=== PATIENT | female | born 1935 | race Caucasian/White ===

== ENCOUNTER 2019-09-09 10:54 | Outpatient (CLI) | payer MEDICARE, OTHER, SELFPAY ==
--- NOTE | 2019-09-09 | US_ITS ---
WS: [id number] ULTRASOUND-GUIDED LEFT BREAST BIOPSY CLINICAL INFORMATION: LT BREAST MASS COMPARISON: None. FINDINGS: The procedure including risks, benefits, and complications were discussed with the patient who agreed to proceed. Using sterile technique patient was prepped and draped in the usual sterile fashion. Aft er 1% lidocaine utilizing real-time ultrasound guidance 6 14-gauge cores were obtained of the left br east lesion at the 9 o'clock position. Subsequently a titanium clip was placed in the biopsy cavity. No immediate complications. Pathology demonstrates: Invasive ductal carcinoma Breast cancer prognostic profile pending US/[place] [id number] IMPRESSION: 1. Uncomplicated ultrasound-guided left breast biopsy. 2. The pathology demonstrates invasive ductal carcinoma 3. Breast cancer prognostic profile pending. BI-RADS: 6-Known Biopsy-Proven Malignancy FOLLOW UP: See Report RECOMMEND ONCOLOGY AND BREAST SURGERY CONSULTATION.
[2019-09-09 11:39] LABS: INR 1.05 (0.8-1.2)
== END 2019-09-09 10:55 | disposition home or self-care (01) ==
PROVIDERS: Family Provider Nurse Practitioner Family; PCP Nurse Practitioner Family; Visit Provider Nurse Practitioner Family
DX: C50.912 Malignant neoplasm of unspecified site of left female breast (principal); Z01.812 Encounter for preprocedural laboratory examination
CPT/HCPCS: 19083; 85610; 88305; 88361; 88367; 88374; J2001

== ENCOUNTER 2019-10-07 07:24 | Outpatient (CLI) | payer MEDICARE, OTHER, SELFPAY ==
[2019-10-06 14:29] VITALS: BMI 27.4
[2019-10-07 07:44] VITALS: BP 160/70; PULSE 65; RESP 18; TEMP 36.7; O2SAT 98
--- NOTE | 2019-10-07 07:47 | NM_ITS ---
WS: [id number] SENTINEL NODE TECHNIQUE: Left sentinel node injection CLINICAL INFORMATION: Left Breast Cancer COMPARISON: None. PROCEDURE: The procedure including risks, benefits, and complications were discussed; the patient agr eed to proceed. Patient was prepped and draped in usual sterile fashion. Subsequently, 1% lidocaine p reservative-free was administered at the 12:00, 3:00, 6:00, and 9:00 o'clock positions for local anes thesia. Subsequently, 4 aliquots of filtered technetium 99m sulfur colloid was injected into the subc utaneous soft tissues. A total dose of 1.02 mCi was administered. Patient tolerated the procedure well with no immediate complications. MS/MS sentinel node inject [id number] IMPRESSION: Uncomplicated left breast sentinel node injection with a total dose of 1.02 mCi .
[2019-10-07] MEDS: sodium chloride 0.9% 1,000 ML 30 ML IV (07:55)
--- NOTE | 2019-10-07 08:58 | ANES.PREANES ---
Pre-Anesthetic Assessment Pre-Anesthetic Assessment: Height/Weight: Height 1.63 m Weight 72.575 kg Temp Pulse Resp BP Pulse Ox 98.0 F 65 18 160/70 98 10/07/19 07:44 10/07/19 07:44 10/07/19 07:44 10/07/19 07:44 10/07/19 07:44 Proposed Procedure: Operation Date: 10/07/19 10:00 Proposed Procedures p Sentinal Lymph Node Biopsy/(Left) - Mario Clark MD s Breast Biopsy/Lumpectomy(Left) - Mario Clark MD Last intake: Intake Last Liquid Date 10/06/19 Last Liquid Time 21:30 Last Solid Date 10/06/19 Last Solid Time 21:30 Exam: Pre-Anes Outpt Exam: alert, oriented x 3, clear to auscultation bilaterally and regular rate & rhythm Airway: Submandibular: WNL Cervical ROM: WNL MP: 2 Dentition: Full History/ROS: No significant history except as noted Pulmonary: Pulmonary: Asthma and HERBERT CV/HEM: CV/HEM: CAD and HTN : Comments: stones Hepatic: Hepatic: None reported GI: GI: GERD (occ) Metabolic: Metabolic: DM and Hyperlipidemia Musc/skel: Musc/skel: OA/DJD Neuropsych: Neuropsych: Anxiety and Depression Anesthetic Plan: ASA status: III Anesthesia: Anesthesia Evaluation and MAC Risk of > 500 ml blood loss (7ml/kg in children): No PFSH Anesthesia PFSH: Medical History Enrolled in chronic care management (Acute) Surgical History H/O heart bypass surgery (Acute) History of carpal tunnel release of both wrists (Acute) History of cataract surgery (Acute) History of hip replacement (Acute) Previous back surgery (Acute) Social History Smoking and tobacco status: former smoker Alcohol intake: never Lives independently: Yes Marital status: / Current occupational status: retired Current gender identity: Female Data Anesthesia Cardiac Studies: No Data to Display
--- NOTE | 2019-10-07 10:37 | PM.HPUD ---
H&P update H&P Update: DATE OF SURGERY/PROCEDURE: 10/07/19 DATE H&P PERFORMED: 09/21/19 H&P UPDATE INFORMATION: H&P completed within last 30 days and No changes to prior documentation PLANNED PROCEDURE: Operation Date: 10/07/19 10:00 Proposed Procedures p Sentinal Lymph Node Biopsy/(Left) - Mario Clark MD s Breast Biopsy/Lumpectomy(Left) - Mario Clark MD Full H&P Perinent History: Medical/Surgical History: Medical History (Updated 10/07/19 @ 09:00 by Avery Meyers MD) Enrolled in chronic care management (Acute) Family History: Family History (Updated 09/06/19 @ 13:41 by Gia Rodriguez LPN) Father Stroke Mother Ovarian cancer Other Breast cancer Cancer Diabetes Heart disease Hypertension Social History: Social History Smoking and tobacco status: former smoker Alcohol intake: never Lives independently: Yes Marital status: / Current occupational status: retired Current gender identity: Female
[2019-10-07] MEDS: clindamycin 900 MG/50 ML PREMIX 100 MG IV (10:46)
--- NOTE | 2019-10-07 11:29 | P.OP_ITS ---
Operative Report Date of procedure: 10/07/19 Pre-op Diagnosis: Left breast cancer in the inner outer quadrant. Post-op diagnosis: same Post-op Findings: Same. Procedure Done: 1. Left breast lumpectomy. 2. Left axillary sentinel lymph node biopsy. Specimens removed/disposition: 1. Left lumpectomy. Long suture anteriorly, short suture laterally. 2. Left axillary sentinel lymph nodes. Surgeon: Mario Clark Anesthesia: MAC Estimated blood loss (mL): 5 Complications: None. Condition: stable Disposition: same day Procedure: The patient was brought to the operating room and was placed in a supine position on the operating room table. The patient had undergone radioactive tracer injection in radiology preoperatively. A monitored anesthetic was induced. The left axilla and breast were prepped and draped in a sterile fashion. The gamma probe was used to find the hot spot in the axilla. A combination of 1% lidocaine and 0.5% bupivacaine with 1-200,000 parts epinephrine was used for local anesthesia throughout the procedure. A curvilinear incision was carried out over the hot spot of the axilla. Cautery and blunt dissection were used to traverse the subcutaneous tissue and the axilla was entered. Using a combination of inspection and the gamma probe, the hot lymph node was found and was completely removed using blunt dissection and cautery. The lymph node registered counts of 96 on the field. An adjacent lymph node was also removed with the first and measured counts in the mid 20s. Further inspection of the axilla with the gamma probe revealed counts all less than 10. The wound was irrigated with saline. A suture of 3-0 Vicryl was used to bring the deeper tissue together and the skin was approximated using a running subcuticular suture of 4-0 Vicryl. Attention was then directed to the left breast. A transverse incision was carried out over the palpable mass in the lower inner quadrant. Skin hooks were used to elevate the skin and skin flaps were created both superiorly and inferiorly. The mass was completely excised with a rim of normal-appearing breast tissue using cautery. A long suture was placed on the specimen anteriorly and a short suture was placed laterally for pathologic orientation. The wound was irrigated with saline and no ongoing bleeding was seen. The skin was reapproximated using a running subcuticular suture of 4-0 Vicryl. Benzoin and Steri-Strips were placed over the wounds and sterile bandages followed. The patient was taken to the outpatient recovery area in stable c ondition postoperatively.
[2019-10-07 11:33] VITALS: BP 89/36; PULSE 58; RESP 14; TEMP 36.3; O2SAT 95
[2019-10-07 12:30] VITALS: BP 158/65; PULSE 64; RESP 18; O2SAT 98
[2019-10-07] MEDS: HYDROcodone-acetaminophen 5-325 mg Tablet 1 TAB PO (13:20)
[2019-10-13 10:11] LABS: Glucose Point of Care 123 mg/dL (70-110)
== END 2019-10-07 13:30 | disposition home or self-care (01) ==
PROVIDERS: Family Provider Nurse Practitioner Family; PCP Nurse Practitioner Family; Visit Provider Surgery
DX: C50.312 Malignant neoplasm of lower-inner quadrant of left female breast (principal); Z17.0 Estrogen receptor positive status [ER+]; Z87.891 Personal history of nicotine dependence; Z80.41 Family history of malignant neoplasm of ovary; E11.9 Type 2 diabetes mellitus without complications; I10 Essential (primary) hypertension
CPT/HCPCS: 36416; 38792; 82962; 88305; A9541; J2001; J2704; J3010; J3490; J7030

== ENCOUNTER → 2019-10-22 11:50 | Outpatient (BNVA) | payer MEDICARE, OTHER, SELFPAY | PROVIDERS: Family Provider Nurse Practitioner Family; PCP Nurse Practitioner Family; Visit Provider Obstetrics & Gynecology | DX: R93.89 Abnormal findings on diagnostic imaging of other specified body structures (principal) | CPT/HCPCS: 88305 ==

== ENCOUNTER 2019-10-25 10:48 | Outpatient (CLI) | payer MEDICARE, OTHER, SELFPAY ==
--- NOTE | 2019-10-25 13:55 | ONC CON_ITS ---
Dr. Mendieta New Patient Note Patient: Reyna Lopez Unit #: [id number]: 1935 Dicatated By: Sofie Mendieta M.D.Date of Visit: Oct 25, 2019 Onc MED New Patient/Consult Referring Physician: Dr. Mario Clark M.D. History of Present Illness: Mrs. Reyna Lopez, is a 83-year-old female with long-standing history of left breast mass, as per patient it was a very small e.g. pea-sized mass in the right lower portion of left breast but she did not seek any intervention until recently when she noticed mass started getting bigger and also pain in the left breast, but no nipple discharge or retraction. Was evaluated by PMD and underwent mammogram which confirmed the mass in the left breast followed by ultrasound-guided biopsy which confirmed invasive carcinoma ER positive SC negative HER-2/denia negative subsequently underwent left breast lumpectomy with left axillary sentinel lymph node biopsy on 10/07/2019 and final pathology report showed ER 94%, SC less than 1%, HER-2/denia negative, Ki-67 is 38 which is high and size of invasive tumor was 3 x 2.6 x 1.7 cm, clear surgical margins , moderately differentiated, p T2 , 2 left axillary lymph nodes showed no evidence of metastatic disease pN0 Patient tolerated procedure well. No history of hormonal supplement, menarche at age 11 or 12, first at age 16, family history significant for 2 sisters with history of breast cancer. Patient also has history of melanoma involving left shoulder status post excision with skin grafting in 1970s .Denies any specific complaints, no bony pains, no nausea or vomiting, no fever or chills, left breast postlumpectomy site is healing well. Past Medical History: Ms. Russos medical history consists of anxiety, arthritis, depression, heart disease, history of bladder cancer, history of melanoma, history of myocardial infarction, hypercholesterolemia, hypertension, and type II diabetes. Past Surgical History: Ms. Russos surgical/procedural history consists of back surgery, bilateral carpal tunnel release, bilateral hip surgery, bladder suspension, cataract excision, coronary artery bypass, cystoscopy, and melanoma excision from left upper arm. Medications: Albuterol Sulfate Nebulization solution Inhalation, Albuterol Sulfate Aerosol Powder, Breath Activated Inhalation, ALPRAZolam 1 Tablet (of 0.5 mg) Oral t.i.d., amLODIPine Besylate 1 Tablet (of 10 mg) Oral daily, Aspirin 1 Tablet (of 81 mg) Oral daily, Atorvastatin Calcium 1 Tablet (of 40 mg) Oral daily, Bumetanide 1 Tablet (of 1 mg) Oral daily, Cholecalciferol 1 Capsule (of 125 mcg ) Oral daily, Cinnamon 2 Capsule (of 500 mg) Oral daily, Flaxseed Oil 1 Capsule (of 1200 mg) Oral daily, hydrALAZINE HCl 1 Tablet (of 50 mg) Oral t.i.d., Insulin Detemir 30 Units (of 100 Units/mL) Subcutaneous daily, Irbesartan 0.5 Tablet (of 300 mg) Oral b.i.d., Isosorbide Mononitrate ER 1 Tablet (of 30 mg) Tablet SR 24 HR Oral daily, Lisinopril 1 Tablet (of 40 mg) Oral daily, Magnesium Oxide 1 Tablet (of 400 mg) Capsule Oral daily, Metoprolol Tartrate 0.5 Tablet (of 25 mg) Oral b.i.d., Zinc 1 Capsule (of 50 mg) Oral daily Allergies: Cephalexin Social History: Ms. Lopez is . Ms. Lopez no longer smokes but had smoked 1.0 pack/day. She has no history of drinking. Family History: There is no documented family history. Review Of Symptoms: Constitutional - Appetite is good and weight is stable. No fever, chills, hot flashes, or night sweats. Energy level is appropriate, ENMT - No sinus congestion/drainage. No mouth sores. No sore throat or difficulty swallowing, Hematologic/Lymphatic - No abnormal bruising or bleeding, Respiratory - Positive for shortness of breath. No cough. No pleuritic pain or hemoptysis, Cardiovascular - No angina pain. No palpitations, Gastrointestinal - No nausea or vomiting. Positive for heartburn and acid reflux. No diarrhea or constipation. No blood in the stool or black stools, Genitourinary (F) - No dysuria or hematuria. No urinary frequency. No urgency or incontinence, Musculoskeletal - No joint or bone pain, Neurologic - No headache or dizziness. No numbness/paresthesias or other focal neurologic symptoms, Psychiatric - No anxiety or depression. No insomnia. Vital Signs: Performed on Oct 25, 2019 12:29: 0, 26.85, 1.76 sq.m, 64 in, 96 %, 74 /min, 18 /min, 151/69 mm(hg) (HIGH), 97.6 F (LOW), and 156.4 lbs (HIGH). Performance Status: 0 - Fully active, able to carry on all predisease activities without restrictions. (ECOG) Physical Examination: ENMT - No oral exudates, ulcers, masses, thrush or mucositis. Oropharynx clear. Tongue normal, Respiratory - Lungs are clear to auscultation without rhonchi or wheezing, Cardiovascular - Regular rate and rhythm of heart , left breast exam shows well-healing right lower quadrant postlumpectomy surgical scar and also left axillary sentinel lymph node biopsy scar, Abdomen - Non-tender, non-distended, Good bowel sounds. No guarding or rebound tenderness. No pulsatile masses, Extremities - no edema. Lab/Imaging: Most recent lab results are not available for this patient. Impression: Moderately invasive ductal carcinoma involving left breast status post lumpectomy and sentinel lymph node biopsy done on 10/07/2019 Final pathology report showed 3 x 2.6 x 1.7 cm invasive mass with clear surgical margins, moderately differentiated , pT2 No lymphovascular invasion seen 2 axillary sentinel lymph nodes were examined showed no evidence of metastatic disease pN0 Stage IIa ER positive 94%,, SC negative e.g. less than 1%, HER-2/denia negative, Ki-67 high at 38% History of melanoma involving left shoulder status post excision with skin graft done in 1970s. He Plan: Discussed with patient regarding her disease status, patient is elderly female with excellent performance status recently underwent left breast lumpectomy with sentinel lymph node biopsy which showed node-negative T2, moderately differentiated lesion with a clear margin e.g. stage II a, ER positive but SC negative and also with elevated Ki-67 indicative of unfavorable prognosis. So we will consider Oncotype DX score, if low score then adjuvant hormonal therapy will be sufficient. At this point, we will start her on adjuvant hormonal therapy with Arimidex 1 mg by mouth daily for 5 years patient is already taking vitamin D and calcium.. All the side effect possible benefits associated with Arimidex were discussed in detail including but not limited to, generalized muscular skeleton pain, hot flashes, generalized weakness and fatigue were mentioned further teaching will be done by chemotherapy nurse. We will also refer her to radiation oncology for evaluation for postlumpectomy radiation therapy. Patient will return to clinic in one month with CBC CMP, at that time we'll review her Oncotype DX score and plan accordingly. Signed By: Sofie Mendieta M.D. <<Signature on File>>
== END 2019-10-25 10:49 | disposition home or self-care (01) ==
LOC: ONCMED 10:49
PROVIDERS: Family Provider Nurse Practitioner Family; PCP Nurse Practitioner Family; Referring Provider Surgery; Visit Provider Internal Medicine Hematology & Oncology
DX: C50.312 Malignant neoplasm of lower-inner quadrant of left female breast (principal); Z17.0 Estrogen receptor positive status [ER+]; M19.90 Unspecified osteoarthritis, unspecified site; F41.8 Other specified anxiety disorders; Z79.51 Long term (current) use of inhaled steroids; Z79.82 Long term (current) use of aspirin; Z79.811 Long term (current) use of aromatase inhibitors; Z85.820 Personal history of malignant melanoma of skin; Z85.51 Personal history of malignant neoplasm of bladder; Z95.1 Presence of aortocoronary bypass graft; Z87.891 Personal history of nicotine dependence
CPT/HCPCS: 99205

== ENCOUNTER 2019-10-27 14:22 | Outpatient (CLI) | payer MEDICARE, OTHER, SELFPAY ==
--- NOTE | 2019-10-29 16:42 | N.ONRAD NP_ITS ---
Radiation Oncology New Patient Visit Patient: Reyna Lopez MR#: [id number] : 1935> Age: 83> Sex: Female> Dictated by: Dr. Shay Vega Date of Service: 10/27/2019 Referring Physician(s) : Sofie Mendieta Primary Diagnosis: C50.312 - malignant neoplasm of lower-inner quadrant of left female breast, Diagnosed 10/25/2019 (active). Chief complaint: Left breast cancer History of Present Illness: This is an 83 y/o female who noticed a left breast nodule about 3 years ago. She ignored it without to seek any medical care. It has enlarged progressively recently with associated pain. She had an abnormal mammogram and ultrasound which confirmed a left breast mass. She underwent a biopsy of this lesion which revealed infiltrating ductal carcinoma, ER+, MS-, Her 2-. She denies skin changes and nipple retraction/discharge. The patient underwent right breast lumpectomy with sentinel lymph node dissection on 10/07/2019. Tumor is 3 x 2.6 x 1.7 cm moderately differentiated infiltrating ductal carcinoma. No lymphovascular invasion was identified. Surgical margins are negative but the invasive tumor comes to within 1 mm of the inked posterior margin. Remaining margins free by at least a 4 mm. Two left axillary lymph nodes are negative for carcinoma. She has recovered well from the surgery. She comes in today to discuss about adjuvant radiation therapy. Current Medications: Albuterol Sulfate, albuterol Sulfate, aLPRAZolam, amLODIPine Besylate, anastrozole, aspirin, atorvastatin Calcium, bumetanide, cholecalciferol, cinnamon, flaxseed Oil, hydrALAZINE HCl, insulin Detemir, irbesartan, isosorbide Mononitrate ER, lisinopril, magnesium Oxide, metoprolol Tartrate, zinc. Allergies: Cephalexin. Medical History: - Anxiety, - arthritis, - depression, - heart disease, - history of bladder cancer, - history of melanoma, - history of myocardial infarction, - hypercholesterolemia, - hypertension, - type II diabetes. No history of collagen vascular disease. No previous radiation therapy. Surgical History: Back surgery, bilateral carpal tunnel release, bilateral hip surgery, bladder suspension, cataract excision, colonoscopy, coronary artery bypass, cystoscopy and melanoma excision from left upper arm. Family History: Sister has experienced breast cancer. Social History: Last screened on 10/27/2019 - Yes - but has quit for 40 years. Smoked 1.0 pack/day for 25 years (25 pack years). Last screened on 10/25/2019 - Never drank. Obstetrics/Gynecology History: G7, P7. Age of menarche at 11 years old. Went through natural menopause in her 40's. No H/O receiving any HRT. No H/O using any BCP. Current Complaints / Review of Systems: Constitutional - Denies lack of appetite, fatigue, fever, night sweats and change in weight. Eyes - Denies blurred vision. Has macular degeneration in the right eye. ENMT - Complains of problems with hearing. Denies dysphagia, ear pain, mouth dryness, stomatitis, altered taste and tinnitus. Neck - Complains of neck pain left side with turning. Integumentary - Denies rash. Breasts - Denies pain. Cardiovascular - Complains of arrhythmias occasionally and it feels like it skips a beat and chest pain once in awhile that comes and goes. Respiratory - Complains of cough which is productive. Complains of dyspnea associated with normal activity. Complains of wheezing which happens occasionally. Denies hemoptysis. Gastrointestinal - Complains of occasional constipation. Complains of heartburn / dyspepsia which happens once in awhile. Denies abdominal pain, diarrhea, melena / GI bleeding, nausea and vomiting. Genitourinary (F) - Denies dysuria, frequency, nocturia, urgency and vaginal discharge / bleeding. Musculoskeletal - Complains of joint pain left leg. Denies bone pain and muscle weakness. Neurologic - Denies dizziness, abnormal gait and headaches. Endocrine - Complains of Type 2 diabetes. Complains of hot flashes. Denies thyroid disease. Hematologic/Lymphatic - Denies tender or enlarged lymph nodes.. Vital Signs: Performed on 10/27/2019 2:54 PM BMI - 26.915 kg/m2 (high), Height - 64.00 in, Weight - 156.8 lbs, Temperature - 97.3 f, Pulse - 64, Respiration - 20, O2 Sat - 99 %, Pain - 0, Fatigue - 0 and BP - 164/ 70 mm(hg)(high/). Physical Exam: General: Alert and oriented x 3. No acute distress. HEENT: Normocephalic, atraumatic. Extraocular Movements Intact: Pupils Equal, Round, Reactive to Light and Accommodation: Sclerae anicteric. Oral cavity is clear without lesions, masses or ulcers. NECK: Supple without supraclavicular or jugular lymphadenopathy. LUNGS: Clear to auscultation bilaterally without rales, rhonchi or wheeze. HEART: Regular rate and rhythm, normal S1 and S2 without murmur, gallop or rub. BREASTS: There is no mass/nodule palpated of the left breast. No skin change, nipple discharge or retraction. The surgical incision has healed up well with no signs of bleeding or infection but there is a big seroma at the surgical cavity. No enlarged lymph nodes in the axilla. Exam of the contralateral breast is unremarkable. MUSCULOSKELETAL: No tenderness or percussion pain over the axial skeleton, scapulae or pelvis. ABDOMEN: Soft, nontender, nondistended without masses or organomegaly. Bowel sounds are present. EXTREMITIES: No peripheral edema is identified. Limited motor and sensory examination are grossly intact and symmetric bilaterally. NEUROLOGIC: Cranial nerves II ???XII are grossly intact. Normal sensation, strength 5/5 in all extremities, normal gait, no ataxia. Performance Status: 1 - No physically strenuous activity, but ambulatory and able to carry out light or sedentary work (e.g. office work, light house work). (ECOG) Pathology: infiltrating ductal carcinoma of the left breast, grade 2, ER+, MS-, Her2- Lab: none pending Imaging: See HPI Impression: The patient is an 83 year old female with a recently diagnosed pT2, pN0, Mx infiltrating ductal carcinoma of the left breast, grade 2, ER+, MS-, Her2-, s/p left lumpectomy with SLN dissection. Surgical margins are negative but close with posterior margin <1mm. No lymphovascular invasion was identified. Plan: I recommend adjuvant whole breast irradiation to 42.5Gy followed by a boost of 10Gy in 4 fractions to the tumor bed. The procedure, benefit, risks and potential side effects of radiation therapy were explained to the patient and her family in detail. The potential side effects include but are not limited to fatigue, skin reaction, breast swelling/tenderness, fibrosis, slightly increased risk of rib fracture, damage to the lung and heart, lymphedema and secondary malignancy. Ms Lopez has expressed good understanding and decided to proceed with the radiotherapy. She will have an Oncotype DX test to determine whether or not she will benefit from chemotherapy. In the meantime she will see Dr. Clark to evaluate the big seroma at the surgical cavity. She will follow up with us afterwards. Signed by: 10/29/2019 4:41:08 PM <<Signature on File>> CPT Code: CPT Code: Signed By: Dr. Shay Vega, 10/29/2019 4:41:09 PM <<Signature on File>>
== END 2019-10-27 14:23 | disposition home or self-care (01) ==
LOC: ONCMED 14:22
PROVIDERS: Family Provider Nurse Practitioner Family; PCP Nurse Practitioner Family; Visit Provider Radiology Radiation Oncology
DX: C50.312 Malignant neoplasm of lower-inner quadrant of left female breast (principal); Z17.0 Estrogen receptor positive status [ER+]; F41.8 Other specified anxiety disorders; M19.90 Unspecified osteoarthritis, unspecified site; I25.2 Old myocardial infarction; E78.00 Pure hypercholesterolemia, unspecified; I10 Essential (primary) hypertension; E11.9 Type 2 diabetes mellitus without complications; Z79.82 Long term (current) use of aspirin; Z79.4 Long term (current) use of insulin; Z79.899 Other long term (current) drug therapy; Z85.51 Personal history of malignant neoplasm of bladder; Z85.820 Personal history of malignant melanoma of skin; Z95.1 Presence of aortocoronary bypass graft
CPT/HCPCS: 99205

== ENCOUNTER → 2019-11-10 09:49 | Outpatient (BNVA) | payer MEDICARE, OTHER, SELFPAY | PROVIDERS: Family Provider Nurse Practitioner Family; PCP Nurse Practitioner Family; Visit Provider Urology | DX: C67.5 Malignant neoplasm of bladder neck; N20.0 Calculus of kidney | CPT/HCPCS: 81001 ==

== ENCOUNTER 2019-11-18 12:19 | Day surgery (SDC) | payer MEDICARE, OTHER, SELFPAY ==
[2019-11-17 17:27] VITALS: BMI 27.4
[2019-11-18] VITALS (7 sets, daily range): BP systolic 128–142; BP diastolic 54–78; PULSE 59–80; RESP 14–18; TEMP 36.2–36.9; O2SAT 96–100
--- NOTE | 2019-11-18 12:59 | ANES.PREANE2 ---
Pre-Anesthetic Assessment Pre-Anesthetic Assessment: Height/Weight: Height 1.63 m Weight 72.575 kg Preop Diagnosis: Recurrent bladder tumor Proposed Procedure: Operation Date: 11/18/19 14:00 Proposed Procedures p Transurethral Resection Bladder Tumor 25478 C67.2(Not Applicable) - Kenneth Longo MD s Cystoscopy(Not Applicable) - Kenneth Longo MD Familial anesthetic complications: none Was Beta Collette taken within 24 hours: Yes Last intake: Intake Broth at 0800 at sips with meds Last Liquid Date 11/18/19 Last Liquid Time 08:00 Last Solid Date 11/18/19 Last Solid Time 08:00 Social: Social History: No alcohol and No tobacco Exam: Pre-Anes Outpt Exam: alert, oriented x 3, clear to auscultation bilaterally and regular rate & rhythm Airway: Cervical ROM: WNL MP: 4 Dentition: False Pulmonary: Pulmonary: None reported CV/HEM: CV/HEM: CAD and HTN Comments: cabg X 1998 : : None reported Hepatic: Hepatic: None reported GI: GI: GERD Metabolic: Metabolic: DM Musc/skel: Musc/skel: Lower Back Pain Neuropsych: Neuropsych: None reported Anesthetic Plan: ASA status: 3 Anesthesia: General Risk of > 500 ml blood loss (7ml/kg in children): No PFSH Anesthesia PFSH: Social History Smoking and tobacco status: former smoker Alcohol intake: never Lives independently: Yes Marital status: / Current occupational status: retired Current gender identity: Female Data Anesthesia Cardiac Studies: No Data to Display
[2019-11-18 13:05] LABS: Glucose Point of Care 110 mg/dL (70-110)
[2019-11-18] MEDS: sodium chloride 0.9% 1,000 ML 30 ML IV (13:06)
--- NOTE | 2019-11-18 13:34 | W.PM.OPSUD ---
Surgery/Procedure H&P Update DATE OF PROCEDURE: November 18, 2019 DATE H&P PERFORMED: 11/10/19 H&P UPDATE INFORMATION: I have reviewed H&P completed within last 30 days, I have examined patient prior to procedure and No changes to prior documentation PREOP DIAGNOSIS: Recurrent bladder tumor PLANNED PROCEDURE: Operation Date: 11/18/19 14:00 Proposed Procedures p Transurethral Resection Bladder Tumor 50926 C67.2(Not Applicable) - Kenneth Longo MD s Cystoscopy(Not Applicable) - Kenneth Longo MD
--- NOTE | 2019-11-18 13:35 | P.OP_ITS ---
Operative Report Date of procedure: November 18, 2019 Pre-op Diagnosis: Recurrent bladder tumor Post-op diagnosis: same Procedure Done: Cystoscopy, transurethral resection of bladder tumor small Pathology: Bladder neck papillary lesion Surgeon: Donta Anesthesia: General Estimated blood loss: Minimal Urine output: Not measured Complications: None Findings: Small papillary lesion posterior bladder neck completely resected with fulguration of the base. Did not appear to be muscle invasive. Condition: stable Disposition: PACU Brief History: Ms. Lopez is a very pleasant 84-year-old white female who has a history of bladder cancer. See H&P for full details. Recent surveillance cystoscopy revealed a small papillary lesion just inside the bladder neck and she is admitted for cystoscopy transurethral resection of this lesion. Procedure: After routine preoperative evaluation examination and obtaining of informed consent she was taken to the operating suite on 11/18/2019 where general anesthesia was administered without difficulty after appropriate timeout was performed, SCDs confirmed to be functioning, preoperative antibiotics administered, beta-darnell protocol confirmed. Prepped and draped in usual sterile fashion in dorsolithotomy position pain careful attention to avoiding pressure points. 21 Estonian cystoscope with 30 degree lens was introduced into the urethral meatus and advanced into the bladder videoscopy. Bladder was systematically examined and found to be without lesions inside the bladder proper but a small papillary lesion was noted at the posterior bladder neck. This confirmed the findings identified on flexible cystoscopy in my office. Cold cup biopsy forceps were then utilized for complete resection of this lesion. The base was then fulgurated with a Bugbee cautery probe. Specimen sent for pathologic evaluation. Final inspection showed a hemostatic bladder neck and bladder. PLANS: 1. No Baca catheter left in place. If she voids well will send home without a catheter. 2. Call late next week for pathology report 3. Follow-up in 2 months for cystoscopy possible fulguration in the clinic
[2019-11-18] MEDS: levofloxacin-dextrose 5 % 500 MG/100 ML PREMIX 100 MG IV (13:45)
--- NOTE | 2019-11-18 14:32 | SUR.PHASEI ---
1427 PATIENT TO PACU AT THIS TIME. RR EVEN AND UNLABORED. PLACED ON SIMPLE MASK AT 8L, SPO2 99%. PATIENT DENIES PAIN.
--- NOTE | 2019-11-18 14:50 | SUR.PHASEI ---
1446 PATIENT TO OPS AT THIS TIME. A/OX3. RR EVEN AND UNLABORED. DENIES PAIN.
== END 2019-11-18 15:40 | disposition home or self-care (01) ==
PROVIDERS: Family Provider Nurse Practitioner Family; PCP Nurse Practitioner Family; Visit Provider Urology
PROC: 0TBB8ZZ Excision of Bladder, Via Natural or Artificial Opening Endoscopic (ICD-10-PCS; CPT 52234; principal; 2019-11-18 14:00)
PROC: 0TJB8ZZ Inspection of Bladder, Via Natural or Artificial Opening Endoscopic (ICD-10-PCS; CPT 52000; 2019-11-18 14:00)
DX: C67.9 Malignant neoplasm of bladder, unspecified (principal); I25.10 Atherosclerotic heart disease of native coronary artery without angina pectoris; I10 Essential (primary) hypertension; Z95.1 Presence of aortocoronary bypass graft; K21.9 Gastro-esophageal reflux disease without esophagitis; E11.9 Type 2 diabetes mellitus without complications; Z87.891 Personal history of nicotine dependence; Z79.82 Long term (current) use of aspirin; Z80.3 Family history of malignant neoplasm of breast
CPT/HCPCS: 52234; 12345; 36416; 82962; J1956; J2405; J2704; J2710; J3010; J3490; J7030

== ENCOUNTER 2019-11-19 13:45 | Outpatient (CLI) | payer MEDICARE, OTHER, SELFPAY ==
[2019-11-19 14:49] LABS: Basophils # 0.1 10^3/uL (0.0-0.1); Eosinophils # 0.1 10^3/uL (0.0-0.8); Hematocrit 36.2 % (37.0-47.0); Hemoglobin 11.5 g/dL (11.5-15.3); Lymphocytes # 0.6 10^3/uL (0.8-4.8); Lymphocytes % 11.7 %; Mean Corpuscular HGB Conc 31.8 g/dL (30.0-36.0); Mean Corpuscular Volume 91.4 fL (81-99); Mean Platelet Volume 12.5 fL (7.4-10.4); Monocytes # 0.4 10^3/uL (0.2-0.9); Monocytes % 8.1 %; Neutrophils # 3.8 10^3/uL (1.8-7.7); Neutrophils % 76.8 %; Nucleated Red Blood Cells % 0 %; Platelet Count 166 10^3/cmm (130-400); Red Blood Count 3.96 10^6/uL (4.1-5.3); Red Cell Distribution Width 13.1 % (12.1-15.1)
[2019-11-19 15:33] LABS: Alanine Aminotransferase 14 U/L (0-33); Alkaline Phosphatase 66 IU/L (35-105); Anion Gap 16.7 (5-19); Aspartate Amino Transferase 20 U/L (0-32); Blood Urea Nitrogen 26 mg/dL (8-23); Calcium 9.9 mg/dL (8.5-10.5); Carbon Dioxide 25 mmol/L (22-29); Chloride 104 mmol/L (98-107); Globulin 2.1 g/dL (1.3-4.6); Glucose 115 mg/dL (65-115); Osmolality Calculated 290 mOsm/kg (285-295); Potassium 4.7 mmol/L (3.5-5.1); Sodium 141 mmol/L (136-145); Total Bilirubin 0.3 mg/dL (0.15-1.2); Total Protein 6.1 g/dL (6.6-8.7)
== END 2019-11-19 13:46 | disposition home or self-care (01) ==
LOC: ONCMED 13:46
PROVIDERS: Family Provider Nurse Practitioner Family; PCP Nurse Practitioner Family; Visit Provider Internal Medicine Hematology & Oncology
DX: C50.312 Malignant neoplasm of lower-inner quadrant of left female breast (principal)
CPT/HCPCS: 80053; 85025; 88305

== ENCOUNTER 2019-11-22 14:20 | Outpatient (CLI) | payer MEDICARE, OTHER, SELFPAY ==
--- NOTE | 2019-11-22 16:34 | ONC FU_ITS ---
Dr. Mendieta follow up note Patient: Reyna Lopez Unit #: [id number]: 1935 Dicatated By: Sofie Mendieta M.D.Date of Visit:Nov 22, 2019 Onc Med Follow-up/Prog Note History of Present Illness: Mrs. Reyna Lopez, is a 84-year-old female with long-standing history of left breast mass, as per patient it was a very small e.g. pea-sized mass in the right lower portion of left breast but she did not seek any intervention until recently when she noticed mass started getting bigger and underwent mammogram which confirmed the mass in the left breast followed by ultrasound-guided biopsy which confirmed invasive carcinoma ER positive MN negative HER-2/denia negative subsequently underwent left breast lumpectomy with left axillary sentinel lymph node biopsy on 10/07/2019 and final pathology report showed ER 94%, MN less than 1%, HER-2/denia negative, Ki-67 is 38 which is high and size of invasive tumor was 3 x 2.6 x 1.7 cm, clear surgical margins , moderately differentiated, p T2 , 2 left axillary lymph nodes showed no evidence of metastatic disease pN0 Oncotype DX score done on 11/03/2019 showed recurrence score 36, risk of distant recurrence at 9 year with Arimidex/tamoxifen,24%and absolute benefit from chemotherapy is more than 15%patient and her family decided not to consider systemic chemotherapy AGAINST MEDICAL ADVICE also declining postlumpectomy radiation therapy. Patient tolerated procedure well. No history of hormonal supplement, menarche at age 11 or 12, first at age 16, family history significant for 2 sisters with history of breast cancer. Patient also has history of melanoma involving left shoulder status post excision with skin grafting in 1970s came for follow-up, denies any specific complaints, no fever or chills, no nausea or vomiting, no diarrhea constipation, tolerating Arimidex with vitamin D and calcium well otherwise Medications: Albuterol Sulfate Aerosol Powder, Breath Activated Inhalation, ALPRAZolam 1 Tablet (of 0.5 mg) Oral t.i.d., amLODIPine Besylate 1 Tablet (of 10 mg) Oral daily, Aspirin 1 Tablet (of 81 mg) Oral daily, Atorvastatin Calcium 1 Tablet (of 40 mg) Oral daily, Bumetanide 1 Tablet (of 1 mg) Oral daily, Cholecalciferol 1 Capsule (of 125 mcg ) Oral daily, Cinnamon 2 Capsule (of 500 mg) Oral daily, Flaxseed Oil 1 Capsule (of 1200 mg) Oral daily, hydrALAZINE HCl 1 Tablet (of 50 mg) Oral t.i.d., Insulin Detemir 30 Units (of 100 Units/mL) Subcutaneous daily, Irbesartan 0.5 Tablet (of 300 mg) Oral b.i.d., Isosorbide Mononitrate ER 1 Tablet (of 30 mg) Tablet SR 24 HR Oral daily, Lisinopril 1 Tablet (of 40 mg) Oral daily, Magnesium Oxide 1 Tablet (of 400 mg) Capsule Oral daily, Metoprolol Tartrate 0.5 Tablet (of 25 mg) Oral b.i.d., Zinc 1 Capsule (of 50 mg) Oral daily Allergies: Cephalexin Review of Systems: Constitutional - Appetite is good and weight is stable. No fever, chills, hot flashes, or night sweats. Energy level is appropriate, ENMT - No sinus congestion/drainage. No mouth sores. No sore throat or difficulty swallowing, Hematologic/Lymphatic - No abnormal bruising or bleeding, Respiratory - Positive for shortness of breath. No cough. No pleuritic pain or hemoptysis, Cardiovascular - No angina pain. No palpitations, Gastrointestinal - No nausea or vomiting. Positive for heartburn and acid reflux. No diarrhea or constipation. No blood in the stool or black stools, Genitourinary (F) - No dysuria or hematuria. No urinary frequency. No urgency or incontinence, Musculoskeletal - No joint or bone pain, Neurologic - No headache or dizziness. No numbness/paresthesias or other focal neurologic symptoms, Psychiatric - No anxiety or depression. No insomnia. Vital Signs: Performed on Nov 22, 2019 14:30 Height - 64.00 in Weight - 157.8 lbs (HIGH) BSA - 1.77 sq.m BMI - 27.09 Temperature - 97.4 F (LOW) Pulse - 71 /min Respiration - 19 /min BP - 150/60 mm(hg) (HIGH) O2 Sat - 96 % Pain - 0 Performance Status: 0 - Fully active, able to carry on all predisease activities without restrictions. (ECOG) Physical Examination: Respiratory - Lungs are clear to auscultation without rhonchi or wheezing, Cardiovascular - Regular rate and rhythm of heart, Extremities - no edema. Lab/Imaging: Most recent lab results are not available for this patient. 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 less than 1%, HER-2/denia negative, Ki-67 high at 38% Oncotype DX score is 36 e.g. high, distant recurrence risk at 9 year his 24% with tamoxifen/aromatase inhibitor and absolute chemotherapy benefit is more than 15% Patient and her daughter declined adjuvant chemotherapy AGAINST MEDICAL ADVICE and also declined postlumpectomy radiation therapy but agreed to continue with Arimidex History of melanoma involving left shoulder status post excision with skin graft done in 1970s. He Plan: Discussed with patient regarding her Oncotype DX score which is elevated at 36 e.g. risk of distant recurrence at 9 year with aromatase inhibitor/tamoxifen is 24% and absolute chemotherapy benefit more than 15% , discussed with patient and her daughter regarding benefits of adjuvant chemotherapy in general population. Patient and her family has decided not to consider chemotherapy knowing the risk versus benefits and also declined to consider postlumpectomy radiation therapy due to risk and toxicity involving with this. All the side effects possible benefits associated with chemotherapy regimen CMF were discussed but patient and her daughter declined AGAINST MEDICAL ADVICE but agreed to continue with Arimidex. Patient was offered to consider simple mastectomy but she will think about this and will discuss with Dr. Clark. In the meantime we'll continue with Arimidex 1 mg by mouth daily for 5 years and she will return to clinic in 3 months with CBC CMP Signed By: Sofie Mendieta M.D. <<Signature on File>>
--- NOTE | 2019-11-22 17:59 | ONCRAD EPV_ITS ---
Radiation Oncology Established Patient Visit Patient: Venecia MR#: [id number] : 1935> Age: 84> Sex: Female> Dictated by: Dr. Jaswinder Cardenas Date of Service: 11/22/2019 Referring Physician(s) : Sofie Mendieta M.D. Diagnosis: C50.312 - Malignant neoplasm of lower-inner quadrant of left female breast, Diagnosed 10/25/2019 (Active) Radiotherapy to Date: Chief Complaint / History of Present Illness: . Current Medications: Albuterol Sulfate, aLPRAZolam, amLODIPine Besylate, anastrozole, aspirin, atorvastatin Calcium, bumetanide, cholecalciferol, cinnamon, flaxseed Oil, hydrALAZINE HCl, insulin Detemir, irbesartan, isosorbide Mononitrate ER, lisinopril, magnesium Oxide, metoprolol Tartrate, zinc. Allergies: Cephalexin. Current Complaints / Review of Systems: . Vital Signs: Performed on 11/22/2019 2:30 PM Height - 64.00 in, Weight - 157.8 lbs (high), BSA - 1.77 sq.m, BMI - 27.09, Temperature - 97.4 f (low), Pulse - 71 /min, Respiration - 19 /min, O2 Sat - 96 %, Pain - 0 and BP - 150/ 60 mm(hg)(high/low). Physical Exam: General: Alert and oriented x 3. No acute distress. HEENT: Normocephalic, atraumatic. Extraocular Movements Intact: Pupils Equal, Round, Reactive to Light and Accommodation: Sclerae anicteric. Oral cavity is clear without lesions, masses or ulcers. NECK: Supple without supraclavicular or jugular lymphadenopathy. LUNGS: Clear to auscultation bilaterally without rales, rhonchi or wheeze. HEART: Regular rate and rhythm, normal S1 and S2 without murmur, gallop or rub. MUSCULOSKELETAL: No tenderness or percussion pain over the axial skeleton, scapulae or pelvis. ABDOMEN: Soft, nontender, nondistended without masses or organomegaly. Bowell sounds are present. EXTREMITIES: No peripheral edema is identified. Limited motor and sensory examination are grossly intact and symmetric bilaterally. NEUROLOGIC: Cranial nerves II ???XII are grossly intact. Normal sensation, strength 5/5 in all extremities, normal gait, no ataxia. Performance Status: Lab: None pending. Pathology: Primary, c50.312 - malignant neoplasm of lower-inner quadrant of left female breast, Diagnosed 10/25/2019 (active). Imaging: See HPI Impression: The patient informed our nursing staff that she is declining radiation. She did not asked to discuss the situation further a with radiation oncology physician. I had no interaction with the patient. Signed by: 11/22/2019 5:58:06 PM <<Signature on File>> Time spent with patient: CPT Code: CPT Code:
== END 2019-11-22 14:21 | disposition home or self-care (01) ==
LOC: ONCMED 14:20
PROVIDERS: Family Provider Nurse Practitioner Family; PCP Nurse Practitioner Family; Visit Provider Internal Medicine Hematology & Oncology
DX: C50.312 Malignant neoplasm of lower-inner quadrant of left female breast (principal); Z17.0 Estrogen receptor positive status [ER+]; Z79.811 Long term (current) use of aromatase inhibitors; Z79.82 Long term (current) use of aspirin; Z79.51 Long term (current) use of inhaled steroids; Z85.820 Personal history of malignant melanoma of skin
CPT/HCPCS: 99214

== ENCOUNTER → 2020-01-12 10:47 | Outpatient (BNVA) | payer MEDICARE, OTHER, SELFPAY | PROVIDERS: Family Provider Nurse Practitioner Family; PCP Nurse Practitioner Family; Visit Provider Urology | DX: C67.9 Malignant neoplasm of bladder, unspecified (principal); C67.5 Malignant neoplasm of bladder neck | CPT/HCPCS: 81001 ==

== ENCOUNTER 2020-02-14 15:07 | Outpatient (CLI) | payer MEDICARE, OTHER, SELFPAY ==
--- NOTE | 2020-02-15 17:59 | ONC FU_ITS ---
Dr. Mendieta follow up note Patient: Reyna Lopez Unit #: [id number]: 1935 Dicatated By: Sofie Mendieta M.D.Date of Visit:Feb 14, 2020 Onc Med Follow-up/Prog Note History of Present Illness: Mrs. Reyna Lopez, is a 84-year-old female with long-standing history of left breast mass, as per patient it was a very small e.g. pea-sized mass in the right lower portion of left breast but she did not seek any intervention until recently when she noticed mass started getting bigger and underwent mammogram which confirmed the mass in the left breast followed by ultrasound-guided biopsy which confirmed invasive carcinoma ER positive KY negative HER-2/denia negative subsequently underwent left breast lumpectomy with left axillary sentinel lymph node biopsy on 10/07/2019 and final pathology report showed ER 94%, KY less than 1%, HER-2/denia negative, Ki-67 is 38 which is high and size of invasive tumor was 3 x 2.6 x 1.7 cm, clear surgical margins , moderately differentiated, p T2 , 2 left axillary lymph nodes showed no evidence of metastatic disease pN0 Oncotype DX score done on 11/03/2019 showed recurrence score 36, risk of distant recurrence at 9 year with Arimidex/tamoxifen,24%and absolute benefit from chemotherapy is more than 15%patient and her family decided not to consider systemic chemotherapy AGAINST MEDICAL ADVICE also declining postlumpectomy radiation therapy. Patient tolerated procedure well. No history of hormonal supplement, menarche at age 11 or 12, first at age 16, family history significant for 2 sisters with history of breast cancer. Patient also has history of melanoma involving left shoulder status post excision with skin grafting in 1970s on Arimidex with vitamin D and calcium Came for follow-up, denies any specific complaints, no fever or chills, no nausea or vomiting, no diarrhea constipation, no hot flashes, no worsening of chronic musculoskeletal discomfort. Tolerating Arimidex/vitamin D/calcium well otherwise Medications: Albuterol Sulfate Aerosol Powder, Breath Activated Inhalation, ALPRAZolam 1 Tablet (of 0.5 mg) Oral t.i.d., amLODIPine Besylate 1 Tablet (of 10 mg) Oral daily, Aspirin 1 Tablet (of 81 mg) Oral daily, Atorvastatin Calcium 1 Tablet (of 40 mg) Oral daily, Bumetanide 1 Tablet (of 1 mg) Oral daily, Cholecalciferol 1 Capsule (of 125 mcg ) Oral daily, Cinnamon 2 Capsule (of 500 mg) Oral daily, Flaxseed Oil 1 Capsule (of 1200 mg) Oral daily, hydrALAZINE HCl 1 Tablet (of 50 mg) Oral t.i.d., Insulin Detemir 30 Units (of 100 Units/mL) Subcutaneous daily, Irbesartan 0.5 Tablet (of 300 mg) Oral b.i.d., Isosorbide Mononitrate ER 1 Tablet (of 30 mg) Tablet SR 24 HR Oral daily, Lisinopril 1 Tablet (of 40 mg) Oral daily, Magnesium Oxide 1 Tablet (of 400 mg) Capsule Oral daily, Metoprolol Tartrate 0.5 Tablet (of 25 mg) Oral b.i.d., Zinc 1 Capsule (of 50 mg) Oral daily Allergies: Cephalexin Review of Systems: Constitutional - Appetite is good and weight is stable. No fever, chills, hot flashes, or night sweats. Energy level is appropriate, ENMT - No sinus congestion/drainage. No mouth sores. No sore throat or difficulty swallowing, Hematologic/Lymphatic - No abnormal bruising or bleeding, Respiratory - Positive for shortness of breath. No cough. No pleuritic pain or hemoptysis, Cardiovascular - No angina pain. No palpitations, Gastrointestinal - No nausea or vomiting. Positive for heartburn and acid reflux. No diarrhea or constipation. No blood in the stool or black stools, Genitourinary (F) - No dysuria or hematuria. No urinary frequency. No urgency or incontinence, Musculoskeletal - No joint or bone pain, Neurologic - No headache or dizziness. No numbness/paresthesias or other focal neurologic symptoms, Psychiatric - No anxiety or depression. No insomnia. Vital Signs: Performed on Feb 14, 2020 15:26 Height - 64.00 in Weight - 151.2 lbs (LOW) BSA - 1.74 sq.m BMI - 25.95 Temperature - 98.6 F Pulse - 76 /min Respiration - 22 /min BP - 186/62 mm(hg) (HIGH) O2 Sat - 96 % Pain - 0 Performance Status: 0 - Fully active, able to carry on all predisease activities without restrictions. (ECOG) Physical Examination: Respiratory - Lungs are clear to auscultation, Cardiovascular - Regular rate and rhythm of heart, Breasts - Symmetric bilaterally without nipple discharge and no masses or tenderness. No skin changes.Post lumpectomy changes in left breast, Extremities - No visible edema. Lab/Imaging: Test performed on Feb 11, 2020 10:51 Glucose 171 mg/dL BUN 29 mg/dL Creatinine 1.25 mg/dL Cr Clearance (Est) 35.6300 mL/min Sodium 140 mmol/L Potassium 4.1 mmol/L Chloride 105 mmol/L CO2 27 mmol/L Calcium 9.5 mg/dL Protein, Total 6.2 g/dL Albumin 3.8 g/dL Bilirubin, Total 0.4 mg/dL Alkaline Phosphatase 70 IU/L AST (SGOT) 17 IU/L ALT (SGPT) 14 IU/L WBC 4.9 10^9/L RBC 4.13 10^12/L HGB 11.9 g/dL HCT 36.7 % MCV 88.9 fl MCH 28.8 pg MCHC 32.4 g/dL RDW 13.2 % Platelet Count 225 10^9/L MPV 11.2 fL Neutrophils (Gran) 3.00 10^9/L Lymphocytes 1.01 10^9/L Monocytes 0.69 10^9/L Eosinophils 0.10 10^9/L Basophils 0.05 10^9/L Manual Lymphocytes 21 % Manual Monocytes 14 % Manual Eosinophils 2 % Manual Basophils 1 % Test performed on Nov 19, 2019 11:20 Anion Gap 16.7 Globulin 2.1 g/dL Neutrophil % 76.8 % Lymphocyte % 11.7 % Monocyte % 8.1 % Eosinophil % 2.0 % Basophils % 1.0 % Impression: 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 less than 1%, HER-2/denia negative, Ki-67 high at 38% Oncotype DX score is 36 e.g. high, distant recurrence risk at 9 year his 24% with tamoxifen/aromatase inhibitor and absolute chemotherapy benefit is more than 15% Patient and her daughter declined adjuvant chemotherapy AGAINST MEDICAL ADVICE and also declined postlumpectomy radiation therapy but agreed to continue with Arimidex History of melanoma involving left shoulder status post excision with skin graft done in 1970s. He Plan: Discussed with patient regarding her labs white blood count 4.9 hemoglobin 11.9 hematocrit 36.7 platelets 225,000 CMP within normal limit except creatinine 1.25 and glucose 171 Clinically, patient is doing well with no signs symptom suggestive of recurrence of disease, tolerating Arimidex along with vitamin D/calcium well. Will continue with same then she will return to clinic in 3 months with follow-up mammogram Signed By: Sofie Mendieta M.D. <<Signature on File>>
== END 2020-02-14 15:08 | disposition home or self-care (01) ==
PROVIDERS: PCP Nurse Practitioner Family; Visit Provider Internal Medicine Hematology & Oncology
DX: C50.812 Malignant neoplasm of overlapping sites of left female breast (principal); Z17.0 Estrogen receptor positive status [ER+]; Z85.820 Personal history of malignant melanoma of skin; Z79.811 Long term (current) use of aromatase inhibitors; Z91.19 Patient's noncompliance with other medical treatment and regimen
CPT/HCPCS: 99214

== ENCOUNTER → 2020-02-17 11:15 | Outpatient (BNVA) | payer MEDICARE, OTHER, SELFPAY | PROVIDERS: PCP Nurse Practitioner Family; Visit Provider Nurse Practitioner Family | DX: I10 Essential (primary) hypertension (principal); E11.9 Type 2 diabetes mellitus without complications; E78.5 Hyperlipidemia, unspecified | CPT/HCPCS: 80048; 80061; 82044; 83036 ==

== ENCOUNTER 2020-03-04 22:46 | Emergency (ER) | payer MEDICARE, OTHER, SELFPAY ==
[2020-03-04 23:03] VITALS: BP 150/72; PULSE 59; RESP 16; TEMP 37; O2SAT 97; BMI 25.7
--- NOTE | 2020-03-04 23:16 | CTR_ITS ---
PROCEDURE INFORMATION: Exam: CT Abdomen And Pelvis With Contrast Exam date and time: 03/04/2020 11:57 PM Age: 84 years old Clinical indication: Abdominal pain; Localized; Right; Prior surgery; Surgery date: 6+ months; Surgery type: Appy; Additional info: Abd pain TECHNIQUE: Imaging protocol: Computed tomography of the abdomen and pelvis with intravenous contrast. Radiation optimization: All CT scans at this facility use at least one of these dose optimization techniques: automated exposure control; mA and/or kV adjustment per patient size (includes targeted exams where dose is matched to clinical indication); or iterative reconstruction. Contrast material: VISI; Contrast volume: 95 ml; Contrast route: INTRAVENOUS (IV); COMPARISON: CT Abdomen/Pelvis Renal [id number] 03/04/2017 12:02 PM RADIATION DOSE METRICS: Total DLP (mGy-cm): 851.16 FINDINGS: Lungs: There is calcified granuloma at the right lung base. Mediastinal space: There is a small hiatal hernia. There is thickening of the distal esophagus. Liver: There is no focal abnormality within the liver. Gallbladder and bile ducts: The gallbladder is normal. Pancreas: The pancreas is normal. Spleen: The spleen demonstrates punctate calcifications, consistent with remote granulomatous organism exposure. Adrenals: The adrenal glands are normal. Kidneys and ureters: There are multiple left renal collecting system calcifications. These are not changed from 03/04/2017 There is mild hydronephrosis. The right kidney is normal. Stomach and bowel: There is no evidence of colitis/diverticulitis. Appendix: There has been an appendectomy. Intraperitoneal space: There is no evidence of free intraperitoneal fluid. Vasculature: The aorta demonstrates severe atherosclerotic calcification and ectasia. There is mild infrarenal abdominal aortic aneurysm with maximum AP diameter of 2.6 cm. Lymph nodes: Unremarkable. No enlarged lymph nodes. Bladder: Urinary bladder is markedly dilated with a volume of approximately 1000 cc. Reproductive: Unremarkable as visualized. Bones/joints: There are bilateral hip replacements which cause considerable artifact in the pelvis.The lumbar spine demonstrates moderate degenerative changes at multiple levels. Soft tissues: Unremarkable. CT/CT abdomen pelvis w con* [id number] IMPRESSION: 1. Markedly dilated urinary bladder causing mild bilateral hydronephrosis. 2. Persistent thickening of the distal esophagus. 3. Old granulomatous disease. 4. Atherosclerotic disease not significantly changed. Radiation Dose CTDIVOL = (mGy): DLP = 851.16 (mGy-cm)
[2020-03-04 23:27] LABS: Basophils % 0.7 %; Eosinophils # 0.1 10^3/uL (0.0-0.8); Eosinophils % 2.1 %; Hematocrit 35.9 % (37.0-47.0); Hemoglobin 11.8 g/dL (11.5-15.3); Lymphocytes # 1.4 10^3/uL (0.8-4.8); Lymphocytes % 24.8 %; Mean Corpuscular HGB Conc 32.9 g/dL (30.0-36.0); Mean Corpuscular Hemoglobin 29.7 pg (28.0-34.0); Mean Corpuscular Volume 90.4 fL (81-99); Mean Platelet Volume 11.2 fL (7.4-10.4); Monocytes # 0.7 10^3/uL (0.2-0.9); Monocytes % 12.5 %; Neutrophils # 3.4 10^3/uL (1.8-7.7); Neutrophils % 59.6 %; Nucleated Red Blood Cells % 0 %; Platelet Count 170 10^3/cmm (130-400); Red Blood Count 3.97 10^6/uL (4.1-5.3); Red Cell Distribution Width 13.4 % (12.1-15.1); White Blood Count 5.8 10^3/uL (4.0-10.0)
[2020-03-04] MEDS: sodium chloride 0.9% 500 ML IV (23:30)
[2020-03-04 23:54] LABS: Alanine Aminotransferase 17 U/L (0-33); Albumin Level 4.2 g/dL (3.5-5.2); Alkaline Phosphatase 80 IU/L (35-105); Anion Gap 15.3 (5-19); Aspartate Amino Transferase 24 U/L (0-32); Blood Urea Nitrogen 39 mg/dL (8-23); Calcium 9.6 mg/dL (8.5-10.5); Carbon Dioxide 23 mmol/L (22-29); Chloride 101 mmol/L (98-107); Globulin 2.3 g/dL (1.3-4.6); Glucose 134 mg/dL (65-115); Lipase 99 U/L (13-60); Osmolality Calculated 280 mOsm/kg (285-295); Potassium 4.3 mmol/L (3.5-5.1); Sodium 135 mmol/L (136-145); Total Bilirubin 0.3 mg/dL (0.15-1.2); Total Protein 6.5 g/dL (6.6-8.7)
[2020-03-05] MEDS: iodixanol 320 mg/mL 100mL Btl IV (00:07)
--- NOTE | 2020-03-05 00:27 | PC.NURSE ---
pt returning from radiology, refusing pain & nausea meds stating she is not nauseated and pain is 2/10
[2020-03-05 00:56] LABS: C Reactive Protein 2.4 mg/L (0.0-4.9)
[2020-03-05 01:46] LABS: Add Urine Microscopic? NO
[2020-03-05 01:59] LABS: Bilirubin Urine Neg (NEGATIVE); Blood Urine Neg (Negative); Glucose Urine UA Norm (Normal); Ketones Urine Negative (Negative); Leukocyte Esterase Urine Negative (Negative); Nitrate Urine Negative (Negative); Protein Urine Neg (Negative); Urine Appearance Clear (CLEAR); Urine Color Straw (Yellow); Urobilinogen Urine Norm (Negative); pH Urine 7 (5-7)
[2020-03-05 03:29] VITALS: RESP 20; O2SAT 97
[2020-03-05] MEDS: morphine 4 mg/mL SDV 1 mL 2 MG IVP (03:29)
[2020-03-05] MEDS: magnesium citrate Btl 296 mL PO (03:37)
[2020-03-05 04:08] VITALS: BP 149/63; PULSE 62; RESP 20; O2SAT 97
--- NOTE | 2020-03-05 04:12 | PC.NURSE ---
i agree with this assessment
--- NOTE | 2020-03-05 06:54 | ED_ITS ---
HPI - Abdominal Pain General: Chief Complaint: Abdominal Pain Stated Complaint: abd pain Time Seen by Provider: 03/04/20 23:10 History of Present Illness: HPI narrative: 84-year-old female presenting with right-sided belly pain. It started the day prior. Somewhat sharp in nature. No vomiting. She states her stool has been hard. No fever. She had an appendectomy back in December with no complications. She states she still has her gallbladder MD elicited complaint: abdominal pain Pertinent past history: constipation Onset (ago): day(s) (2) Pain Consistency: constant Location: RUQ and RLQ Severity: moderate Quality: aching Radiation: none Migration to: no migration Exacerbating factors: nothing Relieving factors: nothing Associated Symptoms: Reports constipation and nausea; Denies chills, dysuria, fever(s), hematochezia, hematuria, hematemesis, fecal incontinence and vomiting Review of Systems Const: Denies: fever(s) or chills Eyes: Denies: change in vision or blurry vision ENMT: Denies: swelling of lips/tongue, dental pain, change in hearing or sinus pain Card: Denies: chest pain, palpitations, irregular heart rhythm, swelling of feet/ankles, dyspnea on exertion or orthopnea Resp: Denies: dyspnea, productive cough, non-productive cough or wheezing GI: Reports: nausea and constipation; Denies: vomiting, hematemesis, fecal incontinence or hematochezia : Denies: dysuria, urinary frequency, urinary urgency or hematuria Musc: Reports: back pain; Denies: neck pain Skin/Breast: Denies: rash, pruritus or erythema Neuro: Denies: headache(s), dizziness, vertigo, confusion or seizure-like activity Psych: Denies: anxiety, visual hallucinations or auditory hallucinations PFS ED PFSH: Medical History (Updated 03/05/20 @ 03:21 by Davion Jauregui DO) Atherosclerosis of [place] coronary artery Bladder cancer Carotid stenosis, asymptomatic Enrolled in chronic care management Hyperlipidemia Hypertension, essential Invasive ductal carcinoma of breast, female Renal calculus Type 2 diabetes mellitus Surgical History H/O heart bypass surgery Reports four-vessel bypass H/O lumpectomy (10/09/19) Left breast. Performed by Dr. Clark. History of back surgery Treatment of bone spurs. Performed by Dr. Gray in [place], [place] History of carpal tunnel release of both wrists History of cataract surgery Bilateral History of hip replacement (~2006) Left. Performed by Dr. Lovelace History of hip replacement (06/19/16) Performed by Dr. Lovelace Previous back surgery (08/22/14) [place] [place] [facility] [place]/P appendectomy Status post surgical removal and fulguration of bladder neoplasm Family History Father Stroke Mother Ovarian cancer Sister Breast cancer Diabetes Hypertension Brother Heart disease Diabetes Social History Smoking and tobacco status: former smoker Alcohol intake: never Lives independently: Yes Marital status: / Current occupational status: retired Current gender identity: Female Physical Exam Const: GENERAL APPEARANCE: well developed ORIENTATION/CONSCIOUSNESS: Yes oriented to person, Yes oriented to place and Yes oriented to time HENMT: COMMON NORMALS: normocephalic, external ears normal and Normal external nose present HEAD & SCALP: normocephalic FACE & SINUS: normal facial exam NOSE: Normal external nose present and No nasal discharge present EXTERNAL EAR: Yes external ears normal MOUTH: tongue normal THROAT: posterior oropharynx normal; no peritonsillar mass Eye: COMMON NORMALS: Equal, round and reactive pupils present, EOMs intact bilaterally and conjunctivae normal EYELID: eyelids normal CONJUNCTIVA: Yes conjunctivae normal PUPIL: Yes Equal, round and reactive pupils present Neck/C-Spine: COMMON NORMALS: full ROM GENERAL: No tracheal deviation Chest: COMMONS NORMALS: normal inspection of the chest CHEST: No tenderness Resp: COMMON NORMALS: clear to auscultation bilaterally EFFORT & INSPECTION: No tachypneic, No respiratory distress, No retractions, No uses accessory muscles and No tracheal deviation AUSCULTATION: clear to auscultation bilaterally, no rhonchi, no wheezes and lung sounds not diminished Cardio: COMMON NORMALS: regular rate and regular rhythm RATE: regular rate RHYTHM: regular rhythm PERIPHERAL PULSES: radial pulses present GI: INSPECTION: No abdominal distension AUSCULTATION: No Hyperactive bowel sounds present and No Hypoactive bowel sounds present PALPATION: Yes Tenderness to palpation present (GI), No Guarding due to palpation present (GI), No Rigid due to palpation, No Rebound tenderness present and No Bladder palpa tion abnormal PERCUSSION: no dullness to percussion and no tympanic to percussion : COMMON NORMALS: Yes no CVA tenderness BLADDER/KIDNEY EXAM: Yes no CVA tenderness and No Bladder palpation abnormal Back/Pelvis: COMMON NORMALS: no CVA tenderness Neuro: SENSORIUM/ORIENTATION: Yes oriented to person, Yes oriented to place and Yes oriented to time Psych: COMMON NORMALS: mental status grossly normal Skin: COMMON NORMALS: no rashes or lesions noted GENERAL SKIN EXAM: no rashes or lesions noted Course ED course: 84-year-old lady with right-sided belly tenderness. No dysuria. No nausea or vomiting. She is tender. Her white blood cell count is 5.8. Her other labs are appear to benign. Her urinalysis shows no infection and no hematuria. CT of the abdomen and pelvis does not reveal kidney stone, or other pathology including normal gallbladder. With a history of increased stool hardening, this could be constipation. She will be sent home with magnesium citrate. She knows to return for fever vomiting, worsening pain. Vital Signs: Vital signs: Vital Signs Temperature 98.6 F 03/04/20 23:03 Pulse Rate 62 03/05/20 04:08 Respiratory Rate 20 H 03/05/20 04:08 Blood Pressure 149/63 03/05/20 04:08 Pulse Oximetry 97 03/05/20 04:08 MDM - Abdominal Pain Lab Data: Labs: Lab Results 03/04/20 03/04/20 03/04/20 Range/Units 23:15 23:22 23:22 WBC 5.8 (4.0-10.0) 10^3/ uL RBC 3.97 L (4.1-5.3) 10^6/u L Hgb 11.8 (11.5-15.3) g/dL Hct 35.9 L (37.0-47.0) % MCV 90.4 (81-99) fL MCH 29.7 (28.0-34.0) pg MCHC 32.9 (30.0-36.0) g/dL RDW 13.4 (12.1-15.1) % Plt Count 170 (130-400) 10^3/c mm MPV 11.2 H (7.4-10.4) fL Neut % (Auto) 59.6 % Lymph % (Auto) 24.8 % Wright % (Auto) 12.5 % Eos % (Auto) 2.1 % Baso % (Auto) 0.7 % Neut # (Auto) 3.4 (1.8-7.7) 10^3/u L Lymph # (Auto) 1.4 (0.8-4.8) 10^3/u L Wright # (Auto) 0.7 (0.2-0.9) 10^3/u L Eos # (Auto) 0.1 (0.0-0.8) 10^3/u L Baso # (Auto) 0.0 (0.0-0.1) 10^3/u L Nucleated RBC % (a uto) 0 % Nucleated RBCs # 0.0 /100WBC Sodium 135 L (136-145) mmol/L Potassium 4.3 (3.5-5.1) mmol/L Chloride 101 (98-107) mmol/L Carbon Dioxide 23 (22-29) mmol/L Anion Gap 15.3 (5-19) BUN 39 H (8-23) mg/dL Creatinine 1.2 H (0.5-0.9) mg/dL Glucose 134 H (65-115) mg/dL Calculated Osmolal ity 280 L (285-295) mOsm/k g Calcium 9.6 (8.5-10.5) mg/dL Total Bilirubin 0.3 (0.15-1.2) mg/dL AST 24 (0-32) U/L ALT 17 (0-33) U/L Alkaline Phosphata se 80 (35-105) IU/L C-Reactive Protein 2.4 (0.0-4.9) mg/L Total Protein 6.5 L (6.6-8.7) g/dL Albumin 4.2 (3.5-5.2) g/dL Globulin 2.3 (1.3-4.6) g/dL Lipase 99 H (13-60) U/L Urine Color Straw (Yellow) Urine Appearance Clear (CLEAR) Urine pH 7 (5-7) Ur Specific Gravit y 1.000 L (1.005-1.030) Urine Protein Neg (Negative) Urine Glucose (UA) Norm (Normal) Urine Ketones Negative (Negative) Urine Blood Neg (Negative) Urine Nitrate Negative (Negative) Urine Bilirubin Neg (NEGATIVE) Urine Urobilinogen Norm (Negative) mg/dL Ur Leukocyte Talia ase Negative (Negative) Discharge Plan Discharge Patient Disposition: Home, Self-Care Clinical Impression: Abdominal pain Qualifiers: Abdominal location: right lower quadrant Qualified Code(s): R10.31 - Right lowe r quadrant pain Condition: Stable Prescriptions: No Action Low Dose Hormone PO RF: 0 irbesartan 300 mg tablet 150 mg PO BID RF: 0 hydralazine 50 mg tablet 50 mg PO TID RF: 0 albuterol sulfate [ProAir HFA] 90 mcg/actuation HFA aerosol inhaler 2 puff INHALATION QID RF: 0 albuterol sulfate 2.5 mg /3 mL (0.083 %) solution for nebulization 2.5 mg INHALATION Q6H RF: 0 atorvastatin 40 mg tablet 40 mg PO DAILY RF: 0 isosorbide mononitrate 30 mg tablet extended release 24 hr 30 mg PO QAM RF: 0 bumetanide 1 mg tablet 1 mg PO DAILY RF: 0 aspirin 81 mg tablet,delayed release (DR/EC) 81 mg PO DAILY RF: 0 Hold Instructions: Resume on 11/23/19. metoprolol tartrate 25 mg tablet 25 mg PO BID RF: 0 anastrozole 1 mg tablet 1 mg PO DAILY RF: 0 Levemir FlexTouch U-100 Insuln 100 unit/mL (3 mL) insulin pen 30 unit SUBCUT DAILY 30 Days Qty: 15 RF: 0 alprazolam 0.5 mg tablet 0.5 mg PO TID Qty: 90 RF: 1 amlodipine 10 mg tablet 10 mg PO DAILY Qty: 90 RF: 0 (DME) pen needle, diabetic [BD Ultra-Fine Mini Pen Needle] 31 gauge x 3/16 needle See Rx Instructions .ROUTE .MEDSUPPLY Qty: 100 RF: 0 hydrocodone-acetaminophen 5-325 mg tablet 1 - 2 tab PO Q5H PRN (Reason: pain) Qty: 25 RF: 0 Magnesium (oxide/AA chelate) 300 mg Capsule 1 cap PO DAILY RF: 0 Discharge Orders: Discharge Order (Routine); Ordered 03/05/20 Ordered By: Davion Jauregui Referrals: Chaya Long FNP [Primary Care Provider] - 4-7 days Discharge Diet: Advance as tolerated Discharge Activity: Increase activity as tolerated Patient Instructions: Abdominal Pain (ED) Activity Restrictions/Additional Instructions: Return for fever greater than 100, vomiting liquids or medications, mental status changes, worsening pain despite treatment, other concerning symptoms Discharge Date/Time: 03/05/20 04:13 Coding Level of Care Code 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
== END 2020-03-05 04:13 | disposition home or self-care (01) ==
PROVIDERS: Emergency Provider Emergency Medicine; PCP Nurse Practitioner Family
DX: R10.31 Right lower quadrant pain (principal); Z79.82 Long term (current) use of aspirin; Z79.4 Long term (current) use of insulin; Z85.51 Personal history of malignant neoplasm of bladder; E78.5 Hyperlipidemia, unspecified; I10 Essential (primary) hypertension; E11.9 Type 2 diabetes mellitus without complications; Z85.3 Personal history of malignant neoplasm of breast; Z87.891 Personal history of nicotine dependence
CPT/HCPCS: 12345; 74177; 80053; 81003; 83690; 85025; 86140; 96361; 96374; 96375; 96376; 99282; 99283; J2270; J7040; Q9967

== ENCOUNTER → 2020-04-18 10:18 | Outpatient (BNVA) | payer MEDICARE, OTHER, SELFPAY | PROVIDERS: PCP Nurse Practitioner Family; Visit Provider Urology | DX: C67.5 Malignant neoplasm of bladder neck (principal) | CPT/HCPCS: 81001 ==

== ENCOUNTER 2020-05-12 09:14 | Outpatient (CLI) | payer MEDICARE, OTHER, SELFPAY ==
--- NOTE | 2020-05-12 09:40 | MM_ITS ---
WS: [id number] BILATERAL DIGITAL DIAGNOSTIC MAMMOGRAM MAMMOGRAPHY WITH CAD CLINICAL INFORMATION: HX OF BREAST CA COMPARISON: TECHNIQUE: Bilateral CC, MLO, and ML views. FINDINGS: Scattered fibroglandular densities bilaterally. Vascular calcification. Resection of the previously described left lower inner breast lesion. Postope rative changes in this area. Treatment-related changes left breast. [facility] MM/[id number] IMPRESSION: BI-RADS: 2-Benign FOLLOW UP: 1 Year Follow-up Recommend return to annual diagnostic mammography.
== END 2020-05-12 09:15 | disposition home or self-care (01) ==
LOC: ONCMED 09:18
PROVIDERS: PCP Nurse Practitioner Family; Visit Provider Internal Medicine Hematology & Oncology
DX: C50.312 Malignant neoplasm of lower-inner quadrant of left female breast (principal); Z17.0 Estrogen receptor positive status [ER+]
CPT/HCPCS: 77066

== ENCOUNTER → 2020-05-16 14:20 | Outpatient (BNVA) | payer MEDICARE, OTHER, SELFPAY | PROVIDERS: PCP Nurse Practitioner Family; Visit Provider Nurse Practitioner Family | DX: D64.9 Anemia, unspecified (principal) | CPT/HCPCS: 82728; 83550; 85025 ==

== ENCOUNTER 2020-05-31 12:04 | Outpatient (CLI) | payer MEDICARE, OTHER, SELFPAY ==
--- NOTE | 2020-05-31 18:34 | ONC FU_ITS ---
Dr. Mendieta follow up note Patient: Reyna Lopez Unit #: [id number]: [id number] Dicatated By: Sofie Mendieta M.D.Date of Visit:May 31, 2020 Onc Med Follow-up/Prog Note History of Present Illness: Mrs. Reyna Lopez, is a 84-year-old female with long-standing history of left breast mass, as per patient it was a very small e.g. pea-sized mass in the right lower portion of left breast but she did not seek any intervention until recently when she noticed mass started getting bigger and underwent mammogram which confirmed the mass in the left breast followed by ultrasound-guided biopsy which confirmed invasive carcinoma ER positive KY negative HER-2/denia negative subsequently underwent left breast lumpectomy with left axillary sentinel lymph node biopsy on 10/07/2019 and final pathology report showed ER 94%, KY less than 1%, HER-2/denia negative, Ki-67 is 38 which is high and size of invasive tumor was 3 x 2.6 x 1.7 cm, clear surgical margins , moderately differentiated, p T2 , 2 left axillary lymph nodes showed no evidence of metastatic disease pN0 Oncotype DX score done on 11/03/2019 showed recurrence score 36, risk of distant recurrence at 9 year with Arimidex/tamoxifen,24%and absolute benefit from chemotherapy is more than 15%patient and her family decided not to consider systemic chemotherapy AGAINST MEDICAL ADVICE also declining postlumpectomy radiation therapy. Patient tolerated procedure well. No history of hormonal supplement, menarche at age 11 or 12, first at age 16, family history significant for 2 sisters with history of breast cancer. Patient also has history of melanoma involving left shoulder status post excision with skin grafting in 1970s on Arimidex with vitamin D and calcium Came for follow-up, denies any specific complaints, no fever chills, no nausea or vomiting, no diarrhea constipation, tolerating her Arimidex well Medications: Albuterol Sulfate Aerosol Powder, Breath Activated Inhalation, ALPRAZolam 1 Tablet (of 0.5 mg) Oral t.i.d., amLODIPine Besylate 1 Tablet (of 10 mg) Oral daily, Aspirin 1 Tablet (of 81 mg) Oral daily, Atorvastatin Calcium 1 Tablet (of 40 mg) Oral daily, Bumetanide 1 Tablet (of 1 mg) Oral daily, Cholecalciferol 1 Capsule (of 125 mcg ) Oral daily, Cinnamon 2 Capsule (of 500 mg) Oral daily, Flaxseed Oil 1 Capsule (of 1200 mg) Oral daily, hydrALAZINE HCl 1 Tablet (of 50 mg) Oral t.i.d., Insulin Detemir 30 Units (of 100 Units/mL) Subcutaneous daily, Irbesartan 0.5 Tablet (of 300 mg) Oral b.i.d., Isosorbide Mononitrate ER 1 Tablet (of 60 mg) Tablet SR 24 HR Oral daily, Lisinopril 1 Tablet (of 40 mg) Oral daily, Magnesium Oxide 1 Tablet (of 400 mg) Capsule Oral daily, Metoprolol Tartrate 2 Tablet (of 25 mg) Oral b.i.d., Zinc 1 Capsule (of 50 mg) Oral daily Allergies: Cephalexin Review of Systems: Review of Systems is not available for this patient. Vital Signs: Performed on May 31, 2020 12:47 Height - 64.00 in Weight - 150.8 lbs (LOW) BSA - 1.73 sq.m BMI - 25.88 Temperature - 98.1 F (LOW) Pulse - 66 /min Respiration - 24 /min BP - 152/79 mm(hg) (HIGH) O2 Sat - 96 % Pain - 0 Performance Status: 0 - Fully active, able to carry on all predisease activities without restrictions. (ECOG) Physical Examination: Respiratory - Lungs are clear to auscultation, Cardiovascular - Regular rate and rhythm of heart, Gastrointestinal - Soft, bowel sounds present, Extremities - No visible edema. Lab/Imaging: Test performed on Feb 11, 2020 10:51 Glucose 171 mg/dL BUN 29 mg/dL Creatinine 1.25 mg/dL Cr Clearance (Est) 35.6300 mL/min Sodium 140 mmol/L Potassium 4.1 mmol/L Chloride 105 mmol/L CO2 27 mmol/L Calcium 9.5 mg/dL Protein, Total 6.2 g/dL Albumin 3.8 g/dL Bilirubin, Total 0.4 mg/dL Alkaline Phosphatase 70 IU/L AST (SGOT) 17 IU/L ALT (SGPT) 14 IU/L WBC 4.9 10^9/L RBC 4.13 10^12/L HGB 11.9 g/dL HCT 36.7 % MCV 88.9 fl MCH 28.8 pg MCHC 32.4 g/dL RDW 13.2 % Platelet Count 225 10^9/L MPV 11.2 fL Neutrophils (Gran) 3.00 10^9/L Lymphocytes 1.01 10^9/L Monocytes 0.69 10^9/L Eosinophils 0.10 10^9/L Basophils 0.05 10^9/L Manual Lymphocytes 21 % Manual Monocytes 14 % Manual Eosinophils 2 % Manual Basophils 1 % Impression: 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 less than 1%, HER-2/denia negative, Ki-67 high at 38% Oncotype DX score is 36 e.g. high, distant recurrence risk at 9 year his 24% with tamoxifen/aromatase inhibitor and absolute chemotherapy benefit is more than 15% Patient and her daughter declined adjuvant chemotherapy AGAINST MEDICAL ADVICE and also declined postlumpectomy radiation therapy but agreed to continue with Arimidex History of melanoma involving left shoulder status post excision with skin graft done in 1970s. He Plan: Discussed with patient regarding her mammogram which was done on May 12, 2020 showed no abnormality BI-RADS 2 benign Clinically, patient is doing well with no signs symptom suggestive of recurrence of disease, tolerating adjuvant therapy with Arimidex 1 mg p.o. daily along with vitamin D and calcium will continue with same and she will return to clinic in 4 months with CBC CMP Signed By: Sofie Mendieta M.D. <<Signature on File>>
== END 2020-05-31 12:05 | disposition home or self-care (01) ==
LOC: ONCMED 12:09
PROVIDERS: PCP Nurse Practitioner Family; Visit Provider Internal Medicine Hematology & Oncology
DX: C50.312 Malignant neoplasm of lower-inner quadrant of left female breast (principal); Z17.0 Estrogen receptor positive status [ER+]; Z79.818 Long term (current) use of other agents affecting estrogen receptors and estrogen levels
CPT/HCPCS: 99214

== ENCOUNTER → 2020-07-20 14:12 | Outpatient (BNVA) | payer MEDICARE, OTHER, SELFPAY | PROVIDERS: PCP Nurse Practitioner Family; Visit Provider Nurse Practitioner Family | DX: E11.8 Type 2 diabetes mellitus with unspecified complications (principal) | CPT/HCPCS: 80053; 82043; 83036 ==

== ENCOUNTER → 2020-08-08 08:40 | Outpatient (BNVA) | payer MEDICARE, OTHER, SELFPAY | PROVIDERS: PCP Nurse Practitioner Family; Visit Provider Nurse Practitioner Family | DX: N28.9 Disorder of kidney and ureter, unspecified (principal); J45.909 Unspecified asthma, uncomplicated | CPT/HCPCS: 80048 ==

== ENCOUNTER 2020-09-08 13:49 | Emergency (ER) | payer MEDICARE, OTHER, SELFPAY ==
[2020-09-08] VITALS (10 sets, daily range): BP systolic 128–160; BP diastolic 58–69; PULSE 72–79; RESP 16–22; TEMP 36.9; O2SAT 92–94; BMI 26.1
--- NOTE | 2020-09-08 15:19 | ED_ITS ---
HPI - COVID General: Chief Complaint: Upper Respiratory Infection Stated Complaint: congested Time Seen by Provider: 09/08/20 14:24 Triage information: Has fever, cough or shortness of breath . No known COVID + exposure last 14 days History of Present Illness: HPI Narrative: 84-year-old female presents emergency room with complaint of 1 week of increasing shortness of breath diarrhea that began yesterday. She has myalgias and generalized fatigue has been getting progressively worse. She not previously been tested for Covid. She was potentially exposed to a Covid positive at her worship. MD complaint: reported COVID exposure and has COVID symptoms Prior covid testing: no COVID 19 common symptoms: positive fever(s), chills, cough, non-productive cough, dyspnea, fatigue, body aches, throat pain, nasal congestion, nausea and diarrhea; negative loss of sense of smell and/or taste or vomiting COVID 19 other sytmptoms: negative chest pain or requiring oxygen Onset (ago): day(s) (6-7) Severity: mild Pertinent comorbid conditions: diabetes, hypertension and heart disease Treatment prior to arrival: none COVID Results: SARS-CoV-2 Antigen (Rapid) Positive (Negative) H 09/08/20 15:20 09/08/20 Review of Systems Const: Reports: fever(s), chills, body aches and fatigue ENMT: Reports: throat pain and nasal congestion Card: Denies: chest pain, edema, dyspnea on exertion or orthopnea Resp: Reports: dyspnea and non-productive cough GI: Reports: nausea and diarrhea; Denies: vomiting : Denies: flank pain, difficulty voiding, dysuria, urinary frequency or urinary urgency Skin/Breast: Denies: rash or pruritus PFSH ED PFSH: Medical History Asthma Atherosclerosis of [place] coronary artery Benzodiazepine dependence, continuous Bladder cancer Carotid stenosis, asymptomatic Enrolled in chronic care management TYRONE (generalized anxiety disorder) Hyperlipidemia Hypertension, essential Insomnia Invasive ductal carcinoma of breast, female Renal calculus Type 2 diabetes mellitus Surgical History H/O heart bypass surgery Reports four-vessel bypass H/O lumpectomy (10/09/19) Left breast. Performed by Dr. Clark. History of back surgery Treatment of bone spurs. Performed by Dr. Gray in [place], [place] History of carpal tunnel release of both wrists History of cataract surgery Bilateral History of hip replacement (~2006) Left. Performed by Dr. Lovelace History of hip replacement (06/19/16) Performed by Dr. Lovelace Previous back surgery (08/22/14) [address] [address] Ramsay at [facility] [place], [place] S/P appendectomy Status post surgical removal and fulguration of bladder neoplasm Family History Father Stroke Mother Ovarian cancer Sister Breast cancer Diabetes Hypertension Brother Heart disease Diabetes Social History Smoking and tobacco status: former smoker Alcohol intake: never Lives independently: Yes Marital status: / Current occupational status: retired Current gender identity: Female Physical Exam Const: COMMON NORMALS: no acute distress GENERAL APPEARANCE: cooperative and comfortable ORIENTATION/CONSCIOUSNESS: Yes awake, Yes oriented to person, Yes oriented to place and Yes oriented to time HENMT: COMMON NORMALS: normocephalic, atraumatic and hearing grossly normal bilaterally HEAD & SCALP: normocephalic and atraumatic Neck/C-Spine: COMMON NORMALS: no JVD Resp: COMMON NORMALS: normal respiratory effort, No retractions and No use of accessory muscles AUSCULTATION: crackles Cardio: COMMON NORMALS: no JVD, regular rate, regular rhythm and No murmurs present (Cardio) RATE: regular rate RHYTHM: regular rhythm GI: COMMON NORMALS: Soft to palpation and No hepatosplenomegaly present AUSCULTATION: Yes normoactive bowel sounds PALPATION: Yes Soft to palpation, No Tenderness to palpation present (GI), No Guarding due to palpation present (GI) and Yes No hepatosplenomegaly present Extremity: COMMON NORMALS: normal to inspection, capillary refill normal, no clubbing, cyanosis or edema, no calf tenderness and no pedal edema Neuro: SENSORIUM/ORIENTATION: Yes oriented to person, Yes oriented to place and Yes oriented to time Skin: COMMON NORMALS: no rashes or lesions noted GENERAL SKIN EXAM: no rashes or lesions noted Course Vital Signs: Vital signs: Vital Signs Temperature 98.4 F 09/08/20 14:18 Pulse Rate 72 09/08/20 16:30 Respiratory Rate 16 09/08/20 16:30 Blood Pressure 148/62 09/08/20 16:30 Pulse Oximetry 93 09/08/20 16:30 MDM - COVID MDM Narrative: Medical decision making narrative: Mariam risks and benefits alternative treatments of bam infusion of the patient. She does meet qualifications she not requiring oxygen she has had symptoms for only 1 week. She is positive we will go ahead and infuse she has signed the consent. Anticipate discharge after infusion completed considered prescribing dexamethasone however I am concerned that that would significantly adversely affect her diabetes control. Lab Data: Labs: Lab Results 09/08/20 09/08/20 09/08/20 Range/Units 15:20 15:40 15:40 WBC 3.8 L (4.0-10.0) 10^3/ uL RBC 3.69 L (4.1-5.3) 10^6/u L Hgb 10.8 L (11.5-15.3) g/dL Hct 32.8 L (37.0-47.0) % MCV 88.9 (81-99) fL MCH 29.3 (28.0-34.0) pg MCHC 32.9 (30.0-36.0) g/dL RDW 12.8 (12.1-15.1) % Plt Count 119 L (130-400) 10^3/c mm MPV 11.9 H (7.4-10.4) fL Neut % (Auto) 74.2 % Lymph % (Auto) 13.5 % Mcminn % (Auto) 10.8 % Eos % (Auto) 0.5 % Baso % (Auto) 0.5 % Neut # (Auto) 2.81 (1.8-7.7) 10^3/u L Lymph # (Auto) 0.5 L (0.8-4.8) 10^3/u L Mcminn # (Auto) 0.4 (0.2-0.9) 10^3/u L Eos # (Auto) 0.0 (0.0-0.8) 10^3/u L Baso # (Auto) 0.0 (0.0-0.1) 10^3/u L Nucleated RBC % (a uto) 0 % Nucleated RBCs # 0.0 /100WBC Sodium 138 (136-145) mmol/L Potassium 3.5 (3.5-5.1) mmol/L Chloride 104 (98-107) mmol/L Carbon Dioxide 25 (22-29) mmol/L Anion Gap 12.5 (5-19) BUN 35 H (8-23) mg/dL Creatinine 1.0 H (0.5-0.9) mg/dL GFR Calculation Not Reportable Glucose 131 H (65-115) mg/dL Calculated Osmolal ity 296 H (285-295) mOsm/k g Calcium 9.0 (8.5-10.5) mg/dL Total Bilirubin 0.3 (0.15-1.2) mg/dL AST 25 (0-32) U/L ALT 19 (0-33) U/L Alkaline Phosphata se 76 (35-105) IU/L Total Protein 5.9 L (6.6-8.7) g/dL Albumin 3.3 L (3.5-5.2) g/dL Globulin 2.6 (1.3-4.6) g/dL SARS-CoV-2 Ag (Rap id) Positive H (Negative) COVID Results: SARS-CoV-2 Antigen (Rapid) Positive (Negative) H 09/08/20 15:20 09/08/20 Discharge Plan Discharge Patient Disposition: Home Clinical Impression: COVID-19 Condition: Stable Prescriptions: No Action irbesartan 300 mg tablet 150 mg PO BID@, RF: 0 hydralazine 50 mg tablet 50 mg PO TID PRN (Reason: Blood Pressure) RF: 0 atorvastatin 40 mg tablet 40 mg PO DAILY@20 RF: 0 isosorbide mononitrate 30 mg tablet extended release 24 hr 60 mg PO DAILY@08 RF: 0 bumetanide 1 mg tablet See Rx Instructions .ROUTE .COMPLEX RF: 0 aspirin 81 mg tablet,delayed release (DR/EC) 81 mg PO DAILY@20 RF: 0 Hold Instructions: Resume on 11/23/19. metoprolol tartrate 25 mg tablet 25 mg PO Q12H RF: 0 anastrozole 1 mg tablet 1 mg PO DAILY@08 RF: 0 famotidine 20 mg tablet 20 mg PO BID@,20 RF: 0 alprazolam 0.5 mg tablet 0.5 mg PO TID PRN (Reason: pain) 30 Days Qty: 90 RF: 0 insulin detemir U-100 [Levemir FlexTouch U-100 Insuln] 100 unit/mL (3 mL) insulin pen See Rx Instructions .ROUTE .COMPLEX Qty: 15 RF: 0 albuterol sulfate 2.5 mg /3 mL (0.083 %) solution for nebulization 2.5 mg INHALATION Q6H PRN (Reason: Shortness Of Breath) RF: 0 amlodipine 10 mg tablet 10 mg PO DAILY@08 RF: 0 Magnesium (oxide/AA chelate) 300 mg Capsule 1 cap PO DAILY@08 RF: 0 Discharge Orders: Discharge ED (Routine); Ordered 09/08/20 Ordered By: Mayco Izquierdo Referrals: Chaya Long FNP [Primary Care Provider] - Activity Restrictions/Additional Instructions: Follow-up with your primary care provider in 3 to 4 days return if you have further problems. Monitor your oxygen saturation with the monitor given to you today. 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
[2020-09-08 15:47] LABS: Basophils % 0.5 %; Eosinophils % 0.5 %; Hematocrit 32.8 % (37.0-47.0); Hemoglobin 10.8 g/dL (11.5-15.3); Lymphocytes # 0.5 10^3/uL (0.8-4.8); Lymphocytes % 13.5 %; Mean Corpuscular HGB Conc 32.9 g/dL (30.0-36.0); Mean Corpuscular Hemoglobin 29.3 pg (28.0-34.0); Mean Corpuscular Volume 88.9 fL (81-99); Mean Platelet Volume 11.9 fL (7.4-10.4); Monocytes # 0.4 10^3/uL (0.2-0.9); Monocytes % 10.8 %; Neutrophils # 2.81 10^3/uL (1.8-7.7); Neutrophils % 74.2 %; Nucleated Red Blood Cells % 0 %; Platelet Count 119 10^3/cmm (130-400); Red Blood Count 3.69 10^6/uL (4.1-5.3); Red Cell Distribution Width 12.8 % (12.1-15.1); White Blood Count 3.8 10^3/uL (4.0-10.0)
[2020-09-08 16:18] LABS: Alanine Aminotransferase 19 U/L (0-33); Albumin Level 3.3 g/dL (3.5-5.2); Alkaline Phosphatase 76 IU/L (35-105); Anion Gap 12.5 (5-19); Aspartate Amino Transferase 25 U/L (0-32); Blood Urea Nitrogen 35 mg/dL (8-23); Carbon Dioxide 25 mmol/L (22-29); Chloride 104 mmol/L (98-107); Globulin 2.6 g/dL (1.3-4.6); Glucose 131 mg/dL (65-115); Osmolality Calculated 296 mOsm/kg (285-295); Potassium 3.5 mmol/L (3.5-5.1); Sodium 138 mmol/L (136-145); Total Bilirubin 0.3 mg/dL (0.15-1.2); Total Protein 5.9 g/dL (6.6-8.7)
[2020-09-08 16:35] LABS: SARS Covid-2 Antigen Positive (Negative)
--- NOTE | 2020-09-13 14:42 | DCPLANNER ---
Addendum entered by Elina Vasquez 09/21/20 10:10: manager foreign called to check on patient 10 days after receiving the infusion. Patient stated that she is doing good, no cough and no dizziness. Patient has not been admitted to hospital. Original Note: manager foreign had message that patient received the BAM infusion. manager foreign called patient to check on patient after receiving the infusion. Patient stated that the infusion went well. Stated that before the infusion that she was not having any symptoms at all. But that after the infusion that she was dizzy, stated that she would never do that again. Patient stated that she did have a cough, but it is better now. Patient has seen her primary care provider.
== END 2020-09-08 20:04 | disposition home or self-care (01) ==
PROVIDERS: Emergency Provider Family Medicine; PCP Nurse Practitioner Family
DX: U07.1 COVID-19 (principal); Z79.82 Long term (current) use of aspirin; Z79.4 Long term (current) use of insulin; Z85.51 Personal history of malignant neoplasm of bladder; E78.5 Hyperlipidemia, unspecified; I10 Essential (primary) hypertension; E11.9 Type 2 diabetes mellitus without complications; Z87.891 Personal history of nicotine dependence
CPT/HCPCS: 12345; 36415; 80053; 85025; 87426; 96365; 99282; 99284; J7050

== ENCOUNTER → 2020-10-03 08:59 | Outpatient (BNVA) | payer MEDICARE, OTHER, SELFPAY | PROVIDERS: PCP Nurse Practitioner Family; Visit Provider Internal Medicine Cardiovascular Disease | DX: I10 Essential (primary) hypertension (principal); I25.118 Atherosclerotic heart disease of native coronary artery with other forms of angina pectoris; N28.9 Disorder of kidney and ureter, unspecified; E11.9 Type 2 diabetes mellitus without complications; E78.5 Hyperlipidemia, unspecified | CPT/HCPCS: 80061; 84450; 84460 ==

== ENCOUNTER → 2020-10-24 09:15 | Outpatient (BNVA) | payer MEDICARE, OTHER, SELFPAY | PROVIDERS: PCP Nurse Practitioner Family; Visit Provider Urology | DX: C67.5 Malignant neoplasm of bladder neck (principal) | CPT/HCPCS: 81003 ==

== ENCOUNTER → 2020-10-30 15:31 | Outpatient (BNVA) | payer MEDICARE, OTHER, SELFPAY | PROVIDERS: PCP Nurse Practitioner Family; Visit Provider Nurse Practitioner Family | DX: J34.0 Abscess, furuncle and carbuncle of nose (principal); S80.811A Abrasion, right lower leg, initial encounter; Z51.81 Encounter for therapeutic drug level monitoring; R21 Rash and other nonspecific skin eruption | CPT/HCPCS: 80076; 85007; 85027; 87070; 87077; 87184 ==

== ENCOUNTER 2020-11-16 12:48 | Outpatient (CLI) | payer MEDICARE, OTHER, SELFPAY ==
[2020-11-16 13:29] LABS: Basophils # 0.1 10^3/uL (0.0-0.1); Eosinophils # 0.1 10^3/uL (0.0-0.8); Hematocrit 36.1 % (37.0-47.0); Hemoglobin 11.8 g/dL (11.5-15.3); Lymphocytes # 1.1 10^3/uL (0.8-4.8); Lymphocytes % 21.3 %; Mean Corpuscular HGB Conc 32.7 g/dL (30.0-36.0); Mean Corpuscular Hemoglobin 29.1 pg (28.0-34.0); Mean Corpuscular Volume 88.9 fL (81-99); Mean Platelet Volume 11.6 fL (7.4-10.4); Monocytes # 0.7 10^3/uL (0.2-0.9); Monocytes % 12.9 %; Neutrophils % 62.4 %; Nucleated Red Blood Cells % 0 %; Platelet Count 190 10^3/cmm (130-400); Red Blood Count 4.06 10^6/uL (4.1-5.3); White Blood Count 5.1 10^3/uL (4.0-10.0)
[2020-11-16 13:48] LABS: Alanine Aminotransferase 19 U/L (0-33); Albumin Level 3.9 g/dL (3.5-5.2); Alkaline Phosphatase 76 IU/L (35-105); Anion Gap 14.4 (5-19); Aspartate Amino Transferase 24 U/L (0-32); Blood Urea Nitrogen 39 mg/dL (8-23); Calcium 9.2 mg/dL (8.5-10.5); Carbon Dioxide 26 mmol/L (22-29); Chloride 100 mmol/L (98-107); Globulin 2.8 g/dL (1.3-4.6); Glucose 107 mg/dL (65-115); Osmolality Calculated 292 mOsm/kg (285-295); Potassium 4.4 mmol/L (3.5-5.1); Sodium 136 mmol/L (136-145); Total Bilirubin 0.5 mg/dL (0.15-1.2); Total Protein 6.7 g/dL (6.6-8.7)
--- NOTE | 2020-11-16 15:23 | ONC FU_ITS ---
Dr. Mendieta follow up note Patient: Reyna Lopez Unit #: [id number]: 1935 Dicatated By: Sofie Mendieta M.D.Date of Visit:Nov 16, 2020 Onc Med Follow-up/Prog Note History of Present Illness: Mrs. Reyna Lopez, is a 85-year-old female with long-standing history of left breast mass, as per patient it was a very small e.g. pea-sized mass in the right lower portion of left breast but she did not seek any intervention until recently when she noticed mass started getting bigger and underwent mammogram which confirmed the mass in the left breast followed by ultrasound-guided biopsy which confirmed invasive carcinoma ER positive KY negative HER-2/denia negative subsequently underwent left breast lumpectomy with left axillary sentinel lymph node biopsy on 10/07/2019 and final pathology report showed ER 94%, KY less than 1%, HER-2/denia negative, Ki-67 is 38 which is high and size of invasive tumor was 3 x 2.6 x 1.7 cm, clear surgical margins , moderately differentiated, p T2 , 2 left axillary lymph nodes showed no evidence of metastatic disease pN0 Oncotype DX score done on 11/03/2019 showed recurrence score 36, risk of distant recurrence at 9 year with Arimidex/tamoxifen,24%and absolute benefit from chemotherapy is more than 15%patient and her family decided not to consider systemic chemotherapy AGAINST MEDICAL ADVICE also declining postlumpectomy radiation therapy. Patient tolerated procedure well. No history of hormonal supplement, menarche at age 11 or 12, first at age 16, family history significant for 2 sisters with history of breast cancer. Patient also has history of melanoma involving left shoulder status post excision with skin grafting in 1970s on Arimidex with vitamin D and calcium Came for follow-up, denies any specific complaint except off and on abdominal fullness, and had discussed with PMD and GI evaluation is under consideration but no fever chills, no nausea or vomiting no diarrhea or constipation no new bony pains, no jaundice, no weight loss, tolerating Arimidex well otherwise Medications: Albuterol Sulfate Aerosol Powder, Breath Activated Inhalation, ALPRAZolam 1 Tablet (of 0.5 mg) Oral t.i.d., amLODIPine Besylate 1 Tablet (of 10 mg) Oral daily, Aspirin 1 Tablet (of 81 mg) Oral daily, Atorvastatin Calcium 1 Tablet (of 40 mg) Oral daily, Bumetanide 1 Tablet (of 1 mg) Oral daily, Cholecalciferol 1 Capsule (of 125 mcg ) Oral daily, Cinnamon 2 Capsule (of 500 mg) Oral daily, Flaxseed Oil 1 Capsule (of 1200 mg) Oral daily, hydrALAZINE HCl 1 Tablet (of 50 mg) Oral t.i.d., Insulin Detemir 30 Units (of 100 Units/mL) Subcutaneous daily, Irbesartan 0.5 Tablet (of 300 mg) Oral b.i.d., Isosorbide Mononitrate ER 1 Tablet (of 60 mg) Tablet SR 24 HR Oral daily, Lisinopril 1 Tablet (of 40 mg) Oral daily, Magnesium Oxide 1 Tablet (of 400 mg) Capsule Oral daily, Metoprolol Tartrate 2 Tablet (of 25 mg) Oral b.i.d., Zinc 1 Capsule (of 50 mg) Oral daily Allergies: Cephalexin Review of Systems: Review of Systems is not available for this patient. Vital Signs: Performed on Nov 16, 2020 14:59 Height - 64.00 in Weight - 147.8 lbs (LOW) BSA - 1.72 sq.m BMI - 25.37 Temperature - 98.1 F (LOW) Pulse - 76 /min Respiration - 18 /min BP - 150/80 mm(hg) (HIGH) O2 Sat - 95 % (LOW) Pain - 0 Fatigue - 8 Performance Status: 1 - No physically strenuous activity, but ambulatory and able to carry out light or sedentary work (e.g. office work, light house work). (ECOG) Physical Examination: Respiratory - Lungs are clear to auscultation, Cardiovascular - Regular rate and rhythm of heart, Gastrointestinal - Soft, bowel sounds present, Extremities - No visible edema or rash. Lab/Imaging: Most recent lab results are not available for this patient. 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 less than 1%, HER-2/denai negative, Ki-67 high at 38% Oncotype DX score is 36 e.g. high, distant recurrence risk at 9 year his 24% with tamoxifen/aromatase inhibitor and absolute chemotherapy benefit is more than 15% Patient and her daughter declined adjuvant chemotherapy AGAINST MEDICAL ADVICE and also declined postlumpectomy radiation therapy but agreed to continue with Arimidex History of melanoma involving left shoulder status post excision with skin graft done in 1970s. He Plan: Discussed with patient regarding her labs white blood count 5.1 hemoglobin 11.8 hematocrit 36.1 platelets 190,000 CMP within normal limit except creatinine 1.7 Clinically, patient doing well with no new signs suggestive of recurrence of disease her lab work-up is within normal range except mild renal insufficiency her left breast exam shows no mass palpable and surgical scar in the left lower quadrant shows no abnormality no nipple discharge. We will continue with daily Arimidex and she will return to clinic in 6 months with CBC CMP and follow-up mammogram Signed By: Sofie Mendieta M.D. <<Signature on File>>
== END 2020-11-16 12:49 | disposition home or self-care (01) ==
PROVIDERS: PCP Nurse Practitioner Family; Visit Provider Internal Medicine Hematology & Oncology
DX: C50.312 Malignant neoplasm of lower-inner quadrant of left female breast (principal); Z17.0 Estrogen receptor positive status [ER+]; Z85.820 Personal history of malignant melanoma of skin; Z79.811 Long term (current) use of aromatase inhibitors
CPT/HCPCS: 36415; 80053; 85025; 99214

== ENCOUNTER → 2020-12-08 10:15 | Outpatient (BNVA) | payer MEDICARE, OTHER, SELFPAY | PROVIDERS: PCP Nurse Practitioner Family; Visit Provider Internal Medicine | DX: N28.9 Disorder of kidney and ureter, unspecified (principal) | CPT/HCPCS: 82306; 82310; 82542; 82570; 83970; 84156; 85025 ==

== ENCOUNTER 2020-12-18 11:30 | Outpatient (CLI) | payer MEDICARE, OTHER, SELFPAY ==
--- NOTE | 2020-12-18 11:30 | FL_ITS ---
WS: [id number] MODIFIED BARIUM SWALLOW HISTORY: R13.10 - Dysphagia, unspecified FLUOROSCOPY TIME: 1.7 minutes. Modified barium swallow was performed by the speech pathologist. Fluoroscopy was provided with the pa tient in a lateral projection. Multiple food consistencies were provided. Patient swallowed all food consistencies without difficulty. No aspiration or laryngeal penetration. Barium tablet was swallowed without difficulty. Barium tablet became delayed in the midesophagus with mild to and fro motion due to extensive tertiary contractions and dysmotility of the mid to distal e sophagus. FL/FL barium swallow modifd [id number] IMPRESSION: 1. No aspiration or laryngeal penetration. 2. Delayed emptying of esophagus due to tertiary contractions and dysmotility. Please see speech therapist report also for recommendations.
== END 2020-12-18 11:31 | disposition home or self-care (01) ==
LOC: RAD 11:35
PROVIDERS: PCP Nurse Practitioner Family; Visit Provider Surgery
DX: R13.10 Dysphagia, unspecified (principal)
CPT/HCPCS: 74230; 92611

== ENCOUNTER → 2020-12-26 09:22 | Outpatient (BNVA) | payer MEDICARE, OTHER, SELFPAY | PROVIDERS: PCP Nurse Practitioner Family; Visit Provider Nurse Practitioner Family | DX: N18.9 Chronic kidney disease, unspecified (principal); I10 Essential (primary) hypertension | CPT/HCPCS: 80048 ==

== ENCOUNTER → 2021-04-12 08:39 | Outpatient (BNVA) | payer MEDICARE, OTHER, SELFPAY | PROVIDERS: PCP Nurse Practitioner Family; Visit Provider Nurse Practitioner Family | DX: E11.9 Type 2 diabetes mellitus without complications (principal); I10 Essential (primary) hypertension; E78.5 Hyperlipidemia, unspecified | CPT/HCPCS: 80053; 80061; 82043; 83036 ==

== ENCOUNTER → 2021-04-24 10:05 | Outpatient (BNVA) | payer MEDICARE, OTHER, SELFPAY | PROVIDERS: PCP Nurse Practitioner Family; Visit Provider Urology | DX: C67.5 Malignant neoplasm of bladder neck (principal); N28.9 Disorder of kidney and ureter, unspecified | CPT/HCPCS: 81003 ==

== ENCOUNTER → 2021-05-01 08:43 | Outpatient (BNVA) | payer MEDICARE, OTHER, SELFPAY | PROVIDERS: PCP Nurse Practitioner Family; Visit Provider Nurse Practitioner Family | DX: E11.9 Type 2 diabetes mellitus without complications (principal) | CPT/HCPCS: 80053; 80061; 82043; 83036 ==

== ENCOUNTER 2021-05-11 12:36 | Outpatient (CLI) | payer MEDICARE, OTHER, SELFPAY ==
--- NOTE | 2021-05-11 13:30 | USCV_ITS ---
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 Features of mild peripheral artery disease on the right side. 2. No significant arterial obstruction on the left side. Dr Nessa Aguilar MD [facility] (Electronically Signed) Final Date: 15 May 2021 10:28 S
== END 2021-05-11 12:37 | disposition home or self-care (01) ==
LOC: US 12:38
PROVIDERS: PCP Nurse Practitioner Family; Visit Provider Podiatrist Foot & Ankle Surgery
DX: R09.89 Other specified symptoms and signs involving the circulatory and respiratory systems (principal); M79.604 Pain in right leg; M79.605 Pain in left leg
CPT/HCPCS: 93923

== ENCOUNTER 2021-05-15 10:33 | Outpatient (CLI) | payer MEDICARE, OTHER, SELFPAY ==
--- NOTE | 2021-05-15 10:38 | MM_ITS ---
WS: [id number] DIAGNOSTIC BILATERAL DIGITAL MAMMOGRAM WITH CAD HISTORY: HX OF BREAST CA COMPARISON: 05/12/2020 and 07/07/2019 TECHNIQUE: Bilateral craniocaudad, mediolateral oblique, and mediolateral views are submitted. Comput er aided detection utilized. Breast composition: There are scattered areas of fibroglandular density. Postsurgical changes are not ed in the LEFT breast. Trabecular thickening secondary to prior radiation. There is a new spiculated soft tissue nodule of increased density measuring 10 x 11 mm in the posterior LEFT breast. Small ass ociated calcifications. Benign calcifications in the RIGHT breast. MM/[place] [id number] IMPRESSION: BI-RADS: 0-Incomplete: Need additional imaging evaluation FOLLOW UP: Need Additional Imaging LEFT breast: Spot compression views (CC and MLO). True ML. Ultrasound to follow if abnormality persists.
== END 2021-05-15 10:34 | disposition home or self-care (01) ==
LOC: RADSHAW 10:35
PROVIDERS: PCP Nurse Practitioner Family; Visit Provider Internal Medicine Hematology & Oncology
DX: Z85.3 Personal history of malignant neoplasm of breast (principal)
CPT/HCPCS: 77066

== ENCOUNTER 2021-05-28 10:44 | Outpatient (CLI) | payer MEDICARE, OTHER, SELFPAY ==
[2021-05-28 11:43] LABS: Basophils % 0.6 %; Eosinophils # 0.1 10^3/uL (0.0-0.8); Eosinophils % 1.9 %; Hematocrit 35.6 % (37.0-47.0); Hemoglobin 11.8 g/dL (11.5-15.3); Lymphocytes # 0.9 10^3/uL (0.8-4.8); Lymphocytes % 14.9 %; Mean Corpuscular HGB Conc 33.1 g/dL (30.0-36.0); Mean Corpuscular Hemoglobin 29.4 pg (28.0-34.0); Mean Corpuscular Volume 88.6 fl (81-99); Mean Platelet Volume 11.4 fL (7.4-10.4); Monocytes # 0.6 10^3/uL (0.2-0.9); Monocytes % 9.9 %; Neutrophils # 4.51 10^3/uL (1.8-7.7); Neutrophils % 72.1 %; Nucleated Red Blood Cells % 0 %; Platelet Count 209 10^3/cmm (130-400); Red Blood Count 4.02 10^6/uL (4.1-5.3); White Blood Count 6.3 10^3/uL (4.0-10.0)
[2021-05-28 12:07] LABS: Alanine Aminotransferase 18 U/L (0-33); Albumin Level 3.7 g/dL (3.5-5.2); Alkaline Phosphatase 85 IU/L (35-105); Anion Gap 11.9 (5-19); Aspartate Amino Transferase 25 U/L (0-32); Blood Urea Nitrogen 29 mg/dL (8-23); Calcium 9.3 mg/dL (8.5-10.5); Carbon Dioxide 28 mmol/L (22-29); Chloride 99 mmol/L (98-107); Globulin 2.4 g/dL (1.3-4.6); Glucose 113 mg/dL (65-115); Osmolality Calculated 287 mOsm/kg (285-295); Potassium 3.9 mmol/L (3.5-5.1); Sodium 135 mmol/L (136-145); Total Bilirubin 0.3 mg/dL (0.15-1.2); Total Protein 6.1 g/dL (6.6-8.7)
--- NOTE | 2021-05-28 12:19 | XR_ITS ---
WS: [id number] Sinus series, 3 views, 05/28/2021. Clinical Data: R09.81 - Nasal congestion Comparison: None. Findings: The sinuses are clear. There is no mucoperiosteal thickening. The inferior aspect of the maxillary si nuses are obscured by the occipital bone. No bone destruction or erosion is seen. XR/XR sinus min 3V* [id number] Impression: Negative sinus series.
--- NOTE | 2021-05-28 15:02 | ONC FU_ITS ---
Dr. Mendieta follow up note Patient: Reyna Lopez Unit #: [id number]: 1935 Dicatated By: Sofie Mendieta M.D.Date of Visit:May 28, 2021 Onc Med Follow-up/Prog Note History of Present Illness: Mrs. Reyna Lopez, is a 85-year-old female with long-standing history of left breast mass, as per patient it was a very small e.g. pea-sized mass in the right lower portion of left breast but she did not seek any intervention until recently when she noticed mass started getting bigger and underwent mammogram which confirmed the mass in the left breast followed by ultrasound-guided biopsy which confirmed invasive carcinoma ER positive MA negative HER-2/denia negative subsequently underwent left breast lumpectomy with left axillary sentinel lymph node biopsy on 10/07/2019 and final pathology report showed ER 94%, MA less than 1%, HER-2/denia negative, Ki-67 is 38 which is high and size of invasive tumor was 3 x 2.6 x 1.7 cm, clear surgical margins , moderately differentiated, p T2 , 2 left axillary lymph nodes showed no evidence of metastatic disease pN0 Oncotype DX score done on 11/03/2019 showed recurrence score 36, risk of distant recurrence at 9 year with Arimidex/tamoxifen,24%and absolute benefit from chemotherapy is more than 15%patient and her family decided not to consider systemic chemotherapy AGAINST MEDICAL ADVICE also declining postlumpectomy radiation therapy. Patient tolerated procedure well. No history of hormonal supplement, menarche at age 11 or 12, first at age 16, family history significant for 2 sisters with history of breast cancer. Patient also has history of melanoma involving left shoulder status post excision with skin grafting in 1970s on Arimidex with vitamin D and calcium Follow-up mammogram done on May 15, 2021 shows a new spiculated soft tissue nodule of increased density measuring 10 x 11 mm in the posterior left breast. Small associated calcification. Benign calcification in the right breast. Came for follow-up, denies any specific complaints, no fever chills, no nausea or vomiting, no diarrhea or constipation, no hot flashes, no joint pain except episode of fall, PMD is monitoring or evaluating her. Otherwise tolerating her Arimidex well, patient recently underwent mammogram which shows abnormality in the left breast, ultrasound was recommended Medications: Albuterol Sulfate Aerosol Powder, Breath Activated Inhalation, ALPRAZolam 1 Tablet (of 0.5 mg) Oral t.i.d., amLODIPine Besylate 1 Tablet (of 10 mg) Oral daily, Aspirin 1 Tablet (of 81 mg) Oral daily, Atorvastatin Calcium 1 Tablet (of 40 mg) Oral daily, Bumetanide 1 Tablet (of 1 mg) Oral daily, Cholecalciferol 1 Capsule (of 125 mcg ) Oral daily, Cinnamon 2 Capsule (of 500 mg) Oral daily, Flaxseed Oil 1 Capsule (of 1200 mg) Oral daily, hydrALAZINE HCl 1 Tablet (of 50 mg) Oral t.i.d., Insulin Detemir 30 Units (of 100 Units/mL) Subcutaneous daily, Irbesartan 0.5 Tablet (of 300 mg) Oral b.i.d., Isosorbide Mononitrate ER 1 Tablet (of 60 mg) Tablet SR 24 HR Oral daily, Lisinopril 1 Tablet (of 40 mg) Oral daily, Magnesium Oxide 1 Tablet (of 400 mg) Capsule Oral daily, Metoprolol Tartrate 2 Tablet (of 25 mg) Oral b.i.d., Zinc 1 Capsule (of 50 mg) Oral daily Allergies: Cephalexin Review of Systems: Review of Systems is not available for this patient. Vital Signs: Performed on May 28, 2021 14:33 Height - 64.00 in Weight - 149.8 lbs (HIGH) BSA - 1.73 sq.m BMI - 25.71 Temperature - 97.8 F (LOW) Pulse - 67 /min Respiration - 18 /min BP - 190/71 mm(hg) (HIGH) O2 Sat - 97 % Pain - 2 Fatigue - 6 Performance Status: 1 - No physically strenuous activity, but ambulatory and able to carry out light or sedentary work (e.g. office work, light house work). (ECOG) Physical Examination: Respiratory - Lungs are clear to auscultation, Cardiovascular - Regular rate and rhythm of heart, Gastrointestinal - Soft, bowel sounds present, Extremities - No visible edema. Lab/Imaging: Most recent lab results are not available for this patient. 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 less than 1%, HER-2/denia negative, Ki-67 high at 38% Oncotype DX score is 36 e.g. high, distant recurrence risk at 9 year his 24% with tamoxifen/aromatase inhibitor and absolute chemotherapy benefit is more than 15% Patient and her daughter declined adjuvant chemotherapy AGAINST MEDICAL ADVICE and also declined postlumpectomy radiation therapy but agreed to continue with Arimidex History of melanoma involving left shoulder status post excision with skin graft done in 1970s. Follow-up mammogram done on May 15, 2021 showed there is a new spiculated soft tissue nodule of increased density measuring 10 x 11 mm in the posterior left breast. Small associated calcification. Right breast shows benign calcifications Plan: Discussed with patient regarding her labs white blood count 6.3 hemoglobin 11.8 hematocrit 35.6 platelets 209,000 CMP within normal limits And follow-up mammogram findings which showed new subcentimeter spiculated nodule in the left breast Clinically, patient doing well with no new signs symptom suggestive of recurrence of disease but her follow-up mammogram shows abnormality in the left breast, second primary versus satellite lesion, patient was offered referral to radiation oncology for postlumpectomy radiation therapy but declined and she was also offered chemotherapy for being high risk for recurrence as Oncotype DX scores was high at 36., Suggestive of benefit from adjuvant chemotherapy. But patient declined both but admitted for hormone therapy which she is tolerating well. As her follow-up mammogram shows subcentimeter spiculated nodule in the left breast, will consider ultrasound left breast with special attention to abnormality seen on recent mammogram, if ultrasound confirmed the abnormality then will consider ultrasound-guided biopsy and if it shows no abnormality then will consider repeating mammogram in 6 months In the meantime she will continue with daily Arimidex along with vitamin D and calcium supplement Patient to return to clinic after ultrasound left breast Signed By: Sofie Mendieta M.D. <<Signature on File>>
== END 2021-05-28 10:45 | disposition home or self-care (01) ==
LOC: ONCMED 10:48
PROVIDERS: PCP Nurse Practitioner Family; Visit Provider Internal Medicine Hematology & Oncology
DX: Z08 Encounter for follow-up examination after completed treatment for malignant neoplasm (principal); Z85.3 Personal history of malignant neoplasm of breast; Z90.12 Acquired absence of left breast and nipple; R09.81 Nasal congestion; Z79.890 Hormone replacement therapy; Z92.21 Personal history of antineoplastic chemotherapy
CPT/HCPCS: 36415; 70220; 80053; 85025; 99214

== ENCOUNTER 2021-06-15 14:11 | Outpatient (CLI) | payer MEDICARE, OTHER, SELFPAY ==
--- NOTE | 2021-06-15 14:29 | US_ITS ---
WS: [id number] ADDITIONAL VIEWS LEFT MAMMOGRAM LEFT BREAST ULTRASOUND HISTORY: ABNORMAL MAMMOGRAM;HX OF BREAST CA COMPARISON: 05/15/2021, 05/12/2020, 07/07/2019 LEFT MAMMOGRAM: Spot compression views and true ML. Persistent high density mass with irregular spiculated margins in the posterior LEFT breast. There is some very mild associated architectural distortion. This mass is posterior to the surgical resection site from a prior neoplasm. There are a few central calcifications within the mass. Spiculated mass measures 1.3 x 1.1 cm. No enlarged axillary lymph nodes are identified. LEFT BREAST ULTRASOUND 2-D and color Doppler imaging submitted. Ultrasound of the LEFT breast at 7:00, 2 cm from the nipple demonstrates a hypoechoic mass with irreg ular spiculated margins measuring 1.4 x 1.0 x 1.3 cm. This corresponds to the abnormality seen by irving shepherd. US/US breast LT limited* [id number] IMPRESSION: BI-RADS: 5-Highly Suggestive of Malignancy FOLLOW UP: Biopsy Recommended Ultrasound-guided biopsy recommended of the new mass at 7:00, 2 cm from the nip ple LEFT breast. Notified Sofie Mendieta MD at 06/18/2021 8:02 AM. Message left with Sancho for Dr. Mendieta.
== END 2021-06-15 14:12 | disposition home or self-care (01) ==
LOC: RAD 14:18
PROVIDERS: PCP Nurse Practitioner Family; Visit Provider Internal Medicine Hematology & Oncology
DX: Z85.3 Personal history of malignant neoplasm of breast (principal); R92.8 Other abnormal and inconclusive findings on diagnostic imaging of breast; N63.24 Unspecified lump in the left breast, lower inner quadrant
CPT/HCPCS: 76642; 77065

== ENCOUNTER 2021-06-18 14:46 | Outpatient (CLI) | payer MEDICARE, OTHER, SELFPAY ==
--- NOTE | 2021-06-25 10:40 | ONC FU_ITS ---
Dr. Mendieta follow up note Patient: Reyna Lopez Unit #: [id number]: 1935 Dicatated By: Sofie Mendieta M.D.Date of Visit:Jun 18, 2021 Onc Med Follow-up/Prog Note History of Present Illness: Mrs. Reyna Lopez, is a 85-year-old female with long-standing history of left breast mass, as per patient it was a very small e.g. pea-sized mass in the right lower portion of left breast but she did not seek any intervention until recently when she noticed mass started getting bigger and underwent mammogram which confirmed the mass in the left breast followed by ultrasound-guided biopsy which confirmed invasive carcinoma ER positive [place] negative HER-2/denia negative subsequently underwent left breast lumpectomy with left axillary sentinel lymph node biopsy on 10/07/2019 and final pathology report showed ER 94%, [place] less than 1%, HER-2/denia negative, Ki-67 is 38 which is high and size of invasive tumor was 3 x 2.6 x 1.7 cm, clear surgical margins , moderately differentiated, p T2 , 2 left axillary lymph nodes showed no evidence of metastatic disease pN0 Oncotype DX score done on 11/03/2019 showed recurrence score 36, risk of distant recurrence at 9 year with Arimidex/tamoxifen,24%and absolute benefit from chemotherapy is more than 15%patient and her family decided not to consider systemic chemotherapy AGAINST MEDICAL ADVICE also declining postlumpectomy radiation therapy. Patient tolerated procedure well. No history of hormonal supplement, menarche at age 11 or 12, first at age 16, family history significant for 2 sisters with history of breast cancer. Patient also has history of melanoma involving left shoulder status post excision with skin grafting in 1970s on Arimidex with vitamin D and calcium Follow-up mammogram done on May 15, 2021 shows a new spiculated soft tissue nodule of increased density measuring 10 x 11 mm in the posterior left breast. Small associated calcification. Benign calcification in the right breast. Ultrasound left breast done on June 15, 2021 confirmed persistent 1.3 x 1.1 cm sized high density mass with irregular spiculated margins in the posterior left breast with some very mild associated architectural distortion, mass is positioned to the surgical resection site from the prior neoplasm., No enlarged axillary lymph node identified Came for follow-up, denies any specific complaints, no fever chills, no nausea or vomiting, no diarrhea constipation, tolerating Arimidex well, recently her follow-up mammogram shows left breast abnormality for which she underwent ultrasound sonogram which confirmed mass just posterior to surgical resection site from prior neoplasm Medications: Albuterol Sulfate Aerosol Powder, Breath Activated Inhalation, ALPRAZolam 1 Tablet (of 0.5 mg) Oral t.i.d., amLODIPine Besylate 1 Tablet (of 10 mg) Oral daily, Aspirin 1 Tablet (of 81 mg) Oral daily, Atorvastatin Calcium 1 Tablet (of 40 mg) Oral daily, Bumetanide 1 Tablet (of 1 mg) Oral daily, Cholecalciferol 1 Capsule (of 125 mcg ) Oral daily, Cinnamon 2 Capsule (of 500 mg) Oral daily, Flaxseed Oil 1 Capsule (of 1200 mg) Oral daily, hydrALAZINE HCl 1 Tablet (of 50 mg) Oral t.i.d., Insulin Detemir 30 Units (of 100 Units/mL) Subcutaneous daily, Irbesartan 0.5 Tablet (of 300 mg) Oral b.i.d., Isosorbide Mononitrate ER 1 Tablet (of 60 mg) Tablet SR 24 HR Oral daily, Lisinopril 1 Tablet (of 40 mg) Oral daily, Magnesium Oxide 1 Tablet (of 400 mg) Capsule Oral daily, Metoprolol Tartrate 2 Tablet (of 25 mg) Oral b.i.d., Zinc 1 Capsule (of 50 mg) Oral daily Allergies: Cephalexin Review of Systems: Review of Systems is not available for this patient. Vital Signs: Performed on Jun 18, 2021 15:07 Height - 64.00 in Weight - 151.8 lbs (HIGH) BSA - 1.74 sq.m BMI - 26.06 Temperature - 97.9 F (LOW) Pulse - 72 /min Respiration - 17 /min BP - 174/63 mm(hg) (HIGH) O2 Sat - 95 % (LOW) Pain - 1 Fatigue - 0 Performance Status: 0 - Fully active, able to carry on all predisease activities without restrictions. (ECOG) Physical Examination: Respiratory - Lungs are clear to auscultation, Cardiovascular - Regular rate and rhythm of heart, Gastrointestinal - Soft, bowel sounds present, Extremities - No visible edema. Lab/Imaging: Most recent lab results are not available for this patient. 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 less than 1%, HER-2/denia negative, Ki-67 high at 38% Oncotype DX score is 36 e.g. high, distant recurrence risk at 9 year his 24% with tamoxifen/aromatase inhibitor and absolute chemotherapy benefit is more than 15% Patient and her daughter declined adjuvant chemotherapy AGAINST MEDICAL ADVICE and also declined postlumpectomy radiation therapy but agreed to continue with Arimidex History of melanoma involving left shoulder status post excision with skin graft done in 1970s. Follow-up mammogram done on May 15, 2021 showed there is a new spiculated soft tissue nodule of increased density measuring 10 x 11 mm in the posterior left breast. Small associated calcification. Right breast shows benign calcifications Plan: Discussed with patient regarding her left breast ultrasound finding which confirmed the mass in the left breast which was seen on mammogram, at this point we will refer her for ultrasound-guided left breast mass biopsy, if it confirm malignancy, will refer her to Dr. Clark for further evaluation. In the meantime she will continue with Arimidex along with vitamin D and calcium and return to clinic 1 week after her left breast biopsy for further discussion Signed By: Sofie Mendieta M.D. <<Signature on File>>
== END 2021-06-18 14:47 | disposition home or self-care (01) ==
PROVIDERS: PCP Nurse Practitioner Family; Visit Provider Internal Medicine Hematology & Oncology
DX: C50.812 Malignant neoplasm of overlapping sites of left female breast (principal); Z17.0 Estrogen receptor positive status [ER+]; Z79.811 Long term (current) use of aromatase inhibitors; E55.9 Vitamin D deficiency, unspecified; Z79.899 Other long term (current) drug therapy; Z85.820 Personal history of malignant melanoma of skin
CPT/HCPCS: 99214

== ENCOUNTER 2021-07-10 07:48 | Outpatient (CLI) | payer MEDICARE, OTHER, SELFPAY ==
--- NOTE | 2021-07-10 07:57 | US_ITS ---
WS: [id number] ULTRASOUND-GUIDED LEFT BREAST BIOPSY CLINICAL INFORMATION: HX OF BREAST CANCER/NEW MASS AT 7:00 2 CM FROM NIPPLE COMPARISON: None. FINDINGS: The procedure including risks, benefits, and complications were discussed with the patient who agreed to proceed. Using sterile technique patient was prepped and draped in the usual sterile fashion. Aft er 1% lidocaine utilizing real-time ultrasound guidance 5 14-gauge cores were obtained of the left br east lesion at the 7 o'clock position. Subsequently a titanium clip was placed in the biopsy cavity. No immediate complications. Pathology demonstrates A. 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 -Mandel Scruggs grade 3 (score 8). -Breast profile ancillary studies are pending US/[place] [id number] IMPRESSION: 1. Uncomplicated ultrasound-guided left breast biopsy. 2. The pathology demonstrates Moderate to poorly differentiated invasive ducta l carcinoma, NOS. 3. Breast cancer prognostic profile pending. BI-RADS: 6-Known Biopsy-Proven Malignancy FOLLOW UP: Surgical Biopsy Recommended RECOMMEND BREAST SURGERY CONSULTATION IN FURTHER EVALUATION.
[2021-07-16 13:25] LABS: Miscellaneous Test See Scanned Lab Rpt
== END 2021-07-10 07:49 | disposition home or self-care (01) ==
LOC: RAD 07:50
PROVIDERS: PCP Nurse Practitioner Family; Visit Provider Internal Medicine Hematology & Oncology
DX: Z85.3 Personal history of malignant neoplasm of breast (principal); C50.312 Malignant neoplasm of lower-inner quadrant of left female breast
CPT/HCPCS: 19083; 88305; 88361; 88367; 88374

== ENCOUNTER 2021-07-20 08:39 | Outpatient (CLI) | payer MEDICARE, OTHER, SELFPAY ==
--- NOTE | 2021-07-22 18:38 | ONC FU_ITS ---
Dr. Mendieta follow up note Patient: Reyna Lopez Unit #: [id number]: 1935 Dicatated By: Sofie Mendieta M.D.Date of Visit:Jul 20, 2021 Onc Med Follow-up/Prog Note History of Present Illness: Mrs. Reyna Lopez, is a 85-year-old female with long-standing history of left breast mass, as per patient it was a very small e.g. pea-sized mass in the right lower portion of left breast but she did not seek any intervention until recently when she noticed mass started getting bigger and underwent mammogram which confirmed the mass in the left breast followed by ultrasound-guided biopsy which confirmed invasive carcinoma ER positive NH negative HER-2/denia negative subsequently underwent left breast lumpectomy with left axillary sentinel lymph node biopsy on 10/07/2019 and final pathology report showed ER 94%, NH less than 1%, HER-2/denia negative, Ki-67 is 38 which is high and size of invasive tumor was 3 x 2.6 x 1.7 cm, clear surgical margins , moderately differentiated, p T2 , 2 left axillary lymph nodes showed no evidence of metastatic disease pN0 Oncotype DX score done on 11/03/2019 showed recurrence score 36, risk of distant recurrence at 8 year with Arimidex/tamoxifen,24%and absolute benefit from chemotherapy is more than 15%patient and her family decided not to consider systemic chemotherapy AGAINST MEDICAL ADVICE also declining postlumpectomy radiation therapy. Patient tolerated procedure well. No history of hormonal supplement, menarche at age 11 or 12, first at age 16, family history significant for 2 sisters with history of breast cancer. Patient also has history of melanoma involving left shoulder status post excision with skin grafting in 1970s on Arimidex with vitamin D and calcium Follow-up mammogram done on May 15, 2021 shows a new spiculated soft tissue nodule of increased density measuring 10 x 11 mm in the posterior left breast. Small associated calcification. Benign calcification in the right breast. Ultrasound left breast done on June 15, 2021 confirmed persistent 1.3 x 1.1 cm sized high density mass with irregular spiculated margins in the posterior left breast with some very mild associated architectural distortion, mass is positioned to the surgical resection site from the prior neoplasm., No enlarged axillary lymph node identified underwent left breast mass biopsy which was done on July 10, 2021 which showed moderately to poorly differentiated invasive ductal carcinoma grade 3, ER 100% positive NH negative HER-2/denia 2+, FISH confirmed negative for HER-2/denia overexpression by IHC and H ER 2/CEP 17 ratio less than 2 Came for follow-up, denies any specific complaints, no fever chills, no nausea or vomiting, no diarrhea constipation,Denies any new bony pains denies any jaundice denies any headaches blurred vision double vision, tolerating oral Arimidex well Medications: Albuterol Sulfate Aerosol Powder, Breath Activated Inhalation, ALPRAZolam 1 Tablet (of 0.5 mg) Oral t.i.d., amLODIPine Besylate 1 Tablet (of 10 mg) Oral daily, Aspirin 1 Tablet (of 81 mg) Oral daily, Atorvastatin Calcium 1 Tablet (of 40 mg) Oral daily, Bumetanide 1 Tablet (of 1 mg) Oral daily, Cholecalciferol 1 Capsule (of 125 mcg ) Oral daily, Cinnamon 2 Capsule (of 500 mg) Oral daily, Flaxseed Oil 1 Capsule (of 1200 mg) Oral daily, hydrALAZINE HCl 1 Tablet (of 50 mg) Oral t.i.d., Insulin Detemir 30 Units (of 100 Units/mL) Subcutaneous daily, Irbesartan 0.5 Tablet (of 300 mg) Oral b.i.d., Isosorbide Mononitrate ER 1 Tablet (of 60 mg) Tablet SR 24 HR Oral daily, Lisinopril 1 Tablet (of 40 mg) Oral daily, Magnesium Oxide 1 Tablet (of 400 mg) Capsule Oral daily, Metoprolol Tartrate 2 Tablet (of 25 mg) Oral b.i.d., Zinc 1 Capsule (of 50 mg) Oral daily Allergies: Cephalexin Review of Systems: Review of Systems is not available for this patient. Vital Signs: Performed on Jul 20, 2021 09:12 Height - 64.00 in Weight - 149.6 lbs (LOW) BSA - 1.73 sq.m BMI - 25.68 Temperature - 98.3 F (LOW) Pulse - 55 /min (LOW) Respiration - 16 /min BP - 127/57 mm(hg) O2 Sat - 98 % Pain - 7 Fatigue - 8 Performance Status: 1 - No physically strenuous activity, but ambulatory and able to carry out light or sedentary work (e.g. office work, light house work). (ECOG) Physical Examination: Respiratory - Lungs are clear to auscultation, Cardiovascular - Regular rate and rhythm of heart, Gastrointestinal - Soft, bowel sounds present, Extremities - No visible edema. Lab/Imaging: Most recent lab results are not available for this patient. Impression: . Recurrent grade 3 moderately to poorly differentiated invasive ductal carcinoma per left breast biopsy done on July 10, 2021, ER 100%, NH negative HER-2/denia negative Moderately invasive ductal carcinoma involving left breast status post lumpectomy and sentinel lymph node biopsy done on 10/07/2019 Final pathology report showed 3 x 2.6 x 1.7 cm invasive mass with clear surgical margins, moderately differentiated , pT2 No lymphovascular invasion seen 2 axillary sentinel lymph nodes were examined showed no evidence of metastatic disease pN0 Stage IIa ER positive 94%,, NH negative e.g. less than 1%, HER-2/denia negative, Ki-67 high at 38% Oncotype DX score is 36 e.g. high, distant recurrence risk at 8 year his 24% with tamoxifen/aromatase inhibitor and absolute chemotherapy benefit is more than 15% Patient and her daughter declined adjuvant chemotherapy AGAINST MEDICAL ADVICE and also declined postlumpectomy radiation therapy but agreed to continue with Arimidex History of melanoma involving left shoulder status post excision with skin graft done in 1970s. Follow-up mammogram done on May 15, 2021 showed there is a new spiculated soft tissue nodule of increased density measuring 10 x 11 mm in the posterior left breast. Small associated calcification. Right breast shows benign calcifications Plan: Discussed with patient regarding her left breast biopsy which shows moderately to poorly differentiated invasive ductal carcinoma grade 3 ER positive NH negative HER-2/denia negative, it appears patient has multifocal disease as she has history of left breast cancer for which she underwent lumpectomy in September 2019 for ER positive NH negative HER-2/denia negative disease at that time her Oncotype DX score was high and she was offered chemotherapy which patient declined and at that time patient also declined postlumpectomy radiation therapy. At this point, we will discontinue Arimidex as patient developed left breast cancer while on Arimidex, will refer her to Dr. Marvin Hall evaluation for mastectomy sentinel lymph node biopsy at his discretion as patient has history of left breast lumpectomy and sentinel lymph node biopsy in the past. Patient return to clinic 2 weeks after surgery for further discussion and planning Signed By: Sofie Mendieta M.D. <<Signature on File>>
== END 2021-07-20 08:40 | disposition home or self-care (01) ==
LOC: ONCMED 08:41
PROVIDERS: PCP Nurse Practitioner Family; Visit Provider Internal Medicine Hematology & Oncology
DX: C50.812 Malignant neoplasm of overlapping sites of left female breast (principal); Z17.0 Estrogen receptor positive status [ER+]; Z90.12 Acquired absence of left breast and nipple; D24.1 Benign neoplasm of right breast; Z79.811 Long term (current) use of aromatase inhibitors
CPT/HCPCS: 99214

== ENCOUNTER → 2021-08-13 09:39 | Outpatient (BNVA) | payer MEDICARE, OTHER, SELFPAY | PROVIDERS: PCP Nurse Practitioner Family; Visit Provider Surgery | DX: Z11.52 Encounter for screening for COVID-19 (principal) | CPT/HCPCS: 87635 ==

== ENCOUNTER 2021-08-16 07:10 | Day surgery (SDC) | payer MEDICARE, OTHER, SELFPAY ==
[2021-08-15 15:14] VITALS: BMI 25.7
[2021-08-16 07:30] VITALS: BP 174/67; PULSE 47; RESP 17; TEMP 37.4; O2SAT 96
--- NOTE | 2021-08-16 07:40 | ECG_ITS ---
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: : 1935 Requested By: Mini Oscar Order Number: [id number] Reading MD: JENIFFER ROMERO Measurements Intervals [place] Rate: 61 P: 68 NV: 270 QRS: -56 QRSD: 104 T: 11 QT: 489 QTc: 493 Interpretive Statements SINUS RHYTHM WITH FIRST DEGREE AV BLOCK WITH FREQUENT VENTRICULAR PREMATURE COMPLEXES IN A BIGEMINAL PATTERN INDETERMINATE AXIS PATTERN CONSISTENT WITH PULMONARY DISEASE SEPTAL MYOCARDIAL INFARCTION , OF INDETERMINATE AGE [40+ ms Q WAVE IN V1/V2] INFERIOR MYOCARDIAL INFARCTION , PROBABLY OLD [40+ ms Q WAVE AND/OR ST/T ABNORMALITY IN II/aVF] Compared to ECG 08/16/2019 16:29:55 Ventricular premature complex(es) now present First degree AV block now present Indeterminate axis now present Atrial fibrillation no longer present Left-axis deviation no longer present Myocardial infarct finding still present Electronically Signed On 08-16-2021 9:59:45 FOOD BEVERAGE MANAGER by JENIFFER ROMERO [email or web address]
--- NOTE | 2021-08-16 08:14 | PC.NURSE ---
Upon initial vitals patient's heart rate was noted to decrease down into the 30's on the monitor and as low as 29. Heart rate was found to be accurate with auscultation. EKG called and Dr. Zuluaga notified. Dr. Zuluaga at bedside at 0745 to evaluate patient and EKG; Dr. Clark notified of irregular rhythm. Decision made for surgery to be postponed until following up with her filament maker; Dr. Zuluaga will notify Dr. Sargent of EKG results.
[2021-08-16 08:20] VITALS: BP 178/70; PULSE 59; RESP 18; O2SAT 97
--- NOTE | 2021-08-16 08:25 | PC.NURSE ---
Dr. Zuluaga ordered that patient could be discharged home and to follow-up with cardiology; patient discharged asymptomatic. Denied chest pain or dizziness. Patient and family instructed to return to ER if she becomes symptomatic. Voiced understanding.
--- NOTE | 2021-08-16 08:26 | P.ANESUD_ITS ---
Pre-Anesthetic Update Pre-Anesthetic Assessment: Date of Surgery/Procedure: 08/16/21 Preop Malka gnosis: Recurrent bladder tumor Proposed Procedure: Operation Date: 08/16/21 08:45 Proposed Procedures p Mastectomy Radical C50.912(Left) - Mario Clark MD s Mastectomy Simple C50.912(Right) - Mario Clark MD Any changes to Pre-Anesthetic Assessment?: Yes Changes from Pre-Anesthetic Assessment: Asymptomatic bradycardia (29/min). Vitals: Temperature 99.3 F 08/16/21 07:30 Temperature Source Temporal Artery S can 08/16/21 07:30 Pulse Rate 47 L 08/16/21 07:30 Pulse Rhythm 08/16/21 08:03 Pulse Strength 3+ Normal 08/16/21 08:03 Respiratory Rate 17 08/16/21 07:30 Blood Pressure 174/67 08/16/21 07:30 Blood Pressure Vania n 102 08/16/21 07:30 Pulse Oximetry 96 08/16/21 07:30 Oxygen Delivery Me thod 08/16/21 08:03 Exam: Pre-Anes Outpt Exam: alert, oriented x 3 and clear to auscultation bilaterally Additional Exam Findings (including area of procedure): Svere bradycardia; EKG shows SB with PVC's; rythm strip shows SB with ventricular bigeminy; witnessed SB with HR=29/min. Other Pertinent Information: Other Pertinent Information: Will defer procedure and refer to cardiology for evaluation. Cardiac Studies: No Data to Display
== END 2021-08-16 08:35 ==
LOC: OR 07:15
PROVIDERS: PCP Nurse Practitioner Family; Visit Provider Surgery
PROC: (CPT 19303; 2021-08-16 08:45)
DX: Z53.9 Procedure and treatment not carried out, unspecified reason (principal); C50.912 Malignant neoplasm of unspecified site of left female breast
CPT/HCPCS: 93005; J1100; J2405; J2704; J3010; J3490

== ENCOUNTER 2021-08-23 20:32 | Emergency (ER) | payer MEDICARE, OTHER, SELFPAY ==
[2021-08-23 21:20] VITALS: BP 150/70; PULSE 61; RESP 18; TEMP 36.7; O2SAT 97; BMI 25.5
--- NOTE | 2021-08-23 21:34 | ECG_ITS ---
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 Measurements Intervals [place] Rate: 64 P: -15 CA: 216 QRS: -71 QRSD: 108 T: 37 QT: 470 QTc: 487 Interpretive Statements SINUS RHYTHM WITH FIRST DEGREE AV BLOCK WITH FREQUENT VENTRICULAR PREMATURE COMPLEXES IN A BIGEMINAL PATTERN LEFT AXIS DEVIATION [QRS AXIS < -30] SEPTAL MYOCARDIAL INFARCTION , OF INDETERMINATE AGE [40+ ms Q WAVE IN V1/V2] Compared to ECG 08/16/2021 07:49:22 Left-axis deviation now present Indeterminate axis no longer present Myocardial infarct finding still present Electronically Signed On 08-25-2021 7:38:13 KAIWHAKAHAERE by Mel Alonso M.D. [email or web address]
--- NOTE | 2021-08-23 22:39 | CTR_ITS ---
PROCEDURE INFORMATION: Exam: CT Head Without Contrast Exam date and time: 08/23/2021 10:39 PM Age: 85 years old Clinical indication: Altered mental status/memory loss; Additional info: AMS TECHNIQUE: Imaging protocol: Computed tomography of the head without contrast. Radiation optimization: All CT scans at this facility use at least one of these dose optimization techniques: automated exposure control; mA and/or kV adjustment per patient size (includes targeted exams where dose is matched to clinical indication); or iterative reconstruction. COMPARISON: CT Head wo IV contrast* [id number] 08/16/2019 8:01 PM RADIATION DOSE METRICS: Total DLP (mGy-cm): 859.02 FINDINGS: Brain: No CT evidence for acute ischemia, mass or hemorrhage. No extra-axial fluid collection, midline shift or hydrocephalus. Sulcal widening and ventricular enlargement are age related changes due to white matter volume loss. Cerebral ventricles: Age related enlargement. Paranasal sinuses: Visualized sinuses are unremarkable. No fluid levels. Mastoid air cells: Visualized mastoid air cells are well aerated. Bones/joints: Extensive atherosclerosis in the large skull base vessels. Soft tissues: Unremarkable. CT/CT head wo con* [id number] IMPRESSION: 1. No acute intracranial findings. 2. Age related changes
[2021-08-23 22:53] LABS: Basophils # 0.1 10^3/uL (0.0-0.1); Basophils % 1.4 %; Eosinophils # 0.1 10^3/uL (0.0-0.8); Eosinophils % 2.6 %; Hematocrit 39.6 % (37.0-47.0); Hemoglobin 13.4 g/dL (11.5-15.3); Lymphocytes % 23.9 %; Mean Corpuscular HGB Conc 33.8 g/dL (30.0-36.0); Mean Corpuscular Hemoglobin 29.2 pg (28.0-34.0); Mean Corpuscular Volume 86.3 fl (81-99); Mean Platelet Volume 11.6 fL (7.4-10.4); Monocytes # 0.6 10^3/uL (0.2-0.9); Monocytes % 12.8 %; Neutrophils # 2.54 10^3/uL (1.8-7.7); Neutrophils % 58.8 %; Nucleated Red Blood Cells % 0 %; Platelet Count 184 10^3/cmm (130-400); Red Blood Count 4.59 10^6/uL (4.1-5.3); Red Cell Distribution Width 13.4 % (12.1-15.1); White Blood Count 4.3 10^3/uL (4.0-10.0)
--- NOTE | 2021-08-23 23:01 | ED_ITS ---
HPI - Headache General: Chief Complaint: Headache Stated Complaint: Pain from Brain to toes\shouldder blade pain Time Seen by Provider: 08/23/21 22:27 Source: patient Mode of arrival: ambulatory Limitations: no limitations History of Present Illness: HPI Narrative: 85-year-old female who states that she has had an episodic headache throughout the day since this morning. States that its been mild in nature never severe no thunderclap onset. States she had some tingling in her feet as well. States that her blood pressures been running a little higher today. States her headaches improved here currently randomly 1 or 2 out of 10 denies any neck pain or stiffness denies any worsening improving factors. Denies any chest pain. Associated symptoms: Deny chest pain, fever(s), nausea, rash or vomiting Review of Systems Const: Denies: fever(s), chills, body aches or change in appetite Eyes: Denies: blurry vision or eye discomfort ENMT: Denies: throat pain or dental pain Card: Denies: chest pain Resp: Denies: dyspnea GI: Denies: abdominal pain, nausea, vomiting or diarrhea : Denies: dysuria Musc: Denies: neck pain or back pain Skin/Breast: Denies: rash Neuro: Reports: headache(s) Psych: Denies: depression Harjit/Lymph: Denies: easy bruising All/Imm: Denies: urticaria PFSH ED PFSH: Medical History Asthma Atherosclerosis of [place] coronary artery Benzodiazepine dependence, continuous Bladder cancer Carotid stenosis, asymptomatic Enrolled in chronic care management TYRONE (generalized anxiety disorder) Hyperlipidemia Hypertension, essential Insomnia Invasive ductal carcinoma of breast, female Renal calculus Type 2 diabetes mellitus Surgical History H/O heart bypass surgery Reports four-vessel bypass H/O lumpectomy (10/09/19) Left breast. Performed by Dr. Clark. History of back surgery Treatment of bone spurs. Performed by Dr. Gray in [place], [place] History of carpal tunnel release of both wrists History of cataract surgery Bilateral History of hip replacement (~2006) Left. Performed by Dr. Lovelace History of hip replacement (06/19/16) Performed by Dr. Lovelace Previous back surgery (08/22/14) Performed by Dr. Ramsay at [facility] in [place], [place] S/P appendectomy Status post surgical removal and fulguration of bladder neoplasm Family History Father Stroke Mother Ovarian cancer Sister Breast cancer Diabetes Hypertension Brother Heart disease Diabetes Social History Alcohol intake: never Lives independently: Yes Marital status: / Current occupational status: retired History of recent travel: No Current gender identity: Female Physical Exam Const: COMMON NORMALS: no acute distress, patient oriented x3 and healthy appearing HENMT: COMMON NORMALS: normocephalic and atraumatic HEAD & SCALP: normocephalic and atraumatic Eye: COMMON NORMALS: Equal, round and reactive pupils present and EOMs intact bilaterally PUPIL: Yes Equal, round and reactive pupils present Neck/C-Spine: COMMON NORMALS: full ROM and supple Chest: COMMONS NORMALS: normal inspection of the chest and normal palpation of entire chest wall Resp: COMMON NORMALS: normal respiratory effort, No retractions, No use of accessory muscles and clear to auscultation bilaterally AUSCULTATION: clear to auscultation bilaterally Cardio: COMMON NORMALS: regular rate, regular rhythm and No murmurs present (Cardio) RATE: regular rate RHYTHM: regular rhythm GI: COMMON NORMALS: Normal to inspection, nondistended, normoactive bowel sounds present, Soft to palpation, non-tender and no masses PALPATION: Yes Soft to palpation Extremity: COMMON NORMALS: normal to inspection and full ROM Neuro: COMMON NORMALS: patient oriented x3, moves all extremities and no focal motor deficits Psych: COMMON NORMALS: mental status grossly normal, Normal thought process present and cooperative THOUGHT PROCESS: Normal thought process present Skin: COMMON NORMALS: no rashes or lesions noted and no wounds GENERAL SKIN EXAM: no rashes or lesions noted Course Vital Signs: Vital signs: Vital Signs Temperature 98.1 F 08/23/21 21:20 Pulse Rate 60 08/23/21 23:58 Respiratory Rate 17 08/23/21 23:58 Blood Pressure 176/72 08/23/21 23:58 Pulse Oximetry 96 08/23/21 23:58 MDM - Headache MDM Narrative: Medical decision making narrative: Patient presents here with hypertension and a episodic headache throughout the day. It was not sudden onset and is waxed and waned not the worst headache of her life. Head CT here is normal she has no signs of a stroke or an aneurysm or subarachnoid hemorrhage. She feels much improved here she does have an appoint with her PCP in the morning. She is to continue to monitor her blood pressure and follow-up as scheduled in the morning return if worsening. Lab Data: Labs: Lab Results 08/23/21 08/23/21 08/23/21 22:49 22:49 23:07 WBC 4.3 10^3/uL 10^3/ uL (4.0-10.0) RBC 4.59 10^6/uL 10^6 /uL (4.1-5.3) Hgb 13.4 g/dL g/dL (11.5-15.3) Hct 39.6 % % (37.0-47.0) MCV 86.3 fl fl (81-99) MCH 29.2 pg pg (28.0-34.0) MCHC 33.8 g/dL g/dL (30.0-36.0) RDW 13.4 % % (12.1-15.1) Plt Count 184 10^3/cmm 10^3 /cmm (130-400) MPV 11.6 fL H fL (7.4-10.4) Neut % (Auto) 58.8 % % Lymph % (Auto) 23.9 % % [place] % (Auto) 12.8 % % Eos % (Auto) 2.6 % % Baso % (Auto) 1.4 % % Neut # (Auto) 2.54 10^3/uL 10^3 /uL (1.8-7.7) Lymph # (Auto) 1.0 10^3/uL 10^3/ uL (0.8-4.8) [place] # (Auto) 0.6 10^3/uL 10^3/ uL (0.2-0.9) Eos # (Auto) 0.1 10^3/uL 10^3/ uL (0.0-0.8) Baso # (Auto) 0.1 10^3/uL 10^3/ uL (0.0-0.1) Nucleated RBC % (a uto) 0 % % Nucleated RBCs # 0.0 /100WBC /100W BC Sodium 139 mmol/L mmol/L (136-145) Potassium 4.1 mmol/L mmol/L (3.5-5.1) Chloride 101 mmol/L mmol/L (98-107) Carbon Dioxide 23 mmol/L mmol/L (22-29) Anion Gap 19.1 H (5-19) BUN 31 mg/dL H mg/dL (8-23) Creatinine 1.4 mg/dL H mg/dL (0.5-0.9) GFR Calculation Not Reportable Glucose 133 mg/dL H mg/dL (65-115) Calculated Osmolal ity 296 mOsm/kg H mOs m/kg (285-295) Calcium 9.2 mg/dL mg/dL (8.5-10.5) Total Bilirubin 0.3 mg/dL mg/dL (0.15-1.2) AST 22 U/L U/L (0-32) ALT 22 U/L U/L (0-33) Alkaline Phosphata se 85 IU/L IU/L (35-105) Total Protein 6.6 g/dL g/dL (6.6-8.7) Albumin 4.2 g/dL g/dL (3.5-5.2) Globulin 2.4 g/dL g/dL (1.3-4.6) Lipase 94 U/L H U/L (13-60) Urine Color Yellow (Yellow) Urine Appearance Clear (CLEAR) Urine pH 7 (5-7) Ur Specific Gravit y 1.005 (1.005-1.030) Urine Protein Neg (Negative) Urine Glucose (UA) Norm (Normal) Urine Ketones Negative (Negative) Urine Blood Neg (Negative) Urine Nitrate Negative (Negative) Urine Bilirubin Neg (Negative) Urine Urobilinogen Neg mg/dL mg/dL (Negative) Ur Leukocyte Talia ase Negative (Negative) Imaging Data^: CT Head: Attestation: I personally reviewed and interpreted this imaging study as follows: Radiologist's impression: [address] [address] [address] Scan Report Signed Patient: Reyna Lopez Unit #: [id number] : 1935 Age/Sex: 85 / F ADM Date: 08/23/21 Loc: ER Room/Bed: Attending Dr: Ordering Provider/Ordering MD: Malinda Rivera MD Date of Service: 08/23/21 Procedure(s): CT head wo con* [id number] Accession Number(s): [id number] Report Number: [id number] PROCEDURE INFORMATION: Exam: CT Head Without Contrast Exam date and time: 08/23/2021 10:39 PM Age: 85 years old Clinical indication: Altered mental status/memory loss; Additional info: AMS TECHNIQUE: Imaging protocol: Computed tomography of the head without contrast. Radiation optimization: All CT scans at this facility use at least one of these dose optimization techniques: automated exposure control; mA and/or kV adjustment per patient size (includes targeted exams where dose is matched to clinical indication); or iterative reconstruction. COMPARISON: CT Head wo IV contrast* [id number] 08/16/2019 8:01 PM RADIATION DOSE METRICS: Total DLP (mGy-cm): 859.02 FINDINGS: Brain: No CT evidence for acute ischemia, mass or hemorrhage. No extra-axial fluid collection, midline shift or hydrocephalus. Sulcal widening and ventricular enlargement are age related changes due to white matter volume loss. Cerebral ventricles: Age related enlargement. Paranasal sinuses: Visualized sinuses are unremarkable. No fluid levels. Mastoid air cells: Visualized mastoid air cells are well aerated. Bones/joints: Extensive atherosclerosis in the large skull base vessels. Soft tissues: Unremarkable. Discharge Plan Discharge Patient Disposition: Home Clinical Impression: Headache Qualifiers: Headache type: other headache syndrome Qualified Code(s): G44.89 - Other headache syndrome Hypertension Qualifiers: Hypertension type: unspecified Qualified Code(s): I10 - Essential (primary) hypertension Condition: Stable Prescriptions: No Action hydralazine 50 mg tablet 50 mg PO TID PRN (Reason: Blood Pressure) RF: 0 isosorbide mononitrate 30 mg tablet extended release 24 hr 60 mg PO DAILY@08 RF: 0 bumetanide 1 mg tablet See Rx Instructions .ROUTE .COMPLEX RF: 0 aspirin 81 mg tablet,delayed release (DR/EC) 81 mg PO DAILY@20 RF: 0 Hold Instructions: Resume on 11/23/19. metoprolol tartrate 25 mg tablet 50 mg PO Q12H RF: 0 famotidine 20 mg tablet 20 mg PO BID@08,20 RF: 0 albuterol sulfate [ProAir HFA] 90 mcg/actuation HFA aerosol inhaler 2 puff inhalation Q6H PRN (Reason: shortness of breath or wheezing) Qty: 6.7 RF: 0 Galzin 50 mg (zinc) capsule 50 mg PO DAILY RF: 0 pantoprazole 40 mg tablet,delayed release (DR/EC) 40 mg PO DAILY RF: 0 pen needle, diabetic [BD Ultra-Fine Mini Pen Needle] 31 gauge x 3/16 needle See Rx Instructions .ROUTE .COMPLEX Qty: 100 RF: 2 lancets [OneTouch Delica Plus Lancet] 33 gauge misc See Rx Instructions .ROUTE .COMPLEX Qty: 100 RF: 0 OneTouch Ultra Test Strip See Rx Instructions .ROUTE .COMPLEX Qty: 100 RF: 2 atorvastatin 80 mg tablet See Rx Instructions .ROUTE .COMPLEX Qty: 90 RF: 0 amlodipine 10 mg tablet See Rx Instructions .ROUTE .COMPLEX Qty: 90 RF: 0 Levemir FlexTouch U-100 Insuln 100 unit/mL (3 mL) insulin pen See Rx Instructions .ROUTE .COMPLEX Qty: 15 RF: 0 Xanax 0.5 mg tablet 0.5 mg PO TID PRN (Reason: pain) Qty: 90 RF: 0 Magnesium (oxide/AA chelate) 300 mg capsule 1 cap PO DAILY@08 RF: 0 Discharge Orders: Discharge ED (Routine); Ordered 08/24/21 Ordered By: Malinda Rivera Referrals: Chaya Long FNP [Primary Care Provider] - Discharge Diet: Advance as tolerated Discharge Activity: Resume usual activity Patient Instructions: Hypertension (ED), General Headache (ED) Coding Level of Care Code ED Electric Wheelchair Repairer for Chg Fwd Exam Comprehensive NIH stroke score NIHSS Level Of Consciousness - 1a: 0 Level Of Consciousness Questions - 1b: Both Correct Level Of Consciousness Commands - 1c: Both Correct Best Gaze - 2: Normal Visual Willard - 3: No Visual Loss Facial Palsy - 4: Normal Motor Arm Right - 5: No Drift Motor Arm Left - 5: No Drift Motor Leg Right - 6: No Drift Motor Leg Left - 6: No Drift Limb Ataxia - 7: Absent Sensory - 8: Normal Best Language - 9: No Aphasia Dysarthia - 10: Normal Extinction And Inattention - 11: 0 Score Total Score: 0
[2021-08-23 23:09] LABS: Alanine Aminotransferase 22 U/L (0-33); Albumin Level 4.2 g/dL (3.5-5.2); Alkaline Phosphatase 85 IU/L (35-105); Anion Gap 19.1 (5-19); Aspartate Amino Transferase 22 U/L (0-32); Blood Urea Nitrogen 31 mg/dL (8-23); Calcium 9.2 mg/dL (8.5-10.5); Carbon Dioxide 23 mmol/L (22-29); Chloride 101 mmol/L (98-107); Globulin 2.4 g/dL (1.3-4.6); Glucose 133 mg/dL (65-115); Lipase 94 U/L (13-60); Osmolality Calculated 296 mOsm/kg (285-295); Potassium 4.1 mmol/L (3.5-5.1); Sodium 139 mmol/L (136-145); Total Bilirubin 0.3 mg/dL (0.15-1.2); Total Protein 6.6 g/dL (6.6-8.7)
[2021-08-23 23:10] LABS: Add Urine Microscopic? NO; Charge for UA Resulting for Rev
[2021-08-23 23:13] LABS: Bilirubin Urine Neg (Negative); Blood Urine Neg (Negative); Glucose Urine UA Norm (Normal); Ketones Urine Negative (Negative); Leukocyte Esterase Urine Negative (Negative); Nitrate Urine Negative (Negative); Protein Urine Neg (Negative); Specific Gravity, Urine 1.005 (1.005-1.030); Urine Appearance Clear (CLEAR); Urine Color Yellow (Yellow); Urobilinogen Urine Neg (Negative); pH Urine 7 (5-7)
[2021-08-23 23:58] VITALS: BP 176/72; PULSE 60; RESP 17; O2SAT 96
[2021-08-24] MEDS: labetalol 5 mg/mL SDV 20mL 10 MG IVP (00:03)
[2021-08-24] MEDS: ALPRAZolam 0.5 mg Tablet PO (01:07)
[2021-08-24 01:09] VITALS: BP 172/76; PULSE 66; O2SAT 96
[2021-08-24 01:13] VITALS: BP 172/76; PULSE 66; RESP 19; O2SAT 96
== END 2021-08-24 01:15 | disposition home or self-care (01) ==
PROVIDERS: Nurse Practitioner Family; Emergency Provider Emergency Medicine; PCP Nurse Practitioner Family
DX: G44.89 Other headache syndrome (principal); I10 Essential (primary) hypertension; Z79.82 Long term (current) use of aspirin; E11.8 Type 2 diabetes mellitus with unspecified complications; Z79.4 Long term (current) use of insulin; E78.5 Hyperlipidemia, unspecified
CPT/HCPCS: 70450; 80053; 81003; 83690; 85025; 93005; 96374; 99283; J3490

== ENCOUNTER → 2021-08-24 09:51 | Outpatient (BNVA) | payer MEDICARE, OTHER, SELFPAY | PROVIDERS: PCP Nurse Practitioner Family; Visit Provider Internal Medicine Hematology & Oncology | DX: C50.312 Malignant neoplasm of lower-inner quadrant of left female breast (principal); Z01.818 Encounter for other preprocedural examination; Z20.822 Contact with and (suspected) exposure to COVID-19 | CPT/HCPCS: 80053; 85025; 87635 ==

== ENCOUNTER 2021-08-30 09:07 | Observation (INO) | payer MEDICARE, OTHER, SELFPAY ==
[2021-08-29 13:49] VITALS: BMI 25.5
[2021-08-30] VITALS (24 sets, daily range): BP systolic 115–181; BP diastolic 55–88; PULSE 64–101; RESP 15–18; TEMP 36.1–37; O2SAT 88–99
--- NOTE | 2021-08-30 06:32 | W.PM.OPSUD ---
Surgery/Procedure H&P Update DATE OF PROCEDURE: August 30, 2021 DATE H&P PERFORMED: 08/07/21 H&P UPDATE INFORMATION: No changes to prior documentation PREOP DIAGNOSIS: Recurrent left breast cancer, desiring bilateral mastectomies. PLANNED PROCEDURE: Operation Date: 08/30/21 08:00 Proposed Procedures p Mastectomy Radical C50.912(Left) - Mario Clark MD s Mastectomy Simple 39783 C50.912(Right) - Mario Clark MD
--- NOTE | 2021-08-30 07:16 | P.ANESASSM_ITS ---
Pre-Anesthetic Assessment Pre-Anesthetic Assessment: Height/Weight: Height 1.63 m Weight 67.585 kg Temp Pulse Resp BP Pulse Ox 97 F L 94 18 181/88 96 08/30/21 06:35 08/30/21 06:35 08/30/21 06:35 08/30/21 06:35 08/30/21 06:35 Preop Diagnosis: Recurrent left breast cancer, desiring bilateral mastectomies. Proposed Procedure: Operation Date: 08/30/21 08:00 Proposed Procedures p Mastectomy Radical C50.912(Left) - Mario Clark MD s Mastectomy Simple C50.912(Right) - Mario Clark MD Was Beta Collette taken within 24 hours: N/A (Held today and yesterday due to recent bradycardia) Was Clonidine taken within 24 hours: N/A Last intake: Intake Last Liquid Date 08/29/21 Last Liquid Time 21:30 Last Solid Date 08/29/21 Last Solid Time 18:00 Social: Social History: No alcohol and No tobacco Exam: Pre-Anes Outpt Exam: alert, oriented x 3, clear to auscultation bilaterally and regular rate & rhythm Airway: Submandibular: WNL Cervical ROM: WNL MP: 2 Dentition: False History/ROS: Other (Feeling of lightheadedness yesterday. Took Ativan with improvement. ) Pulmonary: Pulmonary: Asthma and HERBERT CV/HEM: CV/HEM: Arrythmia, CAD, HTN and PVD Comments: CABG followed by pharmacy intake coordinator at outside hospital. Stress test last week per patient and daughter (at bedside) cleared by pharmacy intake coordinator for surgery today. DLD EKG reviewed. On 14 day monitor, per daughter was to remove today prior to surgery : : Chronic renal Insufficiency Comments: bladder cancer Hepatic: Hepatic: None reported GI: GI: GERD Metabolic: Metabolic: DM Musc/skel: Musc/skel: OA/DJD Neuropsych: Neuropsych: Anxiety Comments: Benzodiazepine dependence Recent ED visit for memory loss/AMS CT Head 08/16/21 ESSION #: [id number] CT/CT head wo con* [id number] IMPRESSION: 1. No acute intracranial findings. 2. Age related changes Anesthetic Plan: ASA status: 3 Anesthesia: Anesthesia Evaluation and General Risk of > 500 ml blood loss (7ml/kg in children): No PFSH Anesthesia PFSH: Medical History Asthma Atherosclerosis of [place] coronary artery Benzodiazepine dependence, continuous Bladder cancer Carotid stenosis, asymptomatic Enrolled in chronic care management TYRONE (generalized anxiety disorder) Hyperlipidemia Hypertension, essential Insomnia Invasive ductal carcinoma of breast, female Renal calculus Type 2 diabetes mellitus Surgical History H/O heart bypass surgery Reports four-vessel bypass H/O lumpectomy (10/09/19) Left breast. Performed by Dr. Clark. History of back surgery Treatment of bone spurs. Performed by Dr. Gray in [place], [place] History of carpal tunnel release of both wrists History of cataract surgery Bilateral History of hip replacement (~2006) Left. Performed by Dr. Lovelace History of hip replacement (06/19/16) Performed by Dr. Lovelace Previous back surgery (08/22/14) Performed by Dr. Ramsay at [facility] in [place], [place] S/P appendectomy Status post surgical removal and fulguration of bladder neoplasm Family History Father Stroke Mother Ovarian cancer Sister Breast cancer Diabetes Hypertension Brother Heart disease Diabetes Social History Alcohol intake: never Lives independently: Yes Marital status: / Current occupational status: retired History of recent travel: No Current gender identity: Female Data Anesthesia Cardiac Studies: No Data to Display
[2021-08-30 07:17] LABS: Glucose Point of Care 147 mg/dL (70-110)
[2021-08-30] MEDS: sodium chloride 0.9% 1,000 ML 30 ML IV (07:26)
[2021-08-30] MEDS: clindamycin 900 MG/50 ML PREMIX 100 MG IV (08:04)
[2021-08-30] MEDS: neomycin-poly-bacitracin oint 28 gm 1 APPLIC TOPICAL (08:31)
--- NOTE | 2021-08-30 09:10 | P.OP_ITS ---
Operative Report Date of procedure: August 30, 2021 Pre-op Diagnosis: Recurrent left breast cancer, desiring bilateral mastectomies. Post-op diagnosis: same Procedure Done: 1. Left modified radical mastectomy. 2. Right simple mastectomy. Specimens removed/disposition: 1. Left breast with axillary tail. 2. Right breast. Surgeon: Mario Clark Anesthesia: General Estimated blood loss (mL): 25 Complications: None. Condition: stable Disposition: PACU Procedure: The patient was brought to the operating room and was placed in a supine position on the operating room table. General endotracheal anesthesia was induced. Both breasts and axillae were prepped and draped in a sterile fashion. Attention was first directed to the left side. An elliptical incision was coburn ied out from just adjacent to the sternum, surrounding the entire nipple areolar complex and coming back together at the inferior aspect of the axilla. Cautery was used to divide the dermis and was used to maintain hemostasis throughout the procedure. Skin flaps were created both superiorly and inferiorly by elevating the skin with skin hooks and using cautery to divide the breast tissue at the junction of the breast tissue and subcutaneous fat. This was carried out down to the chest wall both superiorly and inferiorly as well as medially, encompassing all of the breast tissue. The breast was then taken off of the chest wall using cautery from a medial to lateral direction. Significant vessels seen during the dissection were ligated with ties of 2-0 Vicryl. The dissection was then carried out around the lateral edge of the pectoralis muscle and the axilla was entered. Medially, the dissection was carried out along the chest wall. The patient was found to have some small lymph nodes in the inferior aspect of the axilla. These were included in the axillary tail as dissection was carried out around the chest wall. The specimen was removed. The entire wound was irrigated and some small bleeding points were controlled with cautery. Attention was then directed to the right side where an identical procedure was carried out in the form of a simple mastectomy. The axilla was not entered on this side. A 19 [place] fluted Ankit drain was brought through the subcutaneous layer over the sternum from the right side to the left side and was then brought out through a separate stab incision underneath the incision on the left side laterally under the axilla. The drain was sewn in at the skin using a suture of 2-0 silk. The drain was laid along the axilla on the left side and up along the anterior chest wall under the skin flaps. The dermis at the incision was brought back together using multiple inverted interrupted sutures of 3-0 Vicryl and the skin was finally approximated using skin josesito. Some triple antibiotic ointment was placed over the incision and a sterile fluff dressing and a binder were then placed. The patient was subsequently taken to the r ecovery room in stable condition postoperatively.
--- NOTE | 2021-08-30 09:25 | P.PCN_ITS ---
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
[2021-08-30 09:33] LABS: Glucose Point of Care 154 mg/dL (70-110)
[2021-08-30] MEDS: fentaNYL 50 mcg/mL INJ 2mL IVP (09:56)
--- NOTE | 2021-08-30 10:11 | SUR.PHASEI ---
pt awake alert states bilateral chest pain is better, soft dressing with abd binder d/i armond drain compressed with small amt red secretions noted. vss. pt taking occ ice chips and scds on and working. IV patent . monitor sr no ectopy noted.
[2021-08-30] MEDS: pantoprazole DR 40 mg Tablet PO (11:13)
[2021-08-30] MEDS: heparin 5,000 unit/mL INJ 1 mL 5000 UNIT SUBCUT ×2 (11:13→21:56)
[2021-08-30] MEDS: metoprolol tartrate 25 mg Tablet PO ×2 (11:13→21:58)
[2021-08-30] MEDS: ALPRAZolam 0.5 mg Tablet PO ×2 (11:13→20:02)
[2021-08-30] MEDS: amlodipine 10 mg Tablet PO (11:13)
[2021-08-30] MEDS: atorvastatin 40 mg Tablet 80 MG PO (11:13)
[2021-08-30] MEDS: bumetanide 1 mg Tablet PO (11:13)
[2021-08-30] MEDS: fentaNYL 50 mcg/mL INJ 2mL 100 MCG (11:16)
--- NOTE | 2021-08-30 11:18 | P.CONIM_ITS ---
Providers/Reason For Consult Consulting Physician/Specialty*: Jarek Long MD, hospitalist Reason for Consult*: Medical management, diabetes management Attending Physician: Mario Clark MD Primary Care Provider: EMILY Marrero History of Present Illness History of Present Illness Reyna Lopez is a 85 year old female with diagnosis of recurrent breast cancer who underwent bilateral mastectomy this morning without complication. I am asked to see the patient in consultation for medical management, particularly management of diabetes and hypertension. Patient reports she is doing well postoperatively, other than being anxious. Prior to the surgery she was having some rhythm issues with rebeka, and had a visit and nuclear stress test with her folder taper operator Dr. Sargent. From my understanding he gave the go ahead for surgery. Results of his testing is not in her chart currently. Review of Systems General: Reports: 10 or more systems reviewed and unremarkable except in HPI and below Const: Denies: fever(s) Eyes: Denies: change in vision ENMT: Denies: throat pain Card: Reports: chest pain (Just postoperative from bilateral mastectomy) Resp: Denies: dyspnea GI: Denies: abdominal pain : Denies: flank pain Musc: Denies: neck pain Skin/Breast: Denies: rash Neuro: Denies: headache(s) Psych: Denies: anxiety Endo: Denies: polyuria Harjit/Lymph: Denies: easy bruising All/Imm: Denies: urticaria Meds/Allergies Home Medications and Allergies Home Medications Medication Instructions Recorded Confirmed Last Taken Type hydralazine 50 mg tablet 50 mg PO TID PRN 09/06/19 08/29/21 08/15/21 History aspirin 81 mg tablet,delayed 81 mg PO DAILY@20 tab 09/17/19 08/30/21 2 Days Ago History release ~08/28/21 bumetanide 1 mg tablet See Rx Instructions .ROUTE 09/17/19 08/29/21 08/15/21 History .COMPLEX tab isosorbide mononitrate 30 mg 60 mg PO DAILY@08 09/17/19 08/29/21 08/16/21 Histo ry tablet,extended release 24 hr famotidine 20 mg tablet 20 mg PO BID@08,20 07/18/20 08/30/21 08/30/21 04:00 History zinc acetate 50 mg (zinc) capsule 50 mg PO DAILY 11/30/20 08/29/21 08/15/21 History pen needle, diabetic 31 gauge x See Rx Instructions .ROUTE 12/30/20 08/29/21 Unknown Rx 11/21 .COMPLEX #100 ea lancets 33 gauge See Rx Instructions .ROUTE 04/09/21 08/29/21 Unknown Rx .COMPLEX #100 ea blood sugar diagnostic See Rx Instructions .ROUTE 05/21/21 08/29/21 Unknown Rx .COMPLEX #100 ea magnesium oxide-magnesium amino 1 cap PO DAILY@08 05/21/21 08/29/21 08/15/21 History acid chelate 300 mg capsule metoprolol tartrate 25 mg tablet 25 mg PO Q12H tab 05/21/21 08/30/21 08/28/21 History pantoprazole 40 mg tablet,delayed 40 mg PO DAILY 05/21/21 08/30/21 08/30/21 04:00 History release albuterol sulfate 90 mcg/actuation 2 puff INHALATION Q6H PRN #6.7 g 05/25/21 08/30/21 08/14/21 Rx aerosol inhaler atorvastatin 80 mg tablet See Rx Instructions .ROUTE 05/29/21 08/29/21 08/15/21 Rx .COMPLEX #90 tab amlodipine 10 mg tablet See Rx Instructions .ROUTE 07/10/21 08/30/21 08/30/21 04:00 Rx .COMPLEX #90 tab insulin detemir U-100 100 unit/mL See Rx Instructions .ROUTE 08/10/21 08/29/21 08/15/21 Rx (3 mL) subcutaneous pen .COMPLEX #15 ml alprazolam 0.5 mg tablet 0.5 mg PO TID PRN #90 tab 08/16/21 08/30/21 1 Day Ago Rx ~08/29/21 irbesartan 150 mg PO BID 08/29/21 08/29/21 Unknown History Allergies Allergy/AdvReac Type Severity Reaction Status Date / Time cephalexin Allergy Unknown Verified 08/30/21 06:40 Current Medications Current Medications Generic Name Dose Route Start Last Admin Trade Name Freq PRN Reason Stop Dose Admin Alprazolam 0.5 mg 08/30/21 10:27 08/30/21 11:13 Alprazolam 0.5 Mg Tablet PO 0.5 mg TID PRN Administration pain Amlodipine Besylate 10 mg 08/30/21 11:00 08/30/21 11:13 Amlodipine 10 Mg Tablet PO 10 mg QD CRUZITO Administration Atorvastatin Calcium 80 mg 08/30/21 11:00 08/30/21 11:13 Atorvastatin 40 Mg Tablet PO 80 mg QD CRUZITO Administration Bumetanide 1 mg 08/30/21 12:00 08/30/21 11:13 Bumetanide 1 Mg Tablet PO 1 mg BID@0800,1200 CRUZITO Administration Heparin Sodium (Porcine) 5,000 unit 08/30/21 10:27 08/30/21 11:13 Heparin 5,000 Unit/Ml Inj 1 Ml SUBCUT 5,000 unit Q12H CRUZITO Administration Metoprolol Tartrate 25 mg 08/30/21 10:27 08/30/21 11:13 Metoprolol Tartrate 25 Mg Tablet PO 25 mg Q12H CRUZITO Administration Pantoprazole Sodium 40 mg 08/30/21 10:27 08/30/21 11:[address] 40 Mg Tablet PO 40 mg DAILY CRUZITO Administration PFSH Acute PFSH: Medical History (Updated 08/30/21 @ 13:09 by Jarek Long MD) Asthma Atherosclerosis of [place] coronary artery Benzodiazepine dependence, continuous Bladder cancer Carotid stenosis, asymptomatic Enrolled in chronic care management TYRONE (generalized anxiety disorder) Hyperlipidemia Hypertension, essential Insomnia Invasive ductal carcinoma of breast, female Renal calculus Type 2 diabetes mellitus Surgical History H/O heart bypass surgery Reports four-vessel bypass H/O lumpectomy (10/09/19) Left breast. Performed by Dr. Clark. History of back surgery Treatment of bone spurs. Performed by Dr. Gray in [place], [place] History of carpal tunnel release of both wrists History of cataract surgery Bilateral History of hip replacement (~2006) Left. Performed by Dr. Lovelace History of hip replacement (06/19/16) Performed by Dr. Lovelace Previous back surgery (08/22/14) Performed [address] Ramsay at [facility] in [place], [place] S/P appendectomy Status post surgical removal and fulguration of bladder neoplasm Family History Father Stroke Mother Ovarian cancer Sister Breast cancer Diabetes Hypertension Brother Heart disease Diabetes Social History Alcohol intake: never Lives independently: Yes Marital status: / Current occupational status: retired History of recent travel: No Current gender identity: Female Vitals/I&O/Wt Last Vital Signs Temp 97.9 F 08/30/21 10:36 Pulse 86 08/30/21 10:36 Resp 17 08/30/21 10:36 BP 164/61 08/30/21 10:36 Pulse Ox 99 08/30/21 10:36 08/29/21 08/30/21 08/30/21 22:59 06:59 14:59 Intake Total 105 / 105 Output Total 25 / 25 Balance 80 / 80 Weight last 48 hrs Weight 67.585 kg Physical Exam Narrative: EXAM NARRATIVE: General exam is a pleasant and conversive female in no distress. HEENT: Pupils equally round. Atraumatic normocephalic. Oropharynx clear. Neck is supple no lymphadenopathy or thyromegaly Cardiovascular regular rate and rhythm without murmur. Drain is present left side chest, MING Lungs clear no wheezing or crackles Abdomen with binder. Positive bowel sounds are noted. exam deferred Extremities no cyanosis clubbing or edema, cap refill brisk Skin no rash Neuro no focal deficits. Data Other Data: Other data: Recent laboratory on October 25 demonstrated a near normal CBC, CMP near normal with the exception of creatinine of 1.4. EKG bigeminy, sinus rhythm, left axis deviation Recent head CT August 23 normal for age A&P Assessment and plan (1) Invasive ductal carcinoma of breast, female: Directly postoperative bilateral mastectomies Status: Acute (2) Type 2 diabetes mellitus: Typically uses long-acting insulin at night. Consistent carb diet will be ordered Mild sliding scale insulin As p.o. intake over the next 24 hours is unpredictable we will reduce her long- acting insulin to 10 units Status: Acute (3) Hypertension, essential: Continue home medication Status: Acute (4) Atherosclerosis of [place] coronary artery: Currently asymptomatic. We will continue home medication Status: Acute Qualifiers: [place] vs. transplanted heart: [place] heart Associated angina: with stable angina Qualified Code(s): I25.118 - Atherosclerotic heart disease of [place] coronary artery with other forms of angina pectoris (5) Renal insufficiency: Avoid renal toxic medication Avoid anti-inflammatories Status: Acute (6) Asthma: Albuterol. Status: Acute Additional A&P Information Multiple other medical problems as noted in her past medical history Heparin is being used for DVT prophylaxis Thank you for this consultation. We will continue to follow along. Consult Attestations Medical Necessity Statement: As per primary Time Spent in Patient Care: Greater than 35 minutes Coding Level of Care Code Acute Physician Assistant Primary Care for [facility] Fwd Diagnoses Invasive ductal carcinoma of breast, female C50.919 Type 2 diabetes mellitus E11.9 Hypertension, essential I10 Atherosclerosis of [place] coronary artery I25.118 [place] vs. transplanted heart: [place] heart Associated angina: with stable angina Renal insufficiency N28.9 Asthma J45.909
--- NOTE | 2021-08-30 11:20 | ANE.PACU2 ---
Inpatient post-anesthesia follow up: Airway intact: Yes Vital signs: Temperature 97.9 F Pulse Rate 86 Respiratory Rate 17 Blood Pressure 164/61 Pulse Oximetry 99 Oxygen Delivery Me thod Nasal Cannula Oxygen Flow Rate 2 Fraction of Inspir ed Oxygen Hydration adequate: Yes Nausea and vomiting: No Pain level: 3 Mental status: Baseline
[2021-08-30] MEDS: sodium chloride 0.45% 1,000 ML 50 ML IV (13:04)
[2021-08-30] MEDS: losartan 50 mg Tablet PO (16:58)
[2021-08-30 17:11] LABS: Glucose Point of Care 221 mg/dL (70-110)
[2021-08-30] MEDS: insulin lispro 100 unit/1 mL SUBCUT ×2 (17:22→21:57)
[2021-08-30] MEDS: HYDROcodone-acetaminophen 5-325 mg Tablet PO (18:46)
[2021-08-30] MEDS: morphine 4 mg/mL SDV 1 mL IVP ×2 (19:35→22:03)
[2021-08-30] MEDS: aspirin 81 mg EC Tablet PO (20:02)
[2021-08-30] MEDS: famotidine 20 mg Tablet PO (20:02)
[2021-08-30 21:41] LABS: Glucose Point of Care 224 mg/dL (70-110)
[2021-08-31] MEDS: HYDROcodone-acetaminophen 5-325 mg Tablet PO (02:33)
[2021-08-31 05:41] LABS: Basophils % 0.4 %; Eosinophils % 0.3 %; Hematocrit 34.3 % (37.0-47.0); Hemoglobin 11.3 g/dL (11.5-15.3); Lymphocytes # 0.7 10^3/uL (0.8-4.8); Lymphocytes % 9.6 %; Mean Corpuscular HGB Conc 32.9 g/dL (30.0-36.0); Mean Corpuscular Hemoglobin 29.4 pg (28.0-34.0); Mean Corpuscular Volume 89.1 fl (81-99); Monocytes # 0.8 10^3/uL (0.2-0.9); Monocytes % 10.7 %; Neutrophils # 5.73 10^3/uL (1.8-7.7); Neutrophils % 78.6 %; Nucleated Red Blood Cells % 0 %; Platelet Count 170 10^3/cmm (130-400); Red Blood Count 3.85 10^6/uL (4.1-5.3); Red Cell Distribution Width 13.2 % (12.1-15.1); White Blood Count 7.3 10^3/uL (4.0-10.0)
[2021-08-31 05:54] LABS: Blood Urea Nitrogen 33 mg/dL (8-23); Calcium 8.6 mg/dL (8.5-10.5); Carbon Dioxide 22 mmol/L (22-29); Chloride 101 mmol/L (98-107); Glucose 131 mg/dL (65-115); Osmolality Calculated 291 mOsm/kg (285-295); Sodium 136 mmol/L (136-145)
[2021-08-31 05:58] LABS: Anion Gap 17.7 (5-19); Potassium 4.7 mmol/L (3.5-5.1)
[2021-08-31 06:47] LABS: Glucose Point of Care 136 mg/dL (70-110)
[2021-08-31] MEDS: bumetanide 1 mg Tablet PO (07:56)
[2021-08-31] MEDS: pantoprazole DR 40 mg Tablet PO (07:57)
[2021-08-31] MEDS: famotidine 20 mg Tablet PO (07:57)
[2021-08-31] MEDS: isosorbide mononitrate ER 30 mg Tablet 60 MG PO (07:57)
[2021-08-31 08:35] VITALS: BP 138/48; PULSE 92; RESP 16; TEMP 36.6; O2SAT 93
[2021-08-31 08:54] VITALS: BP 138/48
[2021-08-31] MEDS: losartan 50 mg Tablet PO (08:54)
[2021-08-31] MEDS: ALPRAZolam 0.5 mg Tablet PO (08:54)
--- NOTE | 2021-08-31 09:10 | P.DS_ITS ---
Discharge Providers Date of Admission: 08/30/21 09:07 Date of Discharge: August 31, 2021 Attending Provider at Admission: Mario Clark MD Attending Provider at Discharge: Mario Clark MD Primary Care Provider: EMILY Marrero Diagnoses at Discharge Discharge Diagnosis (1) Invasive ductal carcinoma of breast, female: Status: Acute (2) Type 2 diabetes mellitus: Status: Acute (3) Hypertension, essential: Status: Acute (4) Atherosclerosis of [place] coronary artery: Status: Acute Qualifiers: [place] vs. transplanted heart: [place] heart Associated angina: with stable angina Qualified Code(s): I25.118 - Atherosclerotic heart disease of [place] coronary artery with other forms of angina pectoris (5) Renal insufficiency: Status: Acute (6) Asthma: Status: Acute Reason for Visit Reason for Visit: Breast Cancer Hospital Course Hospital Course This is an 85-year-old white female with recurrent left breast cancer who underwent a left modified radical mastectomy and right prophylactic simple mastectomy on 08/30/2021. She was brought in the hospital for observation postoperatively. The hospitalist service was consulted for postoperative medical management given her multiple medical comorbidities. She actually did very well through the night and says she has minimal discomfort. She says that she is ready to go home. The patient remains afebrile and vital signs are stable. Her Ankit drain has a small amount of serosanguineous fluid in the bulb. The compressive abdominal binder was left intact. The patient was instructed with respect to diet, activities, how to empty her Ankit drain, management of her dressings and wounds, etc. I will make arrangements for the patient to follow-up with me in the office as an outpatient. Physical Exam Narrative: EXAM NARRATIVE: Afebrile, vital signs stable. Abdominal binder over the bilateral mastectomy sites is intact. Ankit drain has a small amount of serosanguineous fluid in the bulb. Discharge Data Data Completed and Pending: Pending at discharge Category Date Time Status Pathology: Surgic al [PTH] Routine Pth 08/30/21 08:59 Received Labs from last 24 hours 08/31/21 08/31/21 08/31/21 06:43 04:56 04:56 WBC 7.3 RBC 3.85 L Hgb 11.3 L Hct 34.3 L MCV 89.1 MCH 29.4 MCHC 32.9 RDW 13.2 Plt Count 170 MPV 12.0 H Neut % (Auto) 78.6 Lymph % (Auto) 9.6 [place] % (Auto) 10.7 Eos % (Auto) 0.3 Baso % (Auto) 0.4 Neut # (Auto) 5.73 Lymph # (Auto) 0.[address] [place] # (Auto) 0.8 Eos # (Auto) 0.0 Baso # (Auto) 0.0 Nucleated RBC % (a uto) 0 Nucleated RBCs # 0.0 Sodium 136 Potassium 4.7 Chloride 101 Carbon Dioxide 22 Anion Gap 17.7 BUN 33 H Creatinine 1.3 H GFR Calculation Not Reportable Glucose 131 H POC Glucose 136 H Calculated Osmolal ity 291 Calcium 8.6 08/30/21 08/30/21 08/30/21 21:27 17:04 09:31 WBC RBC Hgb Hct MCV MCH MCHC RDW Plt Count MPV Neut % (Auto) Lymph % (Auto) [place] % (Auto) Eos % (Auto) Baso % (Auto) Neut # (Auto) Lymph # (Auto) [place] # (Auto) Eos # (Auto) Baso # (Auto) Nucleated RBC % (a uto) Nucleated RBCs # Sodium Potassium Chloride Carbon Dioxide Anion Gap BUN Creatinine GFR Calculation Glucose POC Glucose 224 H 221 H 154 H Calculated Osmolal ity Calcium Vitals: Last Vital Signs Temp 97.9 F 08/31/21 08:35 Pulse 92 08/31/21 08:35 Resp 16 08/31/21 08:35 BP 138/48 08/31/21 08:54 Pulse Ox 93 08/31/21 08:35 Discharge Plan Discharge Patient Disposition: Home Condition: Stable Prescriptions: New hydrocodone-acetaminophen 5-325 mg tablet 1 - 2 tab PO Q5H PRN (Reason: pain) Qty: 30 RF: 0 Continued hydralazine 50 mg tablet 50 mg PO TID PRN (Reason: Blood Pressure) RF: 0 isosorbide mononitrate 30 mg tablet extended release 24 hr 60 mg PO DAILY@08 RF: 0 bumetanide 1 mg tablet See Rx Instructions .ROUTE .COMPLEX RF: 0 aspirin 81 mg tablet,delayed release (DR/EC) 81 mg PO DAILY@20 RF: 0 Hold Instructions: Resume on 11/23/19. metoprolol tartrate 25 mg tablet 25 mg PO Q12H RF: 0 famotidine 20 mg tablet 20 mg PO BID@08,20 RF: 0 albuterol sulfate [ProAir HFA] 90 mcg/actuation HFA aerosol inhaler 2 puff inhalation Q6H PRN (Reason: shortness of breath or wheezing) Qty: 6.7 RF: 0 Galzin 50 mg (zinc) capsule 50 mg PO DAILY RF: 0 pantoprazole 40 mg tablet,delayed release (DR/EC) 40 mg PO DAILY RF: 0 pen needle, diabetic [BD Ultra-Fine Mini Pen Needle] 31 gauge x 3/16 needle See Rx Instructions .ROUTE .COMPLEX Qty: 100 RF: 2 lancets [OneTouch Delica Plus Lancet] 33 gauge misc See Rx Instructions .ROUTE .COMPLEX Qty: 100 RF: 0 OneTouch Ultra Test Strip See Rx Instructions .ROUTE .COMPLEX Qty: 100 RF: 2 atorvastatin 80 mg tablet See Rx Instructions .ROUTE .COMPLEX Qty: 90 RF: 0 amlodipine 10 mg tablet See Rx Instructions .ROUTE .COMPLEX Qty: 90 RF: 0 Levemir FlexTouch U-100 Insuln 100 unit/mL (3 mL) insulin pen See Rx Instructions .ROUTE .COMPLEX Qty: 15 RF: 0 Xanax 0.5 mg tablet 0.5 mg PO TID PRN (Reason: pain) Qty: 90 RF: 0 irbesartan 300 mg tablet 150 mg PO BID RF: 0 Magnesium (oxide/AA chelate) 300 mg capsule 1 cap PO DAILY@08 RF: 0 Discharge Orders: Discharge Order (Routine); Ordered 08/31/21 Ordered By: Mario Clark Referrals: Mario Clark MD [Physician] - 2 weeks (Nursing: Please have the patient / family call Dr. Clark's office on Friday ([phone]) and make an appointment for the patient to be seen in 7-10 days.) Discharge Diet: Diabetic Discharge Activity: Resume usual activity Patient Instructions: Opioid Safety Activity Restrictions/Additional Instructions: 1. Discharge to home today. 2. Appointment to see me in 10-14 days as above. 3. Bandage may be removed today or tomorrow to shower. Keep postmastectomy garment on when not bathing/as discussed. 4. Nursing: Please teach patient how to empty Ankit drain and reconstitute bulb. Empty Ankit drain at home as needed. 5. When dressing is off daily, manually massage/press on the areas around the incision to flatten out any ripples or ridges that may be developing to keep the skin flat. 6. [place] 5/325 1-2 tablets by mouth every 5 hours as needed for pain. #30, no refills. Discharge Attestations Time Spent in Discharge Care*: less than 30 min Quality Metrics Clinical Quality Measures During this hospital stay, did patient experience: None Coding Level of Care Code Acute [facility] note Diagnoses Invasive ductal carcinoma of breast, female C50.919 Type 2 diabetes mellitus E11.9 Hypertension, essential I10 Atherosclerosis of [place] coronary artery I25.118 [place] vs. transplanted heart: [place] heart Associated angina: with stable angina Renal insufficiency N28.9 Asthma J45.909
--- NOTE | 2021-08-31 09:20 | PM.PN ---
Subjective Subjective: Interval history: Reyna reports she is doing well. No particular concerns. Pain is under control. Medications: Reviewed: Yes Vitals/I&O/Wt Last Vital Signs Temp 97.9 F 08/31/21 08:35 Pulse 92 08/31/21 08:35 Resp 16 08/31/21 08:35 BP 138/48 08/31/21 08:54 Pulse Ox 93 08/31/21 08:35 08/30/21 08/31/21 08/31/21 22:59 06:59 14:59 Intake Total 720 / 1272.5 400 / 1672.5 240 / 240 Output Total 460 / 485 390 / 875 Balance 260 / 787.5 10 / 797.5 240 / 240 Weight last 48 hrs Weight 64.864 kg Weight 67.585 kg Physical Exam Narrative: EXAM NARRATIVE: General exam no distress Neck is supple no lymphadenopathy or thyromegaly Cardiovascular regular rate and rhythm without murmur. Drain is present left side chest, MING Lungs clear no wheezing or crackles Abdomen with binder. Positive bowel sounds are noted. Extremities no cyanosis clubbing or edema, cap refill brisk Data : 08/31/21 04:56 08/31/21 04:56 A&P Assessment and plan (1) Invasive ductal carcinoma of breast, female: Postoperative day #1 status post bilateral mastectomies Status: Acute (2) Type 2 diabetes mellitus: Typically uses long-acting insulin at night. Consistent carb diet currently Mild sliding scale insulin On discharge may resume her regular home regimen Status: Acute (3) Hypertension, essential: Continue home medication Status: Acute (4) Atherosclerosis of [place] coronary artery: Currently asymptomatic. We will continue home medication Status: Acute Qualifiers: [place] vs. transplanted heart: [place] heart Associated angina: with stable angina Qualified Code(s): I25.118 - Atherosclerotic heart disease of [place] coronary artery with other forms of angina pectoris (5) Renal insufficiency: Avoid renal toxic medication Avoid anti-inflammatories Status: Acute (6) Asthma: Albuterol. Status: Acute Additional A&P Information Multiple other medical problems as noted in her past medical history Heparin is being used for DVT prophylaxis Surgery is going to discharge today. No medical contraindications. Attestations Medical Necessity Statement*: As per primary Coding Level of Care Code Acute [place] Department Supervisor for [facility] [place] Diagnoses Invasive ductal carcinoma of breast, female C50.919 Type 2 diabetes mellitus E11.9 Hypertension, essential I10 Atherosclerosis of [place] coronary artery I25.118 [place] vs. transplanted heart: [place] heart Associated angina: with stable angina Renal insufficiency N28.9 Asthma J45.909
[2021-08-31 11:57] VITALS: BP 138/48; PULSE 90; RESP 16; TEMP 36.7; O2SAT 94
--- NOTE | 2021-08-31 12:00 | PC.NURSE ---
Reviewed IV at this time. Patient tolerated well. Patient is A&Ox3. Respirations even and non-labored on room air. Reviewed patient discharge with daughter at this time. Showed patient how to drain Aknit drain how to squeeze the bulb back for the suction. Patient and daughter verbalized understanding of discharge instructions including follow up appointments and how to take medications. Patient assisted into wheel chair and pushed to private car.
--- NOTE | 2021-08-31 12:03 | PC.CHAP ---
Pastoral Care Encounter/Spiritual Assessment Type of Contact [] Declined piping manager visit [] Patient/Family/Request visit [] Outpatient visit [] Follow-up visit [] Physician referral [] Code/Alert [xx] Routine visit [] Staff referral [] Actively dying [] Patient sleeping [] Family support [] [] Out of room [] Palliative care [] [] Receiving care in room [] Pre-surgical visit [] Trauma [] Long length of stay [] ICU visit [] Other: Relational/Emotional Strength [xx] Patient feels connected with others/family/visitors/staff [] Distress [] Loneliness/isolation [] Abandonment Spirituality of Patient [xx] Person of Radha [xx] Attends Oriental Orthodox of their Radha [xx] Believes in Prayer [xx] Reads Bible or Adventism materials [] There are Spiritual issues to be addressed Platform Consultant Interventions [xx] Prayer [xx] Active listening [xx] Non-anxious presence [] Spiritual/emotional support [] Crisis/trauma care [] Spiritual counseling [] Bereavement support [] Provided bereavement packet [] Provided Bible/devotional materials [] Provided toy/stuffed animal, coloring book to patient or family member [] Provided Communion [] Anointing/[place] [] Salvation [xx] Completed spiritual assessment [] Other: Impact on Illness or Injury [] Angry [] Fearful [] Anxious [] Often cries [] Exhaustion [] Unable to work [] Unable to attend scientology [] Unable to walk/stand [] Unable to read [] Unable to drive [] Unable to eat/drink [] Unable to sleep [] Unable to be with family [] Patient intubated [] Other: Summary Daughter, Pippa, present. Paatient is being discharged and will be with family for [place] tomorrow. Time spent with patient 10 minutes
[2021-09-13 11:54] LABS: Miscellaneous Test See Scanned Lab Rpt
== END 2021-08-31 11:55 | disposition home or self-care (01) ==
LOC: MEDSURG 09:07
PROVIDERS: Internal Medicine; Admitting Provider Surgery; PCP Nurse Practitioner Family; Visit Provider Surgery
PROC: (CPT 19303; principal; 2021-08-30 08:00)
PROC: (CPT 19303; 2021-08-30 08:00)
DX: C50.912 Malignant neoplasm of unspecified site of left female breast (principal); E11.9 Type 2 diabetes mellitus without complications; I10 Essential (primary) hypertension; I25.118 Atherosclerotic heart disease of native coronary artery with other forms of angina pectoris; N28.9 Disorder of kidney and ureter, unspecified; J45.909 Unspecified asthma, uncomplicated; Z90.12 Acquired absence of left breast and nipple; E78.5 Hyperlipidemia, unspecified; Z85.51 Personal history of malignant neoplasm of bladder
CPT/HCPCS: 19303; 19307; 36415; 36416; 80048; 82962; 85025; 88309; 88361; 88367; 88374; 96372; G0378; J1100; J1644; J1815; J2270; J2405; J2704; J2710; J3010; J3490; J7030

== ENCOUNTER 2021-09-27 11:49 | Outpatient (CLI) | payer MEDICARE, OTHER, SELFPAY ==
[2021-09-27 12:31] LABS: Basophils % 0.7 %; Eosinophils # 0.1 10^3/uL (0.0-0.8); Eosinophils % 1.8 %; Hematocrit 35.9 % (37.0-47.0); Hemoglobin 11.6 g/dL (11.5-15.3); Lymphocytes % 18.1 %; Mean Corpuscular HGB Conc 32.3 g/dL (30.0-36.0); Mean Corpuscular Hemoglobin 28.6 pg (28.0-34.0); Mean Corpuscular Volume 88.6 fl (81-99); Mean Platelet Volume 11.7 fL (7.4-10.4); Monocytes # 0.7 10^3/uL (0.2-0.9); Monocytes % 13.2 %; Neutrophils # 3.64 10^3/uL (1.8-7.7); Neutrophils % 65.8 %; Nucleated Red Blood Cells % 0 %; Platelet Count 165 10^3/cmm (130-400); Red Blood Count 4.05 10^6/uL (4.1-5.3); Red Cell Distribution Width 13.4 % (12.1-15.1); White Blood Count 5.5 10^3/uL (4.0-10.0)
[2021-09-27 13:11] LABS: Alanine Aminotransferase 15 U/L (0-33); Albumin Level 3.8 g/dL (3.5-5.2); Alkaline Phosphatase 87 IU/L (35-105); Anion Gap 17.2 (5-19); Aspartate Amino Transferase 19 U/L (0-32); Blood Urea Nitrogen 31 mg/dL (8-23); Calcium 8.9 mg/dL (8.5-10.5); Carbon Dioxide 26 mmol/L (22-29); Chloride 100 mmol/L (98-107); Globulin 2.5 g/dL (1.3-4.6); Glucose 128 mg/dL (65-115); Osmolality Calculated 296 mOsm/kg (285-295); Potassium 4.2 mmol/L (3.5-5.1); Sodium 139 mmol/L (136-145); Total Bilirubin 0.3 mg/dL (0.15-1.2); Total Protein 6.3 g/dL (6.6-8.7)
--- NOTE | 2021-09-27 15:29 | ONC FU_ITS ---
Dr. Mendieta follow up note Patient: Reyna Lopez Unit #: [id number]: [id number] Dicatated By: Sofie Mendieta M.D.Date of Visit:Sep 27, 2021 Onc Med Follow-up/Prog Note History of Present Illness: Mrs. Reyna Lopez, is a 85-year-old female with long-standing history of left breast mass, as per patient it was a very small e.g. pea-sized mass in the right lower portion of left breast but she did not seek any intervention until recently when she noticed mass started getting bigger and underwent mammogram which confirmed the mass in the left breast followed by ultrasound-guided biopsy which confirmed invasive carcinoma ER positive CO negative HER-2/denia negative subsequently underwent left breast lumpectomy with left axillary sentinel lymph node biopsy on 10/07/2019 and final pathology report showed ER 94%, CO less than 1%, HER-2/denia negative, Ki-67 is 38 which is high and size of invasive tumor was 3 x 2.6 x 1.7 cm, clear surgical margins , moderately differentiated, p T2 , 2 left axillary lymph nodes showed no evidence of metastatic disease pN0 Oncotype DX score done on 11/03/2019 showed recurrence score 36, risk of distant recurrence at 9 year with Arimidex/tamoxifen,24%and absolute benefit from chemotherapy is more than 15%patient and her family decided not to consider systemic chemotherapy AGAINST MEDICAL ADVICE also declining postlumpectomy radiation therapy. Patient tolerated procedure well. No history of hormonal supplement, menarche at age 11 or 12, first at age 16, family history significant for 2 sisters with history of breast cancer. Patient also has history of melanoma involving left shoulder status post excision with skin grafting in 1970s on Arimidex with vitamin D and calcium Follow-up mammogram done on May 15, 2021 shows a new spiculated soft tissue nodule of increased density measuring 10 x 11 mm in the posterior left breast. Small associated calcification. Benign calcification in the right breast. 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 left modified radical mastectomy on August 30, 2021 and final pathology report came back invasive ductal carcinoma, size about 1.7 cm, grade 2 clear margins, no regional lymph node identified, rpT1c NX, prophylactic right simple mastectomy showed no invasive disease, Patient was on Arimidex Prior to bilateral mastectomy and there was no treatment effect observed on invasive component. Arimidex was discontinued in August 2021 as her follow-up mammogram followed by biopsy confirmed invasive disease in her left breast Came for follow-up, denies any specific complaints, since her last visit patient has undergone bilateral mastectomy, left mastectomy showed 1.7 cm invasive ductal carcinoma, ER/CO positive HER2/denia negative Ki-67 30%. No lymph node identified in the sample and prophylactic right mastectomy showed no invasive disease, Patient tolerated procedure well, now healing well Medications: Albuterol Sulfate Aerosol Powder, Breath Activated Inhalation, ALPRAZolam 1 Tablet (of 0.5 mg) Oral t.i.d., amLODIPine Besylate 1 Tablet (of 10 mg) Oral daily, Aspirin 1 Tablet (of 81 mg) Oral daily, Atorvastatin Calcium 1 Tablet (of 40 mg) Oral daily, Bumetanide 1 Tablet (of 1 mg) Oral daily, Cholecalciferol 1 Capsule (of 125 mcg ) Oral daily, Cinnamon 2 Capsule (of 500 mg) Oral daily, Flaxseed Oil 1 Capsule (of 1200 mg) Oral daily, hydrALAZINE HCl 1 Tablet (of 50 mg) Oral t.i.d., Insulin Detemir 30 Units (of 100 Units/mL) Subcutaneous daily, Irbesartan 0.5 Tablet (of 300 mg) Oral b.i.d., Isosorbide Mononitrate ER 1 Tablet (of 60 mg) Tablet SR 24 HR Oral daily, Lisinopril 1 Tablet (of 40 mg) Oral daily, Magnesium Oxide 1 Tablet (of 400 mg) Capsule Oral daily, Metoprolol Tartrate 2 Tablet (of 25 mg) Oral b.i.d., Zinc 1 Capsule (of 50 mg) Oral daily Allergies: Cephalexin Review of Systems: Review of Systems is not available for this patient. Vital Signs: Performed on Sep 27, 2021 14:37 Height - 64.00 in Weight - 147.0 lbs (LOW) BSA - 1.72 sq.m BMI - 25.23 Temperature - 97.8 F (LOW) Pulse - 79 /min Respiration - 16 /min BP - 122/52 mm(hg) O2 Sat - 98 % Pain - 0 Fatigue - 3 Performance Status: 0 - Fully active, able to carry on all predisease activities without restrictions. (ECOG) Physical Examination: Respiratory - Lungs are clear to auscultation, Cardiovascular - Regular rate and rhythm of heart, Breasts - Bilateral mastectomy surgical wound shows no sign of infection or inflammation, Gastrointestinal - Soft, bowel sounds present, Extremities - No visible edema. Lab/Imaging: Test performed on Aug 31, 2021 14:37 Glucose 131 mg/dL BUN 33 mg/dL Creatinine 1.3 mg/dL Sodium 136 mmol/L Potassium 4.7 mmol/L Chloride 101 mmol/L CO2 22 mmol/L Calcium 8.6 mg/dL WBC 7.3 10^9/L RBC 3.85 10^12/L HGB 11.3 g/dL HCT 34.3 % MCV 89.1 fl MCH 29.4 pg MCHC 32.9 g/dL RDW 13.2 % Platelet Count 170 10^9/L MPV 12.0 fL Neutrophils (Gran) 5.73 10^9/L Lymphocytes 0.7008 10^9/L Monocytes 0.7811 10^9/L Eosinophils 0.0219 10^9/L Basophils 0.0292 10^9/L Test performed on Aug 24, 2021 13:17 Cr Clearance (Est) 30.90 mL/min Protein, Total 6.6 g/dL Albumin 4.0 g/dL Globulin 2.6 g/dL Bilirubin, Total 0.3 mg/dL Alkaline Phosphatase 81 International Units/L AST (SGOT) 24 International Units/L ALT (SGPT) 22 International Units/L Impression: . Recurrent grade 3 moderately to poorly differentiated invasive ductal carcinoma per left breast biopsy done on July 10, 2021, ER 100%, CO negative HER-2/denia negativeStatus post bilateral mastectomy e.g. left modified radical mastectomy and right simple mastectomy done on August 30, 2021, left breast mastectomy sample showed 1.7 cm invasive ductal carcinoma with clear margins, T1c and no lymph node identified in the sample, NX, ER 95%, CO 20%, HER2/denia negative prophylactic right mastectomy sample showed no invasive disease Moderately invasive ductal carcinoma involving left breast status post lumpectomy and sentinel lymph node biopsy done on 10/07/2019 Final pathology report showed 3 x 2.6 x 1.7 cm invasive mass with clear surgical margins, moderately differentiated , pT2 No lymphovascular invasion seen 2 axillary sentinel lymph nodes were examined showed no evidence of metastatic disease pN0 Stage IIa ER positive 94%,, CO negative e.g. less than 1%, HER-2/denia negative, Ki-67 high at 38% Oncotype DX score is 36 e.g. high, distant recurrence risk at 9 year his 24% with tamoxifen/aromatase inhibitor and absolute chemotherapy benefit is more than 15% Patient and her daughter declined adjuvant chemotherapy AGAINST MEDICAL ADVICE and also declined postlumpectomy radiation therapy but agreed to continue with Arimidex History of melanoma involving left shoulder status post excision with skin graft done in 1970s. Follow-up mammogram done on May 15, 2021 showed there is a new spiculated soft tissue nodule of increased density measuring 10 x 11 mm in the posterior left breast. Small associated calcification. Right breast shows benign calcifications Plan: Discussed with patient regarding her labs white blood count 5.5 hemoglobin 11.6 hematocrit 35.9 platelets are 65,000 CMP within normal limits except creatinine 1.4 And her left modified radical mastectomy, final pathology report which showed 1.7 cm invasive ductal carcinoma with clear surgical margin, no lymph nodes were identified in the sample. And prophylactic right mastectomy showed no evidence of malignancy. As mentioned earlier, patient was on Arimidex for her invasive ductal carcinoma involving same left breast for which she underwent lumpectomy on October 07, 2019 and her follow-up mammogram showed abnormality which was confirmed malignant with a biopsy and recently underwent left modified radical mastectomy which showed 1.7 cm invasive ductal carcinoma with clear surgical margin. Arimidex was discontinued in August 2021 so we will consider steroidal aromatase inhibitor exemestane 25 mg p.o. daily, all the side effect possible benefits associated with exemestane including but not limited to hot flashes, mood swings, bone demineralization, weight gain, were mentioned further teaching will done by chemotherapy nurse. In the meantime, we will consider Oncotype DX on her current invasive sample if it shows high risk, will discuss with patient regarding role of adjuvant chemotherapy, in the past, when she was diagnosed with left breast cancer, her Oncotype DX score was high denoting being high risk, patient was offered chemotherapy at that time but she declined, this time, if needed she might consider, So we will order Oncotype DX score in the meantime also give her prescription for exemestane 25 mg p.o. daily and then return to clinic in 1 month, hopefully by that time will have her Oncotype DX score report and plan accordingly. Signed By: Sofie Mendieta M.D. <<Signature on File>>
== END 2021-09-27 11:50 | disposition home or self-care (01) ==
LOC: ONCMED 11:54
PROVIDERS: PCP Nurse Practitioner Family; Visit Provider Internal Medicine Hematology & Oncology
DX: C50.912 Malignant neoplasm of unspecified site of left female breast (principal); Z17.0 Estrogen receptor positive status [ER+]
CPT/HCPCS: 36415; 80053; 85025; 99215

== ENCOUNTER → 2021-10-17 09:26 | Outpatient (BNVA) | payer MEDICARE, OTHER, SELFPAY | PROVIDERS: PCP Nurse Practitioner Family; Visit Provider Nurse Practitioner | DX: D63.1 Anemia in chronic kidney disease (principal); N18.32 Chronic kidney disease, stage 3b; N18.9 Chronic kidney disease, unspecified | CPT/HCPCS: 80069; 81000; 82043; 82306; 82310; 82728; 83036; 83550; 83970; 85025 ==

== ENCOUNTER → 2021-10-23 08:51 | Outpatient (BNVA) | payer MEDICARE, OTHER, SELFPAY | PROVIDERS: PCP Nurse Practitioner Family; Visit Provider Internal Medicine Cardiovascular Disease | DX: E78.5 Hyperlipidemia, unspecified (principal); C67.9 Malignant neoplasm of bladder, unspecified | CPT/HCPCS: 80061; 84450; 84460 ==

== ENCOUNTER 2021-11-07 08:24 | Outpatient (CLI) | payer MEDICARE, OTHER, SELFPAY ==
--- NOTE | 2021-11-09 10:02 | ONC FU_ITS ---
Dr. Mendieta follow up note Patient: Reyna Lopez Unit #: [id number]: [id number] Dicatated By: Sofie Mendieta M.D.Date of Visit:Nov 07, 2021 Onc Med Follow-up/Prog Note History of Present Illness: Mrs. Reyna Lopez, is a 86-year-old female with long-standing history of left breast mass, as per patient it was a very small e.g. pea-sized mass in the right lower portion of left breast but she did not seek any intervention until recently when she noticed mass started getting bigger and underwent mammogram which confirmed the mass in the left breast followed by ultrasound-guided biopsy which confirmed invasive carcinoma ER positive AZ negative HER-2/denia negative subsequently underwent left breast lumpectomy with left axillary sentinel lymph node biopsy on 10/07/2019 and final pathology report showed ER 94%, AZ less than 1%, HER-2/denia negative, Ki-67 is 38 which is high and size of invasive tumor was 3 x 2.6 x 1.7 cm, clear surgical margins , moderately differentiated, p T2 , 2 left axillary lymph nodes showed no evidence of metastatic disease, pN0 Oncotype DX score done on 11/03/2019 showed recurrence score 36, risk of distant recurrence at 9 year with Arimidex/tamoxifen,24%and absolute benefit from chemotherapy is more than 15%patient and her family decided not to consider systemic chemotherapy AGAINST MEDICAL ADVICE also declining postlumpectomy radiation therapy. Patient tolerated procedure well. No history of hormonal supplement, menarche at age 11 or 12, first at age 16, family history significant for 2 sisters with history of breast cancer. Patient also has history of melanoma involving left shoulder status post excision with skin grafting in 1970s on Arimidex with vitamin D and calcium Follow-up mammogram done on May 15, 2021 shows a new spiculated soft tissue nodule of increased density measuring 10 x 11 mm in the posterior left breast. Small associated calcification. Benign calcification in the right breast. 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 left modified radical mastectomy on August 30, 2021 and final pathology report came back invasive ductal carcinoma, size about 1.7 cm, grade 2 clear margins, no regional lymph node identified, rpT1c NX, and prophylactic right simple mastectomy showed no invasive disease, Patient was on Arimidex Prior to bilateral mastectomy and there was no treatment effect observed on invasive component. Arimidex was discontinued in August 2021 as her follow-up mammogram followed by biopsy confirmed invasive disease in her left breast Started on exemestane 25 mg p.o. daily on September 27, 2021, Oncotype DX test was ordered which was done on October 11, 2021, showed recurrence score 27 and absolute chemotherapy benefit more than 50% and distant recurrence rate at 9-year with hormone therapy is about 16%, patient was offered adjuvant chemotherapy, patient and her daughter, knowing the risk versus benefit, declined adjuvant chemotherapy AGAINST MEDICAL ADVICE. Came for follow-up, denies any specific complaints, no fever chills, no nausea or vomiting, no diarrhea or constipation, no hot flashes, no new bony pains, tolerating exemestane along with vitamin D and calcium well Medications: Albuterol Sulfate Aerosol Powder, Breath Activated Inhalation, ALPRAZolam 1 Tablet (of 0.5 mg) Oral t.i.d., amLODIPine Besylate 1 Tablet (of 10 mg) Oral daily, Aspirin 1 Tablet (of 81 mg) Oral daily, Atorvastatin Calcium 1 Tablet (of 40 mg) Oral daily, Bumetanide 1 Tablet (of 1 mg) Oral daily, Cholecalciferol 1 Capsule (of 125 mcg ) Oral daily, Cinnamon 2 Capsule (of 500 mg) Oral daily, Flaxseed Oil 1 Capsule (of 1200 mg) Oral daily, hydrALAZINE HCl 1 Tablet (of 50 mg) Oral t.i.d., Insulin Detemir 30 Units (of 100 Units/mL) Subcutaneous daily, Irbesartan 0.5 Tablet (of 300 mg) Oral b.i.d., Isosorbide Mononitrate ER 1 Tablet (of 60 mg) Tablet SR 24 HR Oral daily, Lisinopril 1 Tablet (of 40 mg) Oral daily, Magnesium Oxide 1 Tablet (of 400 mg) Capsule Oral daily, Metoprolol Tartrate 2 Tablet (of 25 mg) Oral b.i.d., Zinc 1 Capsule (of 50 mg) Oral daily Allergies: Cephalexin Review of Systems: Review of Systems is not available for this patient. Vital Signs: Performed on Nov 07, 2021 08:36 Height - 64.00 in Weight - 146.0 lbs (LOW) BSA - 1.71 sq.m BMI - 25.06 Temperature - 97.0 F (LOW) Pulse - 63 /min Respiration - 18 /min BP - 147/53 mm(hg) (HIGH) O2 Sat - 92 % (LOW) Pain - 0 Fatigue - 4 Performance Status: 1 - No physically strenuous activity, but ambulatory and able to carry out light or sedentary work (e.g. office work, light house work). (ECOG) Physical Examination: Respiratory - Lungs are clear to auscultation, Cardiovascular - Regular rate and rhythm of heart, Gastrointestinal - Soft, bowel sounds present, Extremities - No mouth sores, no thrush, no jaundice. Lab/Imaging: Test performed on Aug 31, 2021 14:37 Glucose 131 mg/dL BUN 33 mg/dL Creatinine 1.3 mg/dL Sodium 136 mmol/L Potassium 4.7 mmol/L Chloride 101 mmol/L CO2 22 mmol/L Calcium 8.6 mg/dL WBC 7.3 10^9/L RBC 3.85 10^12/L HGB 11.3 g/dL HCT 34.3 % MCV 89.1 fl MCH 29.4 pg MCHC 32.9 g/dL RDW 13.2 % Platelet Count 170 10^9/L MPV 12.0 fL Neutrophils (Gran) 5.73 10^9/L Lymphocytes 0.7008 10^9/L Monocytes 0.7811 10^9/L Eosinophils 0.0219 10^9/L Basophils 0.0292 10^9/L Test performed on Aug 24, 2021 13:17 Cr Clearance (Est) 30.90 mL/min Protein, Total 6.6 g/dL Albumin 4.0 g/dL Globulin 2.6 g/dL Bilirubin, Total 0.3 mg/dL Alkaline Phosphatase 81 International Units/L AST (SGOT) 24 International Units/L ALT (SGPT) 22 International Units/L Impression: .1. 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 left modified radical mastectomy and right simple mastectomy done on August 30, 2021, left breast mastectomy sample showed 1.7 cm invasive ductal carcinoma with clear margins, T1c and no lymph node identified in the sample, NX, ER 95%, AZ 20%, HER2/denia negative, Oncotype DX done on October 11, 2021 shows recurrence score 27, which is high at risk of distant recurrence at 9-year while on hormone therapy is about 16%, and absolute chemotherapy benefit is more than 15%. Patient was offered adjuvant chemotherapy based on her Oncotype DX report but patient and her daughter declined the adjuvant chemotherapy knowing the risk versus benefits. prophylactic right mastectomy sample showed no invasive disease 2. h/o Moderately invasive ductal carcinoma involving left breast status post lumpectomy and sentinel lymph node biopsy done on 10/07/2019 Final pathology report showed 3 x 2.6 x 1.7 cm invasive mass with clear surgical margins, moderately differentiated , pT2 No lymphovascular invasion seen 2 axillary sentinel lymph nodes were examined showed no evidence of metastatic disease pN0 Stage IIa ER positive 94%,, AZ negative e.g. less than 1%, HER-2/denia negative, Ki-67 high at 38% Oncotype DX score is 36 e.g. high, distant recurrence risk at 9 year his 24% with tamoxifen/aromatase inhibitor and absolute chemotherapy benefit is more than 15% Patient and her daughter declined adjuvant chemotherapy AGAINST MEDICAL ADVICE and also declined postlumpectomy radiation therapy but agreed to continue with Arimidex Which was discontinued in September 2021 because of recurrence of disease in left breast and she was switched to exemestane 25 mg p.o. daily as patient declined adjuvant chemotherapy History of melanoma involving left shoulder status post excision with skin graft done in . Follow-up mammogram done on May 15, 2021 showed there is a new spiculated soft tissue nodule of increased density measuring 10 x 11 mm in the posterior left breast. Small associated calcification. Right breast shows benign calcifications Plan: Discussed with patient regarding her Oncotype DX score report which shows high recurrence score at 27, which means group average absolute chemotherapy benefit more than 15% and risk of distant recurrence at 9 years with hormonal therapy is about 16%, and on her pathology report there was no benefit from Arimidex seen. As mentioned earlier patient was diagnosed with left breast cancer in September 2019, at that time, her Oncotype DX score shows high recurrence score, patient was offered adjuvant chemotherapy but patient opted for hormonal therapy so she was treated with Arimidex, then during follow-up her mammogram showed new spiculated abnormality in the left breast, ultrasound done on June 15, 2021 confirmed 1.3 x 1.1 cm high density mass, subsequently patient underwent bilateral mastectomy, right as a prophylactic mastectomy and final pathology report confirmed invasive cancer in her left breast with no treatment effect and Oncotype DX score done on recurrence of disease came back high again, indicating possible benefit from chemotherapy and high recurrence rate even on hormonal therapy. Discussed with patient and her daughter, considering her age and other comorbid condition patient and her daughter declined the adjuvant chemotherapy again but opted for hormone therapy, she was already started on exemestane 25 mg p.o. daily along with vitamin D and calcium which she is tolerating well. As mentioned above patient and her daughter have declined adjuvant chemotherapy knowing the risk versus benefits so we will continue with exemestane along with vitamin D and calcium and she will return to clinic in 3 months [facility]. Signed By: Sofie Mendieta M.D. <<Signature on File>>
== END 2021-11-07 08:25 | disposition home or self-care (01) ==
PROVIDERS: PCP Nurse Practitioner Family; Visit Provider Internal Medicine Hematology & Oncology
DX: C50.912 Malignant neoplasm of unspecified site of left female breast (principal); Z85.820 Personal history of malignant melanoma of skin; Z79.899 Other long term (current) drug therapy
CPT/HCPCS: 99214

== ENCOUNTER → 2022-03-01 10:20 | Outpatient (BNVA) | payer MEDICARE, OTHER, SELFPAY | PROVIDERS: PCP Nurse Practitioner Family; Visit Provider Nurse Practitioner Family | DX: E78.2 Mixed hyperlipidemia (principal); E11.39 Type 2 diabetes mellitus with other diabetic ophthalmic complication | CPT/HCPCS: 80053; 83036 ==

== ENCOUNTER → 2022-03-21 10:40 | Outpatient (BNVA) | payer MEDICARE, OTHER, SELFPAY | PROVIDERS: PCP Nurse Practitioner Family; Visit Provider Nurse Practitioner Family | DX: R73.09 Other abnormal glucose (principal) | CPT/HCPCS: 80053 ==

== ENCOUNTER 2022-04-16 12:37 | Outpatient (CLI) | payer MEDICARE, OTHER, SELFPAY ==
[2022-04-16 13:33] LABS: Basophils # 0.1 10^3/uL (0.0-0.1); Basophils % 0.9 %; Eosinophils # 0.1 10^3/uL (0.0-0.8); Eosinophils % 1.1 %; Hematocrit 32.6 % (37.0-47.0); Hemoglobin 11.1 g/dL (11.5-15.3); Lymphocytes # 1.1 10^3/uL (0.8-4.8); Lymphocytes % 20.7 %; Mean Corpuscular Hemoglobin 29.7 pg (28.0-34.0); Mean Corpuscular Volume 87.2 fl (81-99); Mean Platelet Volume 11.3 fL (7.4-10.4); Monocytes # 0.6 10^3/uL (0.2-0.9); Monocytes % 11.6 %; Neutrophils # 3.53 10^3/uL (1.8-7.7); Neutrophils % 65.1 %; Nucleated Red Blood Cells % 0 %; Platelet Count 177 10^3/cmm (130-400); Red Blood Count 3.74 10^6/uL (4.1-5.3); Red Cell Distribution Width 13.2 % (12.1-15.1); White Blood Count 5.4 10^3/uL (4.0-10.0)
[2022-04-16 14:03] LABS: Alanine Aminotransferase 15 U/L (0-33); Albumin Level 4.2 g/dL (3.5-5.2); Alkaline Phosphatase 82 IU/L (35-105); Anion Gap 14.9 (5-19); Aspartate Amino Transferase 23 U/L (0-32); Blood Urea Nitrogen 38 mg/dL (8-23); Calcium 9.4 mg/dL (8.5-10.5); Carbon Dioxide 27 mmol/L (22-29); Chloride 98 mmol/L (98-107); Globulin 2.5 g/dL (1.3-4.6); Glucose 121 mg/dL (65-115); Osmolality Calculated 290 mOsm/kg (285-295); Potassium 4.9 mmol/L (3.5-5.1); Sodium 135 mmol/L (136-145); Total Bilirubin 0.4 mg/dL (0.15-1.2); Total Protein 6.7 g/dL (6.6-8.7)
== END 2022-04-16 12:38 | disposition home or self-care (01) ==
PROVIDERS: Nurse Practitioner Family; PCP Nurse Practitioner Family; Visit Provider Nurse Practitioner Family
DX: N18.32 Chronic kidney disease, stage 3b (principal)
CPT/HCPCS: 36415; 80053; 85025

== ENCOUNTER → 2022-04-25 10:19 | Outpatient (BNVA) | payer MEDICARE, OTHER, SELFPAY | PROVIDERS: PCP Nurse Practitioner Family; Visit Provider Urology | DX: C67.9 Malignant neoplasm of bladder, unspecified (principal); C67.5 Malignant neoplasm of bladder neck | CPT/HCPCS: 52000; 81003 ==

== ENCOUNTER 2022-04-29 09:30 | Oncology outpatient (recurring) (ONCR) | payer MEDICARE, OTHER, SELFPAY ==
[2022-04-09 12:52] LABS: Alanine Aminotransferase 16 U/L (0-33); Albumin Level 3.6 g/dL (3.5-5.2); Alkaline Phosphatase 81 IU/L (35-105); Anion Gap 15.3 (5-19); Aspartate Amino Transferase 20 U/L (0-32); Blood Urea Nitrogen 43 mg/dL (8-23); Calcium 9.4 mg/dL (8.5-10.5); Carbon Dioxide 27 mmol/L (22-29); Chloride 100 mmol/L (98-107); Globulin 2.3 g/dL (1.3-4.6); Glucose 124 mg/dL (65-115); Osmolality Calculated 298 mOsm/kg (285-295); Potassium 4.3 mmol/L (3.5-5.1); Sodium 138 mmol/L (136-145); Total Bilirubin 0.3 mg/dL (0.15-1.2); Total Protein 5.9 g/dL (6.6-8.7)
[2022-04-09 12:54] LABS: Basophils % 0.8 %; Eosinophils # 0.1 10^3/uL (0.0-0.8); Eosinophils % 1.6 %; Hematocrit 30.8 % (37.0-47.0); Hemoglobin 10.5 g/dL (11.5-15.3); Lymphocytes # 0.8 10^3/uL (0.8-4.8); Lymphocytes % 16.6 %; Mean Corpuscular HGB Conc 34.1 g/dL (30.0-36.0); Mean Corpuscular Hemoglobin 29.4 pg (28.0-34.0); Mean Corpuscular Volume 86.3 fl (81-99); Mean Platelet Volume 11.9 fL (7.4-10.4); Monocytes # 0.5 10^3/uL (0.2-0.9); Monocytes % 9.9 %; Neutrophils # 3.59 10^3/uL (1.8-7.7); Neutrophils % 70.9 %; Nucleated Red Blood Cells % 0 %; Platelet Count 165 10^3/cmm (130-400); Red Blood Count 3.57 10^6/uL (4.1-5.3); Red Cell Distribution Width 12.9 % (12.1-15.1); White Blood Count 5.1 10^3/uL (4.0-10.0)
[2022-04-09 16:42] LABS: Ferritin 46 ng/mL (15-150); Iron 67 ug/dL (37-145); Percent Saturation 25.3 % (20-50); Total Iron Binding Capacity 264 mcg/dl; Unsaturated Iron Binding 197 ug/dL (112-347)
--- NOTE | 2022-04-29 09:30 | CT_ITS ---
WS: [id number] CT CHEST AND ABDOMEN TECHNIQUE: Noncontrast CT of the chest and abdomen with coronal and sagittal reformatted images.. CLINICAL INFORMATION: new symptom COMPARISON: None. DLP: 778.[address] scans at [facility] use at least one of these dose optimization techniques: automated e xposure control; mA and/or kV adjustment per patient size (includes targeted exams where dose is matc hed to clinical indication); or iterative reconstruction. CT CHEST: Moderate chronic emphysematous changes. Bibasilar atelectasis. Calcified granulomas. Prior sternotomy . Several noncalcified pulmonary nodules in the RIGHT upper lobe, RIGHT lower lobe, and lingula. Larg est nodules in the RIGHT upper lobe and RIGHT lower lobe adjacent to the pericardium measures 9-10 mm . These are nonspecific but metastatic disease not excluded. No comparisons. Tiny RIGHT pleural effus ion. Dense aortic calcification. Coronary calcification. Cardiomegaly. Small nodules in the thyroid. No axillary lymphadenopathy. Small esophageal hiatal hernia. Thickening of the esophagus can be seen with esophagitis. CT ABDOMEN: Hepatomegaly. Noncontrast liver is otherwise normal. Normal gallbladder. Splenic granulomas. Small es ophageal hiatal hernia. Adrenal glands are normal. Bilateral renal cortical atrophy. Nonobstructing L EFT renal calyceal calculi. Dense aortic calcification and mesenteric calcification. 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 Soft tissue nodule in the upper abdomen/lower chest eccentric to the LEFT subcutaneous soft tissues m easuring 16 mm. Fat-containing umbilical hernia. CT/CT chest abdomen wo con IMPRESSION: 1. Several suspicious solid appearing pulmonary nodules the largest measuring 9-10 mm suspicious for metastatic disease. Approximately 5-6 suspicious nodules . Consider further evaluation with PET/CT or short-term interval follow-up. Cor relation with clinical history of neoplasm 2. No mediastinal or hilar lymphadenopathy. 3. Soft tissue nodule in the upper abdomen subcutaneous soft tissues eccentric to the LEFT measuring 16 mm suspicious for metastatic disease. 4. Slightly aneurysmal abdominal aorta measuring 2.5 x 2.5 CM. No other suspic ious findings in the abdomen.
== END 2022-05-08 23:59 | disposition home or self-care (01) ==
LOC: ONCMED 05-09 06:55
PROVIDERS: Internal Medicine Hematology & Oncology; PCP Nurse Practitioner Family; Visit Provider Nurse Practitioner Family
DX: C50.812 Malignant neoplasm of overlapping sites of left female breast (principal)
CPT/HCPCS: 36415; 71250; 74150; 80053; 82728; 83540; 83550; 85025; 99214

== ENCOUNTER → 2022-05-14 11:25 | Outpatient (BNVA) | payer MEDICARE, OTHER, SELFPAY | PROVIDERS: PCP Nurse Practitioner Family; Visit Provider Internal Medicine Hematology & Oncology | DX: C50.919 Malignant neoplasm of unspecified site of unspecified female breast (principal) | CPT/HCPCS: 80053; 85025 ==

== ENCOUNTER 2022-05-17 07:53 | Oncology outpatient (recurring) (ONCR) | payer MEDICARE, OTHER, SELFPAY | END 2022-06-07 23:59 | disposition home or self-care (01) | PROVIDERS: PCP Nurse Practitioner Family; Visit Provider Internal Medicine Hematology & Oncology | DX: C50.812 Malignant neoplasm of overlapping sites of left female breast (principal); Z17.0 Estrogen receptor positive status [ER+]; C78.01 Secondary malignant neoplasm of right lung; C78.02 Secondary malignant neoplasm of left lung; Z79.818 Long term (current) use of other agents affecting estrogen receptors and estrogen levels; Z79.899 Other long term (current) drug therapy; Z87.891 Personal history of nicotine dependence | CPT/HCPCS: 99214 ==

== ENCOUNTER → 2022-06-17 08:39 | Outpatient (BNVA) | payer MEDICARE, OTHER, SELFPAY | PROVIDERS: PCP Nurse Practitioner Family; Visit Provider Nurse Practitioner | DX: C50.812 Malignant neoplasm of overlapping sites of left female breast (principal); Z17.0 Estrogen receptor positive status [ER+]; C78.01 Secondary malignant neoplasm of right lung; C77.8 Secondary and unspecified malignant neoplasm of lymph nodes of multiple regions; Z79.818 Long term (current) use of other agents affecting estrogen receptors and estrogen levels; Z79.899 Other long term (current) drug therapy; Z90.13 Acquired absence of bilateral breasts and nipples | CPT/HCPCS: 36415; 80053; 85025; 86300; 96402; 99214; 99215; J9395 ==

== ENCOUNTER 2022-07-01 11:30 | Oncology outpatient (recurring) (ONCR) | payer MEDICARE, OTHER, SELFPAY ==
[2022-06-17 09:07] LABS: Basophils # 0.1 10^3/uL (0.0-0.1); Basophils % 0.6 %; Eosinophils # 0.1 10^3/uL (0.0-0.8); Hematocrit 33.1 % (37.0-47.0); Hemoglobin 10.7 g/dL (11.5-15.3); Lymphocytes # 0.8 10^3/uL (0.8-4.8); Lymphocytes % 9.7 %; Mean Corpuscular HGB Conc 32.3 g/dL (30.0-36.0); Mean Corpuscular Hemoglobin 28.8 pg (28.0-34.0); Mean Corpuscular Volume 89.2 fl (81-99); Mean Platelet Volume 11.2 fL (7.4-10.4); Monocytes # 0.8 10^3/uL (0.2-0.9); Monocytes % 8.9 %; Neutrophils # 6.86 10^3/uL (1.8-7.7); Neutrophils % 79.6 %; Nucleated Red Blood Cells % 0 %; Platelet Count 166 10^3/cmm (130-400); Red Blood Count 3.71 10^6/uL (4.1-5.3); Red Cell Distribution Width 13.9 % (12.1-15.1); White Blood Count 8.6 10^3/uL (4.0-10.0)
[2022-06-17 09:46] LABS: Alanine Aminotransferase 15 U/L (0-33); Albumin Level 3.6 g/dL (3.5-5.2); Alkaline Phosphatase 97 U/L (35-105); Anion Gap 13.8 (5-19); Aspartate Amino Transferase 20 U/L (0-32); Blood Urea Nitrogen 63 mg/dL (8-23); CA 15-3 12.2 U/mL (0-25); Carbon Dioxide 27 mmol/L (22-29); Chloride 100 mmol/L (98-107); Globulin 2.8 g/dL (1.3-4.6); Glucose 107 mg/dL (65-115); Osmolality Calculated 300 mOsm/kg (285-295); Potassium 4.8 mmol/L (3.5-5.1); Sodium 136 mmol/L (136-145); Total Bilirubin 0.4 mg/dL (0.15-1.2); Total Protein 6.4 g/dL (6.6-8.7)
[2022-06-17] MEDS: fulvestrant 250 mg/5 mL Syringe 500 MG IM (13:09)
[2022-07-01 11:12] LABS: Basophils % 0.7 %; Eosinophils # 0.1 10^3/uL (0.0-0.8); Eosinophils % 2.1 %; Hematocrit 31.1 % (37.0-47.0); Hemoglobin 10.2 g/dL (11.5-15.3); Lymphocytes # 0.7 10^3/uL (0.8-4.8); Mean Corpuscular HGB Conc 32.8 g/dL (30.0-36.0); Mean Corpuscular Hemoglobin 29.7 pg (28.0-34.0); Mean Corpuscular Volume 90.7 fl (81-99); Mean Platelet Volume 10.1 fL (7.4-10.4); Monocytes # 0.1 10^3/uL (0.2-0.9); Monocytes % 3.9 %; Neutrophils # 1.89 10^3/uL (1.8-7.7); Neutrophils % 67.6 %; Nucleated Red Blood Cells % 0 %; Platelet Count 131 10^3/cmm (130-400); Red Blood Count 3.43 10^6/uL (4.1-5.3); Red Cell Distribution Width 14.4 % (12.1-15.1); White Blood Count 2.8 10^3/uL (4.0-10.0)
[2022-07-01 11:34] LABS: Alanine Aminotransferase 15 U/L (0-33); Albumin Level 3.3 g/dL (3.5-5.2); Alkaline Phosphatase 92 U/L (35-105); Anion Gap 11.7 (5-19); Aspartate Amino Transferase 21 U/L (0-32); Blood Urea Nitrogen 51 mg/dL (8-23); Calcium 8.9 mg/dL (8.5-10.5); Carbon Dioxide 25 mmol/L (22-29); Chloride 100 mmol/L (98-107); Glucose 107 mg/dL (65-115); Osmolality Calculated 288 mOsm/kg (285-295); Potassium 4.7 mmol/L (3.5-5.1); Sodium 132 mmol/L (136-145); Total Bilirubin 0.3 mg/dL (0.15-1.2); Total Protein 6.3 g/dL (6.6-8.7)
[2022-07-01 11:37] LABS: Slide Review Slide Review Perform
[2022-07-01 12:12] VITALS: BP 123/51; PULSE 60; RESP 16; TEMP 35.9; O2SAT 98
[2022-07-01] MEDS: fulvestrant 250 mg/5 mL Syringe 500 MG IM (12:19)
== END 2022-07-08 23:59 | disposition home or self-care (01) ==
PROVIDERS: Nurse Practitioner; PCP Nurse Practitioner Family; Visit Provider Internal Medicine Hematology & Oncology
DX: C50.812 Malignant neoplasm of overlapping sites of left female breast (principal); Z79.818 Long term (current) use of other agents affecting estrogen receptors and estrogen levels; Z17.0 Estrogen receptor positive status [ER+]; C78.01 Secondary malignant neoplasm of right lung; C78.02 Secondary malignant neoplasm of left lung
CPT/HCPCS: 36415; 80053; 85025; 86300; 96402; J9395

== ENCOUNTER → 2022-07-08 09:10 | Outpatient (BNVA) | payer MEDICARE, OTHER, SELFPAY | PROVIDERS: PCP Nurse Practitioner Family; Visit Provider Nurse Practitioner | DX: C50.919 Malignant neoplasm of unspecified site of unspecified female breast (principal) | CPT/HCPCS: 80053; 85025; 86300 ==

== ENCOUNTER 2022-07-25 09:00 | Oncology outpatient (recurring) (ONCR) | payer MEDICARE, OTHER, SELFPAY ==
[2022-07-15 09:41] LABS: Basophils % 1.3 %; Eosinophils % 0.9 %; Hemoglobin 9.4 g/dL (11.5-15.3); Lymphocytes % 41.5 %; Mean Corpuscular HGB Conc 32.4 g/dL (30.0-36.0); Mean Corpuscular Hemoglobin 30.3 pg (28.0-34.0); Mean Corpuscular Volume 93.5 fl (81-99); Mean Platelet Volume 10.3 fL (7.4-10.4); Monocytes # 0.3 10^3/uL (0.2-0.9); Neutrophils # 1.04 10^3/uL (1.8-7.7); Neutrophils % 44.3 %; Nucleated Red Blood Cells % 0 %; Platelet Count 103 10^3/cmm (130-400); Red Cell Distribution Width 16.5 % (12.1-15.1); White Blood Count 2.3 10^3/uL (4.0-10.0)
[2022-07-15 09:50] LABS: Alanine Aminotransferase 13 U/L (0-33); Albumin Level 3.5 g/dL (3.5-5.2); Alkaline Phosphatase 67 U/L (35-105); Anion Gap 13.2 (5-19); Aspartate Amino Transferase 18 U/L (0-32); Blood Urea Nitrogen 46 mg/dL (8-23); Calcium 9.3 mg/dL (8.5-10.5); Carbon Dioxide 25 mmol/L (22-29); Chloride 101 mmol/L (98-107); Globulin 2.7 g/dL (1.3-4.6); Glucose 123 mg/dL (65-115); Osmolality Calculated 293 mOsm/kg (285-295); Potassium 4.2 mmol/L (3.5-5.1); Sodium 135 mmol/L (136-145); Total Bilirubin 0.4 mg/dL (0.15-1.2); Total Protein 6.2 g/dL (6.6-8.7)
[2022-07-25 09:08] LABS: Basophils # 0.1 10^3/uL (0.0-0.1); Basophils % 2.6 %; Eosinophils % 0.6 %; Hemoglobin 9.9 g/dL (11.5-15.3); Lymphocytes # 0.6 10^3/uL (0.8-4.8); Lymphocytes % 10.3 %; Mean Corpuscular Hemoglobin 30.3 pg (28.0-34.0); Mean Corpuscular Volume 91.7 fl (81-99); Mean Platelet Volume 9.6 fL (7.4-10.4); Monocytes # 0.5 10^3/uL (0.2-0.9); Monocytes % 9.6 %; Neutrophils # 4.14 10^3/uL (1.8-7.7); Neutrophils % 76.3 %; Nucleated Red Blood Cells % 0 %; Platelet Count 271 10^3/cmm (130-400); Red Blood Count 3.27 10^6/uL (4.1-5.3); Red Cell Distribution Width 17.4 % (12.1-15.1); White Blood Count 5.4 10^3/uL (4.0-10.0)
[2022-07-25 09:28] LABS: Alanine Aminotransferase 12 U/L (0-33); Albumin Level 3.5 g/dL (3.5-5.2); Alkaline Phosphatase 78 U/L (35-105); Aspartate Amino Transferase 20 U/L (0-32); Blood Urea Nitrogen 37 mg/dL (8-23); Calcium 9.3 mg/dL (8.5-10.5); Carbon Dioxide 27 mmol/L (22-29); Chloride 99 mmol/L (98-107); Glucose 124 mg/dL (65-115); Osmolality Calculated 290 mOsm/kg (285-295); Sodium 135 mmol/L (136-145); Total Bilirubin 0.4 mg/dL (0.15-1.2); Total Protein 6.5 g/dL (6.6-8.7)
== END 2022-08-07 23:59 | disposition home or self-care (01) ==
PROVIDERS: Nurse Practitioner; PCP Nurse Practitioner Family; Visit Provider Internal Medicine Hematology & Oncology
DX: C50.812 Malignant neoplasm of overlapping sites of left female breast (principal); Z17.0 Estrogen receptor positive status [ER+]; C78.01 Secondary malignant neoplasm of right lung; C78.02 Secondary malignant neoplasm of left lung; D70.1 Agranulocytosis secondary to cancer chemotherapy; T45.1X5A Adverse effect of antineoplastic and immunosuppressive drugs, initial encounter; D64.81 Anemia due to antineoplastic chemotherapy; Z79.818 Long term (current) use of other agents affecting estrogen receptors and estrogen levels; Z79.899 Other long term (current) drug therapy; Z87.891 Personal history of nicotine dependence
CPT/HCPCS: 36415; 80053; 81003; 85025; 99214

== ENCOUNTER 2022-08-26 08:30 | Oncology outpatient (recurring) (ONCR) | payer MEDICARE, OTHER, SELFPAY ==
[2022-08-08 13:16] LABS: Basophils # 0.1 10^3/uL (0.0-0.1); Basophils % 1.4 %; Eosinophils # 0.1 10^3/uL (0.0-0.8); Eosinophils % 3.6 %; Hematocrit 32.9 % (37.0-47.0); Hemoglobin 10.4 g/dL (11.5-15.3); Mean Corpuscular HGB Conc 31.6 g/dL (30.0-36.0); Mean Corpuscular Hemoglobin 29.9 pg (28.0-34.0); Mean Corpuscular Volume 94.5 fl (81-99); Mean Platelet Volume 11.2 fL (7.4-10.4); Monocytes # 0.2 10^3/uL (0.2-0.9); Monocytes % 4.7 %; Neutrophils # 2.18 10^3/uL (1.8-7.7); Neutrophils % 60.7 %; Nucleated Red Blood Cells % 0 %; Platelet Count 189 10^3/cmm (130-400); Red Blood Count 3.48 10^6/uL (4.1-5.3); Red Cell Distribution Width 17.2 % (12.1-15.1); White Blood Count 3.6 10^3/uL (4.0-10.0)
[2022-08-08 13:45] LABS: Alanine Aminotransferase 14 U/L (0-33); Albumin Level 3.5 g/dL (3.5-5.2); Alkaline Phosphatase 93 U/L (35-105); Anion Gap 12.5 (5-19); Aspartate Amino Transferase 18 U/L (0-32); Blood Urea Nitrogen 40 mg/dL (8-23); CA 15-3 14.5 U/mL (0-25); Calcium 9.4 mg/dL (8.5-10.5); Carbon Dioxide 27 mmol/L (22-29); Chloride 103 mmol/L (98-107); Glucose 139 mg/dL (65-115); Osmolality Calculated 298 mOsm/kg (285-295); Potassium 4.5 mmol/L (3.5-5.1); Sodium 138 mmol/L (136-145); Total Bilirubin 0.3 mg/dL (0.15-1.2); Total Protein 6.5 g/dL (6.6-8.7)
[2022-08-08] MEDS: fulvestrant 250 mg/5 mL Syringe 500 MG IM (15:43)
[2022-08-09 13:08] LABS: CA 27.29 17 U/mL (<38)
[2022-08-26 09:02] LABS: Basophils # 0.1 10^3/uL (0.0-0.1); Basophils % 2.6 %; Eosinophils % 1.3 %; Hemoglobin 10.5 g/dL (11.5-15.3); Lymphocytes # 0.5 10^3/uL (0.8-4.8); Lymphocytes % 17.6 %; Mean Corpuscular HGB Conc 32.8 g/dL (30.0-36.0); Mean Corpuscular Hemoglobin 31.7 pg (28.0-34.0); Mean Corpuscular Volume 96.7 fl (81-99); Mean Platelet Volume 10.5 fL (7.4-10.4); Monocytes # 0.5 10^3/uL (0.2-0.9); Monocytes % 15.3 %; Neutrophils # 1.93 10^3/uL (1.8-7.7); Neutrophils % 62.9 %; Nucleated Red Blood Cells % 0 %; Platelet Count 195 10^3/cmm (130-400); Red Blood Count 3.31 10^6/uL (4.1-5.3); Red Cell Distribution Width 17.4 % (12.1-15.1); White Blood Count 3.1 10^3/uL (4.0-10.0)
[2022-08-26 09:24] LABS: Alanine Aminotransferase 14 U/L (0-33); Albumin Level 3.5 g/dL (3.5-5.2); Alkaline Phosphatase 70 U/L (35-105); Anion Gap 14.9 (5-19); Aspartate Amino Transferase 21 U/L (0-32); Blood Urea Nitrogen 37 mg/dL (8-23); Calcium 9.2 mg/dL (8.5-10.5); Carbon Dioxide 27 mmol/L (22-29); Chloride 99 mmol/L (98-107); Globulin 2.6 g/dL (1.3-4.6); Glucose 265 mg/dL (65-115); Osmolality Calculated 302 mOsm/kg (285-295); Potassium 3.9 mmol/L (3.5-5.1); Sodium 137 mmol/L (136-145); Total Bilirubin 0.3 mg/dL (0.15-1.2); Total Protein 6.1 g/dL (6.6-8.7)
== END 2022-09-07 23:59 | disposition home or self-care (01) ==
PROVIDERS: PCP Nurse Practitioner Family; Visit Provider Internal Medicine Hematology & Oncology
DX: C50.812 Malignant neoplasm of overlapping sites of left female breast (principal); Z17.0 Estrogen receptor positive status [ER+]; C78.01 Secondary malignant neoplasm of right lung; C78.02 Secondary malignant neoplasm of left lung; Z90.13 Acquired absence of bilateral breasts and nipples; Z79.818 Long term (current) use of other agents affecting estrogen receptors and estrogen levels; Z79.899 Other long term (current) drug therapy; Z87.891 Personal history of nicotine dependence; D72.819 Decreased white blood cell count, unspecified; D64.9 Anemia, unspecified
CPT/HCPCS: 36415; 80053; 85025; 86300; 96402; 99214; J9395

== ENCOUNTER → 2022-09-04 08:19 | Outpatient (BNVA) | payer MEDICARE, OTHER, SELFPAY | PROVIDERS: PCP Nurse Practitioner Family; Visit Provider Internal Medicine | DX: N28.9 Disorder of kidney and ureter, unspecified (principal); N18.4 Chronic kidney disease, stage 4 (severe); E55.9 Vitamin D deficiency, unspecified; E11.39 Type 2 diabetes mellitus with other diabetic ophthalmic complication; E11.9 Type 2 diabetes mellitus without complications | CPT/HCPCS: 80053; 80069; 82043; 82306; 82310; 83036; 83970; 85007; 85027 ==

== ENCOUNTER 2022-09-11 14:06 | Oncology outpatient (recurring) (ONCR) | payer MEDICARE, OTHER, SELFPAY ==
[2022-09-11 14:54] LABS: Basophils # 0.1 10^3/uL (0.0-0.1); Basophils % 2.2 %; Eosinophils % 1.1 %; Hematocrit 31.9 % (37.0-47.0); Hemoglobin 10.5 g/dL (11.5-15.3); Lymphocytes % 27.5 %; Mean Corpuscular HGB Conc 32.9 g/dL (30.0-36.0); Mean Corpuscular Hemoglobin 31.8 pg (28.0-34.0); Mean Corpuscular Volume 96.7 fl (81-99); Mean Platelet Volume 11.5 fL (7.4-10.4); Monocytes # 0.4 10^3/uL (0.2-0.9); Monocytes % 11.5 %; Neutrophils # 2.09 10^3/uL (1.8-7.7); Neutrophils % 57.4 %; Nucleated Red Blood Cells % 0 %; Platelet Count 157 10^3/cmm (130-400); Red Cell Distribution Width 16.4 % (12.1-15.1); White Blood Count 3.6 10^3/uL (4.0-10.0)
[2022-09-11 15:38] LABS: Alanine Aminotransferase 16 U/L (0-33); Albumin Level 3.7 g/dL (3.5-5.2); Alkaline Phosphatase 77 U/L (35-105); Aspartate Amino Transferase 23 U/L (0-32); Blood Urea Nitrogen 37 mg/dL (8-23); CA 15-3 15.3 U/mL (0-25); Calcium 9.7 mg/dL (8.5-10.5); Carbon Dioxide 28 mmol/L (22-29); Chloride 101 mmol/L (98-107); Globulin 2.8 g/dL (1.3-4.6); Glucose 112 mg/dL (65-115); Osmolality Calculated 295 mOsm/kg (285-295); Sodium 138 mmol/L (136-145); Total Bilirubin 0.4 mg/dL (0.15-1.2); Total Protein 6.5 g/dL (6.6-8.7)
[2022-09-11] MEDS: fulvestrant 250 mg/5 mL Syringe 500 MG IM (16:48)
[2022-09-12 12:16] LABS: CA 27.29 12 U/mL (<38)
== END 2022-10-08 23:59 | disposition home or self-care (01) ==
PROVIDERS: PCP Nurse Practitioner Family; Visit Provider Internal Medicine Hematology & Oncology
DX: C50.812 Malignant neoplasm of overlapping sites of left female breast (principal); Z17.0 Estrogen receptor positive status [ER+]; Z90.13 Acquired absence of bilateral breasts and nipples; C78.01 Secondary malignant neoplasm of right lung; C78.02 Secondary malignant neoplasm of left lung; D70.1 Agranulocytosis secondary to cancer chemotherapy; T45.1X5A Adverse effect of antineoplastic and immunosuppressive drugs, initial encounter; D64.9 Anemia, unspecified; Z79.818 Long term (current) use of other agents affecting estrogen receptors and estrogen levels; Z79.899 Other long term (current) drug therapy
CPT/HCPCS: 36415; 80053; 85025; 86300; 96402; 99214; J9395

== ENCOUNTER 2022-10-07 06:24 | Outpatient (CLI) | payer MEDICARE, OTHER, SELFPAY ==
--- NOTE | 2022-10-05 12:00 | PETR_ITS ---
PROCEDURE INFORMATION: Exam: PET/CT Skull Base to Mid-thigh Exam date and time: 10/05/2022 1:15 PM Age: 86 years old Clinical indication: Condition or disease; Primary cancer: Left breast cancer; Follow-up oncological assessment; Prior surgery; Additional info: Assess response to treatment LABS AND CLINICAL REPORTS: Glucose: 71 mg/dl Treatment strategy for malignancy (PET staging): Restaging (PS) TECHNIQUE: Imaging protocol: Following at least four-hour fasting and following the injection of F-18-FDG, low dose CT images were obtained. Then, PET images were obtained. Attenuation corrected images were constructed using the CT scan. Fused images of PET and CT were reviewed. The standardized uptake values (SUV) reported below are maximum values within a region of interest, expressed in gm/ml. Exam includes orbital meatal line to mid-thigh. Radiopharmaceutical: 12.19 mCi F-18 FDG (Fluorodeoxyglucose), IV. Time of imaging post radiopharmaceutical administration: 1 hour Injection site: Nonspecified COMPARISON: PT PET Scan 05/04/2022 12:20 PM FINDINGS: Limitations: Metallic artifact in the pelvis. Brain: Visualized brain has normal physiologic uptake. Pharynx: No abnormal uptake. Larynx: No abnormal uptake. Thyroid: Heterogeneous low-density non radiotracer avid nodularity of the thyroid gland is noted, statistically benign. Lungs, pleura and trachea: No abnormal uptake. Non radio tracer avid mild posterior right lower lobe pleural thickening with possible small right pleural effusion. A similar in size solid lingular nodule measures 9 mm on series 3, image 61 and is no longer radiotracer avid. A posterior right upper lobe nodule is slightly decreased in size measuring 0.9 x 0.6 cm on series 3, image 49, and is no longer radiotracer avid. A previously noted medial right lower lobes 7 mm nodule is noted on series 3, image 73, previously measuring 8-9 mm without elevated uptake. No definite additional nodules. Mild dependent streaky density in the lungs is consistent with atelectasis. A calcified granuloma in the right lower lobe is noted. Heart: Mild cardiomegaly. Mediastinal space: A diffusely mildly thick-walled appearance of the esophagus is noted without elevated uptake. Liver: No abnormal uptake. Gallbladder and bile ducts: No abnormal uptake. Pancreas: No abnormal uptake. Spleen: No abnormal uptake. Calcified granulomas in the spleen are present. Adrenal glands: No abnormal uptake. Kidneys and ureters: Nonobstructing calculi in the left renal inferior pole are noted. Unremarkable right kidney. Stomach and bowel: Rectal uptake demonstrates an SUV max 8.3 with possible wall thickening on series 3, image 147. Assessment is limited by nondistention. Urinary bladder: A small amount of gas layers in the nondependent aspect of the urinary bladder which is moderately distended. A focus of uptake in the pelvis on the right posterior to the urinary bladder on series 4, image 126 is noted, SUV max 5.3 which appears to arise from the adjacent sigmoid colon or possibly representing physiologic radiotracer avid excretion in the right ureter on series 3, image 126. Reproductive: Coarse calcifications in the uterus are without elevated uptake likely related to leiomyomas. Vasculature: No abnormal uptake. There are diffuse atherosclerotic changes including within the coronary arteries. Lymph nodes: Calcified right hilar lymph nodes are noted without elevated uptake. Bones/joints: Bilateral hip prostheses appear intact. Degenerative spondylosis in the spine appears greatest in the lumbar spine where it is moderate to severe. Sternotomy wires are present. Mild curvature of the lumbar spine convex to the right is noted. Soft tissues: No abnormal uptake in the visualized head, neck, chest, abdomen, pelvis, and extremities. In the anterior abdominal wall to the left of midline a subcutaneous 1.7 cm in diameter soft tissue density nodule on series 3, image 79 is not radiotracer avid. There are postoperative changes of bilateral mastectomy. METRICS: Mediastinal blood pool: SUV max 1.0 PET[facility] SUB[facility] [id number] IMPRESSION: 1. Bilateral noncalcified pulmonary nodules are noted which are similar to slightly decreased in size. No abnormal uptake is currently identified in these nodules suggestive of an interval response to therapy. 2. Similar non radiotracer avid subcutaneous nodule in the anterior upper abdomen without elevated uptake compatible with a benign finding. 3. Previously noted elevated uptake in the ascending colon is no longer identified. New areas of uptake in the sigmoid colon and rectum are present however. Although this may be physiologic in nature the possibility of inflammatory, infectious or neoplastic involvement cannot be excluded. 4. A mildly thick-walled appearance of the esophagus is noted without elevated uptake suggesting a benign etiology. 5. Additional nonurgent findings as detailed above.
== END 2022-10-07 06:25 | disposition home or self-care (01) ==
LOC: RAD 06:26
PROVIDERS: PCP Nurse Practitioner Family; Visit Provider Internal Medicine Hematology & Oncology
DX: C50.312 Malignant neoplasm of lower-inner quadrant of left female breast (principal)
CPT/HCPCS: 78815; A9552

== ENCOUNTER 2022-10-22 11:56 | Oncology outpatient (recurring) (ONCR) | payer MEDICARE, OTHER, SELFPAY ==
[2022-10-22 12:53] LABS: Basophils # 0.1 10^3/uL (0.0-0.1); Basophils % 1.8 %; Eosinophils # 0.1 10^3/uL (0.0-0.8); Eosinophils % 0.8 %; Hematocrit 35.2 % (37.0-47.0); Hemoglobin 11.6 g/dL (11.5-15.3); Lymphocytes # 1.1 10^3/uL (0.8-4.8); Lymphocytes % 14.8 %; Mean Corpuscular Hemoglobin 31.6 pg (28.0-34.0); Mean Corpuscular Volume 95.9 fl (81-99); Mean Platelet Volume 11.9 fL (7.4-10.4); Monocytes # 0.7 10^3/uL (0.2-0.9); Monocytes % 10.1 %; Neutrophils # 5.25 10^3/uL (1.8-7.7); Nucleated Red Blood Cells % 0 %; Platelet Count 215 10^3/cmm (130-400); Red Blood Count 3.67 10^6/uL (4.1-5.3); Red Cell Distribution Width 14.6 % (12.1-15.1); White Blood Count 7.3 10^3/uL (4.0-10.0)
[2022-10-22 13:13] LABS: Alanine Aminotransferase 11 U/L (0-33); Albumin Level 3.8 g/dL (3.5-5.2); Alkaline Phosphatase 68 U/L (35-105); Aspartate Amino Transferase 21 U/L (0-32); Blood Urea Nitrogen 41 mg/dL (8-23); Calcium 9.8 mg/dL (8.5-10.5); Carbon Dioxide 29 mmol/L (22-29); Chloride 102 mmol/L (98-107); Globulin 2.5 g/dL (1.3-4.6); Glucose 87 mg/dL (65-115); Osmolality Calculated 303 mOsm/kg (285-295); Sodium 142 mmol/L (136-145); Total Bilirubin 0.4 mg/dL (0.15-1.2); Total Protein 6.3 g/dL (6.6-8.7)
== END 2022-11-05 23:59 | disposition home or self-care (01) ==
PROVIDERS: PCP Nurse Practitioner Family; Visit Provider Internal Medicine Hematology & Oncology
DX: C50.812 Malignant neoplasm of overlapping sites of left female breast (principal); Z17.0 Estrogen receptor positive status [ER+]; Z90.13 Acquired absence of bilateral breasts and nipples; C78.01 Secondary malignant neoplasm of right lung; C78.02 Secondary malignant neoplasm of left lung; Z79.818 Long term (current) use of other agents affecting estrogen receptors and estrogen levels; Z79.899 Other long term (current) drug therapy
CPT/HCPCS: 36415; 80053; 85025; 99214

== ENCOUNTER → 2022-11-21 11:29 | Outpatient (BNVA) | payer MEDICARE, SELFPAY | PROVIDERS: PCP Nurse Practitioner Family; Visit Provider Nurse Practitioner Family | DX: I10 Essential (primary) hypertension (principal); R53.83 Other fatigue; E11.9 Type 2 diabetes mellitus without complications; E11.39 Type 2 diabetes mellitus with other diabetic ophthalmic complication; E78.2 Mixed hyperlipidemia | CPT/HCPCS: 80053; 80061; 83036; 85025 ==

== ENCOUNTER → 2023-01-09 09:22 | Outpatient (BNVA) | payer MEDICARE, OTHER, SELFPAY | PROVIDERS: PCP Nurse Practitioner Family; Visit Provider Nurse Practitioner Family | DX: N28.9 Disorder of kidney and ureter, unspecified (principal); N18.30 Chronic kidney disease, stage 3 unspecified; R79.89 Other specified abnormal findings of blood chemistry; Z79.899 Other long term (current) drug therapy; M25.50 Pain in unspecified joint | CPT/HCPCS: 80069; 82043; 82306; 82310; 83970; 86038; 86431 ==

== ENCOUNTER → 2023-01-23 10:15 | Outpatient (BNVA) | payer MEDICARE, OTHER, SELFPAY | PROVIDERS: PCP Nurse Practitioner Family; Visit Provider Urology | DX: C67.5 Malignant neoplasm of bladder neck (principal); N39.41 Urge incontinence | CPT/HCPCS: 52000; 99213 ==

== ENCOUNTER 2023-01-28 12:07 | Oncology outpatient (recurring) (ONCR) | payer MEDICARE, OTHER, SELFPAY ==
[2023-01-28 13:16] LABS: Basophils % 0.5 %; Eosinophils # 0.1 10^3/uL (0.0-0.8); Eosinophils % 0.7 %; Hematocrit 31.6 % (37.0-47.0); Hemoglobin 10.2 g/dL (11.5-15.3); Lymphocytes # 1.3 10^3/uL (0.8-4.8); Lymphocytes % 16.2 %; Mean Corpuscular HGB Conc 32.3 g/dL (30.0-36.0); Mean Corpuscular Volume 89.8 fl (81-99); Mean Platelet Volume 11.5 fL (7.4-10.4); Monocytes # 0.8 10^3/uL (0.2-0.9); Neutrophils # 5.95 10^3/uL (1.8-7.7); Neutrophils % 72.2 %; Nucleated Red Blood Cells % 0 %; Platelet Count 153 10^3/cmm (130-400); Red Blood Count 3.52 10^6/uL (4.1-5.3); Red Cell Distribution Width 14.8 % (12.1-15.1); White Blood Count 8.2 10^3/uL (4.0-10.0)
[2023-01-28 13:40] LABS: Alanine Aminotransferase 10 U/L (0-33); Albumin Level 3.5 g/dL (3.5-5.2); Alkaline Phosphatase 77 U/L (35-105); Anion Gap 15.3 (5-19); Aspartate Amino Transferase 16 U/L (0-32); Blood Urea Nitrogen 33 mg/dL (8-23); CA 15-3 10.1 U/mL (0-25); Calcium 8.5 mg/dL (8.5-10.5); Carbon Dioxide 25 mmol/L (22-29); Chloride 99 mmol/L (98-107); Globulin 2.4 g/dL (1.3-4.6); Glucose 97 mg/dL (65-115); Osmolality Calculated 287 mOsm/kg (285-295); Potassium 4.3 mmol/L (3.5-5.1); Sodium 135 mmol/L (136-145); Total Bilirubin 0.4 mg/dL (0.15-1.2); Total Protein 5.9 g/dL (6.6-8.7)
== END 2023-02-05 23:59 | disposition home or self-care (01) ==
PROVIDERS: PCP Nurse Practitioner Family; Visit Provider Internal Medicine Hematology & Oncology
DX: C50.812 Malignant neoplasm of overlapping sites of left female breast (principal); Z17.0 Estrogen receptor positive status [ER+]; Z90.13 Acquired absence of bilateral breasts and nipples; C78.01 Secondary malignant neoplasm of right lung; C78.02 Secondary malignant neoplasm of left lung; Z79.818 Long term (current) use of other agents affecting estrogen receptors and estrogen levels; Z79.899 Other long term (current) drug therapy; D64.9 Anemia, unspecified
CPT/HCPCS: 36415; 80053; 85025; 86300; 99213

== ENCOUNTER 2023-01-31 23:24 | Inpatient (IN) | payer MEDICARE, OTHER, SELFPAY ==
[2023-01-31 23:29] VITALS: BP 102/47; PULSE 57; RESP 30; TEMP 38; O2SAT 97; BMI 24.0
--- NOTE | 2023-01-31 23:38 | XRR_ITS ---
PROCEDURE INFORMATION: Exam: XR Chest Exam date and time: 01/31/2023 11:43 PM Age: 87 years old Clinical indication: Shortness of breath; Additional info: SOB TECHNIQUE: Imaging protocol: Radiologic exam of the chest. Views: 1 view. COMPARISON: CT chest abdomen wo con 04/29/2022 9:13 AM FINDINGS: Lungs: Hazy pulmonary opacities and prominent interstitial lung markings bilaterally. Coarse reticular interstitial lung changes. Negative for focal pulmonary consolidation. Pleural spaces: Query small pleural effusions. Negative for pneumothorax. Heart/Mediastinum: Cardiomegaly. CABG suspected. Bones/joints: Osseous demineralization. XR/XR chest 1V portable [id number] IMPRESSION: Suspect pulmonary edema and small pleural effusions.
--- NOTE | 2023-01-31 23:38 | ECG_ITS ---
[facility] Test Date: 2023-01-31 Pat Name: Reyna Lopez Department: Room: Gender: Female Eye Surgeon: : 1935 Requested By: Malinda Rivera Order Number: [id number] Mitchell MD: Tj Anderson M.D. Measurements Intervals [place] Rate: 70 P: 3 WI: 252 QRS: -66 QRSD: 149 T: 102 QT: 422 QTc: 457 Interpretive Statements SINUS RHYTHM WITH FIRST DEGREE AV BLOCK LEFT AXIS DEVIATION [QRS AXIS < -30] LEFT BUNDLE BRANCH BLOCK [120+ ms QRS DURATION, 80+ ms Q/S IN V1/V2, 85+ ms R IN I/aVL/V5/V6] Compared to ECG 08/23/2021 21:38:02 Left bundle-branch block now present Myocardial infarct finding no longer present Electronically Signed On 02-01-2023 6:51:57 CDT by Tj Anderson M.D. [id number]
[2023-01-31] MEDS: sodium chloride 0.9% 1,000 ML 999 ML IV (23:53)
[2023-01-31 23:59] LABS: Hemoglobin 10.2 g/dL (11.5-15.3); Mean Corpuscular HGB Conc 31.9 g/dL (30.0-36.0); Mean Corpuscular Hemoglobin 29.4 pg (28.0-34.0); Mean Corpuscular Volume 92.2 fl (81-99); Mean Platelet Volume 11.4 fL (7.4-10.4); Platelet Count 147 10^3/cmm (130-400); Red Blood Count 3.47 10^6/uL (4.1-5.3); Red Cell Distribution Width 14.8 % (12.1-15.1); White Blood Count 12.8 10^3/uL (4.0-10.0)
--- NOTE | 2023-01-31 23:59 | ED_ITS ---
HPI - SOB/Dyspnea General: Chief Complaint: Shortness of Breath/Dyspnea Stated Complaint: SOB/WEAKNESS Time Seen by Provider: 01/31/23 23:28 Source: patient and EMS Mode of arrival: EMS Limitations: no limitations History of Present Illness: HPI Narrative: 87-year-old female who states that throughout the day today she has had a body aches along with chills states she felt short of breath with slight cough. She is febrile here with a temp of 100.4. Patient does not wear oxygen at home she is requiring 2 L here. She denies any chest pain she states she feels very fatigued. She was told today she had a UTI started on Cipro only took 1 dose. Associated symptoms: Reports fever(s); Deny abdominal pain, chest pain, nausea or vomiting Review of Systems Const: Reports: fever(s), chills, body aches and fatigue; Denies: change in appetite Eyes: Denies: eye discomfort ENMT: Denies: throat pain or dental pain Card: Denies: chest pain Resp: Reports: dyspnea and non-productive cough GI: Denies: abdominal pain, nausea, vomiting or diarrhea : Denies: dysuria Musc: Denies: neck pain or back pain Skin/Breast: Denies: rash Neuro: Denies: headache(s) PFSH ED PFSH: Medical History Asthma Atherosclerosis of [place] coronary artery Benzodiazepine dependence, continuous Bladder cancer Carotid stenosis, asymptomatic Enrolled in chronic care management TYRONE (generalized anxiety disorder) Hyperlipidemia Hypertension, essential Insomnia 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 Performed by Dr. Clark. History of back surgery Treatment of bone spurs. Performed by Dr. Gray in [place], [place] History of carpal tunnel release of both wrists History of cataract surgery Bilateral History of hip replacement (~2006) Left. Performed by Dr. Lovelace History of hip replacement (06/19/16) Performed by Dr. Lovelace Previous back surgery (08/22/14) Performed [address] Dr[address] Ramsay at [facility] [place] [place] in [place], [place] S/P appendectomy Status post surgical removal and fulguration of bladder neoplasm Family History Father Stroke Mother Ovarian cancer Sister Breast cancer Diabetes Hypertension Brother Heart disease Diabetes Social History Smoking and tobacco status: former smoker Alcohol intake: never Substance/Drug Use: never Adopted: No Lives independently: Yes Household members: none Housing: House Marital status: / Current occupational status: retired Do you think of yourself as: Straight/Heterosexual Current gender identity: Female Physical Exam Const: COMMON NORMALS: patient oriented x3 GENERAL APPEARANCE: in distress and ill appearing HENMT: COMMON NORMALS: normocephalic and atraumatic HEAD & SCALP: normocephalic and atraumatic Eye: COMMON NORMALS: Equal, round and reactive pupils present and EOMs intact bilaterally PUPIL: Yes Equal, round and reactive pupils present Neck/C-Spine: COMMON NORMALS: full ROM and supple Chest: COMMONS NORMALS: normal inspection of the chest and normal palpation of entire chest wall Resp: COMMON NORMALS: No retractions and No use of accessory muscles EFFORT & INSPECTION: Yes tachypneic and Yes labored AUSCULTATION: rales Cardio: COMMON NORMALS: regular rate, regular rhythm and No murmurs present (Cardio) RATE: regular rate RHYTHM: regular rhythm GI: COMMON NORMALS: Normal to inspection, nondistended, normoactive bowel sounds present, Soft to palpation, non-tender and no masses PALPATION: Yes Soft to palpation Extremity: COMMON NORMALS: normal to inspection and full ROM Neuro: COMMON NORMALS: patient oriented x3, moves all extremities and no focal motor deficits Psych: COMMON NORMALS: mental status grossly normal, Normal thought process present and cooperative THOUGHT PROCESS: Normal thought process present Skin: COMMON NORMALS: no rashes or lesions noted and no wounds GENERAL SKIN EXAM: no rashes or lesions noted Course Vital Signs: Vital signs: Vital Signs Temperature 100.4 F H 01/31/23 23:29 Pulse Rate 60 02/01/23 01:17 Respiratory Rate 24 H 02/01/23 01:17 Blood Pressure 95/32 02/01/23 01:17 Pulse Oximetry 98 02/01/23 01:17 Oxygen Delivery Me thod Nasal Cannula 01/31/23 23:29 Oxygen Flow Rate 3 01/31/23 23:29 MDM - SOB/Dyspnea Medical Decision Making Patient presents here with fever she became hypotensive here mildly elevated lactate consistent with sepsis. Urine still pending she has pneumonia versus CHF to start on IV antibiotics had to place a central line and start her on pressors as well. I spoke to the hospitalist and will admit at this time. Medical Records I reviewed the patient's medical records. Lab Data I reviewed the patient's lab results. 01/31/23 23:45 01/31/23 23:45 Labs/Radiology: Laboratory Results WBC 12.8 10^3/uL (4.0-10.0) H 01/31/23 23:45 RBC 3.47 10^6/uL (4.1-5.3) L 01/31/23 23:45 Hgb 10.2 g/dL (11.5-15.3) L 01/31/23 23:45 Hct 32.0 % (37.0-47.0) L 01/31/23 23:45 MCV 92.2 fl (81-99) 01/31/23 23:45 MCH 29.4 pg (28.0-34.0) 01/31/23 23:45 MCHC 31.9 g/dL (30.0-36.0) 01/31/23 23:45 RDW 14.8 % (12.1-15.1) 01/31/23 23:45 Plt Count 147 10^3/cmm (130-400) 01/31/23 23:45 MPV 11.4 fL (7.4-10.4) H 01/31/23 23:45 Lymph % (Auto) Not Reportable 01/31/23 23:45 [place] % (Auto) Not Reportable 01/31/23 23:45 Lymph # (Auto) Not Reportable 01/31/23 23:45 [place] # (Auto) Not Reportable 01/31/23 23:45 Total Counted 100 (0-100) 01/31/23 23:45 Atypical Lymphs % 0.0 % (0-5) 01/31/23 23:45 Absolute Neutrophils 11.6 10^3/cmm (1.4-6.5) H 01/31/23 23:45 Segmented Neutrophils 87 % 01/31/23 23:45 Abs Segm Neuts (Man) 11.1 10/cmm (1.6-7.1) H 01/31/23 23:45 Band Neutrophils 4.0 % 01/31/23 23:45 Abs Band Neuts (Man) 0.5 10^3/cmm (0.0-1.2) 01/31/23 23:45 Absolute Lymphocytes 0.1 10^3/cmm (1.2-3.4) L 01/31/23 23:45 Lymphocytes (Manual) 1 % 01/31/23 23:45 Monocytes (Manual) 8.0 % 01/31/23 23:45 Absolute Monocytes 1.0 10^3/cmm (0.1-0.6) H 01/31/23 23:45 Eosinophils (Manual) 0 % 01/31/23 23:45 Absolute Eosinophils 0.0 10^3/cmm (0.0-0.7) 01/31/23 23:45 Basophils (Manual) 0.0 % 01/31/23 23:45 Absolute Basophils 0.0 10^3/cmm (0.0-0.2) 01/31/23 23:45 Pathologist Review Yes 01/31/23 23:45 Smudge Cells Trace 01/31/23 23:45 Toxic Granulation 3+ H 01/31/23 23:45 Toxic Vacuolation 1+ H 01/31/23 23:45 Platelet Estimate Normal (Normal) 01/31/23 23:45 Giant Platelets 1+ H 01/31/23 23:45 Anisocytosis 1+ H 01/31/23 23:45 Spherocytes Trace 01/31/23 23:45 PT 15.40 SECONDS (12.1-14.9) H 01/31/23 23:45 INR 1.18 (0.8-1.2) 01/31/23 23:45 Sodium 130 mmol/L (136-145) L 01/31/23 23:45 Potassium 4.2 mmol/L (3.5-5.1) 01/31/23 23:45 Chloride 97 mmol/L (98-107) L 01/31/23 23:45 Carbon Dioxide 20 mmol/L (22-29) L 01/31/23 23:45 Anion Gap 17.2 (5-19) 01/31/23 23:45 BUN 37 mg/dL (8-23) H 01/31/23 23:45 Creatinine 1.7 mg/dL (0.5-0.9) H 01/31/23 23:45 GFR Calculation Not Reportable 01/31/23 23:45 Glucose 145 mg/dL (65-115) H 01/31/23 23:45 Calculated Osmolality 281 mOsm/kg (285-295) L 01/31/23 23:45 Lactic Acid 2.7 mmol/L (0.5-2.2) H 01/31/23 23:45 Calcium 8.6 mg/dL (8.5-10.5) 01/31/23 23:45 Total Bilirubin 0.7 mg/dL (0.15-1.2) 01/31/23 23:45 AST 54 U/L (0-32) H 01/31/23 23:45 ALT 27 U/L (0-33) 01/31/23 23:45 Alkaline Phosphatase 107 U/L (35-105) H 01/31/23 23:45 NT-Pro-B Natriuret Pep 65673 pg/mL (0-450) H 01/31/23 23:45 Total Protein 5.5 g/dL (6.6-8.7) L 01/31/23 23:45 Albumin 2.9 g/dL (3.5-5.2) L 01/31/23 23:45 Globulin 2.6 g/dL (1.3-4.6) 01/31/23 23:45 SARS-CoV-2 Ag (Rapid) negative (Negative) 02/01/23 00:01 Critical Care Time Critical Care Time: Critical Care Time: Yes Total Critical Care Time: 45 Attestation: The high probability of a clinically significant, sudden or life threatening deterioration of the patient's resp system(s) required my full and direct attention, intervention and personal management. The critical care time is as shown. This time is in addition to time spent performing any reported procedures but includes the following: [x] Data and vital sign review and interpretation [x] Patient assessment, examination and intervention [x] Documentation [x] Medication orders and management Discharge Plan Discharge Patient Disposition: Admitted As Inpatient Admit Provider: Nancy Barfield Clinical Impression: Congestive heart failure, Community acquired pneumonia, Sepsis, Acute respiratory failure with hypoxia Condition: Stable Coding Level of Care Code ED Head Of Marketing [employer] for Jaison Anna
[2023-02-01] VITALS (115 sets, daily range): BP systolic 85–170; BP diastolic 32–89; PULSE 56–90; RESP 0–25; TEMP 36.7–37.1; O2SAT 90–100; BMI 23.8
[2023-02-01 00:04] LABS: INR 1.18 (0.8-1.2)
[2023-02-01 00:10] LABS: Lactic Sepsis W/Reflex 2.7 mmol/L (0.5-2.2)
[2023-02-01 00:29] LABS: Absolute Segmented Neutrophil 11.1 10/cmm (1.6-7.1); Band Neutrophils Absolute 0.5 10^3/cmm (0.0-1.2); Eosinophils 0 %; Lymphocytes 1 %; Lymphocytes Absolute 0.1 10^3/cmm (1.2-3.4); Segmented Neutrophils 87 %; Total Cells Counted 100 (0-100)
[2023-02-01 00:31] LABS: Absolute Neutrophil 11.6 10^3/cmm (1.4-6.5); Anisocytosis 1+; Giant Platelets 1+; Pathology Refferal Yes; Platelet Estimate Normal (Normal); Toxic Granulation 3+; Toxic Vacuolation 1+
[2023-02-01 00:32] LABS: Smudge Cells Trace; Spherocytes Trace
[2023-02-01 00:35] LABS: SARS Covid-2 Antigen negative (Negative)
[2023-02-01 00:44] LABS: Alanine Aminotransferase 27 U/L (0-33); Albumin Level 2.9 g/dL (3.5-5.2); Alkaline Phosphatase 107 U/L (35-105); Anion Gap 17.2 (5-19); Aspartate Amino Transferase 54 U/L (0-32); Blood Urea Nitrogen 37 mg/dL (8-23); Calcium 8.6 mg/dL (8.5-10.5); Carbon Dioxide 20 mmol/L (22-29); Chloride 97 mmol/L (98-107); Globulin 2.6 g/dL (1.3-4.6); Glucose 145 mg/dL (65-115); Osmolality Calculated 281 mOsm/kg (285-295); Potassium 4.2 mmol/L (3.5-5.1); Sodium 130 mmol/L (136-145); Total Bilirubin 0.7 mg/dL (0.15-1.2); Total Protein 5.5 g/dL (6.6-8.7)
[2023-02-01] MEDS: piperacillin-tazobactam 3.375 GM in sodium chloride 0.9% (plus) 50 ML IV ×4 (00:45→22:46)
[2023-02-01] MEDS: sodium chloride 0.9% 1,000 ML 999 ML IV (01:20)
--- NOTE | 2023-02-01 01:38 | XRR_ITS ---
PROCEDURE INFORMATION: Exam: XR Chest Exam date and time: 02/01/2023 1:40 AM Age: 87 years old Clinical indication: Other vascular access device placement or adjustment; Central line, non-tunnelled; Additional info: Line placement TECHNIQUE: Imaging protocol: Radiologic exam of the chest. Views: 1 view. COMPARISON: CR (CHEST, ) 01/31/2023 11:43 PM FINDINGS: Tubes, catheters and devices: Central venous catheter within the mid superior vena cava. Lungs: Hazy pulmonary opacities are similar to comparison. Coarse reticular interstitial lung changes are redemonstrated. Pleural spaces: Small pleural effusions are suspected. Heart/Mediastinum: Mild cardiomegaly. CABG. Bones/joints: Unremarkable. XR/XR chest 1V portable [id number] IMPRESSION: Satisfactory central venous catheter placement.
[2023-02-01 01:41] LABS: NT Pro B Type Natriuretic Pept 10754 pg/mL (0-450); Reflex Lactate Order REFLEX LACTIC ORDERD
--- NOTE | 2023-02-01 01:53 | P.HP_ITS ---
Providers/Chief Complaint Admitting Physician: Nancy Barfield MD Primary Care Provider: EMILY Marrero Chief Complaint: SOB/WEAKNESS History of Present Illness Reyna Lopez is a 87 year old female past medical history of generalized anxiety disorder, carotid stenosis, bladder cancer, asthma, hyperlipidemia, hypertension, type 2 diabetes mellitus, invasive ductal carcinoma of breast, insomnia, history of CABG, lumpectomy, cataract surgery, hip replacement, status post surgical removal of bladder cancer presented to the hospital today for complaint of body aches and chills along with a fever. Patient reports severe chills and the fact that she does not have any energy and today could not breathe. She reported shortness of breath and a cough. She does not wear any oxygen at home however is requiring 2 L here nasal cannula. She also reports being very tired. She was diagnosed with a UTI today and was started on ciprofloxacin but has only taken 1 dose so far. Patient saw Dr. Longo on 23 January and subsequently underwent a cystoscopy. She says ever since his cystoscopy she has been having some abdominal pain and dysuria. Today she went back to her primary care doctor and was told that she has a UTI. Denies abdominal pain chest pain nausea vomiting diarrhea constipation. Does report a fever though. He states generally tired and achy all over her body. She would like to be DNR/DNI. Daughter supplements with a history at bedside. She states that patient follows with Dr. Sargent at [place] [facility] for cardiology. She has had It before. Patient states that she has some vessels that are apparently blocked but she is not getting an angiogram due to possibly her age or comorbid conditions? She also states that she had an echo 2 to 3 years ago at [facility]. They saw cardiology within the last year and everything was okay. We will need to request records from [facility]. ED course: on arrival blood pressure 95/32, respiratory 24, pulse 60, temperature 100.4 on arrival saturating 98% on 3 L nasal cannula. Lactic acid 2.7. WBC 12.8, hemoglobin 10.2, platelet 147, 4% bands, left shift, INR 1.18, sodium 130, potassium 4.2, creatinine 1.7, BNP 75309. She was given IV fluids started on IV antibiotics. Central line was placed by ER physician. Patient will be admitted to the ICU at this time. Levophed has been started. Medications/Allergies Home Medications Medication Instructions Recorded Confirmed Last Taken Type aspirin 81 mg tablet,delayed 81 mg PO DAILY@09/17/19 01/31/23 2 Days Ago History release ~08/28/21 bumetanide 1 mg tablet See Rx Instructions .Route .COMPLEX 09/17/19 01/31/23 08/15/21 History isosorbide mononitrate 30 mg 60 mg PO DAILY@08 09/17/19 01/31/23 08/16/21 History tablet,extended release 24 hr famotidine 20 mg tablet 20 mg PO BID@07/18/20 01/31/23 08/30/21 04:00 History zinc acetate 50 mg (zinc) capsule 50 mg PO DAILY 11/30/20 01/31/23 08/15/21 History (Galzin) magnesium oxide-magnesium amino 1 cap PO DAILY@05/21/21 01/31/23 08/15/21 History acid chelate 300 mg capsule (Magnesium (oxide/AA chelate)) metoprolol tartrate 25 mg tablet 25 mg PO Q12H 05/21/21 01/31/23 08/28/21 History pantoprazole 40 mg tablet,delayed 40 mg PO DAILY 05/21/21 01/31/23 08/30/21 04:00 History release loratadine 10 mg tablet (Allergy 10 mg PO DAILY #30 tabs 01/23/22 01/31/23 Unk nown Rx Relief (loratadine)) atorvastatin 80 mg tablet See Rx Instructions .Route 03/12/22 01/31/23 Unknown Rx .COMPLEX #90 tabs polymyxin B sulfate 10,000 1 drp ophthalmic (eye) Q3H 7 days 03/15/22 01/31/23 Unknown Rx unit-trimethoprim 1 mg/mL eye #10 mL drops (Polytrim) blood sugar diagnostic (OneTouch #100 ea 09/12/22 01/31/23 Unknown Rx Ultra Test strips) lancets 33 gauge (OneTouch Delica #100 ea 09/12/22 01/31/23 Unknown Rx Plus Lancet) pen needle, diabetic 31 gauge x #100 ea 09/12/22 01/31/23 Unknown Rx 3/16 (BD Ultra-Fine Mini Pen Needle) letrozole 2.5 mg tablet (Femara) 2.5 mg PO DAILY #90 tabs 10/22/22 01/31/23 Unknown Rx tolterodine 4 mg capsule,extended 4 mg PO DAILY #30 caps 01/23/23 01/31/23 Unknown Rx release 24 hr alprazolam 0.5 mg tablet 0.5 mg PO TID #90 tabs 01/27/23 01/31/23 Unknown Rx anastrozole 1 mg tablet 1 mg PO DAILY 01/28/23 01/31/23 Unknown History ascorbate calcium (vitamin C) 500 See Rx Instructions .Route DAILY 01/28/23 01/31/23 Unknown History mg tablet cholecalciferol (vitamin D3) 125 125 mcg PO DAILY 01/28/23 01/31/23 Unknown History mcg (5,000 unit) capsule diltiazem HCl 180 mg capsule,24 180 mg PO DAILY 01/28/23 01/31/23 Unknown History hr,extended release flaxseed oil 1,000 mg capsule See Rx Instructions PO DAILY 01/28/23 01/31/23 Unknown History hydralazine 50 mg tablet 100 mg PO TID PRN Blood Pressure 01/28/23 01/31/23 Unknown History insulin detemir U-100 100 unit/mL See Rx Instructions .Route .COMPLEX 01/28/23 01/31/23 Unknown History (3 mL) subcutaneous pen (Levemir FlexTouch U-100 Insulin) ipratropium bromide 21 mcg (0.03 2 spray intranasal TID 01/28/23 01/31/23 Unknown History %) nasal spray irbesartan 300 mg tablet 300 mg PO BID 01/28/23 01/31/23 Unknown History mupirocin 2 % topical ointment 1 applic topical BID 01/28/23 01/31/23 Unknown History ciprofloxacin HCl 500 mg tablet 500 mg PO BID 5 days #10 tabs 01/31/23 01/31/23 Unknown Rx (Cipro) Allergies Allergy/AdvReac Type Severity Reaction Status Date / Time cephalexin Allergy Unknown Verified 01/28/23 14:21 PFSH Acute PFSH: Medical History Asthma Atherosclerosis of [place] coronary artery Benzodiazepine dependence, continuous Bladder cancer Carotid stenosis, asymptomatic Enrolled in chronic care management TYRONE (generalized anxiety disorder) Hyperlipidemia Hypertension, essential Insomnia 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 Performed by Dr. Clark. History of back surgery Treatment of bone spurs. Performed by Dr. Gray in [place], [place] History of carpal tunnel release of both wrists History of cataract surgery Bilateral History of hip replacement (~2006) Left. Performed by Dr. Lovelace History of hip replacement (06/19/16) Performed by Dr. Lovelace Previous back surgery (08/22/14) [place] [address] [place] [place] [facility] [place] S/P appendectomy Status post surgical removal and fulguration of bladder neoplasm Family History Father Stroke Mother Ovarian cancer Sister Breast cancer Diabetes Hypertension Brother Heart disease Diabetes Social History Smoking and tobacco status: former smoker Alcohol intake: never Substance/Drug Use: never Adopted: No Lives independently: Yes Household members: none Housing: House Marital status: / Current occupational status: retired Do you think of yourself as: Straight/Heterosexual Current gender identity: Female Vitals/I&O/Wt Last Vital Signs Temp 100.4 F H 01/31/23 23:29 Pulse 60 02/01/23 01:17 Resp 24 H 02/01/23 01:17 BP 95/32 02/01/23 01:17 Pulse Ox 98 02/01/23 01:17 O2 Del Method Nasal Cannula 01/31/23 23:29 O2 Flow Rate 3 01/31/23 23:29 01/31/23 01/31/23 02/01/23 14:59 22:59 06:59 Intake Total 1050 / 1050 Balance 1050 / 1050 Weight last 48 hrs Weight 63.503 kg Physical Exam Narrative: General: Alert oriented x3, patient seen laying in bed on 3 L nasal cannula. HEENT: Normocephalic, atraumatic, EOMI, breathing comfortably on nasal cannula at this time. Cardio: Regular rate rhythm, normal S1-S2 Respiratory: Clear to auscultation bilaterally diminished at bases. GI: Abdomen soft, nontender, nondistended, bowel sounds + Extremities: 1+ pitting edema bilateral lower extremities Data 01/31/23 23:45 01/31/23 23:45 A&P Assessment and plan (1) Congestive heart failure: (2) Community acquired pneumonia: (3) Sepsis: (4) Acute respiratory failure with hypoxia: (5) UTI (urinary tract infection): (6) Fatigue: (7) Invasive ductal carcinoma of breast, female: (8) Bladder cancer: Qualifiers: Bladder location: neck Qualified Code(s): C67.5 - Malignant neoplasm of bladder neck (9) Hyperlipidemia: Qualifiers: Hyperlipidemia type: mixed hyperlipidemia Qualified Code(s): E78.2 - Mixed hyperlipidemia (10) TYRONE (generalized anxiety disorder): Plan #Septic shock secondary to UTI. Recent cystoscopy performed #History of congestive heart failure #History of breast cancer #History of asthma #History of bladder cancer status post resection #Insulin-dependent diabetes mellitus #Hyperlipidemia #Hypertension #Carotid stenosis #Nephrolithiasis #History of CABG, CAD ? Lactic acid elevated at 2.7. Labs show a left shift. Bandemia 4%. Patient meets sepsis criteria hypotensive as well, febrile. ? Blood cultures obtained. ? Check urine culture, sputum culture Gram stain ? Start on vancomycin and Zosyn ? Repeat lactic acid ? Check procalcitonin ? Patient did receive sepsis bolus in ER. I will hold off on further fluids at this time. ? Chest x-ray shows cardiomegaly and small bilateral pleural effusions ? Tylenol every 8 hours for fever ? Continue Levophed and add vasopressin if pressor appointment goes up. ? Continue to wean down oxygen as able ? Check echocardiogram ? Consider cardiology consult. Patient has a history of CABG and apparently has some blockages however is not getting an angiogram done because she states she is high risk as per cardiology in [place]. We will need to obtain records from Dr. Sargent's office. ? We do not have an echocardiogram on file from prior. ? Patient is on Bumex 1 mg daily at home ? Hold diltiazem at this time, hydralazine, irbesartan, Imdur ? Continue patient on aspirin ? We will need to confirm home medications from pharmacy in a.m. ? Patient does have a history of nephrolithiasis. Positive urine analysis today we will check CT abdomen pelvis to rule out any renal pathology at this time. SCDs, heparin SQ 2 times daily for VT prophylaxis Protonix 40 IV daily for GI prophylaxis Daughter provided most of the history along with patient supplementing it. D iscussed CODE STATUS with patient and the daughter and patient would like to be DNR/DNI. Daughter agrees. Daughter was given ample time to ask questions and they were answered to her satisfaction. I did explain to her that we do not have urology coverage till 03 February and if there seems to be hydronephrosis or an obstructing renal calculus patient may need to be transferred to higher level of care. Family demonstrates understanding. I have also explained to them that we will be doing another echocardiogram. We will reach out to [facility] to obtain records. Attestations Medical Necessity Statement*: Greater than 2 midnight stay for management of septic shock versus cardiogenic shock requiring ICU stay and vasopressor support at this time. Coding Level of Care Code G0426 (50 min) TH Encounter Time (min): 50 Patient seen via Telehealth in the acute care setting (hospital or ED location) by agreement and consent of patient or patient risk control field representative. Telehealth technology used during the visit includes video and audio. This patient encounter is appropriate and reasonable under the circumstances given the basia powers?s particular presentation at this time. The patient has been advised of the potential risks and limitations of this mode of treatment (including but not limited to the absence of in-person examination at this time) and has agreed to be treated by an off-site physician for this visit. If deemed clinically necessary from this telehealth visit, or if condition or consent for telehealth visit changes, an in-person visit will be arranged. For this encounter, total time for the origination of telehealth care on this date is as shown. Diagnoses Congestive heart failure I50.9 Community acquired pneumonia J18.9 Sepsis A41.9 Acute respiratory failure with hypoxia J96.01 UTI (urinary tract infection) N39.0 Fatigue R53.83 Invasive ductal carcinoma of breast, female C50.919 Bladder cancer C67.5 Bladder location: neck Hyperlipidemia E78.2 Hyperlipidemia type: mixed hyperlipidemia TYRONE (generalized anxiety disorder) F41.1
--- NOTE | 2023-02-01 02:21 | USCV_ITS ---
Reyna Lopez Age: 87 Gender: F : 1935 Exam Date: 02/01/2023 06:19 Ordering Phys: Nancy Barfield MD Technologist: Aramis Vasquez Exam Location: [facility] Indication: chf BP: 106 / 51 HR: 63 Rhythm: Sinus Technical Quality: Adequate MEASUREMENTS (Male / Female) Normal Values 2D ECHO LV Diastolic Diameter PLAX 4.8 cm 4.2 - 5.9 / 3.9 - 5.3 cm LV Systolic Diameter PLAX 2.5 cm IVS Diastolic Thickness 1.2 cm 0.6 - 1.0 / 0.6 - 0.9 cm IVS Systolic Thickness 1.5 cm LVPW Diastolic Thickness 1.3 cm 0.6 - 1.0 / 0.6 - 0.9 cm LVPW Systolic Thickness 1.4 cm LVOT Diameter 2.0 cm LV Ejection Fraction 2D Teich 79.3 % LV Ejection Fraction MOD 2C 72.3 % LV Ejection Fraction 2C AL 71.5 % LA Diameter 4.2 cm Aorta at Sinotubular Diameter 2.1 cm IVC Diameter 1.7 cm M-MODE Aortic Annulus Diameter 3.6 cm LA Ao Ratio MM 1.3 MV E Point Septal Separation 1.3 cm DOPPLER AV Peak Velocity 151.0 cm/s LVOT Peak Velocity 128.0 cm/s AV Area Cont Eq vti 2.7 cm squared AV Area Cont Eq pk 2.7 cm squared MV Area PHT 3.5 cm squared Mitral E to A Ratio 0.9 MV E' Velocity 54.5 cm/s Mitral E to MV E' Ratio 14.4 Mitral E to LV E' Lateral Ratio 15.5 Mitral E to LV E' Septal Ratio 13.4 TR Peak Velocity 301.3 cm/s TR Peak Gradient 36.3 mmHg TV Peak E Velocity 132.0 cm/s Right Atrial Pressure 3.0 mmHg Pulmonary Artery Systolic Pressu 39.3 mmHg RV Acceleration Time 0.2 s FINDINGS Left Ventricle EF 65%. Normal left ventricular size, systolic function and wall thickness, with no regional wall motion abnormalities. Normal left ventricular wall thickness. Normal diastolic filling pattern. Right Ventricle The right ventricle is normal in size and function. Right Atrium The right atrium is normal in size. Left Atrium The left atrium is normal in size. Mitral Valve Structurally normal mitral valve without significant stenosis or prolapse. There is no significant mitral regurgitation. Aortic Valve Structurally normal aortic valve without significant sclerosis or stenosis. There is no aortic regurgitation. Tricuspid Valve Structurally normal tricuspid valve without significant stenosis. Mild to 2 plus tricuspid regurgitation. Pulmonary artery systolic pressure mild elevated Pulmonic Valve Structurally normal pulmonic valve without significant stenosis. There is no pulmonic regurgitation. Pericardium Normal pericardium without effusion. Aorta Normal ascending aorta dimension. IVC The inferior vena cava appears normal. CONCLUSIONS EF 65%. Normal left ventricular size, systolic function and wall thickness, with no regional wall motion abnormalities. Normal left ventricular wall thickness. Normal diastolic filling pattern. Mild pulmonary hyperttension Keith Burgos MD (Electronically Signed) Final Date: 01 Feb 2023 15:38 S
--- NOTE | 2023-02-01 02:26 | CTR_ITS ---
PROCEDURE INFORMATION: Exam: CT Chest Without Contrast; Diagnostic Exam date and time: 02/01/2023 3:13 AM Age: 87 years old Clinical indication: Fever; Prior surgery; Surgery date: 6+ months; Surgery type: Valve replacement; Additional info: Septic shock, R/O source TECHNIQUE: Imaging protocol: Diagnostic computed tomography of the chest without contrast. Radiation optimization: All CT scans at this facility use at least one of these dose optimization techniques: automated exposure control; mA and/or kV adjustment per patient size (includes targeted exams where dose is matched to clinical indication); or iterative reconstruction. REPORTING DATA: Count of CT and Cardiac NM exams in prior 12 months: This patient has received 3 known CTs and 0 known cardiac nuclear medicine studies in the 12 months prior to the current study. COMPARISON: CT chest abdomen [facility] 04/29/2022 9:13 AM RADIATION DOSE METRICS: Total DLP (mGy-cm): 215 FINDINGS: Tubes, catheters and devices: Central venous catheter within the mid superior vena cava. Lungs: Diffuse septal thickening. Scattered ground-glass pulmonary opacities. Modest lower lobe compressive atelectasis bilaterally. Pleural spaces: Trace pleural effusions. Negative for pneumothorax. Heart: Multichamber cardiac dilation. Coronary arteries: CABG. Mediastinal space: Unremarkable thoracic esophagus. Lymph nodes: Unremarkable. No enlarged lymph nodes. Vasculature: Extensive calcified atherosclerotic wall plaque throughout thoracic aorta. Negative for aneurysm. Dilated central pulmonary arteries. Bones/joints: Unremarkable. No acute fracture. Soft tissues: Unremarkable. PROCEDURE INFORMATION: Exam: CT Abdomen And Pelvis Without Contrast Exam date and time: 02/01/2023 3:13 AM Age: 87 years old Clinical indication: Fever; Prior surgery; Surgery date: 6+ months; Surgery type: Valve replacement; Additional info: Septic shock, R/O source TECHNIQUE: Imaging protocol: Computed tomography of the abdomen and pelvis without contrast. Radiation optimization: All CT scans at this facility use at least one of these dose optimization techniques: automated exposure control; mA and/or kV adjustment per patient size (includes targeted exams where dose is matched to clinical indication); or iterative reconstruction. REPORTING DATA: Count of CT and Cardiac NM exams in prior 12 months: This patient has received 3 known CTs and 0 known cardiac nuclear medicine studies in the 12 months prior to the current study. COMPARISON: CT chest abdomen [facility] 04/29/2022 9:13 AM RADIATION DOSE METRICS: Total DLP (mGy-cm): 400.6 FINDINGS: Liver: Normal. No mass. Gallbladder and bile ducts: Normal. No calcified stones. No ductal dilation. Pancreas: Normal. No ductal dilation. Spleen: Normal. No splenomegaly. Adrenal glands: Normal. No mass. Kidneys and ureters: Moderate to severe bilateral renal cortical atrophy. Nonobstructing left renal stones. Negative for hydroureteronephrosis. No proximal ureteral stones. Distal ureters cannot be assessed secondary to streak artifact across pelvis. Stomach and bowel: Moderate colonic fecal volume. Negative for bowel obstruction or perforation. No focal bowel inflammatory changes are identified. Negative for pneumatosis intestinalis. Appendix: Suspect appendectomy. Correlate with surgical history. Intraperitoneal space: Unremarkable. No free air. No significant fluid collection. Vasculature: Unremarkable. No abdominal aortic aneurysm. Lymph nodes: Unremarkable. No enlarged lymph nodes. Urinary bladder: Unremarkable as visualized. Reproductive: Unremarkable as visualized. Bones/joints: Bilateral hip arthroplasty has unremarkable alignment. Negative for acute fractures. The lumbar spine demonstrates marked discogenic and apophyseal joint degenerative changes at multiple levels. Soft tissues: Unremarkable. CT/[place] [id number] IMPRESSION: Intrathoracic fluid overload. Mild alveolar and interstitial edema features of the lungs with small pleural effusions. IMPRESSION: No focal acute abdominopelvic pathology is identified.
[2023-02-01 02:45] LABS: Lactic Acid level (Lactate) 1.1 mmol/L (0.5-2.2)
[2023-02-01 03:07] LABS: Procalcitonin 10.66 ng/mL (0-0.5)
[2023-02-01 03:28] LABS: Urine Appearance Cloudy (CLEAR); Urine Color Yellow (Yellow)
[2023-02-01 03:29] LABS: Add Urine Microscopic? YES; Bilirubin Urine Neg (Negative); Blood Urine 2+ (Negative); Glucose Urine UA Norm (Normal); Ketones Urine Negative (Negative); Leukocyte Esterase Urine 2+ (Negative); Nitrate Urine Negative (Negative); Protein Urine 2+ (Negative); Specific Gravity, Urine 1.015 (1.005-1.030); Urobilinogen Urine Norm (Negative); pH Urine 5 (5-7)
[2023-02-01 03:35] LABS: WBC Urine TOO NUMEROUS TO CNT /hpf (0-5)
[2023-02-01 03:36] LABS: Bacteria Urine 2+ /hpf; Squamous Epithelial Cell Urine 0-4 /hpf (0-5)
[2023-02-01 03:38] LABS: Add Urine Culture? Yes
[2023-02-01] MEDS: heparin 5,000 unit/mL INJ 1 mL 5000 UNIT SUBCUT (03:40)
[2023-02-01] MEDS: vancomycin 1,000 MG in sodium chloride 0.9% 250 ML 250 MG IV (03:45)
[2023-02-01 04:12] LABS: Troponin(5th) Baseline 529 ng/L (0-10)
--- NOTE | 2023-02-01 04:25 | ECG_ITS ---
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 Measurements Intervals [place] Rate: 64 P: 78 IN: 271 QRS: -32 QRSD: 109 T: -4 QT: 430 QTc: 446 Interpretive Statements SINUS RHYTHM WITH FIRST DEGREE AV BLOCK LEFT AXIS DEVIATION [QRS AXIS < -30] MODERATE T-WAVE ABNORMALITY, CONSIDER ANTEROLATERAL ISCHEMIA [-0.1+ mV T-WAVE IN V3-V6] Compared to ECG 01/31/2023 23:56:05 T-wave abnormality now present Possible ischemia now present Left bundle-branch block no longer present Electronically Signed On 02-01-2023 6:56:08 CDT by Tj Anderson M.D. [id number]
[2023-02-01] MEDS: heparin drip 25,000 UNIT/500 ML PREMIX 18 UNIT IV (04:45)
[2023-02-01 06:46] LABS: Troponin 5 2HR 415.4 ng/L (0-10)
[2023-02-01] MEDS: ipratropium-albuterol 3 mL Neb INHALATION ×4 (08:16→19:58)
[2023-02-01 08:31] LABS: Basophils % 0.2 %; Hemoglobin 9.5 g/dL (11.5-15.3); Lymphocytes # 0.5 10^3/uL (0.8-4.8); Lymphocytes % 5.8 %; Mean Corpuscular HGB Conc 32.8 g/dL (30.0-36.0); Mean Corpuscular Hemoglobin 29.4 pg (28.0-34.0); Mean Corpuscular Volume 89.8 fl (81-99); Mean Platelet Volume 12.1 fL (7.4-10.4); Monocytes # 0.8 10^3/uL (0.2-0.9); Monocytes % 8.5 %; Neutrophils # 7.94 10^3/uL (1.8-7.7); Neutrophils % 84.6 %; Nucleated Red Blood Cells % 0 %; Platelet Count 102 10^3/cmm (130-400); Red Blood Count 3.23 10^6/uL (4.1-5.3); Red Cell Distribution Width 14.7 % (12.1-15.1); White Blood Count 9.4 10^3/uL (4.0-10.0)
[2023-02-01 08:39] LABS: Slide Review Slide Review Perform
[2023-02-01 08:48] LABS: Blood Urea Nitrogen 32 mg/dL (8-23); Calcium 8.2 mg/dL (8.5-10.5); Carbon Dioxide 22 mmol/L (22-29); Chloride 100 mmol/L (98-107); Glucose 156 mg/dL (65-115); Magnesium 1.8 mg/dL (1.7-2.3); Osmolality Calculated 280 mOsm/kg (285-295); Sodium 130 mmol/L (136-145)
[2023-02-01 08:52] LABS: Anion Gap 12.4 (5-19); Potassium 4.4 mmol/L (3.5-5.1)
--- NOTE | 2023-02-01 08:55 | ECG_ITS ---
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 Measurements Intervals [place] Rate: 69 P: 71 AR: 277 QRS: -22 QRSD: 103 T: -7 QT: 483 QTc: 518 Interpretive Statements SINUS RHYTHM WITH FIRST DEGREE AV BLOCK BORDERLINE LEFT AXIS DEVIATION [QRS AXIS < -20] MARKED T-WAVE ABNORMALITY, CONSIDER ANTERIOR ISCHEMIA [-0.5+ mV T-WAVE IN V3/V4] Compared to ECG 02/01/2023 04:25:15 No significant changes Electronically Signed On 02-01-2023 14:17:03 CDT by Mel Alonso M.D. [id number]
--- NOTE | 2023-02-01 09:31 | PC.NURSE ---
Notified Dr. Garcia of patient heart rate in 150's sustained. No new orders received.
[2023-02-01] MEDS: aspirin 81 mg EC Tablet PO (09:36)
[2023-02-01] MEDS: pantoprazole 40 mg SDV IVP (09:36)
[2023-02-01 10:10] LABS: Troponin 5 6HR 625.5 ng/L (0-10); Troponin 5 6HR Delta 96.5 ng/L (0-12)
--- NOTE | 2023-02-01 10:41 | P.CONIM_ITS ---
Providers/Reason For Consult Consulting Physician/Specialty*: CardiologyRoselyn Rebolledo Reason for Consult*: CAD Attending Physician: Mark Garcia MD Primary Care Provider: EMILY Marrero History of Present Illness History of Present Illness Reyna Lopez is a 87 year old female known to have anxiety disorder, carotid atherosclerotic disease, hyperlipidemia, essential hypertension, coronary disease s/p CABG, bladder carcinoma sp surgical removal , under Dr Longo's care, follows Dr. Sargent in [facility], who presents to the emergency room for evaluation of A. Lethargy diarrhea weakness for the past 48 hours B. Generalized chills rigors fever for the past 24 hours. According to the patient patient, and her family who were available at bedside, she was at her baseline state of health, until when she underwent cystoscopy with Dr. Longo. She did well with the first 24 hours but then started having extreme lethargy tiredness weakness, denies any episodes of chest pain or short of breath. Denies abdominal pain chest pain nausea vomiting diar melly constipation. She started developing high-grade fever chills and rigors following which family got concerned and brought her over to [facility] for further evaluation management. During her initial presentation, patient noted to be hypotensive, was given IV fluids per sepsis protocol, started IV Levophed and admitted to ICU for urinary tract infection with sepsis. She was closely monitored and over the course of the next several hours developed troponin T which was noted to be elevated following which cardiology was consulted. Regarding previous cardiac history, patient follows Dr. Sargent in [facility]. Patient states that she has some vessels that are apparently blocked but she is not getting an angiogram due to possibly her age or comorbid conditions and reports that she had seen him for an outpatient clinic visit at which time based on her overall medical condition, in addition to her age he had opted to avoid any invasive procedures and continue her medical management. Medications/Allergies Home Medications Medication Instructions Recorded Confirmed Last Taken Type aspirin 81 mg tablet,delayed 81 mg PO DAILY@09/17/19 02/01/23 2 Days Ago History release ~08/28/21 bumetanide 1 mg tablet See Rx Instructions .Route .COMPLEX 09/17/19 02/01/23 08/15/21 History isosorbide mononitrate 30 mg 60 mg PO DAILY@08 09/17/19 02/01/23 08/16/21 History tablet,extended release 24 hr famotidine 20 mg tablet 20 mg PO BID@08,20 07/18/20 02/01/23 08/30/21 04:00 Hist ory zinc acetate 50 mg (zinc) capsule 50 mg PO DAILY 11/30/20 02/01/23 08/15/21 History (Galzin) magnesium oxide-magnesium amino 1 cap PO DAILY@08 05/21/21 02/01/23 08/15/21 History acid chelate 300 mg capsule (Magnesium (oxide/AA chelate)) metoprolol tartrate 25 mg tablet 25 mg PO Q12H 05/21/21 02/01/23 08/28/21 History pantoprazole 40 mg tablet,delayed 40 mg PO DAILY 05/21/21 02/01/23 08/30/21 04:00 History release loratadine 10 mg tablet (Allergy 10 mg PO DAILY #30 tabs 01/23/22 02/01/23 Unknown Rx Relief (loratadine)) polymyxin B sulfate 10,000 1 drp ophthalmic (eye) Q3H 7 days 03/15/22 02/01/23 Unknown Rx unit-trimethoprim 1 mg/mL eye #10 mL drops (Polytrim) blood sugar diagnostic (OneTouch #100 ea 09/12/22 02/01/23 Unknown Rx Ultra Test strips) lancets 33 gauge (OneTouch Delica #100 ea 09/12/22 02/01/23 Unknown Rx Plus Lancet) pen needle, diabetic 31 gauge x #100 ea 09/12/22 02/01/23 Unknown Rx 3/16 (BD Ultra-Fine Mini Pen Needle) letrozole 2.5 mg tablet (Femara) 2.5 mg PO DAILY #90 tabs 10/22/22 02/01/23 Unknown Rx tolterodine 4 mg capsule,extended 4 mg PO DAILY #30 caps 01/23/23 02/01/23 Unknown Rx release 24 hr alprazolam 0.5 mg tablet 0.5 mg PO TID #90 tabs 01/27/23 02/01/23 Unknown Rx anastrozole 1 mg tablet 1 mg PO DAILY 01/28/23 02/01/23 Unknown History cholecalciferol (vitamin D3) 125 125 mcg PO DAILY 01/28/23 02/01/23 Unknown History mcg (5,000 unit) capsule diltiazem HCl 180 mg capsule,24 180 mg PO DAILY 01/28/23 02/01/23 Unknown History hr,extended release flaxseed oil 1,000 mg capsule 1,000 mg PO DAILY 01/28/23 02/01/23 Unknown History hydralazine 50 mg tablet 100 mg PO TID PRN Blood Pressure 01/28/23 02/01/23 Unknown History insulin detemir U-100 100 unit/mL See Rx Instructions .Route .COMPLEX 01/28/23 02/01/23 Unknown History (3 mL) subcutaneous pen (Levemir FlexTouch U-100 Insulin) ipratropium bromide 21 mcg (0.03 2 spray intranasal TID 01/28/23 02/01/23 Unknown History %) nasal spray irbesartan 300 mg tablet 300 mg PO BID 01/28/23 02/01/23 Unknown History mupirocin 2 % topical ointment 1 applic topical BID 01/28/23 02/01/23 Unknown History ciprofloxacin HCl 500 mg tablet 500 mg PO BID 5 days #10 tabs 01/31/23 02/01/23 Unknown Rx (Cipro) atorvastatin 80 mg tablet 80 mg PO DAILY 02/01/23 02/01/23 Unknown History calcium carbonate 600 mg calcium 600 mg PO DAILY 02/01/23 02/01/23 Unknown History (1,500 mg) tablet (Calcium) Allergies Allergy/AdvReac Type Severity Reaction Status Date / Time cephalexin Allergy Unknown Verified 01/28/23 14:21 Current Medications Generic Name Dose Route Start Last Admin Trade Name Freq PRN Reason Stop Dose Admin Albuterol/Ipratropium 3 ml 02/01/23 08:00 02/01/23 08:16 Ipratropium-Albuterol 3 Ml Neb INHALATION 3 ml QID.RESPIRATORY CRUZITO Administration Aspirin 81 mg 02/01/23 09:30 02/01/23 09:36 Aspirin 81 Mg Ec Tablet PO 81 mg DAILY CRUZITO Administration Norepinephrine Bitartrate 4 mg 254 mls @ 0 mls/hr 02/01/23 01:15 02/01/23 06:15 / Dextrose IV 0 mcg/min .Q0M CRUZITO 0 mls/hr Titration Protocol Per Protocol Piperacillin Sod/Tazobactam 50 mls @ 12.5 mls/hr 02/01/23 07:00 02/01/23 06:10 Sod 3.375 gm/ Sodium Chloride IV 12.5 mls/hr Q8H CRUZITO Administration Heparin Sodium/Sodium Chloride 25,000 unit in 500 mls @ 0 mls/hr 02/01/23 04:30 02/01/23 04:45 Heparin Drip IV 14.33 unit/kg/hr .Q0M CRUZITO 18 mls/hr Administration Protocol Per Protocol Pantoprazole Sodium 40 mg 02/01/23 09:00 02/01/23 09:36 Pantoprazole 40 Mg Sdv IVP 40 mg DAILY CRUZITO Administration PFSH Acute PFSH: Medical History (Updated 02/01/23 @ 10:44 by Carla Burgos MD) Asthma Atherosclerosis of [place] coronary artery Benzodiazepine dependence, continuous Bladder cancer Carotid stenosis, asymptomatic TYRONE (generalized anxiety disorder) Hyperlipidemia Hypertension, essential Insomnia 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 Performed by Dr. Clark. History of back surgery Treatment of bone spurs. Performed by Dr. Gray in [place], [place] History of carpal tunnel release of both wrists History of cataract surgery Bilateral History of hip replacement (~2006) Left. Performed by Dr. Lovelace History of hip replacement (06/19/16) Performed by Dr. Lovelace Previous back surgery (08/22/14) [place] [facility] [place] S/P appendectomy Status post surgical removal and fulguration of bladder neoplasm Family History Father Stroke Mother Ovarian cancer Sister Breast cancer Diabetes Hypertension Brother Heart disease Diabetes Social History Smoking and tobacco status: former smoker Alcohol intake: never Substance/Drug Use: never Adopted: No Lives independently: Yes Household members: none Housing: House Marital status: / Current occupational status: retired Do you think of yourself as: Straight/Heterosexual Current gender identity: Female Vitals/I&O/Wt Last Vital Signs Temp 98.1 F 02/01/23 07:00 Pulse 68 02/01/23 09:45 Resp 15 02/01/23 09:45 BP 143/55 02/01/23 09:45 Pulse Ox 99 02/01/23 09:45 O2 Del Method Nasal Cannula 02/01/23 09:45 O2 Flow Rate 2 02/01/23 09:45 01/31/23 02/01/23 02/01/23 22:59 06:59 14:59 Intake Total 1554.493 / 1554.493 222 / 222 Balance 1554.493 / 1554.493 222 / 222 Weight last 48 hrs Weight 138 lb 12.8 oz Weight 138 lb 8 oz Weight 140 lb Physical Exam Narrative: General: Alert oriented x3, patient seen laying in bed on 3 L nasal cannula. HEENT: Normocephalic, atraumatic, EOMI, breathing comfortably on nasal cannula at this time. Cardio: Regular rate rhythm, normal S1-S2 Respiratory: Clear to auscultation bilaterally diminished at bases. surgical scar noted GI: Abdomen soft, nontender, nondistended, bowel sounds + Extremities: 1+ pitting edema bilateral lower extremities Urinary Catheter Management: Baca: Cath Placed During This Visit: yes Reason for Continuing Indwelling Catheter: Accurate Measurement of Urinary Output in Critically Ill Patients Urinary Catheter Date of Insertion: 02/01/23 Urinary Catheter Time of Insertion: 04:30 Data 02/01/23 08:16 02/01/23 08:16 Micro: Microbiology 02/01/23 03:33 Blood Culture - Preliminary Blood SPECIMEN COLLECTED 02/01/23 03:30 Blood Culture - Preliminary Blood SPECIMEN COLLECTED A&P Assessment and plan (1) Sepsis: (2) UTI (urinary tract infection): (3) Hyperlipidemia: Qualifiers: Hyperlipidemia type: mixed hyperlipidemia Qualified Code(s): E78.2 - Mixed hyperlipidemia (4) TYRONE (generalized anxiety disorder): Plan Assessment * Septic shock secondary to UTI. * Type II myocardial infarction sec to sepsis * Insulin-dependent diabetes mellitus * Hyperlipidemia * Hypertension * Carotid stenosis * History of CABG, CAD Plan/Recommendations * Septic shock secondary to UTI. * Continue Levophed and add vasopressin if MAP < 65 * Iv fluids * Will defer further treatment to hospitalist service. * Hold Bumex * * Type II myocardial infarction sec to sepsis -Probable * Rule out NONSTEMI * Will continue IV heparin for 24 hrs * Monitor troponin T q 8 hrs * Check echo for LV function * Serial chem 7, mg and correct as needed * At this time, a detailed discussion about patient condition was completed with the patient and her family at bedside. Although it is likely that her current presentation with elevated troponin T is related to sepsis, but not non-STEMI cannot be ruled out. Based on her balloon design printer recommendation is peripheral, who had opted for medical management, options were discussed and at this time patient would like to continue with medical management although this could be revisited over the next 24 to 48 hours as patient stabilizes from her sepsis. * Insulin-dependent diabetes mellitus * Defer to hospitalist service * Acuchecks * Hyperlipidemia * Will restart statins * Cardiac diet * Hypertension * Will monitor blood pressure * Hold all antihypertensives * Keep MAP >65 * Carotid stenosis * Stable * Risk factor modification * History of CABG, CAD * Resume ASA * DVT GI prophylaxis * Acquire previous records Coding Level of Care Code Acute Code for Chg Fwd Diagnoses Sepsis A41.9 UTI (urinary tract infection) N39.0 Hyperlipidemia E78.2 Hyperlipidemia type: mixed hyperlipidemia TYRONE (generalized anxiety disorder) F41.1
[2023-02-01 12:28] LABS: Partial Thromboplastin Time 25.6 SECONDS (23.9-36.7)
[2023-02-01] MEDS: heparin 5,000 unit/mL INJ 1 mL IV (12:51)
--- NOTE | 2023-02-01 15:53 | PM.MISC ---
Miscellaneous Note Purpose of Documentation: Overnight HPI reviewed, labs and vitals have been, troponin trend has been reviewed, 2D echo reviewed, Currently she is off Levophed, maintaining decent MAP, currently on ACS protocol. Cardiology consult appreciated.
[2023-02-01] MEDS: ALPRAZolam 0.5 mg Tablet PO (17:06)
[2023-02-01] MEDS: famotidine 20 mg Tablet PO (17:06)
--- NOTE | 2023-02-01 17:22 | PC.NURSE ---
Patient complains of shaking and generalized anxiety, Dr. Garcia notified and verbal order to begin home medication xanax 0.5 received . See MAR for administration. Patient denies chest pain or discomfort at this time.
[2023-02-01 19:14] LABS: Partial Thromboplastin Time 194.5 SECONDS (23.9-36.7)
[2023-02-01] MEDS: atorvastatin 40 mg Tablet 80 MG PO (21:34)
[2023-02-01 21:36] LABS: Partial Thromboplastin Time 44.3 SECONDS (23.9-36.7)
[2023-02-02] VITALS (32 sets, daily range): BP systolic 137–170; BP diastolic 61–95; PULSE 79–107; RESP 15–22; TEMP 36.6–36.9; O2SAT 88–97; BMI 23.8
[2023-02-02] MEDS: ondansetron 2 mg/ML SDV 2 mL 4 MG IVP (00:01)
[2023-02-02] MEDS: ALPRAZolam 0.5 mg Tablet PO ×3 (00:01→22:01)
[2023-02-02] MEDS: efferdent effervescent 1 EACH DENTAL (00:02)
[2023-02-02 03:28] LABS: Basophils % 0.4 %; Eosinophils % 0.1 %; Hematocrit 28.4 % (37.0-47.0); Hemoglobin 9.2 g/dL (11.5-15.3); Lymphocytes # 0.5 10^3/uL (0.8-4.8); Mean Corpuscular HGB Conc 32.4 g/dL (30.0-36.0); Mean Corpuscular Hemoglobin 28.8 pg (28.0-34.0); Mean Platelet Volume 11.5 fL (7.4-10.4); Monocytes # 0.9 10^3/uL (0.2-0.9); Monocytes % 11.4 %; Neutrophils # 6.06 10^3/uL (1.8-7.7); Neutrophils % 81.2 %; Nucleated Red Blood Cells % 0 %; Platelet Count 124 10^3/cmm (130-400); Red Blood Count 3.19 10^6/uL (4.1-5.3); Red Cell Distribution Width 14.6 % (12.1-15.1); White Blood Count 7.5 10^3/uL (4.0-10.0)
[2023-02-02 03:43] LABS: Alanine Aminotransferase 26 U/L (0-33); Albumin Level 2.5 g/dL (3.5-5.2); Alkaline Phosphatase 76 U/L (35-105); Aspartate Amino Transferase 37 U/L (0-32); Blood Urea Nitrogen 30 mg/dL (8-23); Calcium 8.2 mg/dL (8.5-10.5); Carbon Dioxide 23 mmol/L (22-29); Chloride 103 mmol/L (98-107); Globulin 2.4 g/dL (1.3-4.6); Glucose 140 mg/dL (65-115); Osmolality Calculated 284 mOsm/kg (285-295); Sodium 133 mmol/L (136-145); Total Bilirubin 0.5 mg/dL (0.15-1.2); Total Protein 4.9 g/dL (6.6-8.7)
[2023-02-02 03:46] LABS: Partial Thromboplastin Time 99.5 SECONDS (23.9-36.7)
[2023-02-02] MEDS: piperacillin-tazobactam 3.375 GM in sodium chloride 0.9% (plus) 50 ML IV ×3 (06:14→23:44)
--- NOTE | 2023-02-02 07:25 | P.PN_ITS ---
Subjective Subjective: Patient slowly improving. No cardiovascular issues reported overnight patient has been weaned off all pressors at this time. No fever chills or rigors reported tolerating p.o. diet at this time. Appears comfortable Vitals/I&O/Wt Last Vital Signs Temp 98.2 F 02/01/23 15:30 Pulse 94 02/02/23 06:00 Resp 18 02/02/23 06:00 BP 155/71 02/02/23 06:00 Pulse Ox 93 02/02/23 06:00 O2 Del Method Room Air 02/01/23 19:58 O2 Flow Rate 2 02/01/23 14:00 02/01/23 02/02/23 02/02/23 22:59 06:59 14:59 Intake Total 755 / 1147 1465.84 / 2612.84 Balance 755 / 1147 1465.84 / 2612.84 Weight last 48 hrs Weight 138 lb 12.8 oz Weight 138 lb 12.8 oz Weight 138 lb 8 oz Weight 140 lb Physical Exam Narrative: General: Alert oriented x3, patient seen laying in bed on 3 L nasal cannula. HEENT: Normocephalic, atraumatic, EOMI, breathing comfortably on nasal cannula at this time. Cardio: Regular rate rhythm, normal S1-S2 2/6 murmur Respiratory: Clear to auscultation bilaterally diminished at bases. surgical scar noted GI: Abdomen soft, nontender, nondistended, bowel sounds + Extremities: 1+ pitting edema bilateral lower extremities Urinary Catheter Management: Baca: Cath Placed During This Visit: yes Reason for Continuing Indwelling Catheter: Accurate Measurement of Urinary Output in Critically Ill Patients Urinary Catheter Date of Insertion: 02/01/23 Urinary Catheter Time of Insertion: 04:30 Data 02/02/23 03:15 02/02/23 03:15 Micro: Microbiology 02/01/23 03:30 Blood Culture - Preliminary Blood NEGATIVE TO DATE 02/01/23 03:33 Blood Culture - Preliminary Blood NEGATIVE TO DATE A&P Assessment and plan (1) Sepsis: (2) UTI (urinary tract infection): Plan Assessment * Septic shock secondary to UTI. * Type II myocardial infarction sec to sepsis * Severe mitral regurgitation * Insulin-dependent diabetes mellitus * Hyperlipidemia * Hypertension * Carotid stenosis * History of CABG, CAD Plan/Recommendations * Septic shock secondary to UTI. * Continue Levophed and add vasopressin if MAP < 65 * IV fluids * IV antibiotics as per hospitalist service * Will defer further treatment to hospitalist service. * Hold Bumex * Anemia * DC Pepcid * Check Stool guaiacs * Serial HH * Iron studies * Severe mitral regurgitation * Will advise about echocardiographic findings of severe mitral regurgitation. * No SBE prophylaxis recommended. * Will monitor I's and O's and watch for congestive heart failure . * Type II myocardial infarction sec to sepsis -Probable * Rule out NONSTEMI * DC IV heparin for 24 hr * Serial chem 7, mg and correct as needed * At this time, a detailed discussion about patient condition was completed with the patient and her family at bedside. Although it is likely that her current presentation with elevated troponin T is related to sepsis, but not non-STEMI cannot be ruled out. Based on her airplane mechanic apprentice recommendation is peripheral, who had opted for medical management, options were discussed and at this time patient would like to continue with medical management although this could be revisited over the next 24 to 48 hours as patient stabilizes from her sepsis. * Discussed with family and patient, will continue with medical management and optimize meds * Insulin-dependent diabetes mellitus * Defer to hospitalist service * Acuchecks * Hypertension * Will monitor blood pressure * Hold all antihypertensives * Keep MAP >65 * History of CABG, CAD * Resume ASA * DVT GI prophylaxis * Acquire previous records Attestations Medical Necessity Statement*: Reyna Lopez's hospital stay will require greater than 2 midnights for Coding Level of Care Code Acute Code for g Fwd Diagnoses Sepsis A41.9 UTI (urinary tract infection) N39.0
--- NOTE | 2023-02-02 07:25 | PM.PN ---
Subjective Subjective: Patient slowly improving. No cardiovascular issues reported overnight patient has been weaned off all pressors at this time. No fever chills or rigors reported tolerating p.o. diet at this time. Appears comfortable Vitals/I&O/Wt Last Vital Signs Temp 98.2 F 02/01/23 15:30 Pulse 94 02/02/23 06:00 Resp 18 02/02/23 06:00 BP 155/71 02/02/23 06:00 Pulse Ox 93 02/02/23 06:00 O2 Del Method Room Air 02/01/23 19:58 O2 Flow Rate 2 02/01/23 14:00 02/01/23 02/02/23 02/02/23 22:59 06:59 14:59 Intake Total 755 / 1147 1465.84 / 2612.84 Balance 755 / 1147 1465.84 / 2612.84 Weight last 48 hrs Weight 138 lb 12.8 oz Weight 138 lb 12.8 oz Weight 138 lb 8 oz Weight 140 lb Physical Exam Narrative: General: Alert oriented x3, patient seen laying in bed on 3 L nasal cannula. HEENT: Normocephalic, atraumatic, EOMI, breathing comfortably on nasal cannula at this time. Cardio: Regular rate rhythm, normal S1-S2 2/6 murmur Respiratory: Clear to auscultation bilaterally diminished at bases. surgical scar noted GI: Abdomen soft, nontender, nondistended, bowel sounds + Extremities: 1+ pitting edema bilateral lower extremities Urinary Catheter Management: Baca: Cath Placed During This Visit: yes Reason for Continuing Indwelling Catheter: Accurate Measurement of Urinary Output in Critically Ill Patients Urinary Catheter Date of Insertion: 02/01/23 Urinary Catheter Time of Insertion: 04:30 Data 02/02/23 03:15 02/02/23 03:15 Micro: Microbiology 02/01/23 03:30 Blood Culture - Preliminary Blood NEGATIVE TO DATE 02/01/23 03:33 Blood Culture - Preliminary Blood NEGATIVE TO DATE A&P Assessment and plan (1) Sepsis: (2) UTI (urinary tract infection): Plan Assessment Septic shock secondary to UTI. Type II myocardial infarction sec to sepsis Severe mitral regurgitation Insulin-dependent diabetes mellitus Hyperlipidemia Hypertension Carotid stenosis History of CABG, CAD Plan/Recommendations Septic shock secondary to UTI. Continue Levophed and add vasopressin if MAP < 65 IV fluids IV antibiotics as per hospitalist service Will defer further treatment to hospitalist service. Hold Bumex Anemia DC Pepcid Check Stool guaiacs Serial HH Iron studies Severe mitral regurgitation Will advise about echocardiographic findings of severe mitral regurgitation. No SBE prophylaxis recommended. Will monitor I's and O's and watch for congestive heart failure . Type II myocardial infarction sec to sepsis -Probable Rule out NONSTEMI DC IV heparin for 24 hr Serial chem 7, mg and correct as needed At this time, a detailed discussion about patient condition was completed with the patient and her family at bedside. Although it is likely that her current presentation with elevated troponin T is related to sepsis, but not non-STEMI cannot be ruled out. Based on her supervisor slitting and shipping recommendation is peripheral, who had opted for medical management, options were discussed and at this time patient would like to continue with medical management although this could be revisited over the next 24 to 48 hours as patient stabilizes from her sepsis. Discussed with family and patient, will continue with medical management and optimize meds Insulin-dependent diabetes mellitus Defer to hospitalist service Acuchecks Hypertension Will monitor blood pressure Hold all antihypertensives Keep MAP >65 History of CABG, CAD Resume ASA DVT GI prophylaxis Acquire previous records Attestations Medical Necessity Statement*: Reyna Lopez's hospital stay will require greater than 2 midnights for Coding Level of Care Code Acute Code for Chg Fwd Diagnoses Sepsis A41.9 UTI (urinary tract infection) N39.0
[2023-02-02] MEDS: heparin drip 25,000 UNIT/500 ML PREMIX 22.62 UNIT IV (07:38)
--- NOTE | 2023-02-02 08:18 | ECG_ITS ---
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 Measurements Intervals [place] Rate: 96 P: 68 OK: 226 QRS: -58 QRSD: 141 T: 100 QT: 383 QTc: 485 Interpretive Statements SINUS RHYTHM WITH FIRST DEGREE AV BLOCK LEFT AXIS DEVIATION [QRS AXIS < -30] LEFT BUNDLE BRANCH BLOCK [120+ ms QRS DURATION, 80+ ms Q/S IN V1/V2, 85+ ms R IN I/aVL/V5/V6] Compared to ECG 02/01/2023 09:43:02 Left bundle-branch block now present T-wave abnormality no longer present Possible ischemia no longer present Electronically Signed On 02-03-2023 23:39:36 CDT by Tj Anderson M.D. [id number]
[2023-02-02] MEDS: ipratropium-albuterol 3 mL Neb INHALATION ×3 (08:20→15:25)
[2023-02-02] MEDS: lisinopril 5 mg Tablet PO (09:08)
[2023-02-02] MEDS: aspirin 81 mg EC Tablet PO (09:08)
[2023-02-02] MEDS: metoprolol succinate ER (24 HR) 25 mg Tablet 12.5 MG PO (09:09)
[2023-02-02] MEDS: atorvastatin 40 mg Tablet 80 MG PO ×2 (09:09→22:01)
[2023-02-02] MEDS: clopidogrel 75 mg Tablet PO (09:09)
[2023-02-02] MEDS: pantoprazole 40 mg SDV IVP (09:10)
[2023-02-02 09:24] LABS: Iron 15 ug/dL (37-145); Percent Saturation 10.7 % (20-50); Total Iron Binding Capacity 140 mcg/dl; Unsaturated Iron Binding 125 ug/dL (112-347)
[2023-02-02 10:01] LABS: Partial Thromboplastin Time 40.3 SECONDS (23.9-36.7)
--- NOTE | 2023-02-02 12:57 | PC.PHAR ---
PHARMACY TO DOSE CONSULT - VANCOMYCIN Patient was originally started on vancomycin 750mg every 36 hours. With her slight improvement in renal function from admission, a new calculation was performed and we have increased her dose to 1000mg every 36 hours to give us a predicted peak of 33.8 mcg/ml and a trough of 11.83 mcg/ml. Will draw a trough prior to the 4th dose if possible. Pharmacy will continue to monitor the patient's renal function and make adjustments as necessary. Thanks, Bobby White, Pharm.D
--- NOTE | 2023-02-02 14:39 | PM.PN ---
Subjective Subjective: Patient was seen and examined this morning, she denied any chest pain shortness of breath, has been afebrile, maintaining a decent MAP, white blood cell count has normalized, for most part H&H is stable. Serum.SCR, has,appropriately trended down. Heparin drip has been discontinued. Medications: Medication Review Details: Generic Name Dose Route Start Last Admin Trade Name Freq PRN Reason Stop Dose Admin Albuterol/Ipratrop ium 3 ml 02/01/23 08:00 02/02/23 11:11 Ipratropium-Albu terol 3 Ml Neb INHALATION 3 ml QID.RESPIRATORY S CH Administration Alprazolam 0.5 mg 02/01/23 16:36 02/02/23 00:01 Alprazolam 0.5 M g Tablet PO 0.5 mg TID PRN Administration ANXIETY Aspirin 81 mg 02/01/23 09:30 02/02/23 09:08 Aspirin 81 Mg Ec Tablet PO 81 mg DAILY CRUZITO Administration Atorvastatin Calci um 80 mg 02/01/23 21:00 02/01/23 21:34 Atorvastatin 40 Mg Tablet PO 80 mg BEDTIME CRUZITO Administration Atorvastatin Calci um 80 mg 02/02/23 09:00 02/02/23 09:09 Atorvastatin 40 Mg Tablet PO 80 mg DAILY CRUZITO Administration Clopidogrel Bisulf ate 75 mg 02/02/23 09:00 02/02/23 09:09 Clopidogrel 75 M g Tablet PO 75 mg DAILY CRUZITO Administration Denture Adhesive 1 each 02/01/23 19:57 02/02/23 00:02 Efferdent Efferv escent DENTAL 1 each PRN PRN Administration dental care Heparin Sodium (Po rcine) 0 unit 02/01/23 04:23 02/01/23 12:51 Heparin 5,000 Un it/Ml Inj 1 Ml IV 3,200 unit PRN PRN Administration Heparin weight-ba se protocol Protocol Piperacillin Sod/T azobactam 50 mls @ 12.5 mls /hr 02/01/23 07:00 02/02/23 10:31 Sod 3.375 gm/ So dium Chloride IV Infused Q8H [facility] Infusion Heparin Sodium/Sod ium Chloride 25,000 unit in 50 0 mls @ 0 mls/hr 02/01/23 04:30 02/02/23 07:38 Heparin Drip IV 18 unit/kg/hr .Q0M CRUZITO 22.62 mls/hr Administration Protocol Per Protocol Lisinopril 5 mg 02/02/23 09:00 02/02/23 09:08 Lisinopril 5 Mg Tablet PO 5 mg DAILY CRUZITO Administration Metoprolol Succina te 12.5 mg 02/02/23 09:00 02/02/23 09:09 Metoprolol Succi clyde Er (24 Hr) 25 Mg Tablet PO 12.5 mg DAILY CRUZITO Administration Ondansetron HCl 4 mg 02/01/23 02:21 02/02/23 00:01 Ondansetron 2 Mg /Ml Sdv 2 Ml IVP 4 mg Q6H PRN Administration NAUSEA AND VOMITI NG Pantoprazole Sodiu m 40 mg 02/01/23 09:00 02/02/23 09:10 Pantoprazole 40 Mg Sdv IVP 40 mg DAILY CRUZITO Administration Vitals/I&O/Wt Last Vital Signs Temp 98.5 F 02/02/23 08:00 Pulse 93 02/02/23 13:00 Resp 20 H 02/02/23 13:00 BP 151/63 02/02/23 13:00 Pulse Ox 95 02/02/23 13:00 O2 Del Method Room Air 02/02/23 11:12 O2 Flow Rate 2 02/01/23 14:00 02/01/23 02/02/23 02/02/23 22:59 06:59 14:59 Intake Total 755 / 1147 1539.00 / 2686.00 350 / 350 Balance 755 / 1147 1539.00 / 2686.00 350 / 350 Weight last 48 hrs Weight 62.959 kg Weight 62.959 kg Weight 62.823 kg Weight 63.503 kg Physical Exam Const: COMMON NORMALS: patient oriented x3 HENMT: COMMON NORMALS: normocephalic and atraumatic HEAD & SCALP: normocephalic and atraumatic Resp: COMMON NORMALS: clear to auscultation bilaterally EFFORT & INSPECTION: Yes symmetric chest movement AUSCULTATION: clear to auscultation bilaterally Cardio: COMMON NORMALS: regular rate, regular rhythm, S1 normal heart sound present, S2 normal heart sound present, No gallops present (Cardio), No murmurs present (Cardio), No rub (Cardio) and Peripheral pulses 2+ throughout RATE: regular rate RHYTHM: regular rhythm HEART SOUNDS: S1 normal heart sound present and S2 normal heart sound present PERIPHERAL PULSES: Peripheral pulses 2+ throughout GI: COMMON NORMALS: Normal to inspection, nondistended, normoactive bowel sounds present, Soft to palpation, non-tender, No hepatosplenomegaly present and no masses AUSCULTATION: Yes normoactive bowel sounds PALPATION: Yes Soft to palpation and Yes No hepatosplenomegaly present RECTAL EXAM: deferred Extremity: COMMON NORMALS: no clubbing, cyanosis or edema and no pedal edema Neuro: COMMON NORMALS: patient oriented x3 Urinary Catheter Management: Baca: Cath Placed During This Visit: yes Reason for Continuing Indwelling Catheter: Accurate Measurement of Urinary Output in Critically Ill Patients Urinary Catheter Date of Insertion: 02/01/23 Urinary Catheter Time of Insertion: 04:30 Data 02/02/23 03:15 02/02/23 03:15 Micro: Microbiology 02/01/23 02:16 Urine Culture - Preliminary Urine,Clean Catch 02/01/23 03:30 Blood Culture - Preliminary Blood NEGATIVE TO DATE 02/01/23 03:33 Blood Culture - Preliminary Blood NEGATIVE TO DATE A&P Assessment and plan (1) Congestive heart failure: (2) Sepsis: (3) Acute respiratory failure with hypoxia: (4) UTI (urinary tract infection): (5) Fatigue: (6) Invasive ductal carcinoma of breast, female: (7) Bladder cancer: Qualifiers: Bladder location: neck Qualified Code(s): C67.5 - Malignant neoplasm of bladder neck (8) Hyperlipidemia: Qualifiers: Hyperlipidemia type: mixed hyperlipidemia Qualified Code(s): E78.2 - Mixed hyperlipidemia (9) TYRONE (generalized anxiety disorder): (10) NSTEMI (non-ST elevated myocardial infarction): (11) Community acquired pneumonia: Plan 87-year-old female with past medical history of hypertension dyslipidemia diabetes coronary artery disease status post CABG,Ca breast, initially presented to the hospital with chief complaint of, fever chills with generalized body pain, patient was also complaining of shortness of breath as well as cough and was requiring 2 L oxygen, she usually did not wear oxygen at home, she recently underwent cystoscopy as outpatient, and since then she has been having abdominal pain and dysuria, she was recently diagnosed with UTI as outpatient by her primary care physician and was on ciprofloxacin had taken just 1 dose, currently she was admitted for the management of. Assessment Septic shock secondary to UTI: And possible pneumonia: CT chest abdomen pelvis without contrast: Diffuse septal thickening. Scattered ground-glass pulmonary opacities. Modest lower lobe compressive atelectasis bilaterally. No acute abdominal or pelvic pathology Blood cultures negative till date. Urine culture preliminary is negative Lactic acid 2.7 Procalcitonin:10.66 Follow repeat procalcitonin Currently on broad-spectrum antibiotic vancomycin and Zosyn. Initially she was on vasopressor support has been weaned off. NSTEMI: Troponin trend:[phone] EKG: SINUS RHYTHM WITH FIRST DEGREE AV BLOCK BORDERLINE LEFT AXIS DEVIATION? [QRS AXIS < -20] MARKED T-WAVE ABNORMALITY, CONSIDER ANTERIOR ISCHEMIA 2D echo:EF 65%. Normal left ventricular size, systolic function and wall ?thickness, with no regional wall motion abnormalities.Normal left ventricular wall thickness. Normal diastolic filling ?pattern.Mild pulmonary hyperttension. 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 Cardiology on board. History of coronary artery disease s/p CABG: Plan as above TOBY on CKD: Admission serum creatinine 1.7 Baseline serum creatinine appears to be around 1-1.3 Monitor BMP Was on IV hydration has been discontinued Monitor intake output charting Avoid nephrotoxic's Mild hyponatremia: Has responded appropriately to IV hydration Monitor serum sodium History of diabetes: LDSSI, monitor fingerstick glucose History of hypertension: For now Cardizem has been kept on hold, as well as her antihypertensive home medication.( hydralazine, irbesartan, Imdur) Currently she is on lisinopril as well as low-dose metoprolol Monitor her blood pressure for now History of congestive heart failure: Currently compensated, she is slightly dry Bumex on hold Continue telemetry monitoring CODE STATUS:AND DVT prophylaxis: Disposition: If patient continues to remain hemodynamically stable and afebrile, she can be discharged in the next 24 to 48 hours. On p.o. antibiotics. Attestations Medical Necessity Statement*: Needs to be in hospital for management of sepsis NSTEMI. Coding Level of Care Code Acute Code for Chg Fwd Diagnoses Congestive heart failure I50.9 Sepsis A41.9 Acute respiratory failure with hypoxia J96.01 UTI (urinary tract infection) N39.0 Fatigue R53.83 Invasive ductal carcinoma of breast, female C50.919 Bladder cancer C67.5 Bladder location: neck Hyperlipidemia E78.2 Hyperlipidemia type: mixed hyperlipidemia TYRONE (generalized anxiety disorder) F41.1 NSTEMI (non-ST elevated myocardial infarction) I21.4 Community acquired pneumonia J18.9
[2023-02-02] MEDS: vancomycin 1,000 MG in sodium chloride 0.9% 250 ML 250 MG IV (16:26)
[2023-02-02 16:42] LABS: Glucose Point of Care 181 mg/dL (70-110)
[2023-02-02] MEDS: insulin lispro 100 unit/1 mL SUBCUT (16:58)
[2023-02-02 22:34] LABS: Glucose Point of Care 179 mg/dL (70-110)
[2023-02-03] VITALS (31 sets, daily range): BP systolic 122–170; BP diastolic 53–83; PULSE 69–96; RESP 16–32; TEMP 36.8–37.1; O2SAT 93–100; BMI 23.8
[2023-02-03 02:55] LABS: Basophils % 0.6 %; Eosinophils % 0.6 %; Hematocrit 27.7 % (37.0-47.0); Hemoglobin 8.7 g/dL (11.5-15.3); Lymphocytes # 0.5 10^3/uL (0.8-4.8); Lymphocytes % 8.8 %; Mean Corpuscular HGB Conc 31.4 g/dL (30.0-36.0); Mean Corpuscular Hemoglobin 28.3 pg (28.0-34.0); Mean Corpuscular Volume 90.2 fl (81-99); Mean Platelet Volume 11.6 fL (7.4-10.4); Monocytes # 0.7 10^3/uL (0.2-0.9); Monocytes % 13.8 %; Neutrophils # 3.94 10^3/uL (1.8-7.7); Neutrophils % 75.4 %; Nucleated Red Blood Cells % 0 %; Platelet Count 117 10^3/cmm (130-400); Red Blood Count 3.07 10^6/uL (4.1-5.3); Red Cell Distribution Width 14.7 % (12.1-15.1); White Blood Count 5.2 10^3/uL (4.0-10.0)
[2023-02-03 03:16] LABS: Alanine Aminotransferase 21 U/L (0-33); Albumin Level 2.3 g/dL (3.5-5.2); Alkaline Phosphatase 71 U/L (35-105); Anion Gap 11.4 (5-19); Aspartate Amino Transferase 28 U/L (0-32); Blood Urea Nitrogen 25 mg/dL (8-23); Calcium 8.3 mg/dL (8.5-10.5); Carbon Dioxide 23 mmol/L (22-29); Chloride 105 mmol/L (98-107); Globulin 2.3 g/dL (1.3-4.6); Glucose 110 mg/dL (65-115); Osmolality Calculated 285 mOsm/kg (285-295); Potassium 4.4 mmol/L (3.5-5.1); Sodium 135 mmol/L (136-145); Total Bilirubin 0.5 mg/dL (0.15-1.2); Total Protein 4.6 g/dL (6.6-8.7)
[2023-02-03 03:22] LABS: Procalcitonin 6.11 ng/mL (0-0.5)
[2023-02-03] MEDS: efferdent effervescent 1 EACH DENTAL (03:26)
[2023-02-03] MEDS: piperacillin-tazobactam 3.375 GM in sodium chloride 0.9% (plus) 50 ML IV ×3 (06:05→23:56)
[2023-02-03] MEDS: enoxaparin 40 mg/0.4 mL Syringe SUBCUT (06:06)
[2023-02-03 07:42] LABS: Glucose Point of Care 129 mg/dL (70-110)
--- NOTE | 2023-02-03 08:06 | P.PN_ITS ---
Subjective Subjective: Patient reports doing well denies any problem with chest pain shortness of breath overnight. Slept well No new cardiac issues reported overnight was placed on oxygen for comfort overnight. No further chills rigors fever, abdominal or flank pain. Has not ambulated out of bed yet. Discussed with family regarding disposition and follow-up. Vitals/I&O/Wt Last Vital Signs Temp 98.3 F 02/03/23 03:00 Pulse 71 02/03/23 06:00 Resp 17 02/03/23 06:00 BP 153/78 02/03/23 06:00 Pulse Ox 100 02/03/23 06:00 O2 Del Method Room Air 02/02/23 20:02 O2 Flow Rate 2 02/01/23 14:00 02/02/23 02/03/23 02/03/23 22:59 06:59 14:59 Intake Total 1057.114 / 1407.114 160 / 1567.114 Output Total 1999 / 1999 Balance -942.886 / -592.886 160 / -432.886 Weight last 48 hrs Weight 138 lb 12.8 oz Weight 138 lb 12.8 oz Physical Exam Narrative: General: Alert oriented x3, patient seen laying in bed on 3 L nasal cannula. HEENT: Normocephalic, atraumatic, EOMI, breathing comfortably on nasal cannula at this time. Cardio: Regular rate rhythm, normal S1-S2 2/6 murmur Respiratory: Clear to auscultation bilaterally diminished at bases. surgical scar noted GI: Abdomen soft, nontender, nondistended, bowel sounds + Extremities: 1+ pitting edema bilateral lower extremities Urinary Catheter Management: Baca: Cath Placed During This Visit: yes Reason for Continuing Indwelling Catheter: Accurate Measurement of Urinary Output in Critically Ill Patients Urinary Catheter Date of Insertion: 02/01/23 Urinary Catheter Time of Insertion: 04:30 Data 02/03/23 02:23 02/03/23 02:23 Micro: Microbiology 02/01/23 02:16 Urine Culture - Preliminary Urine,Clean Catch 02/01/23 03:30 Blood Culture - Preliminary Blood NEGATIVE TO DATE 02/01/23 03:33 Blood Culture - Preliminary Blood NEGATIVE TO DATE A&P Assessment and plan (1) Sepsis: (2) UTI (urinary tract infection): Plan Assessment * Septic shock secondary to UTI. * Type II myocardial infarction sec to sepsis vs NSTEMI * Severe mitral regurgitation * Insulin-dependent diabetes mellitus * Hyperlipidemia * Hypertension * Carotid stenosis * History of CABG, CAD Plan/Recommendations * Septic shock secondary to UTI. * DC IV fluids * IV antibiotics as per hospitalist service * Will defer further treatment to hospitalist service. * DC Bumex * Anemia * Continue Protonix p.o. daily * Check Stool guaiacs pending * Serial HH * Will defer to hospital service may consider GI evaluation on an outpatient basis * Severe mitral regurgitation * Regarding severe mitral regurgitation, patient was advised about long and short-term implications, and was encouraged to discuss further options with her optimization analyst Dr. Sargent in [facility]. * No SBE prophylaxis recommended. * Will monitor I's and O's and watch for congestive heart failure . * Add Lasix 20 g p.o. twice daily, KCl 20 p.o. once a day * Type II myocardial infarction sec to sepsis -Probable * Will continue with medical management at this point * Discussed with family and patient, will continue with medical management and optimize meds * Insulin-dependent diabetes mellitus * Defer to hospitalist service * Acuchecks * Hypertension * Will monitor blood pressure * Resume antihypertensives * History of CABG, CAD * Resume ASA * DVT GI prophylaxis * Ambulate as tolerated * Will follow as needed please call for any cardiovascular issues Follow-up disposition Patient is to follow-up with Dr. Sargent in [facility] in 2 to 4 weeks time Attestations Medical Necessity Statement*: Reyna Lopez's hospital stay will require greater than 2 midnights for Coding Level of Care Code Acute Code for [facility] Fwd Diagnoses Sepsis A41.9 UTI (urinary tract infection) N39.0
--- NOTE | 2023-02-03 08:06 | PM.PN ---
Subjective Subjective: Patient reports doing well denies any problem with chest pain shortness of breath overnight. Slept well No new cardiac issues reported overnight was placed on oxygen for comfort overnight. No further chills rigors fever, abdominal or flank pain. Has not ambulated out of bed yet. Discussed with family regarding disposition and follow-up. Vitals/I&O/Wt Last Vital Signs Temp 98.3 F 02/03/23 03:00 Pulse 71 02/03/23 06:00 Resp 17 02/03/23 06:00 BP 153/78 02/03/23 06:00 Pulse Ox 100 02/03/23 06:00 O2 Del Method Room Air 02/02/23 20:02 O2 Flow Rate 2 02/01/23 14:00 02/02/23 02/03/23 02/03/23 22:59 06:59 14:59 Intake Total 1057.114 / 1407.114 160 / 1567.114 Output Total 1999 / 1999 Balance -942.886 / -592.886 160 / -432.886 Weight last 48 hrs Weight 138 lb 12.8 oz Weight 138 lb 12.8 oz Physical Exam Narrative: General: Alert oriented x3, patient seen laying in bed on 3 L nasal cannula. HEENT: Normocephalic, atraumatic, EOMI, breathing comfortably on nasal cannula at this time. Cardio: Regular rate rhythm, normal S1-S2 2/6 murmur Respiratory: Clear to auscultation bilaterally diminished at bases. surgical scar noted GI: Abdomen soft, nontender, nondistended, bowel sounds + Extremities: 1+ pitting edema bilateral lower extremities Urinary Catheter Management: Baca: Cath Placed During This Visit: yes Reason for Continuing Indwelling Catheter: Accurate Measurement of Urinary Output in Critically Ill Patients Urinary Catheter Date of Insertion: 02/01/23 Urinary Catheter Time of Insertion: 04:30 Data 02/03/23 02:23 02/03/23 02:23 Micro: Microbiology 02/01/23 02:16 Urine Culture - Preliminary Urine,Clean Catch 02/01/23 03:30 Blood Culture - Preliminary Blood NEGATIVE TO DATE 02/01/23 03:33 Blood Culture - Preliminary Blood NEGATIVE TO DATE A&P Assessment and plan (1) Sepsis: (2) UTI (urinary tract infection): Plan Assessment Septic shock secondary to UTI. Type II myocardial infarction sec to sepsis vs NSTEMI Severe mitral regurgitation Insulin-dependent diabetes mellitus Hyperlipidemia Hypertension Carotid stenosis History of CABG, CAD Plan/Recommendations Septic shock secondary to UTI. DC IV fluids IV antibiotics as per hospitalist service Will defer further treatment to hospitalist service. DC Bumex Anemia Continue Protonix p.o. daily Check Stool guaiacs pending Serial HH Will defer to hospital service may consider GI evaluation on an outpatient basis Severe mitral regurgitation Regarding severe mitral regurgitation, patient was advised about long and short-term implications, and was encouraged to discuss further options with her property and supply officer Dr. Sargent in [facility]. No SBE prophylaxis recommended. Will monitor I's and O's and watch for congestive heart failure . Add Lasix 20 g p.o. twice daily, KCl 20 p.o. once a day Type II myocardial infarction sec to sepsis -Probable Will continue with medical management at this point Discussed with family and patient, will continue with medical management and optimize meds Insulin-dependent diabetes mellitus Defer to hospitalist service Acuchecks Hypertension Will monitor blood pressure Resume antihypertensives History of CABG, CAD Resume ASA DVT GI prophylaxis Ambulate as tolerated Will follow as needed please call for any cardiovascular issues Follow-up disposition Patient is to follow-up with Dr. Sargent in [facility] in 2 to 4 weeks time Attestations Medical Necessity Statement*: Reyna Lopez's hospital stay will require greater than 2 midnights for Coding Level of Care Code Acute Code for Chg Fwd Diagnoses Sepsis A41.9 UTI (urinary tract infection) N39.0
[2023-02-03] MEDS: lisinopril 5 mg Tablet PO (08:20)
[2023-02-03] MEDS: aspirin 81 mg EC Tablet PO (08:20)
[2023-02-03] MEDS: pantoprazole 40 mg SDV IVP (08:20)
[2023-02-03] MEDS: clopidogrel 75 mg Tablet PO (08:20)
[2023-02-03] MEDS: metoprolol succinate ER (24 HR) 25 mg Tablet 12.5 MG PO (08:21)
[2023-02-03] MEDS: atorvastatin 40 mg Tablet 80 MG PO (08:21)
[2023-02-03] MEDS: ipratropium-albuterol 3 mL Neb INHALATION ×4 (09:05→20:58)
[2023-02-03] MEDS: potassium chloride ER 20 mEq Tablet PO (10:00)
[2023-02-03 11:26] LABS: Glucose Point of Care 223 mg/dL (70-110)
[2023-02-03] MEDS: insulin lispro 100 unit/1 mL SUBCUT ×2 (12:21→17:47)
[2023-02-03] MEDS: ALPRAZolam 0.5 mg Tablet PO ×2 (12:39→21:03)
--- NOTE | 2023-02-03 17:32 | PM.PN ---
Subjective Subjective: Hospital course, labs appreciated. Seen with family at bedside. Patient sitting up in chair. Denies any nausea, vomiting, headache. Patient has been off pressors. Blood pressures trending up. Continues to remain on room air. Feeling relatively weak. Vitals/I&O/Wt Last Vital Signs Temp 98.7 F 02/03/23 16:00 Pulse 85 02/03/23 16:00 Resp 20 H 02/03/23 16:00 BP 135/59 02/03/23 16:00 Pulse Ox 95 02/03/23 16:00 O2 Del Method Room Air 02/03/23 16:00 O2 Flow Rate 2 02/03/23 07:00 02/03/23 02/03/23 02/03/23 06:59 14:59 22:59 Intake Total 160 / 1567.114 494 / 494 Output Total 1999 Balance 160 / -432.886 494 / 494 Weight last 48 hrs Weight 62.959 kg Weight 62.959 kg Physical Exam Narrative: General: No acute distress, AO x3, HEENT: PERRLA, pupils bilaterally equal and reactive Chest: Normal vesicular breath sounds bilaterally, no added sounds all over lung yee CVS: S1-S2 regular, no murmurs, no tachycardia, no gallops, no rubs Abdomen: Soft, nontender, no organomegaly, bowel sounds present, morbidly obese Neuro: No focal deficits, no facial deformity, AO x3, power 5/5 in all limbs Urinary Catheter Management: Baca: Cath Placed During This Visit: yes Reason for Continuing Indwelling Catheter: Accurate Measurement of Urinary Output in Critically Ill Patients Urinary Catheter Date of Insertion: 02/01/23 Urinary Catheter Time of Insertion: 04:30 Data 02/03/23 02:23 02/03/23 02:23 Micro: Microbiology 02/01/23 02:16 Urine Culture - Final Urine,Clean Catch 02/01/23 07:49 Urine Culture - Final Urine Catheterized A&P Assessment and plan (1) Sepsis: (2) UTI (urinary tract infection): (3) Congestive heart failure: (4) Acute respiratory failure with hypoxia: Resolved. Currently on room air. Oxygen supplementation keeping saturation over 88%. (5) Fatigue: (6) Invasive ductal carcinoma of breast, female: (7) Bladder cancer: Qualifiers: Bladder location: neck Qualified Code(s): C67.5 - Malignant neoplasm of bladder neck (8) Hyperlipidemia: Qualifiers: Hyperlipidemia type: mixed hyperlipidemia Qualified Code(s): E78.2 - Mixed hyperlipidemia (9) TYRONE (generalized anxiety disorder): (10) NSTEMI (non-ST elevated myocardial infarction): (11) Community acquired pneumonia: Plan 87-year-old female with past medical history of hypertension dyslipidemia diabetes coronary artery disease status post CABG,Ca breast, initially presented to the hospital with chief complaint of, fever chills with generalized body pain, patient was also complaining of shortness of breath as well as cough and was requiring 2 L oxygen, she usually did not wear oxygen at home, she recently underwent cystoscopy as outpatient, and since then she has been having abdominal pain and dysuria, she was recently diagnosed with UTI as outpatient by her primary care physician and was on ciprofloxacin had taken just 1 dose, currently she was admitted for the management of. Assessment Septic shock secondary to UTI: Follow-up blood cultures. Urine culture so far negative. For now continue with IV Zosyn. Stop vancomycin. If blood cultures remain negative can most likely transition to oral Levaquin. As per culture history patient does have history of resection of Pseudomonas to skin on face. Sensitive to Levaquin. Pneumonia less likely currently. Patient continued on room air. No sputum culture. Keep mean arterial pressure over 65. Elevated troponin: Most likely in setting of type II DC. Appreciate cardiology recommendations. Echocardiogram done shows a normal EF, no regional wall motion abnormality, mild pulmonary hypertension. Appreciate recent A1c and lipid panel. Continue with aspirin, statin, low-dose metoprolol added yesterday. TOBY on CKD: Resolved. Creatinine down to 1.1. Strict input output charting, daily weights. Hold off on IV fluid for now. Hold off on any diuretics for now. Patient seems euvolemic. Hyponatremia: Resolving. Currently up to 135. Monitor BMP daily. Type 2 diabetes mellitus: Appreciate A1c. Continue with insulin sliding scale. Physical therapy evaluation. Discharge plan: Patient lives by herself. States children are living close by and can come to help. Though patient is feeling fairly weak. Plan to discharge home with home health versus SNF as per PT evaluation. CODE STATUS: DNR/DNI. Lovenox for DVT prophylaxis Protonix OPD prophylaxis. Transfer out of ICU to [facility] floor. Attestations Medical Necessity Statement*: Requires further hospitalization for management of severe sepsis in setting of UTI, type II DC while safe discharge planning is sought. Diagnoses Sepsis A41.9 UTI (urinary tract infection) N39.0 Congestive heart failure I50.9 Acute respiratory failure with hypoxia J96.01 Fatigue R53.83 Invasive ductal carcinoma of breast, female C50.919 Bladder cancer C67.5 Bladder location: neck Hyperlipidemia E78.2 Hyperlipidemia type: mixed hyperlipidemia TYRONE (generalized anxiety disorder) F41.1 NSTEMI (non-ST elevated myocardial infarction) I21.4 Community acquired pneumonia J18.9
[2023-02-03 17:43] LABS: Glucose Point of Care 148 mg/dL (70-110)
[2023-02-03 21:04] LABS: Glucose Point of Care 136 mg/dL (70-110)
[2023-02-04] VITALS (17 sets, daily range): BP systolic 140–179; BP diastolic 52–77; PULSE 69–106; RESP 16–26; TEMP 36.2–37.1; O2SAT 93–99; BMI 23.9
--- NOTE | 2023-02-04 01:16 | PC.NURSE ---
Transfer to med-surg room 279-2. Report given to North. Pt transferred, all belongings moved with patient. Family to be called in am to let them know about patients transfer.
--- NOTE | 2023-02-04 04:17 | ECG_ITS ---
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 Measurements Intervals [place] Rate: 96 P: 3 GA: 206 QRS: 0 QRSD: 142 T: 184 QT: 372 QTc: 471 Interpretive Statements SINUS RHYTHM LEFT BUNDLE BRANCH BLOCK [120+ ms QRS DURATION, 80+ ms Q/S IN V1/V2, 85+ ms R IN I/aVL/V5/V6] Compared to ECG 02/02/2023 08:18:13 First degree AV block no longer present Left-axis deviation no longer present Electronically Signed On 02-04-2023 8:19:40 CDT by Mel Alonso M.D. [id number]
[2023-02-04 05:21] LABS: Basophils % 0.5 %; Eosinophils # 0.1 10^3/uL (0.0-0.8); Eosinophils % 1.6 %; Hematocrit 28.5 % (37.0-47.0); Hemoglobin 9.2 g/dL (11.5-15.3); Lymphocytes # 0.8 10^3/uL (0.8-4.8); Lymphocytes % 13.9 %; Mean Corpuscular HGB Conc 32.3 g/dL (30.0-36.0); Mean Corpuscular Hemoglobin 28.8 pg (28.0-34.0); Mean Corpuscular Volume 89.3 fl (81-99); Mean Platelet Volume 11.7 fL (7.4-10.4); Monocytes # 0.7 10^3/uL (0.2-0.9); Monocytes % 12.5 %; Neutrophils # 3.99 10^3/uL (1.8-7.7); Neutrophils % 71.1 %; Nucleated Red Blood Cells % 0 %; Platelet Count 126 10^3/cmm (130-400); Red Blood Count 3.19 10^6/uL (4.1-5.3); Red Cell Distribution Width 14.8 % (12.1-15.1); White Blood Count 5.6 10^3/uL (4.0-10.0)
[2023-02-04 05:40] LABS: Alanine Aminotransferase 20 U/L (0-33); Albumin Level 2.4 g/dL (3.5-5.2); Alkaline Phosphatase 78 U/L (35-105); Anion Gap 12.5 (5-19); Aspartate Amino Transferase 23 U/L (0-32); Blood Urea Nitrogen 23 mg/dL (8-23); Calcium 8.8 mg/dL (8.5-10.5); Carbon Dioxide 22 mmol/L (22-29); Chloride 104 mmol/L (98-107); Globulin 2.6 g/dL (1.3-4.6); Glucose 118 mg/dL (65-115); Osmolality Calculated 283 mOsm/kg (285-295); Potassium 4.5 mmol/L (3.5-5.1); Sodium 134 mmol/L (136-145); Total Bilirubin 0.5 mg/dL (0.15-1.2)
--- NOTE | 2023-02-04 05:43 | SUR.OPER ---
Pt was resting in bed and this nurse woke the pt up to perform a neuro check. When asked about her chest pain she stated it is letting up, I am going back to sleep This nurse asked if there were any further needs and none were asked of this nurse at this time. Bed in lowest position with wheels locked and table and call light in reach with rails up x2.
--- NOTE | 2023-02-04 05:47 | PC.NURSE ---
Family contact- This RN called and left a message for Malena (daughter-contact number) in regards to patient transfer. Called Orquidea Shukri and was able to reach her and informed her of the transfer and new room number and bed assignment.
[2023-02-04 05:55] LABS: Troponin(5th) Baseline 436 ng/L (0-10)
[2023-02-04] MEDS: enoxaparin 40 mg/0.4 mL Syringe SUBCUT (06:10)
[2023-02-04 06:31] LABS: Glucose Point of Care 129 mg/dL (70-110)
--- NOTE | 2023-02-04 07:20 | ECG_ITS ---
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 Measurements Intervals [place] Rate: 102 P: -77 NM: 201 QRS: -62 QRSD: 145 T: 101 QT: 360 QTc: 470 Interpretive Statements ECTOPIC ATRIAL TACHYCARDIA LEFT AXIS DEVIATION [QRS AXIS < -30] LEFT BUNDLE BRANCH BLOCK [120+ ms QRS DURATION, 80+ ms Q/S IN V1/V2, 85+ ms R IN I/aVL/V5/V6] INTERPRETATION BASED ON A DEFAULT AGE OF 40 YEARS Compared to ECG 02/04/2023 04:17:33 Left-axis deviation now present Sinus rhythm no longer present Electronically Signed On 02-04-2023 8:23:44 CDT by Mel Alonso M.D. [id number]
[2023-02-04] MEDS: ipratropium-albuterol 3 mL Neb INHALATION ×2 (07:46→12:02)
[2023-02-04 08:20] LABS: Troponin 5 2HR 460.9 ng/L (0-10); Troponin 5 2HR Delta 24.9 ABS# (0-10)
--- NOTE | 2023-02-04 08:42 | PC.NURSE ---
Marco from lab called critical Trop 460.9 and Delta 24.9 2 hour to this nurse at 0830. Dr. Suárez notified at 0832 with no response at this time.
[2023-02-04] MEDS: piperacillin-tazobactam 3.375 GM in sodium chloride 0.9% (plus) 50 ML IV ×2 (08:50→17:05)
[2023-02-04] MEDS: aspirin 81 mg EC Tablet PO (08:51)
[2023-02-04] MEDS: clopidogrel 75 mg Tablet PO (08:52)
[2023-02-04] MEDS: potassium chloride ER 20 mEq Tablet PO (08:53)
[2023-02-04] MEDS: atorvastatin 40 mg Tablet 80 MG PO (08:53)
[2023-02-04] MEDS: lisinopril 5 mg Tablet PO (08:53)
[2023-02-04] MEDS: pantoprazole 40 mg SDV IVP (08:53)
[2023-02-04] MEDS: enoxaparin 60 mg/0.6 mL Syringe 20 MG SUBCUT (09:34)
[2023-02-04] MEDS: metoprolol succinate ER (24 HR) 25 mg Tablet PO (09:35)
--- NOTE | 2023-02-04 11:30 | PC.SOCIAL ---
Pg 2 IMM Explained to pt Pg 2 IMM. No questions voiced. Provided pt a copy. Initialed, dated, & timed a copy & placed in chart.
--- NOTE | 2023-02-04 11:36 | ECG_ITS ---
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 Measurements Intervals [place] Rate: 71 P: 7 RI: 210 QRS: -40 QRSD: 102 T: 26 QT: 434 QTc: 472 Interpretive Statements SINUS RHYTHM WITH FIRST DEGREE AV BLOCK LEFT AXIS DEVIATION [QRS AXIS < -30] ST DEVIATION AND MARKED T-WAVE ABNORMALITY, CONSIDER ANTERIOR ISCHEMIA [-0.5+ mV T-WAVE IN V3/V4] INTERPRETATION BASED ON A DEFAULT AGE OF 40 YEARS Compared to ECG 02/04/2023 07:18:01 First degree AV block now present T-wave abnormality now present Possible ischemia now present Left bundle-branch block no longer present Electronically Signed On 02-04-2023 19:01:03 CDT by Mel Alonso M.D. [id number]
[2023-02-04 11:40] LABS: Troponin 5 6HR 487.5 ng/L (0-10); Troponin 5 6HR Delta 51.5 ng/L (0-12)
[2023-02-04 11:56] LABS: Glucose Point of Care 149 mg/dL (70-110)
--- NOTE | 2023-02-04 12:24 | P.PN_ITS ---
Subjective Subjective: Patient had chest pain episode last night. Vitals/I&O/Wt Last Vital Signs Temp 98.4 F 02/04/23 11:42 Pulse 78 02/04/23 12:02 Resp 18 02/04/23 12:02 BP 140/61 02/04/23 11:42 Pulse Ox 93 02/04/23 12:02 O2 Del Method Room Air 02/04/23 12:02 O2 Flow Rate 2 02/03/23 07:00 02/03/23 02/04/23 02/04/23 22:59 06:59 14:59 Intake Total 272 / 766 50 / 816 120 / 120 Output Total 1000 / 1000 550 / 1550 Balance -728 / -234 -500 / -734 120 / 120 Weight last 48 hrs Weight 139 lb 5 oz Weight 138 lb 12.8 oz Physical Exam Narrative: General: Alert oriented x3 HEENT: Normocephalic Cardio: Regular rate rhythm, Grade 2/6 systolic murmur Respiratory: Clear to auscultation bilaterally diminished at bases GI: Abdomen soft Extremities: 1+ pitting edema bilateral lower extremities Urinary Catheter Management: Baca: Cath Placed During This Visit: yes Reason for Continuing Indwelling Catheter: Other Urinary Catheter Date of Insertion: 02/01/23 Urinary Catheter Time of Insertion: 04:30 Data 02/05/23 03:57 02/05/23 03:57 Micro: Microbiology 02/01/23 02:16 Urine Culture - Final Urine,Clean Catch 02/01/23 07:49 Urine Culture - Final Urine Catheterized A&P Assessment and plan (1) Sepsis: (2) UTI (urinary tract infection): (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 Patient and family in agreement. If there is a large area of ischemia, we will plan on performing coronary angiogram. Thank you for involving us with care of this patient. We will continue to follow. Please call with questions. Attestations Medical Necessity Statement*: Care expected to cross 2 midnights. Coding Level of Care Code Acute Code for [facility] Diagnoses Sepsis A41.9 UTI (urinary tract infection) N39.0 DM type 2 causing eye disease E11.39 Chest pain R07.9 CAD (coronary artery disease) I25.10
[2023-02-04] MEDS: insulin lispro 100 unit/1 mL SUBCUT (13:14)
--- NOTE | 2023-02-04 14:43 | PM.PN ---
Subjective Subjective: No acute events overnight. Patient was transferred to [facility]. Patient denied having any chest pain. Patient's nurse monitoring was showing left bundle branch block. Overnight troponin cycles were done which showed slight elevation. Patient denies any difficulty breathing. Hemodynamically stable. Doing well on room air. Family at bedside. Vitals/I&O/Wt Last Vital Signs Temp 98.4 F 02/04/23 11:42 Pulse 78 02/04/23 12:02 Resp 18 02/04/23 12:02 BP 140/61 02/04/23 11:42 Pulse Ox 93 02/04/23 12:02 O2 Del Method Room Air 02/04/23 12:02 O2 Flow Rate 2 02/03/23 07:00 02/03/23 02/04/23 02/04/23 22:59 06:59 14:59 Intake Total 272 / 766 50 / 816 120 / 120 Output Total 1000 / 1000 550 / 1550 600 / 600 Balance -728 / -234 -500 / -734 -480 / -480 Weight last 48 hrs Weight 63.191 kg Weight 62.959 kg Physical Exam Narrative: General: No acute distress, AO x3, HEENT: PERRLA, pupils bilaterally equal and reactive Chest: Normal vesicular breath sounds bilaterally, no added sounds all over lung yee CVS: S1-S2 regular, no murmurs, no tachycardia, no gallops, no rubs Abdomen: Soft, nontender, no organomegaly, bowel sounds present, morbidly obese Neuro: No focal deficits, no facial deformity, AO x3, power 5/5 in all limbs Urinary Catheter Management: Baca: Cath Placed During This Visit: yes Reason for Continuing Indwelling Catheter: Other Urinary Catheter Date of Insertion: 02/01/23 Urinary Catheter Time of Insertion: 04:30 Data 02/04/23 05:11 02/04/23 05:11 Micro: Microbiology 02/01/23 02:16 Urine Culture - Final Urine,Clean Catch 02/01/23 07:49 Urine Culture - Final Urine Catheterized A&P Assessment and plan (1) Sepsis: (2) UTI (urinary tract infection): (3) NSTEMI (non-ST elevated myocardial infarction): (4) Congestive heart failure: (5) Acute respiratory failure with hypoxia: Resolved. Currently on room air. Oxygen supplementation keeping saturation over 88%. (6) Fatigue: (7) Invasive ductal carcinoma of breast, female: (8) Bladder cancer: Qualifiers: Bladder location: neck Qualified Code(s): C67.5 - Malignant neoplasm of bladder neck (9) Hyperlipidemia: Qualifiers: Hyperlipidemia type: mixed hyperlipidemia Qualified Code(s): E78.2 - Mixed hyperlipidemia (10) TYRONE (generalized anxiety disorder): (11) Community acquired pneumonia: Plan 87-year-old female with past medical history of hypertension dyslipidemia diabetes coronary artery disease status post CABG,Ca breast, initially presented to the hospital with chief complaint of, fever chills with generalized body pain, patient was also complaining of shortness of breath as well as cough and was requiring 2 L oxygen, she usually did not wear oxygen at home, she recently underwent cystoscopy as outpatient, and since then she has been having abdominal pain and dysuria, she was recently diagnosed with UTI as outpatient by her primary care physician and was on ciprofloxacin had taken just 1 dose, currently she was admitted for the management of. Assessment Septic shock secondary to UTI: Has resolved. Blood cultures and urine cultures so far negative. Sputum culture remains pending. Continue with Zosyn. Will overall treat for 5 days. Day 4/5 today. Pneumonia less likely currently. Patient continued on room air. Keep mean arterial pressure over 65. Elevated troponin: Cannot rule out non-ST elevation [place]. Troponin cycled and overnight again shows uptrend. Echocardiogram done earlier this admission shows a normal EF, no regional wall motion abnormality, mild pulmonary hypertension. We will request a repeat echocardiogram limited for regional wall motion abnormality. Appreciate recent A1c and lipid panel. Continue with aspirin, statin, increase metoprolol to 25 mg daily. Discussed in detail with patient and patient's family at bedside. We discussed that given persistent elevation of troponins and uptrend currently the option going forward would be either cardiac angiogram or Lexiscan stress test for further evaluation if they want to pursue the diagnostic approach. Family and patient verbalized understanding. 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 She is agreeable for Lexiscan stress test. Care discussed in detail with cardiology. They are agreeable. N.p.o. after midnight. Lexiscan stress test in a.m. Switch to full dose Lovenox 1 mg/kg body weight cupola hourly. TOBY on CKD: Resolved. Creatinine down to 1.1. Strict input output charting, daily weights. Hold off on IV fluid for now. Hold off on any diuretics for now. Patient seems euvolemic. Hyponatremia: Resolving. Currently up to 135. Monitor BMP daily. Type 2 diabetes mellitus: A1c 5.5. Hold off on insulin sliding scale. Hypoglycemic protocol. Hold off on physical therapy evaluation. Discharge plan: Patient lives by herself. States children are living close by and can come to help. Though patient is feeling fairly weak. Plan to discharge home with home health versus SNF as per PT evaluation. CODE STATUS: DNR/DNI. Lovenox for DVT prophylaxis Protonix OPD prophylaxis. Continue care at [facility]. Attestations Medical Necessity Statement*: Patient requires further hospitalization for management of elevated troponin in setting of CAD while further ACS work-up is done, resolving sepsis secondary to UTI in a patient with recent instrumentation for cystoscopy Diagnoses Sepsis A41.9 UTI (urinary tract infection) N39.0 NSTEMI (non-ST elevated myocardial infarction) I21.4 Congestive heart failure I50.9 Acute respiratory failure with hypoxia J96.01 Fatigue R53.83 Invasive ductal carcinoma of breast, female C50.919 Bladder cancer C67.5 Bladder location: neck Hyperlipidemia E78.2 Hyperlipidemia type: mixed hyperlipidemia TYRONE (generalized anxiety disorder) F41.1 Community acquired pneumonia J18.9
[2023-02-04 16:39] LABS: Glucose Point of Care 124 mg/dL (70-110)
[2023-02-04] MEDS: hyDRALAzine 25 mg Tablet PO (19:20)
[2023-02-04] MEDS: ALPRAZolam 0.5 mg Tablet PO (19:53)
[2023-02-04] MEDS: enoxaparin 60 mg/0.6 mL Syringe SUBCUT (20:38)
[2023-02-04 22:58] LABS: Glucose Point of Care 119 mg/dL (70-110)
[2023-02-05] VITALS (12 sets, daily range): BP systolic 123–167; BP diastolic 53–88; PULSE 72–112; RESP 15–21; TEMP 36.4–37.3; O2SAT 93–99
--- NOTE | 2023-02-05 | ECG_ITS ---
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 Interpretive Statements NAME OF STUDY: LEXISCAN SESTAMIBI STRESS TEST INDICATION: NSTEMI PROCEDURE: At the baseline, the blood pressure was 172 over 76 mmHg with a heart rate of 91 bpm. The electrocardiogram showed sinus rhythm with first-degree AV block. Indeterminate axis. Left bundle branch block. The Lexiscan was infused over a period of 20 seconds. A total of 0.4 milligrams of Lexiscan was infused. The stress phase was continued for a total of 5 minutes. Heart rate at the end of the stress phase was 113 bpm with a blood pressure 136/57 mmHg. The EKG at the peak infusion revealed sinus tachycardia with no significant ST-T wave changes. Sestamibi was injected 20 seconds after the Lexiscan infusion. Blood pressure at the end of the recovery phase was 134/53 mm Hg with a heart rate of 112 beats per minute. CONCLUSION: 1. Non diagnostic EKG changes with the LexiScan infusion with baseline left bundle branch block. 2. No LexiScan induced chest pain or cardiac arrhythmia. 3. Normal blood pressure and heart rate response. 4. Sestamibi/sestamibi perfusion scan pending; see separate report. Electronically Signed On 02-05-2023 12:23:45 CDT by Mel Alonso M.D. [id number]
[2023-02-05] MEDS: piperacillin-tazobactam 3.375 GM in sodium chloride 0.9% (plus) 50 ML IV ×3 (00:07→18:14)
[2023-02-05 04:43] LABS: Basophils % 0.6 %; Eosinophils # 0.1 10^3/uL (0.0-0.8); Eosinophils % 2.3 %; Hematocrit 26.6 % (37.0-47.0); Hemoglobin 8.6 g/dL (11.5-15.3); Lymphocytes # 0.7 10^3/uL (0.8-4.8); Lymphocytes % 12.4 %; Mean Corpuscular HGB Conc 32.3 g/dL (30.0-36.0); Mean Corpuscular Hemoglobin 28.8 pg (28.0-34.0); Mean Platelet Volume 11.7 fL (7.4-10.4); Monocytes # 0.6 10^3/uL (0.2-0.9); Monocytes % 11.8 %; Neutrophils % 72.3 %; Nucleated Red Blood Cells % 0 %; Platelet Count 143 10^3/cmm (130-400); Red Blood Count 2.99 10^6/uL (4.1-5.3); Red Cell Distribution Width 14.8 % (12.1-15.1); White Blood Count 5.3 10^3/uL (4.0-10.0)
[2023-02-05 05:00] LABS: Alanine Aminotransferase 18 U/L (0-33); Albumin Level 2.3 g/dL (3.5-5.2); Alkaline Phosphatase 78 U/L (35-105); Anion Gap 11.1 (5-19); Aspartate Amino Transferase 20 U/L (0-32); Blood Urea Nitrogen 20 mg/dL (8-23); Calcium 8.5 mg/dL (8.5-10.5); Carbon Dioxide 24 mmol/L (22-29); Chloride 107 mmol/L (98-107); Globulin 2.4 g/dL (1.3-4.6); Glucose 108 mg/dL (65-115); Osmolality Calculated 289 mOsm/kg (285-295); Potassium 4.1 mmol/L (3.5-5.1); Sodium 138 mmol/L (136-145); Total Bilirubin 0.5 mg/dL (0.15-1.2); Total Protein 4.7 g/dL (6.6-8.7)
[2023-02-05] MEDS: regadenoson 0.4 Mg/5 ml Syringe IVP (07:21)
[2023-02-05 08:49] LABS: Glucose Point of Care 169 mg/dL (70-110)
[2023-02-05] MEDS: potassium chloride ER 20 mEq Tablet PO (09:16)
[2023-02-05] MEDS: clopidogrel 75 mg Tablet PO (09:16)
[2023-02-05] MEDS: aspirin 81 mg EC Tablet PO (09:16)
[2023-02-05] MEDS: hyDRALAzine 25 mg Tablet PO ×3 (09:16→21:13)
[2023-02-05] MEDS: metoprolol succinate ER (24 HR) 25 mg Tablet PO (09:16)
[2023-02-05] MEDS: atorvastatin 40 mg Tablet 80 MG PO (09:16)
[2023-02-05] MEDS: lisinopril 5 mg Tablet PO (09:17)
[2023-02-05] MEDS: enoxaparin 60 mg/0.6 mL Syringe SUBCUT (09:22)
[2023-02-05] MEDS: ALPRAZolam 0.5 mg Tablet PO ×2 (09:45→17:50)
[2023-02-05 12:00] LABS: Glucose Point of Care 162 mg/dL (70-110)
--- NOTE | 2023-02-05 12:58 | P.PN_ITS ---
Subjective Subjective: Patient's stress test shows prior infarct with no significant area of ischemia. Results discussed with patient. She states his chest pain-free. Vitals/I&O/Wt Last Vital Signs Temp 97.5 F L 02/05/23 08:00 Pulse 94 02/05/23 09:58 Resp 16 02/05/23 09:58 BP 138/79 02/05/23 08:00 Pulse Ox 98 02/05/23 09:58 O2 Del Method Room Air 02/05/23 09:58 O2 Flow Rate 2 02/05/23 08:00 02/04/23 02/05/23 02/05/23 22:59 06:59 14:59 Intake Total 50 / 220 50 / 270 Output Total 2650 / 3250 Balance 50 / -380 -2600 / -2980 Weight last 48 hrs Weight 136 lb 8 oz Weight 139 lb 5 oz Physical Exam 2 Narrative: General: Alert oriented x3 HEENT: Normocephalic Cardio: Regular rate rhythm, Grade 2/6 systolic murmur Respiratory: Clear to auscultation bilaterally diminished at bases GI: Abdomen soft Extremities: 1+ pitting edema bilateral lower extremities Urinary Catheter Management: Baca: Cath Placed During This Visit: yes Reason for Continuing Indwelling Catheter: Other Urinary Catheter Date of Insertion: 02/01/23 Urinary Catheter Time of Insertion: 04:30 Data 02/05/23 03:57 02/05/23 03:57 A&P Assessment and plan (1) Sepsis: (2) UTI (urinary tract infection): (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 Prior infarct in all 3 territories were seen. Medical management decided. 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 Please call with questions. We will sign off. Attestations Medical Necessity Statement*: Care expected to cross 2 midnights Coding Level of Care Code Acute Code for [facility] Diagnoses Sepsis A41.9 UTI (urinary tract infection) N39.0 DM type 2 causing eye disease E11.39 Chest pain R07.9 CAD (coronary artery disease) I25.10
[2023-02-05 13:49] LABS: Methicillin-Resist S.aureu PCR NOT DETECTED (NOT DETECTED)
--- NOTE | 2023-02-05 14:44 | PM.PN ---
Subjective Subjective: No acute events overnight. Seen with multiple family members at bedside. Patient denies any further chest pain overnight or today morning. States not able to sleep after 3 AM. Denies any nausea, vomiting, headache. Has remained hemodynamically stable and afebrile. Continues to remain on room air. Lab work appreciated for resolved leukocytosis, stable hemoglobin and resolving TOBY with creatinine down to 0.9. Vitals/I&O/Wt Last Vital Signs Temp 97.7 F 02/05/23 12:00 Pulse 77 02/05/23 12:00 Resp 15 02/05/23 12:00 BP 123/62 02/05/23 12:00 Pulse Ox 99 02/05/23 12:00 O2 Del Method Room Air 02/05/23 12:00 O2 Flow Rate 2 02/05/23 08:00 02/04/23 02/05/23 02/05/23 22:59 06:59 14:59 Intake Total 50 / 220 50 / 270 50 / 50 Output Total 2650 / 3250 Balance 50 / -380 -2600 / -2980 50 / 50 Weight last 48 hrs Weight 61.915 kg Weight 63.191 kg Physical Exam Narrative: General: No acute distress, AO x3, HEENT: PERRLA, pupils bilaterally equal and reactive Chest: Normal vesicular breath sounds bilaterally, no added sounds all over lung yee CVS: S1-S2 regular, no murmurs, no tachycardia, no gallops, no rubs Abdomen: Soft, nontender, no organomegaly, bowel sounds present, morbidly obese Neuro: No focal deficits, no facial deformity, AO x3, power 5/5 in all limbs Urinary Catheter Management: Baca: Cath Placed During This Visit: yes Reason for Continuing Indwelling Catheter: Other Urinary Catheter Date of Insertion: 02/01/23 Urinary Catheter Time of Insertion: 04:30 Data 02/05/23 03:57 02/05/23 03:57 A&P Assessment and plan (1) Sepsis: (2) UTI (urinary tract infection): (3) NSTEMI (non-ST elevated myocardial infarction): (4) Congestive heart failure: (5) Acute respiratory failure with hypoxia: Resolved. Currently on room air. Oxygen supplementation keeping saturation over 88%. (6) Fatigue: (7) Invasive ductal carcinoma of breast, female: (8) Bladder cancer: Qualifiers: Bladder location: neck Qualified Code(s): C67.5 - Malignant neoplasm of bladder neck (9) Hyperlipidemia: Qualifiers: Hyperlipidemia type: mixed hyperlipidemia Qualified Code(s): E78.2 - Mixed hyperlipidemia (10) TYRONE (generalized anxiety disorder): (11) Community acquired pneumonia: Plan 87-year-old female with past medical history of hypertension dyslipidemia diabetes coronary artery disease status post CABG,Ca breast, initially presented to the hospital with chief complaint of, fever chills with generalized body pain, patient was also complaining of shortness of breath as well as cough and was requiring 2 L oxygen, she usually did not wear oxygen at home, she recently underwent cystoscopy as outpatient, and since then she has been having abdominal pain and dysuria, she was recently diagnosed with UTI as outpatient by her primary care physician and was on ciprofloxacin had taken just 1 dose, currently she was admitted for the management of. Assessment Septic shock secondary to UTI: Has resolved. Blood cultures and urine cultures so far negative. Sputum culture remains pending. Continue with Zosyn. Will overall treat for 5 days. Day 4/5 today. Pneumonia less likely currently. Patient continued on room air. Keep mean arterial pressure over 65. Elevated troponin: Cannot rule out non-ST elevation [place]. Troponin cycled and overnight again shows uptrend. Echocardiogram done earlier this admission shows a normal EF, no regional wall motion abnormality, mild pulmonary hypertension. We will request a repeat echocardiogram limited for regional wall motion abnormality. Appreciate recent A1c and lipid panel. Continue with aspirin, statin, increase metoprolol to 25 mg daily. Discussed in detail with patient and patient's family at bedside. We discussed that given persistent elevation of troponins and uptrend currently the option going forward would be either cardiac angiogram or Lexiscan stress test for further evaluation if they want to pursue the diagnostic approach. Family and patient verbalized understanding. 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 Sargent previously had informed her that she would be a high risk candidate. She is agreeable for Lexiscan stress test. Care discussed in detail with cardiology. They are agreeable. N.p.o. after midnight. Lexiscan stress test in a.m. Switch to full dose Lovenox 1 mg/kg body weight cupola hourly. TOBY on CKD: Resolved. Creatinine down to 1.1. Strict input output charting, daily weights. Hold off on IV fluid for now. Hold off on any diuretics for now. Patient seems euvolemic. Hyponatremia: Resolving. Currently up to 135. Monitor BMP daily. Type 2 diabetes mellitus: A1c 5.5. Hold off on insulin sliding scale. Hypoglycemic protocol. Discharge plan: Patient lives by herself. States children are living close by and can come to help. Though patient is feeling fairly weak. Plan to discharge home with home health versus SNF as per PT evaluation. Plan for the day: Lexiscan stress test today for further evaluation of CAD. Continue with aspirin, statin, metoprolol, lisinopril. Last dose of antibiotics today. PT evaluation. Switch to therapeutic dose of Lovenox. CODE STATUS: DNR/DNI. Lovenox for DVT prophylaxis Protonix OPD prophylaxis. Continue care at [facility]. Attestations Medical Necessity Statement*: Requires further hospitalization for management of UTI, non-ST elevation [place] and further ACS work-up and safe discharge planning is sought Diagnoses Sepsis A41.9 UTI (urinary tract infection) N39.0 NSTEMI (non-ST elevated myocardial infarction) I21.4 Congestive heart failure I50.9 Acute respiratory failure with hypoxia J96.01 Fatigue R53.83 Invasive ductal carcinoma of breast, female C50.919 Bladder cancer C67.5 Bladder location: neck Hyperlipidemia E78.2 Hyperlipidemia type: mixed hyperlipidemia TYRONE (generalized anxiety disorder) F41.1 Community acquired pneumonia J18.9
--- NOTE | 2023-02-05 14:54 | NMCV_ITS ---
NM chau perf SPECT r/s* [id number] Reyna Lopez Age: 87 Gender: F : 1935 Exam Date: 02/05/2023 06:51 Ordering Phys: Maninder Suárez MD Technologist: ALEXIS Hilton Exam Location: [facility] Indications: CHEST PAIN STRESS TEST [facility] IMAGE PROTOCOL Rest/Stress 1 Lexiscan Day Radiopharmaceutical Dose (mCi) Administration Site Administered by Rest: Tc-99m 10.7 IV Oscar Yeh, ALEXIS Sestamibi Stress:Tc-99m 32.6 IV ALEXIS Tierney Sestamibi Rest: 05-Feb-2023 60 Discovery 630 Stress: 05-Feb-2023 30 Discovery 630 0.4mg Lexiscan. Supine position only as patient was unable to lay prone. SPECT RESULTS Technical Quality: Excellent Raw Data Analysis: Normal Image Corrections: No attenuation or motion correction applied Summed Stress Score: 15 Summed Rest Score: 10 Summed Difference Score: 5 PERFUSION FINDINGS Medium size perfusion abnormality of moderate severity of mid to apical inferior, basal to mid anterolateral, basal to mid inferolateral and mid anterior wall on rest images with subtle reversibility in anterior wall. FUNCTIONAL RESULTS (calculated via Gated SPECT) Stress Image LV EF (%): 36 Stress EDV (mL):136 TID: 1.12 Stress ESV (mL):87 FUNCTIONAL FINDINGS: The left ventricle is dilated. Transient Ischemia Dilatation of 1.1. The left ventricular ejection fraction is moderately reduced with a value of 36%. Hypokinesis of anterior and septal martines. IMPRESSIONS 1. Medium sized perfusion abnormality of moderate severity of mid to apical inferior, basal to mid anterolateral, basal to mid inferolateral and mid anterior martines with subtle reversibility on stress images. 2. This is suggestive of old myocardial infarction in all three coronary territories with minimal go-infarct ischemia. 3. The left ventricular ejection fraction is moderately reduced with a value of 36%. 4. Hypokinesis of anterior and septal martines. 5. EKG portion of the study will be reported separately Mel Alonso MD (Electronically Signed) Final Date: 05 Feb 2023 12:36 S
[2023-02-05 17:09] LABS: Glucose Point of Care 116 mg/dL (70-110)
[2023-02-05] MEDS: ferrous gluconate 324 mg Tablet PO (17:50)
[2023-02-05 21:59] LABS: Glucose Point of Care 134 mg/dL (70-110)
[2023-02-06] MEDS: piperacillin-tazobactam 3.375 GM in sodium chloride 0.9% (plus) 50 ML IV (00:57)
[2023-02-06] MEDS: ALPRAZolam 0.5 mg Tablet PO ×2 (01:26→08:50)
[2023-02-06 04:00] VITALS: BP 143/68; PULSE 73; RESP 20; TEMP 36.8; O2SAT 95
[2023-02-06 05:20] VITALS: PULSE 65
[2023-02-06 06:57] LABS: Glucose Point of Care 115 mg/dL (70-110)
[2023-02-06 08:00] VITALS: BP 177/76; PULSE 78; RESP 16; TEMP 36.7; O2SAT 98
[2023-02-06 08:38] VITALS: PULSE 76; RESP 16; O2SAT 98
[2023-02-06] MEDS: aspirin 81 mg EC Tablet PO (08:50)
[2023-02-06] MEDS: clopidogrel 75 mg Tablet PO (08:50)
[2023-02-06] MEDS: potassium chloride ER 20 mEq Tablet PO (08:50)
[2023-02-06] MEDS: metoprolol succinate ER (24 HR) 25 mg Tablet PO (08:50)
[2023-02-06] MEDS: lisinopril 5 mg Tablet PO (08:50)
[2023-02-06] MEDS: hyDRALAzine 25 mg Tablet PO (08:51)
[2023-02-06] MEDS: ferrous gluconate 324 mg Tablet PO (08:51)
[2023-02-06] MEDS: enoxaparin 40 mg/0.4 mL Syringe SUBCUT (08:51)
[2023-02-06] MEDS: atorvastatin 40 mg Tablet 80 MG PO (08:51)
--- NOTE | 2023-02-06 11:05 | PM.DCS ---
Discharge Providers Date of Admission: 02/01/23 01:20 Date of Discharge: February 06, 2023 Attending Provider at Admission: Nancy Barfield MD Attending Provider at Discharge: Maninder Suárez MD Primary Care Provider: EMILY Marrero Diagnoses at Discharge Discharge Diagnosis (1) Sepsis: Status: Acute (2) UTI (urinary tract infection): Status: Acute (3) NSTEMI (non-ST elevated myocardial infarction): Status: Acute (4) Congestive heart failure: Status: Acute (5) Acute respiratory failure with hypoxia: Status: Acute (6) Fatigue: Status: Acute (7) Invasive ductal carcinoma of breast, female: Status: Acute (8) Bladder cancer: Status: Acute Qualifiers: Bladder location: neck Qualified Code(s): C67.5 - Malignant neoplasm of bladder neck (9) Hyperlipidemia: Status: Acute Qualifiers: Hyperlipidemia type: mixed hyperlipidemia Qualified Code(s): E78.2 - Mixed hyperlipidemia (10) TYRONE (generalized anxiety disorder): Status: Acute (11) Community acquired pneumonia: Status: Acute Reason for Visit Reason for Visit: SOB/WEAKNESS Brief History: As per HPI: Reyna Lopez is a 87 year old female past medical history of generalized anxiety disorder, carotid stenosis, bladder cancer, asthma, hyperlipidemia, hypertension, type 2 diabetes mellitus, invasive ductal carcinoma of breast, insomnia, history of CABG, lumpectomy, cataract surgery, hip replacement, status post surgical removal of bladder cancer presented to the hospital today for complaint of body aches and chills along with a fever.? Patient reports severe chills and the fact that she does not have any energy and today could not breathe.? She reported shortness of breath and a cough.? She does not wear any oxygen at home however is requiring 2 L here nasal cannula.? She also reports being very tired.? She was diagnosed with a UTI today and was started on ciprofloxacin but has only taken 1 dose so far.? Patient saw Dr. Longo on 23 January and subsequently underwent a cystoscopy.? She says ever since his cystoscopy she has been having some abdominal pain and dysuria.? Today she went back to her primary care doctor and was told that she has a UTI.? Denies abdominal pain chest pain nausea vomiting diarrhea constipation.? Does report a fever though.? He states generally tired and achy all over her body.? She would like to be DNR/DNI.? Daughter supplements with a history at bedside.? She states that patient follows with Dr. Sargent at [facility] for cardiology.? She has had It before.? Patient states that she has some vessels that are apparently blocked but she is not getting an angiogram due to possibly her age or comorbid conditions?? She also states that she had an echo 2 to 3 years ago at [facility].? They saw cardiology within the last year and everything was okay.? We will need to request records from [facility]. ED course: on arrival blood pressure 95/32, respiratory 24, pulse 60, temperature 100.4 on arrival saturating 98% on 3 L nasal cannula.? Lactic acid 2.7.? WBC 12.8, hemoglobin 10.2, platelet 147, 4% bands, left shift, INR 1.18, sodium 130, potassium 4.2, creatinine 1.7, BNP 22864.? She was given IV fluids started on IV antibiotics.? Central line was placed by ER physician.? Patient will be admitted to the ICU at this time.? Levophed has been started. Hospital Course Hospital Course Admitted to the Center for the evaluation and management of shock. Initially it was thought shock is secondary to sepsis. Pulm UTI. She was started on broad-spectrum antibiotics. On admission she was also found to have elevated troponins. Cardiology was consulted with concerns for possible non-ST elevation WI per versus type II WI. At first she was started on full dose Lovenox which were later transitioned over to prophylactic dose. Echocardiogram was done which showed a normal EF without regional wall more cellularity and mild pulmonary hypertension. For further evaluation to rule out ACS she underwent Lexiscan stress test on 02/05 which was concerning for old myocardial infarction in all 3 coronary territories with very minimal go-infarct ischemia hence decision was made to treat medically. Her cultures remain negative. Patient has finished a 5-day course of IV Zosyn. She has been discharged in hemodynamically stable condition on adjusted antihypertensives with goal of less than 140/90 mmHg. She is to follow-up with a primary care provider within next 1 week with a blood pressure diary for further adjustment of antihypertensives. She is to take Lasix 40 mg oral daily when body weight increases by 5 pounds of her current dry body weight. She is to check her blood pressure daily at home maintain a blood pressure diary and follow-up with a primary care provider onsite appointment. Physical Exam Narrative: General: No acute distress, AO x3, HEENT: PERRLA, pupils bilaterally equal and reactive Chest: Normal vesicular breath sounds bilaterally, no added sounds all over lung yee CVS: S1-S2 regular, no murmurs, no tachycardia, no gallops, no rubs Abdomen: Soft, nontender, no organomegaly, bowel sounds present, morbidly obese Neuro: No focal deficits, no facial deformity, AO x3, power 5/5 in all limbs Urinary Catheter Management: Baca: Cath Placed During This Visit: yes Reason for Continuing Indwelling Catheter: Other Urinary Catheter Date of Insertion: 02/01/23 Urinary Catheter Time of Insertion: 04:30 Discharge Data Studies Completed and Pending Completed Studies During Hospitalization Category [place] [id number] Urgent Cat Scan 02/01/23 02:26 Completed CXRP [XR chest 1V portable [id number]] Routine Exams 02/01/23 01:38 Completed Sestamibi Stress Test Request Routine Exams 02/05/23 06:00 Completed XR chest 1V portable [id number] Stat Exams 01/31/23 23:38 Completed NM chau perf SPECT r/s* [id number] Routine Nuc Med 02/05/23 14:54 Completed CV. echo complete* [id number] Urgent Ultrasound 02/01/23 02:21 Completed Pending at discharge Category Date Time Status Sestamibi Stress Test Request Routine Exams 02/04/23 14:53 Stop Req Occult Blood Stool [Immunochemical Fecal OCB] Routine Lab 02/02/23 08:54 Uncollected Sputum Culture and Gram Stain Stat Lab 02/01/23 02:24 Uncollected Radiology Impressions Chest X-Ray 02/01/23 01:38 IMPRESSION: Satisfactory central venous catheter placement. Chest/Abdomen/Pelvis CT 02/01/23 02:26 IMPRESSION: Intrathoracic fluid overload. Mild alveolar and interstitial edema features of the lungs with small pleural effusions. IMPRESSION: No focal acute abdominopelvic pathology is identified. Echocardiogram: CONCLUSIONS ?EF 65%. Normal left ventricular size, systolic function and wall ?thickness, with no regional wall motion abnormalities.? Normal ?left ventricular wall thickness. Normal diastolic filling ?pattern.? Mild pulmonary hyperttension ?Keith Burgos MD ?(Electronically Signed) ?Final Date:? ? ? 01 Feb 2023 15:38 Lexiscan stress test: PERFUSION FINDINGS ?Medium size perfusion abnormality of moderate severity of mid to apical ?inferior, basal to mid anterolateral, basal to mid inferolateral and mid ?anterior wall on rest images with subtle reversibility in anterior wall. ?FUNCTIONAL RESULTS ? ? (calculated via Gated SPECT) ? Stress Image LV EF (%):? ? 36 ? Stress EDV (mL):136? TID:? 1.12 ? Stress ESV (mL):87 ?FUNCTIONAL FINDINGS: ?The left ventricle is dilated. Transient Ischemia Dilatation of 1.1. ?The left ventricular ejection fraction is moderately reduced with a value of ?36%. ?Hypokinesis of anterior and septal martines. ?IMPRESSIONS ?1. Medium sized perfusion abnormality of moderate severity of mid to apical ?inferior, basal to mid anterolateral, basal to mid inferolateral and mid ?anterior martines with subtle reversibility on stress images. ?2. This is suggestive of old myocardial infarction in all three coronary ?territories with minimal go-infarct ischemia. ?3. The left ventricular ejection fraction is moderately reduced with a value of ?36%. ?4. Hypokinesis of anterior and septal martines. ?5. EKG portion of the study will be reported separately ?Mel Alonso MD ?(Electronically Signed) ?Final Date:? ? ? 05 Feb 2023 12:36 Laboratory Results WBC 5.3 10^3/uL (4.0-10.0) 02/05/23 03:57 RBC 2.99 10^6/uL (4.1-5.3) L 02/05/23 03:57 Hgb 8.6 g/dL (11.5-15.3) L 02/05/23 03:57 Hct 26.6 % (37.0-47.0) L 02/05/23 03:57 MCV 89.0 fl (81-99) 02/05/23 03:57 MCH 28.8 pg (28.0-34.0) 02/05/23 03:57 MCHC 32.3 g/dL (30.0-36.0) 02/05/23 03:57 RDW 14.8 % (12.1-15.1) 02/05/23 03:57 Plt Count 143 10^3/cmm (130-400) 02/05/23 03:57 MPV 11.7 fL (7.4-10.4) H 02/05/23 03:57 Neut % (Auto) 72.3 % 02/05/23 03:57 Lymph % (Auto) 12.4 % 02/05/23 03:57 [place] % (Auto) 11.8 % 02/05/23 03:57 Eos % (Auto) 2.3 % 02/05/23 03:57 Baso % (Auto) 0.6 % 02/05/23 03:57 Neut # (Auto) 3.80 10^3/uL (1.8-7.7) 02/05/23 03:57 Lymph # (Auto) 0.7 10^3/uL (0.8-4.8) L 02/05/23 03:57 [place] # (Auto) 0.6 10^3/uL (0.2-0.9) 02/05/23 03:57 Eos # (Auto) 0.1 10^3/uL (0.0-0.8) 02/05/23 03:57 Baso # (Auto) 0.0 10^3/uL (0.0-0.1) 02/05/23 03:57 Nucleated RBC % (auto) 0 % 02/05/23 03:57 Total Counted 100 (0-100) 01/31/23 23:45 Atypical Lymphs % 0.0 % (0-5) 01/31/23 23:45 Absolute Neutrophils 11.6 10^3/cmm (1.4-6.5) H 01/31/23 23:45 Segmented Neutrophils 87 % 01/31/23 23:45 Abs Segm Neuts (Man) 11.1 10/cmm (1.6-7.1) H 01/31/23 23:45 Band Neutrophils 4.0 % 01/31/23 23:45 Abs Band Neuts (Man) 0.5 10^3/cmm (0.0-1.2) 01/31/23 23:45 Absolute Lymphocytes 0.1 10^3/cmm (1.2-3.4) L 01/31/23 23:45 Lymphocytes (Manual) 1 % 01/31/23 23:45 Monocytes (Manual) 8.0 % 01/31/23 23:45 Absolute Monocytes 1.0 10^3/cmm (0.1-0.6) H 01/31/23 23:45 Eosinophils (Manual) 0 % 01/31/23 23:45 Absolute Eosinophils 0.0 10^3/cmm (0.0-0.7) 01/31/23 23:45 Basophils (Manual) 0.0 % 01/31/23 23:45 Absolute Basophils 0.0 10^3/cmm (0.0-0.2) 01/31/23 23:45 Nucleated RBCs # 0.0 /100WBC 02/05/23 03:57 Pathologist Review Yes 01/31/23 23:45 Smudge Cells Trace 01/31/23 23:45 Toxic Granulation 3+ H 01/31/23 23:45 Toxic Vacuolation 1+ H 01/31/23 23:45 Platelet Estimate Normal (Normal) 01/31/23 23:45 Giant Platelets 1+ H 01/31/23 23:45 Anisocytosis 1+ H 01/31/23 23:45 Spherocytes Trace 01/31/23 23:45 PT 15.40 SECONDS (12.1-14.9) H 01/31/23 23:45 INR 1.18 (0.8-1.2) 01/31/23 23:45 APTT 40.3 SECONDS (23.9-36.7) H D 02/02/23 09:18 Sodium 138 mmol/L (136-145) 02/05/23 03:57 Potassium 4.1 mmol/L (3.5-5.1) 02/05/23 03:57 Chloride 107 mmol/L (98-107) 02/05/23 03:57 Carbon Dioxide 24 mmol/L (22-29) 02/05/23 03:57 Anion Gap 11.1 (5-19) 02/05/23 03:57 BUN 20 mg/dL (8-23) 02/05/23 03:57 Creatinine 0.9 mg/dL (0.5-0.9) 02/05/23 03:57 GFR Calculation Not Reportable 02/05/23 03:57 Glucose 108 mg/dL (65-115) 02/05/23 03:57 POC Glucose 115 mg/dL (70-110) H 02/06/23 06:41 Calculated Osmolality 289 mOsm/kg (285-295) 02/05/23 03:57 Lactic Acid 2.7 mmol/L (0.5-2.2) H 01/31/23 23:45 Lactic Acid (Sepsis) 1.1 mmol/L (0.5-2.2) 02/01/23 02:18 Calcium 8.5 mg/dL (8.5-10.5) 02/05/23 03:57 Magnesium 1.8 mg/dL (1.7-2.3) 02/01/23 08:16 Iron 15 ug/dL (37-145) L 02/02/23 03:15 TIBC 140 mcg/dl 02/02/23 03:15 % Saturation 10.7 % (20-50) L 02/02/23 03:15 Unsat Iron Binding 125 ug/dL (112-347) 02/02/23 03:15 Total Bilirubin 0.5 mg/dL (0.15-1.2) 02/05/23 03:57 AST 20 U/L (0-32) 02/05/23 03:57 ALT 18 U/L (0-33) 02/05/23 03:57 Alkaline Phosphatase 78 U/L (35-105) 02/05/23 03:57 Troponin T Baseline 436 ng/L (0-10) H* 02/04/23 05:11 Troponin T 120 Minute 460.9 ng/L (0-10) H 02/04/23 07:36 Delta Troponin T 24.9 ABS# (0-10) H* 02/04/23 07:36 Troponin T Hi Sens 6Hr 487.5 ng/L (0-10) H 02/04/23 11:09 Troponin T Hi Sens 6Hr Delta 51.5 ng/L (0-12) H* 02/04/23 11:09 NT-Pro-B Natriuret Pep 88353 pg/mL (0-450) H 01/31/23 23:45 Total Protein 4.7 g/dL (6.6-8.7) L 02/05/23 03:57 Albumin 2.3 g/dL (3.5-5.2) L 02/05/23 03:57 Globulin 2.4 g/dL (1.3-4.6) 02/05/23 03:57 Procalcitonin 6.11 ng/mL (0-0.5) H 02/03/23 02:23 Urine Color Yellow (Yellow) 02/01/23 02:16 Urine Appearance Cloudy (CLEAR) A 02/01/23 02:16 Urine pH 5 (5-7) 02/01/23 02:16 Ur Specific [place] 1.015 (1.005-1.030) 02/01/23 02:16 Urine Protein 2+ (Negative) H 02/01/23 02:16 Urine Glucose (UA) Norm (Normal) 02/01/23 02:16 Urine Ketones Negative (Negative) 02/01/23 02:16 Urine Blood 2+ (Negative) H 02/01/23 02:16 Urine Nitrate Negative (Negative) 02/01/23 02:16 Urine Bilirubin Neg (Negative) 02/01/23 02:16 Urine Urobilinogen Norm mg/dL (Negative) 02/01/23 02:16 Ur Leukocyte Esterase 2+ (Negative) H 02/01/23 02:16 Urine RBC 5-10 /hpf (0-2) H 02/01/23 02:16 Urine WBC Too numerous to cnt /hpf (0-5) H 02/01/23 02:16 Ur Squamous Epith Cells 0-4 /hpf (0-5) H 02/01/23 02:16 Amorphous Sediment Not Reportable 02/01/23 02:16 Urine Bacteria 2+ /hpf (NONE) H 02/01/23 02:16 SARS-CoV-2 Ag (Rapid) negative (Negative) 02/01/23 00:01 MRSA (PCR) Not detected (NOT DETECTED) 02/01/23 02:52 Vitals Last Vital Signs Temp 98.1 F 02/06/23 08:00 Pulse 76 02/06/23 08:38 Resp 16 02/06/23 08:38 BP 177/76 02/06/23 08:00 Pulse Ox 98 02/06/23 08:38 O2 Del Method Room Air 02/06/23 08:38 O2 Flow Rate 2 02/05/23 08:00 Discharge Plan Discharge Patient Disposition: Home Condition: Stable Prescriptions: New hydralazine 25 mg Tablet 25 mg PO TID Qty: 90 0RF metoprolol succinate 25 mg Tablet Extended Release 24 Hr 25 mg PO DAILY Qty: 30 0RF ferrous gluconate 324 mg (37.5 mg iron) Tablet 324 mg PO BIDWM Qty: 60 0RF clopidogrel 75 mg Tablet 75 mg PO DAILY Qty: 30 0RF Lasix 40 mg tablet 40 mg PO QAM Qty: 30 0RF Rx Instructions: Start when body weight increases by 5lbs Continued hydralazine 50 mg tablet 100 mg PO TID PRN (Reason: Blood Pressure) isosorbide mononitrate 30 mg tablet extended release 24 hr 60 mg PO DAILY@08 aspirin 81 mg tablet,delayed release (DR/EC) 81 mg PO DAILY@20 Hold Instructions: Resume on 11/23/19. flaxseed oil 1,000 mg capsule 1,000 mg PO DAILY pantoprazole 40 mg tablet,delayed release (DR/EC) 40 mg PO DAILY tolterodine 4 mg capsule,extended release 24hr 4 mg PO DAILY Qty: 30 12RF (DME) OneTouch Ultra Test Strip See Rx Instructions .ROUTE .COMPLEX Qty: 100 5RF Dose Instruction: USE 1 STRIP TO CHECK GLUCOSE TWICE DAILY. DX: E11.9 Rx Instructions: USE 1 STRIP TO CHECK GLUCOSE TWICE DAILY. DX: E11.9 (DME) lancets [OneTouch Delica Plus Lancet] 33 gauge misc See Rx Instructions .ROUTE .COMPLEX Qty: 100 5RF Dose Instruction: USE 1 LANCET TO CHECK GLUCOSE TWICE DAILY Rx Instructions: USE 1 LANCET TO CHECK GLUCOSE TWICE DAILY (DME) pen needle, diabetic [BD Ultra-Fine Mini Pen Needle] 31 gauge x 3/16 needle See Rx Instructions .ROUTE .COMPLEX Qty: 100 5RF Dose Instruction: USE DIRECTED Rx Instructions: USE DIRECTED Levemir FlexTouch U-100 Insuln 100 unit/mL (3 mL) insulin pen See Rx Instructions .ROUTE .COMPLEX Dose Instruction: INJECT 30 UNITS SUBCUTANEOUSLY AT 8 IN THE EVENING Rx Instructions: INJECT 30 units SUBCUTANEOUSLY with morning meal letrozole [Femara] 2.5 mg tablet 2.5 mg PO DAILY Qty: 90 2RF alprazolam 0.5 mg tablet 0.5 mg PO TID Qty: 90 0RF anastrozole 1 mg tablet 1 mg PO DAILY mupirocin 2 % ointment 1 applic topical BID cholecalciferol (vitamin D3) 125 mcg (5,000 unit) capsule 125 mcg PO DAILY ipratropium bromide 21 mcg (0.03 %) spray,non-aerosol 2 spray intranasal TID Rx Instructions: administer into each nostril loratadine [Allergy Relief (loratadine)] 10 mg tablet 10 mg PO DAILY Qty: 30 0RF polymyxin B sulf-trimethoprim [Polytrim] 10,000 unit- 1 mg/mL drops 1 drp ophthalmic (eye) Q3H 7 Days Qty: 10 0RF Rx Instructions: while awake; do not exceed 6 doses in 24 hours Magnesium (oxide/AA chelate) 300 mg capsule 1 cap PO DAILY@08 atorvastatin 80 mg tablet 80 mg PO DAILY Calcium 600 600 mg calcium (1,500 mg) Tablet 600 mg PO DAILY Changed irbesartan 300 mg tablet 150 mg PO DAILY Qty: 30 0RF Discontinued bumetanide 1 mg tablet See Rx Instructions .ROUTE .COMPLEX Rx Instructions: 1 mg orally at 0800, 1 mg orally at 1200 metoprolol tartrate 25 mg tablet 25 mg PO Q12H Rx Instructions: at 0800,2000 famotidine 20 mg tablet 20 mg PO BID@08,20 Galzin 50 mg (zinc) capsule 50 mg PO DAILY ciprofloxacin HCl [Cipro] 500 mg tablet 500 mg PO BID 5 Days Qty: 10 0RF diltiazem HCl 180 mg capsule,extended release 24 hr 180 mg PO DAILY Discharge Orders: Discharge Order (Routine); Ordered 02/06/23 Ordered By: Maninder Suárez Referrals: Chaya Long FNP [Primary Care Provider] - 02/13/23 9:00 am Discharge Diet: As Directed and Cardiac Discharge Activity: Resume usual activity and Increase activity as tolerated Patient Instructions: Metoprolol (By mouth) (Lopressor, Toprol XL), Furosemide (By mouth), Hydralazine (By mouth), Clopidogrel (By mouth), Heart Attack (DC), Heart Failure (DC), Opioid Safety Activity Restrictions/Additional Instructions: Multiple medication changes have been done. Do not take Bumex 1 mg daily, Cardizem 180 mg daily, metoprolol tartrate 25 mg twice daily for now. Dose of Iver Tabitha has been changed to 150 mg oral daily. Start taking hydralazine 25 mg 3 times a day, metoprolol succinate 25 mg 1 time a day, Plavix 75 mg 1 time a day along with baby aspirin. Please restrict fluid intake to less than 1500 cc/day. Salt intake to less than 2 g/day. Also body weight is more than 5 pounds of your current weight you can start taking Lasix 40 mg oral daily. Check your body weight blood pressures daily and maintain a diary and follow-up with a primary care provider within next 2 weeks for further adjustment of medications. You should repeat your blood work including CBC and CMP in 1 week. Discharge Attestations Time Spent in Discharge Care*: greater than 30 min Specific Discharge Activities: educating patient, educating and/or supporting family/caregiver, discussing with pcp/other providers, discussing with nurse outreach case manager/social workers/dc planners, documenting/other paperwork and evaluating patient/reviewing data Status at Discharge: Cognitive status at discharge: cognitively intact, Behavioral status at discharge: cooperative, Functional status at discharge: independent ambulation, Overall status at discharge: patient is back to baseline Quality Metrics Clinical Quality Measures [ No reported AMI, CVA or VTE this stay] Coding Level of Care Code 98489 Total time (in minutes) for Discharge: 60 Diagnoses Sepsis A41.9 UTI (urinary tract infection) N39.0 NSTEMI (non-ST elevated myocardial infarction) I21.4 Congestive heart failure I50.9 Acute respiratory failure with hypoxia J96.01 Fatigue R53.83 Invasive ductal carcinoma of breast, female C50.919 Bladder cancer C67.5 Bladder location: neck Hyperlipidemia E78.2 Hyperlipidemia type: mixed hyperlipidemia TYRONE (generalized anxiety disorder) F41.1 Community acquired pneumonia J18.9
[2023-02-06 11:13] LABS: Glucose Point of Care 146 mg/dL (70-110)
[2023-02-06 12:00] VITALS: BP 141/63; PULSE 66; RESP 16; TEMP 36.8; O2SAT 99
--- NOTE | 2023-02-06 12:11 | PC.SOCIAL ---
Imm update Imm updated with patient and at bedside. Copy of page 2 provided. Patient and verbalized understanding. Copy in chart initialed, dated and timed.
--- NOTE | 2023-02-06 13:28 | PC.NURSE ---
Discharge Note Patient discharged to home via private vehicle accompanied by daughter. Discharge instructions reviewed with patient and/or medicare sales representative. Mobile pharmacy medications and/or prescriptions provided. Belongings/home medications returned.
[2023-02-06 13:29] VITALS: BP 141/63; PULSE 66; RESP 16; TEMP 36.8; O2SAT 99
--- NOTE | 2023-02-07 06:37 | W.ED.SOB ---
HPI - SOB/Dyspnea General: Chief Complaint: Shortness of Breath/Dyspnea Stated Complaint: SOB/WEAKNESS Time Seen by Provider: 01/31/23 23:28 Source: patient and EMS Mode of arrival: EMS Limitations: no limitations History of Present Illness: HPI Narrative: . 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 Performed by Dr. Clark. History of back surgery Treatment of bone spurs. Performed by Dr. Gray in [place], [place] History of carpal tunnel release of both wrists History of cataract surgery Bilateral History of hip replacement (~2006) Left. Performed by Dr. Lovelace History of hip replacement (06/19/16) Performed by Dr. Lovelace Previous back surgery (08/22/14) [address]formed [address] Ramsay at [facility] in [place], [place] S/P appendectomy Status post surgical removal and fulguration of bladder neoplasm Family History Father Stroke Mother Ovarian cancer Sister Breast cancer Diabetes Hypertension Brother Heart disease Diabetes Social History Smoking and tobacco status: former smoker Alcohol intake: never Substance/Drug Use: never Adopted: No Lives independently: Yes Household members: none Housing: House Marital status: / Current occupational status: retired Do you think of yourself as: Straight/Heterosexual Current gender identity: Female Procedures Central Line Placement Right IJ: Time Out Performed: Yes Patient Placed on Monitor/Pulse Ox: Yes MD Prep: mask, gown and gloves Central Line Prep: Povidone-Iodine 1% Local Anesthetic: lidocaine 1% Amount of anesthesia used (mL): 3 Ultrasound Used for Placement: Yes Central Line Lumen Inserted: triple Post Procedure: sutured in place, good blood return, all ports aspirated, flushed, capped and sterile dressing applied Post Procedure X-Ray: tip of catheter in good position and no pneumothorax seen Patient Tolerated Procedure: well Complications: none Course Vital Signs: Vital signs: Vital Signs Temperature 98.3 F 02/06/23 13:29 Pulse Rate 66 02/06/23 13:29 Respiratory Rate 16 02/06/23 13:29 Blood Pressure 141/63 02/06/23 13:29 Pulse Oximetry 99 02/06/23 13:29 Oxygen Delivery Me thod Room Air 02/06/23 12:00 Oxygen Flow Rate 2 02/05/23 08:00 MDM - SOB/Dyspnea Medical Decision Making Addendum for procedure note for her ER visit I had placed a central line during her ER visit and it was not charted Lab Data 02/05/23 03:57 02/05/23 03:57 Labs/Radiology: Radiology Impressions Chest X-Ray 02/01/23 01:38 IMPRESSION: Satisfactory central venous catheter placement. Chest/Abdomen/Pelvis CT 02/01/23 02:26 IMPRESSION: Intrathoracic fluid overload. Mild alveolar and interstitial edema features of the lungs with small pleural effusions. IMPRESSION: No focal acute abdominopelvic pathology is identified. Laboratory Results WBC 12.8 10^3/uL (4.0-10.0) H 01/31/23 23:45 RBC 3.47 10^6/uL (4.1-5.3) L 01/31/23 23:45 Hgb 10.2 g/dL (11.5-15.3) L 01/31/23 23:45 Hct 32.0 % (37.0-47.0) L 01/31/23 23:45 MCV 92.2 fl (81-99) 01/31/23 23:45 MCH 29.4 pg (28.0-34.0) 01/31/23 23:45 MCHC 31.9 g/dL (30.0-36.0) 01/31/23 23:45 RDW 14.8 % (12.1-15.1) 01/31/23 23:45 Plt Count 147 10^3/cmm (130-400) 01/31/23 23:45 MPV 11.4 fL (7.4-10.4) H 01/31/23 23:45 Lymph % (Auto) Not Reportable 01/31/23 23:45 [place] % (Auto) Not Reportable 01/31/23 23:45 Lymph # (Auto) Not Reportable 01/31/23 23:45 [place] # (Auto) Not Reportable 01/31/23 23:45 Total Counted 100 (0-100) 01/31/23 23:45 Atypical Lymphs % 0.0 % (0-5) 01/31/23 23:45 Absolute Neutrophils 11.6 10^3/cmm (1.4-6.5) H 01/31/23 23:45 Segmented Neutrophils 87 % 01/31/23 23:45 Abs Segm Neuts (Man) 11.1 10/cmm (1.6-7.1) H 01/31/23 23:45 Band Neutrophils 4.0 % 01/31/23 23:45 Abs Band Neuts (Man) 0.5 10^3/cmm (0.0-1.2) 01/31/23 23:45 Absolute Lymphocytes 0.1 10^3/cmm (1.2-3.4) L 01/31/23 23:45 Lymphocytes (Manual) 1 % 01/31/23 23:45 Monocytes (Manual) 8.0 % 01/31/23 23:45 Absolute Monocytes 1.0 10^3/cmm (0.1-0.6) H 01/31/23 23:45 Eosinophils (Manual) 0 % 01/31/23 23:45 Absolute Eosinophils 0.0 10^3/cmm (0.0-0.7) 01/31/23 23:45 Basophils (Manual) 0.0 % 01/31/23 23:45 Absolute Basophils 0.0 10^3/cmm (0.0-0.2) 01/31/23 23:45 Pathologist Review Yes 01/31/23 23:45 Smudge Cells Trace 01/31/23 23:45 Toxic Granulation 3+ H 01/31/23 23:45 Toxic Vacuolation 1+ H 01/31/23 23:45 Platelet Estimate Normal (Normal) 01/31/23 23:45 Giant Platelets 1+ H 01/31/23 23:45 Anisocytosis 1+ H 01/31/23 23:45 Spherocytes Trace 01/31/23 23:45 PT 15.40 SECONDS (12.1-14.9) H 01/31/23 23:45 INR 1.18 (0.8-1.2) 01/31/23 23:45 Sodium 130 mmol/L (136-145) L 01/31/23 23:45 Potassium 4.2 mmol/L (3.5-5.1) 01/31/23 23:45 Chloride 97 mmol/L (98-107) L 01/31/23 23:45 Carbon Dioxide 20 mmol/L (22-29) L 01/31/23 23:45 Anion Gap 17.2 (5-19) 01/31/23 23:45 BUN 37 mg/dL (8-23) H 01/31/23 23:45 Creatinine 1.7 mg/dL (0.5-0.9) H 01/31/23 23:45 GFR Calculation Not Reportable 01/31/23 23:45 Glucose 145 mg/dL (65-115) H 01/31/23 23:45 Calculated Osmolality 281 mOsm/kg (285-295) L 01/31/23 23:45 Lactic Acid 2.7 mmol/L (0.5-2.2) H 01/31/23 23:45 Calcium 8.6 mg/dL (8.5-10.5) 01/31/23 23:45 Total Bilirubin 0.7 mg/dL (0.15-1.2) 01/31/23 23:45 AST 54 U/L (0-32) H 01/31/23 23:45 ALT 27 U/L (0-33) 01/31/23 23:45 Alkaline Phosphatase 107 U/L (35-105) H 01/31/23 23:45 NT-Pro-B Natriuret Pep 90922 pg/mL (0-450) H 01/31/23 23:45 Total Protein 5.5 g/dL (6.6-8.7) L 01/31/23 23:45 Albumin 2.9 g/dL (3.5-5.2) L 01/31/23 23:45 Globulin 2.6 g/dL (1.3-4.6) 01/31/23 23:45 Procalcitonin 10.66 ng/mL (0-0.5) H 01/31/23 23:45 SARS-CoV-2 Ag (Rapid) negative (Negative) 02/01/23 00:01 Discharge Plan Discharge Patient Disposition: Admitted As Inpatient Admit Provider: Nancy Barfield Clinical Impression: Congestive heart failure, Community acquired pneumonia, Sepsis, Acute respiratory failure with hypoxia Condition: Stable Discharge Diet: As Directed and Cardiac Discharge Activity: Resume usual activity and Increase activity as tolerated Coding Level of Care Code ED Adult Health Clinical Nurse Specialist for Jaison Anna
== END 2023-02-06 14:45 | disposition home or self-care (01) | DRG 871 ==
LOC: ER 02-01 00:01 → ICU 02-01 01:30 → MEDSURG 02-04 00:46
PROVIDERS: Internal Medicine; Internal Medicine Cardiovascular Disease; Student in an Organized Health Care Education/Training Program; Admitting Provider Internal Medicine; Emergency Provider Emergency Medicine; PCP Nurse Practitioner Family; Visit Provider Student in an Organized Health Care Education/Training Program
DX: A41.9 Sepsis, unspecified organism (principal); I21.A1 Myocardial infarction type 2; J18.9 Pneumonia, unspecified organism; R65.21 Severe sepsis with septic shock; N39.0 Urinary tract infection, site not specified; E87.1 Hypo-osmolality and hyponatremia; N17.9 Acute kidney failure, unspecified; F41.1 Generalized anxiety disorder; Z85.51 Personal history of malignant neoplasm of bladder; J45.909 Unspecified asthma, uncomplicated; E78.2 Mixed hyperlipidemia; I11.0 Hypertensive heart disease with heart failure; I50.9 Heart failure, unspecified; E11.9 Type 2 diabetes mellitus without complications; C50.919 Malignant neoplasm of unspecified site of unspecified female breast; I25.10 Atherosclerotic heart disease of native coronary artery without angina pectoris; Z95.1 Presence of aortocoronary bypass graft; Z96.643 Presence of artificial hip joint, bilateral; Z66 Do not resuscitate; I25.2 Old myocardial infarction; Z79.82 Long term (current) use of aspirin; Z79.811 Long term (current) use of aromatase inhibitors; I34.0 Nonrheumatic mitral (valve) insufficiency; D64.9 Anemia, unspecified; I95.9 Hypotension, unspecified; Z87.891 Personal history of nicotine dependence
CPT/HCPCS: 36415; 36416; 51702; 71045; 71250; 74176; 78452; 80048; 80053; 80503; 81000; 81001; 82962; 83540; 83550; 83605; 83735; 83880; 84145; 84484; 85007; 85025; 85610; 85730; 87040; 87086; 87426; 87641; 93005; 93017; 93306; 94640; 94664; 96365; 96367; 96372; 96374; 96376; 97116; 97161; 99285; A9500; C9113; J1644; J1650; J1815; J2405; J2543; J2785; J3370; J7030; J7050; J7060; Q3014

== ENCOUNTER → 2023-02-13 09:45 | Outpatient (BNVA) | payer MEDICARE, OTHER, SELFPAY | PROVIDERS: PCP Nurse Practitioner Family; Visit Provider Nurse Practitioner Family | DX: N39.0 Urinary tract infection, site not specified (principal) | CPT/HCPCS: 81000 ==

== ENCOUNTER 2023-03-20 13:24 | Emergency (ER) | payer MEDICARE, OTHER, SELFPAY ==
[2023-03-20 13:32] VITALS: BP 185/63; PULSE 61; RESP 18; TEMP 36.7; O2SAT 98; BMI 21.1
--- NOTE | 2023-03-20 13:42 | ECG_ITS ---
[facility] Test Date: 2023-03-20 Pat Name: Reyna Lopez Department: Room: Gender: Female Shake Cutter: : 1935 Requested By: Mayco Knight Order Number: [id number] Mitchell MD: Mel Alonso M.D. Measurements Intervals [place] Rate: 62 P: 75 ID: [id number] QRS: -65 QRSD: 142 T: 98 QT: 461 QTc: 471 Interpretive Statements SINUS RHYTHM WITH FIRST DEGREE AV BLOCK LEFT AXIS DEVIATION [QRS AXIS < -30] LEFT BUNDLE BRANCH BLOCK [120+ ms QRS DURATION, 80+ ms Q/S IN V1/V2, 85+ ms R IN I/aVL/V5/V6] Compared to ECG 02/04/2023 11:36:29 Left bundle-branch block now present T-wave abnormality no longer present Possible ischemia no longer present Electronically Signed On 03-20-2023 21:43:36 CDT by eMl Alonso M.D. [id number] f
--- NOTE | 2023-03-20 13:46 | XR_ITS ---
WS: [id number] Portable AP upright chest, 03/20/2023 Clinical Data: chest pain Comparison: Portable chest, 02/01/2023 Findings: No nodules, masses or effusions are seen. There are coarse interstitial markings throughout both lungs unchanged. The heart is slightly enlarged. The pulmonary vascularity is not increased. No pneumonia or pneumothorax is seen. The aortic arch and descending thoracic aorta show calcification and mild tortuosity. There are midline sternotomy sutures. Monitor leads are on the chest wall. XR/XR chest 1V portable [id number] Impression: 1. Chronic interstitial lung infiltrates unchanged. 2. Atherosclerosis and cardiomegaly.
[2023-03-20] MEDS: aspirin 81 mg Chew Tablet 324 MG PO (14:04)
[2023-03-20] MEDS: ondansetron 2 mg/ML SDV 2 mL 4 MG IVP (14:05)
[2023-03-20 14:06] VITALS: BP 183/71; PULSE 62; RESP 25
[2023-03-20] MEDS: morphine 4 mg/mL SDV 1 mL IVP (14:06)
[2023-03-20] MEDS: nitroglycerin 1 gm/inch oint Pkt 0.5 INCH TOPICAL (14:06)
[2023-03-20 14:21] LABS: Basophils # 0.1 10^3/uL (0.0-0.1); Basophils % 1.4 %; Eosinophils # 0.2 10^3/uL (0.0-0.8); Eosinophils % 3.6 %; Hematocrit 35.3 % (37.0-47.0); Hemoglobin 11.2 g/dL (11.5-15.3); Lymphocytes # 1.3 10^3/uL (0.8-4.8); Lymphocytes % 29.5 %; Mean Corpuscular HGB Conc 31.7 g/dL (30.0-36.0); Mean Corpuscular Hemoglobin 28.9 pg (28.0-34.0); Mean Platelet Volume 11.3 fL (7.4-10.4); Monocytes # 0.6 10^3/uL (0.2-0.9); Monocytes % 13.2 %; Neutrophils % 52.1 %; Nucleated Red Blood Cells % 0 %; Platelet Count 150 10^3/cmm (130-400); Red Blood Count 3.88 10^6/uL (4.1-5.3); Red Cell Distribution Width 14.9 % (12.1-15.1); White Blood Count 4.4 10^3/uL (4.0-10.0)
[2023-03-20 14:28] LABS: INR 1.06 (0.8-1.2)
[2023-03-20 14:29] LABS: Partial Thromboplastin Time 31.8 SECONDS (23.9-36.7)
[2023-03-20 14:34] LABS: Troponin(5th) Baseline 42 ng/L (0-10)
[2023-03-20 14:42] LABS: Alanine Aminotransferase 11 U/L (0-33); Albumin Level 3.6 g/dL (3.5-5.2); Alkaline Phosphatase 64 U/L (35-105); Anion Gap 13.4 (5-19); Aspartate Amino Transferase 17 U/L (0-32); Blood Urea Nitrogen 29 mg/dL (8-23); Carbon Dioxide 26 mmol/L (22-29); Chloride 104 mmol/L (98-107); Globulin 2.3 g/dL (1.3-4.6); Glucose 57 mg/dL (65-115); NT Pro B Type Natriuretic Pept 1995 pg/mL (0-450); Osmolality Calculated 292 mOsm/kg (285-295); Potassium 4.4 mmol/L (3.5-5.1); Sodium 139 mmol/L (136-145); Total Bilirubin 0.3 mg/dL (0.15-1.2); Total Protein 5.9 g/dL (6.6-8.7)
[2023-03-20 15:06] VITALS: BP 174/72; PULSE 63; RESP 17; O2SAT 96
[2023-03-20] MEDS: FUROsemide 10 mg/mL SDV 4mL 40 MG IVP (15:33)
[2023-03-20] MEDS: enoxaparin 60 mg/0.6 mL Syringe SUBCUT (15:34)
[2023-03-20 15:39] VITALS: BP 113/48; PULSE 62; RESP 22; O2SAT 96
--- NOTE | 2023-03-20 16:25 | W.ED.CHESTPA ---
HPI - Chest Pain General: Chief Complaint: Chest Pain Stated Complaint: pain top of head to chest /chest pains Time Seen by Provider: 03/20/23 13:46 History of Present Illness: 87 years old female with complex medical history and recent hospitalization. Presents emergency room with chest pain that started around 1. While she was at rest. She described pain as sharp sensation with severity of 7 out of 10 prior to come to emergency room. Patient took 2 nitro and upon present emergency room pain was resolved completely. Patient has any shortness of breath, cough, coughing up blood or vomiting blood. No fever, chills, nausea or vomiting. Family reviewed that patient was recently admitted to the hospital for UTI and sepsis. Associated symptoms: Deny palpitations or syncope Review of Systems General: Reports: 10 or more systems reviewed and unremarkable except in HPI and below Card: Reports: chest pain; Denies: palpitations, irregular heart rhythm, edema, swelling of feet/ankles, lightheadedness, syncope, pre-syncope, dyspnea on exertion or orthopnea PFSH ED PFSH: Medical History Asthma Atherosclerosis of [place] coronary artery Benzodiazepine dependence, continuous Bladder cancer Carotid stenosis, asymptomatic TYRONE (generalized anxiety disorder) Hyperlipidemia Hypertension, essential Insomnia 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 Performed by Dr. Clark. History of back surgery Treatment of bone spurs. Performed by Dr. Gray in [place], [place] History of carpal tunnel release of both wrists History of cataract surgery Bilateral History of hip replacement (~2006) Left. Performed by Dr. Lovelace History of hip replacement (06/19/16) Performed by Dr. Lovelace Previous back surgery (08/22/14) Performed [address] Dr[address] Ramsay at [facility] in [place], [place] S/P appendectomy Status post surgical removal and fulguration of bladder neoplasm Family History Father Stroke Mother Ovarian cancer Sister Breast cancer Diabetes Hypertension Brother Heart disease Diabetes Social History Smoking and tobacco status: former smoker Alcohol intake: never Substance/Drug Use: never Adopted: No Lives independently: Yes Household members: none Housing: House Marital status: / Current occupational status: retired Do you think of yourself as: Straight/Heterosexual Current gender identity: Female Physical Exam Const: COMMON NORMALS: no acute distress, average body habitus, patient oriented x3, no limitations, healthy appearing, alert and well nourished Neck/C-Spine: COMMON NORMALS: full ROM, no lymphadenopathy, supple, no meningeal signs, no JVD, Thyroid normal and No carotid bruits THYROID: Thyroid normal Chest: COMMONS NORMALS: normal inspection of the chest, normal palpation of entire chest wall, normal inspection of the breasts and normal palpation of the breasts Breast/axilla inspection: Yes normal inspection of the breasts BREAST/AXILLA PALPATION: Yes normal palpation of the breasts Cardio: COMMON NORMALS: no JVD, regular rate, regular rhythm, S1 normal heart sound present, S2 normal heart sound present, No gallops present (Cardio), No clicks present (Cardio), No murmurs present (Cardio), No rub (Cardio) and Peripheral pulses 2+ throughout RATE: regular rate RHYTHM: regular rhythm HEART SOUNDS: S1 normal heart sound present and S2 normal heart sound present PERIPHERAL PULSES: Peripheral pulses 2+ throughout Neuro: COMMON NORMALS: patient oriented x3 SENSORIUM/ORIENTATION: Yes alert MENINGEAL SIGNS: Yes no meningeal signs Course Reevaluation(s): Reevaluation #1: Discussed patient with the hospitalist. The hospitalist was well familiar with the patient due to her recent hospitalization. He reviewed the record while on the phone with me. Consultations: Consultation #1: Dr. Galindo Vital Signs: Vital signs: Vital Signs Temperature 98.0 F 03/20/23 13:32 Pulse Rate 62 03/20/23 15:39 Respiratory Rate 22 H 03/20/23 15:39 Blood Pressure 113/48 03/20/23 15:39 Pulse Oximetry 96 03/20/23 15:39 Oxygen Delivery Me thod Room Air 03/20/23 13:32 MDM - Chest Pain Medical Decision Making Patient presents emergency room with chest pain and she was made comfortable emergency room. EKG was done right away. Patient has troponin done. I reviewed patient's past medical history including her recent medical records from previous hospitalization. I reviewed previous EKG that was done in the past treatment as well. No new EKG changes. Mariam patient with the hospitalist. Was to admit patient to the hospital for further evaluation and treatment but both the patient and family declined admission at this time. Differential Diagnosis Likely acute massive pulmonary embolism, acute respiratory failure (CHF, pulmonary fusion, pleurisy), acute myocardial infarction, cardiac arrest and sudden cardiac Medical Records Discussed patient with family, reviewed past medical history, reviewed past EKGs, and x-ray. Lab Data 03/20/23 14:00 03/20/23 14:00 Radiology Impressions Chest X-Ray 03/20/23 13:46 Impression: 1. Chronic interstitial lung infiltrates unchanged. 2. Atherosclerosis and cardiomegaly. Laboratory Results WBC 4.4 10^3/uL (4.0-10.0) 03/20/23 14:00 RBC 3.88 10^6/uL (4.1-5.3) L 03/20/23 14:00 Hgb 11.2 g/dL (11.5-15.3) L 03/20/23 14:00 Hct 35.3 % (37.0-47.0) L 03/20/23 14:00 MCV 91.0 fl (81-99) 03/20/23 14:00 MCH 28.9 pg (28.0-34.0) 03/20/23 14:00 MCHC 31.7 g/dL (30.0-36.0) 03/20/23 14:00 RDW 14.9 % (12.1-15.1) 03/20/23 14:00 Plt Count 150 10^3/cmm (130-400) 03/20/23 14:00 MPV 11.3 fL (7.4-10.4) H 03/20/23 14:00 Neut % (Auto) 52.1 % 03/20/23 14:00 Lymph % (Auto) 29.5 % 03/20/23 14:00 [place] % (Auto) 13.2 % 03/20/23 14:00 Eos % (Auto) 3.6 % 03/20/23 14:00 Baso % (Auto) 1.4 % 03/20/23 14:00 Neut # (Auto) 2.30 10^3/uL (1.8-7.7) 03/20/23 14:00 Lymph # (Auto) 1.3 10^3/uL (0.8-4.8) 03/20/23 14:00 [place] # (Auto) 0.6 10^3/uL (0.2-0.9) 03/20/23 14:00 Eos # (Auto) 0.2 10^3/uL (0.0-0.8) 03/20/23 14:00 Baso # (Auto) 0.1 10^3/uL (0.0-0.1) 03/20/23 14:00 Nucleated RBC % (auto) 0 % 03/20/23 14:00 Nucleated RBCs # 0.0 /100WBC 03/20/23 14:00 PT 14.10 SECONDS (12.1-14.9) 03/20/23 14:00 INR 1.06 (0.8-1.2) 03/20/23 14:00 APTT 31.8 SECONDS (23.9-36.7) 03/20/23 14:00 Sodium 139 mmol/L (136-145) 03/20/23 14:00 Potassium 4.4 mmol/L (3.5-5.1) 03/20/23 14:00 Chloride 104 mmol/L (98-107) 03/20/23 14:00 Carbon Dioxide 26 mmol/L (22-29) 03/20/23 14:00 Anion Gap 13.4 (5-19) 03/20/23 14:00 BUN 29 mg/dL (8-23) H 03/20/23 14:00 Creatinine 1.2 mg/dL (0.5-0.9) H 03/20/23 14:00 GFR Calculation Not Reportable 03/20/23 14:00 Glucose 57 mg/dL (65-115) L 03/20/23 14:00 Calculated Osmolality 292 mOsm/kg (285-295) 03/20/23 14:00 Calcium 9.0 mg/dL (8.5-10.5) 03/20/23 14:00 Total Bilirubin 0.3 mg/dL (0.15-1.2) 03/20/23 14:00 AST 17 U/L (0-32) 03/20/23 14:00 ALT 11 U/L (0-33) 03/20/23 14:00 Alkaline Phosphatase 64 U/L (35-105) 03/20/23 14:00 Troponin T Baseline 42 ng/L (0-10) H 03/20/23 14:00 NT-Pro-B Natriuret Pep 1995 pg/mL (0-450) H 03/20/23 14:00 Total Protein 5.9 g/dL (6.6-8.7) L 03/20/23 14:00 Albumin 3.6 g/dL (3.5-5.2) 03/20/23 14:00 Globulin 2.3 g/dL (1.3-4.6) 03/20/23 14:00 Critical Care Time Critical Care Time: Attestation: EKG shows sinus rhythm with left branch block [place] interval 258 QRS 142 QTc 461 Discharge Plan Discharge Patient Disposition: Home Clinical Impression: Chest pain, CHF (congestive heart failure) Condition: Stable Prescriptions: No Action hydralazine 50 mg tablet 100 mg PO TID PRN (Reason: Blood Pressure) isosorbide mononitrate 30 mg tablet extended release 24 hr 60 mg PO DAILY@08 aspirin 81 mg tablet,delayed release (DR/EC) 81 mg PO DAILY@20 Hold Instructions: Resume on 11/23/19. flaxseed oil 1,000 mg capsule 1,000 mg PO DAILY pantoprazole 40 mg tablet,delayed release (DR/EC) 40 mg PO DAILY tolterodine 4 mg capsule,extended release 24hr 4 mg PO DAILY Qty: 30 12RF (DME) OneTouch Ultra Test Strip See Rx Instructions .ROUTE .COMPLEX Qty: 100 5RF Dose Instruction: USE 1 STRIP TO CHECK GLUCOSE TWICE DAILY. DX: E11.9 Rx Instructions: USE 1 STRIP TO CHECK GLUCOSE TWICE DAILY. DX: E11.9 (DME) lancets [OneTouch Delica Plus Lancet] 33 gauge misc See Rx Instructions .ROUTE .COMPLEX Qty: 100 5RF Dose Instruction: USE 1 LANCET TO CHECK GLUCOSE TWICE DAILY Rx Instructions: USE 1 LANCET TO CHECK GLUCOSE TWICE DAILY (DME) pen needle, diabetic [BD Ultra-Fine Mini Pen Needle] 31 gauge x 3/16 needle See Rx Instructions .ROUTE .COMPLEX Qty: 100 5RF Dose Instruction: USE DIRECTED Rx Instructions: USE DIRECTED Levemir FlexTouch U-100 Insuln 100 unit/mL (3 mL) insulin pen See Rx Instructions .ROUTE .COMPLEX Dose Instruction: INJECT 30 UNITS SUBCUTANEOUSLY AT 8 IN THE EVENING Rx Instructions: INJECT 30 units SUBCUTANEOUSLY with morning meal letrozole [Femara] 2.5 mg tablet 2.5 mg PO DAILY Qty: 90 2RF anastrozole 1 mg tablet 1 mg PO DAILY mupirocin 2 % ointment 1 applic topical BID cholecalciferol (vitamin D3) 125 mcg (5,000 unit) capsule 125 mcg PO DAILY ipratropium bromide 21 mcg (0.03 %) spray,non-aerosol 2 spray intranasal TID Rx Instructions: administer into each nostril loratadine [Allergy Relief (loratadine)] 10 mg tablet 10 mg PO DAILY Qty: 30 0RF polymyxin B sulf-trimethoprim [Polytrim] 10,000 unit- 1 mg/mL drops 1 drp ophthalmic (eye) Q3H 7 Days Qty: 10 0RF Rx Instructions: while awake; do not exceed 6 doses in 24 hours doxycycline monohydrate 100 mg tablet 100 mg PO BID 7 Days Qty: 14 0RF alprazolam 0.5 mg tablet 0.5 mg PO TID Qty: 90 0RF clopidogrel 75 mg tablet 75 mg PO DAILY Qty: 30 0RF ferrous gluconate 324 mg (37.5 mg iron) tablet 324 mg PO BIDWM Qty: 60 0RF Lasix 40 mg tablet 40 mg PO QAM Qty: 30 0RF Rx Instructions: Start when body weight increases by 5lbs hydralazine 25 mg tablet 25 mg PO TID Qty: 90 0RF irbesartan 300 mg tablet 150 mg PO DAILY Qty: 30 0RF metoprolol succinate 25 mg tablet extended release 24 hr 25 mg PO DAILY Qty: 30 0RF Magnesium (oxide/AA chelate) 300 mg capsule 1 cap PO DAILY@08 atorvastatin 80 mg tablet 80 mg PO DAILY Calcium 600 600 mg calcium (1,500 mg) Tablet 600 mg PO DAILY Discharge Orders: Discharge ED (Routine); Ordered 03/20/23 Ordered By: Tina Peoples Referrals: Chaya oLng FNP [Primary Care Provider] - Oswaldo Sargent MD [Referring] - Discharge Diet: Advance as tolerated Discharge Activity: Resume usual activity Patient Instructions: Opioid Safety, Pain Management Coding Level of Care Code ED Supervisor [employer] for Jaison Anna
[2023-03-20 16:39] VITALS: BP 112/49; PULSE 59; RESP 18; O2SAT 96
[2023-03-20 17:42] LABS: Troponin 5 2HR 39.62 ng/L (0-10)
[2023-03-20 17:43] LABS: Troponin 5 2HR Delta -2.38 ABS# (0-10)
== END 2023-03-20 16:41 | disposition home or self-care (01) ==
PROVIDERS: Emergency Provider Family Medicine; PCP Nurse Practitioner Family
DX: R07.9 Chest pain, unspecified (principal); I50.9 Heart failure, unspecified; I10 Essential (primary) hypertension
CPT/HCPCS: 36415; 71045; 80053; 83880; 84484; 85025; 85610; 85730; 93005; 96372; 96374; 96375; 99285; J1650; J1940; J2270; J2405

== ENCOUNTER 2023-04-29 09:30 | Oncology outpatient (recurring) (ONCR) | payer MEDICARE, OTHER, SELFPAY ==
[2023-04-29 09:35] VITALS: BP 209/71; PULSE 80; RESP 18; TEMP 36.8; O2SAT 95
[2023-04-29 09:56] LABS: Basophils # 0.1 10^3/uL (0.0-0.1); Basophils % 0.8 %; Eosinophils # 0.1 10^3/uL (0.0-0.8); Eosinophils % 1.4 %; Hematocrit 35.7 % (37.0-47.0); Hemoglobin 11.7 g/dL (11.5-15.3); Lymphocytes % 14.5 %; Mean Corpuscular HGB Conc 32.8 g/dL (30.0-36.0); Mean Corpuscular Hemoglobin 29.7 pg (28.0-34.0); Mean Corpuscular Volume 90.6 fl (81-99); Mean Platelet Volume 11.1 fL (7.4-10.4); Monocytes # 0.5 10^3/uL (0.2-0.9); Neutrophils # 4.98 10^3/uL (1.8-7.7); Neutrophils % 74.8 %; Nucleated Red Blood Cells % 0 %; Platelet Count 175 10^3/cmm (130-400); Red Blood Count 3.94 10^6/uL (4.1-5.3); Red Cell Distribution Width 13.7 % (12.1-15.1); White Blood Count 6.6 10^3/uL (4.0-10.0)
[2023-04-29 10:20] LABS: Alanine Aminotransferase 11 U/L (0-33); Albumin Level 3.7 g/dL (3.5-5.2); Alkaline Phosphatase 73 U/L (35-105); Anion Gap 9.3 (5-19); Aspartate Amino Transferase 17 U/L (0-32); Blood Urea Nitrogen 24 mg/dL (8-23); Carbon Dioxide 30 mmol/L (22-29); Chloride 106 mmol/L (98-107); Globulin 2.5 g/dL (1.3-4.6); Glucose 131 mg/dL (65-115); Osmolality Calculated 298 mOsm/kg (285-295); Potassium 4.3 mmol/L (3.5-5.1); Sodium 141 mmol/L (136-145); Total Bilirubin 0.4 mg/dL (0.15-1.2); Total Protein 6.2 g/dL (6.6-8.7)
[2023-04-29 17:09] LABS: Estmated Average Glucose 105; Hemoglobin A1C 5.3 % (4.0-6.0)
== END 2023-05-08 23:59 | disposition home or self-care (01) ==
PROVIDERS: PCP Nurse Practitioner Family; Visit Provider Internal Medicine Medical Oncology
DX: C50.812 Malignant neoplasm of overlapping sites of left female breast (principal); Z17.0 Estrogen receptor positive status [ER+]; Z90.13 Acquired absence of bilateral breasts and nipples; C78.01 Secondary malignant neoplasm of right lung; C78.02 Secondary malignant neoplasm of left lung; Z79.818 Long term (current) use of other agents affecting estrogen receptors and estrogen levels; Z79.899 Other long term (current) drug therapy; R63.4 Abnormal weight loss; Z68.21 Body mass index [BMI] 21.0-21.9, adult; R97.8 Other abnormal tumor markers
CPT/HCPCS: 36415; 80053; 83036; 85025; 86300; 99213

== ENCOUNTER 2023-05-08 10:12 | Outpatient (CLI) | payer MEDICARE, OTHER, SELFPAY ==
--- NOTE | 2023-05-08 11:24 | XR_ITS ---
WS: [id number] Exam: XR knee LT 3V* [id number] Date/Time of Exam: 05/08/2023 11:43 AM Reason For Exam: R76.8 - Other specified abnormal immunological findings i... No fracture or dislocation. Joint compartments relatively well-maintained. No joint effusion. Osteope alexander. Vascular calcifications about the knee. IMPRESSION: 1. Osteopenia. No fracture or other significant finding.
--- NOTE | 2023-05-08 11:24 | XR_ITS ---
WS: [email or web address] Exam: XR foot RT min 3V* [id number] Date/Time of Exam: 05/08/2023 11:43 AM Reason For Exam: R76.8 - Other specified abnormal immunological findings i... No acute fracture or dislocation. Moderate degenerative changes in the IP joints, the first MP joint and the midfoot joints. Osteopenia. No soft tissue foreign bodies. Calcaneal spurs. Old fracture defo rmity of the distal third metatarsal. IMPRESSION: 1. No acute fracture. 2. Degenerative changes and osteopenia.
--- NOTE | 2023-05-08 11:24 | XR_ITS ---
WS: [id number] Exam: XR knee RT 3V* [id number] Date/Time of Exam: 05/08/2023 11:43 AM Reason For Exam: R76.8 - Other specified abnormal immunological findings i... No fracture or dislocation. No joint effusion. Mild tricompartmental DJD. Vascular calcifications abo ut the knee. Surgical clips in the medial soft tissues. Osteopenia. IMPRESSION: 1. Mild tricompartmental DJD and osteopenia.
--- NOTE | 2023-05-08 11:24 | XR_ITS ---
WS: [email or web address] Exam: XR foot LT min 3V* [id number] Date/Time of Exam: 05/08/2023 11:42 AM Reason For Exam: R76.8 - Other specified abnormal immunological findings i... No acute fracture or dislocation. Diffuse osteopenia. Degenerative changes in the IP and first MP lucius nts. Degenerative changes in the midfoot joints. No soft tissue foreign bodies are seen. Small calcan eal spurs. IMPRESSION: 1. Degenerative changes and osteopenia. No fracture.
[2023-05-08 12:16] LABS: Estmated Average Glucose 100; Hemoglobin A1C 5.1 % (4.0-6.0)
[2023-05-09 11:39] LABS: COMPLEMENT COMPONENT C3C 93 mg/dL; COMPLEMENT COMPONENT C4C 17 mg/dL
[2023-05-09 14:25] LABS: CENTROMERE B ANTIBODY <1.0 NEG AI (<1.0 NEG); JO-1 ANTIBODY <1.0 NEG AI (<1.0 NEG); RNP ANTIBODY 1.6 POS AI (<1.0 NEG); SCL-70 ANTIBODY <1.0 NEG AI (<1.0 NEG); SJOGREN'S ANTIBODY (SS-A) <1.0 NEG AI (<1.0 NEG); SM ANTIBODY <1.0 NEG AI (<1.0 NEG); SS-B <1.0 NEG AI (<1.0 NEG)
[2023-05-09 15:00] LABS: COMPLEMENT, TOTAL (CH50) 35 U/mL (31-60)
[2023-05-09 15:03] LABS: Cyclic Citrullinated Peptide <16 UNITS
[2023-05-13 09:19] LABS: THYROID PEROXIDASE ANTIBODIES 4 IU/mL (<9); Thyroglobulin AB 756 IU/mL (< or = 1)
[2023-05-14 08:59] LABS: ANA PATTERN Nuclear, Speckled; ANA SCREEN, IFA POSITIVE (NEGATIVE)
[2023-05-15 22:23] LABS: DNA AB (DS) CRITHIDIA,IFA NEGATIVE (NEGATIVE)
== END 2023-05-08 10:13 | disposition home or self-care (01) ==
PROVIDERS: Absent Provider Nurse Practitioner Family; PCP Nurse Practitioner Family; Visit Provider Internal Medicine Rheumatology
DX: R76.8 Other specified abnormal immunological findings in serum; E11.39 Type 2 diabetes mellitus with other diabetic ophthalmic complication; M17.11 Unilateral primary osteoarthritis, right knee; M85.89 Other specified disorders of bone density and structure, multiple sites; M19.042 Primary osteoarthritis, left hand; M19.041 Primary osteoarthritis, right hand; Z79.899 Other long term (current) drug therapy; Z85.3 Personal history of malignant neoplasm of breast
CPT/HCPCS: 36415; 73562; 73630; 83036; 86160; 86162; 86200; 86235; 86255; 86376; 86800; 99204

== ENCOUNTER 2023-05-11 07:16 | Observation (INO) | payer MEDICARE, OTHER, SELFPAY ==
[2023-05-11] VITALS (37 sets, daily range): BP systolic 139–202; BP diastolic 64–95; PULSE 65–88; RESP 13–24; TEMP 36.3–36.9; O2SAT 93–99
--- NOTE | 2023-05-11 07:20 | ECG_ITS ---
[facility] Test Date: 2023-05-11 Pat Name: Reyna Lopez Department: Room: Gender: Female Executive Assistant: : 1935 Requested By: Barb Knight Order Number: [id number] Mitchell MD: Tj Anderson M.D. Measurements Intervals [place] Rate: 84 P: 87 [place]: 233 QRS: -57 QRSD: 144 T: 86 QT: 404 QTc: 479 Interpretive Statements SINUS RHYTHM WITH FIRST DEGREE AV BLOCK LEFT AXIS DEVIATION [QRS AXIS < -30] LEFT BUNDLE BRANCH BLOCK [120+ ms QRS DURATION, 80+ ms Q/S IN V1/V2, 85+ ms R IN I/aVL/V5/V6] Compared to ECG 03/20/2023 13:38:15 No significant changes Electronically Signed On 05-11-2023 9:26:00 CDT by Tj Anderson M.D. [email or web address]/[id number] f
--- NOTE | 2023-05-11 07:22 | XRR_ITS ---
PROCEDURE INFORMATION: Exam: XR Chest Exam date and time: 05/11/2023 7:48 AM Age: 87 years old Clinical indication: Pain; Chest pressure; Prior surgery; Surgery date: 6+ months; Surgery type: Bypass; Additional info: Chest pain TECHNIQUE: Imaging protocol: Radiologic exam of the chest. Views: 1 view. COMPARISON: CR XR chest 1V portable [id number] 03/20/2023 2:13 PM FINDINGS: Lungs: The lungs are somewhat hyperinflated with increased interstitial markings, likely representing COPD. Streaky bibasilar atelectasis noted. No evidence of focal consolidation to suggest pneumonia. Pleural spaces: Unremarkable. No pleural effusion. No pneumothorax. Heart/Mediastinum: Stable cardiomediastinal silhouette. The patient is status post CABG. Bones/joints: Median sternotomy changes seen. XR/XR chest 1V portable [id number] IMPRESSION: No evidence of focal consolidation. COPD changes.
[2023-05-11 07:42] LABS: Basophils # 0.1 10^3/uL (0.0-0.1); Basophils % 0.9 %; Eosinophils # 0.1 10^3/uL (0.0-0.8); Eosinophils % 2.1 %; Hematocrit 36.3 % (36-47); Lymphocytes # 1.5 10^3/uL (0.8-4.8); Lymphocytes % 28.3 %; Mean Corpuscular HGB Conc 33.9 g/dL (30-55); Mean Corpuscular Hemoglobin 29.9 pg (27-33); Mean Corpuscular Volume 88.1 fl (85-98); Mean Platelet Volume 12.4 fL (7.4-10.4); Monocytes # 0.5 10^3/uL (0.2-0.9); Monocytes % 10.2 %; Neutrophils # 3.09 10^3/uL (1.8-7.7); Neutrophils % 58.3 %; Nucleated Red Blood Cells % 0 %; Platelet Count 163 10^3/cmm (157-399); Red Blood Count 4.12 10^6/uL (3.85-5.65); Red Cell Distribution Width 13.6 % (12.1-15.1)
[2023-05-11 07:54] LABS: INR 0.98 (0.8-1.2)
[2023-05-11 07:55] LABS: Partial Thromboplastin Time 31.2 SECONDS (23.9-36.7)
[2023-05-11] MEDS: LORazepam 2 mg/mL INJ 1 mL 0.5 MG IVP (08:00)
--- NOTE | 2023-05-11 08:06 | ED_ITS ---
HPI - Chest Pain General: Chief Complaint: Chest Pain Stated Complaint: CHEST PAIN Time Seen by Provider: 05/11/23 07:19 History of Present Illness: This patient is an 87 year old presenting by EMS with chest pain. She was awakened by chest pain early this morning and took 3 of her own nitro without relief. She also reports a sharp pain in her head that has since resolved. EMS gave her additional nitro and placed 2 inches of nitro paste - and her pain was a 1 on arrival to the ED - and was gone on my evaluation. She has a cardiac history of a CABG and a stress test in March showing a moderate signed area of ischemia with an EF in the 30's. She sees Dr. Sargent in [place] and he told her that she might not survive and angiogram so it wasn't worth the risk. She also tells me that she has been on xanax 3 times daily and has been trying to stop taking them. I can't get a good history as to how consistently she was taking the full three doses - she does say that she only took it once a day for the last two days - with last night being the last dose. She is complaining of feeling anxious now and would like something for that. She denies any recent illness. No leg pain or swelling. She has chronic shortness of breath and it doesn't seem to be worse than usual. She denies nausea this morning. She notes that sometimes after she eats she vomits up slime . Her daughters say that has been going on for a long time and she has been evaluated for it before. 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 Performed by Dr. Clark. History of back surgery Treatment of bone spurs. Performed by Dr. Gray in [place], [place] History of carpal tunnel release of both wrists History of cataract surgery Bilateral History of hip replacement (~2006) Left. Performed by Dr. Lovelace History of hip replacement (06/19/16) Performed by Dr. Lovelace Previous back surgery (08/22/14) [address]formed [address] Ramsay at [facility] in [place], [place] S/P appendectomy Status post surgical removal and fulguration of bladder neoplasm Family History Father Stroke Mother Ovarian cancer Sister Breast cancer Diabetes Hypertension Brother Heart disease Diabetes Social History Smoking and tobacco status: former smoker Quit status (tobacco): has quit using tobacco Year quit tobacco: 1979 Former quit date comment: 10-15 years smoked Alcohol intake: never Substance/Drug Use: never Adopted: No Lives independently: Yes Household members: none Housing: House Marital status: / Current occupational status: retired Current occupation: disabled Do you think of yourself as: Straight/Heterosexual Current gender identity: Female Physical Exam Const: COMMON NORMALS: no acute distress, patient oriented x3, no limitations and alert GENERAL APPEARANCE: cooperative HENMT: HEAD & SCALP: normal to inspection FACE & SINUS: normal facial exam Eye: GENERAL EYE: appearance normal, both eyes and all related structures Neck/C-Spine: COMMON NORMALS: supple, no meningeal signs and no JVD Chest: OTHER: midline scar consistent with CABG. Mastectomy consist with history of breast cancer Resp: COMMON NORMALS: normal respiratory effort, No use of accessory muscles and clear to auscultation bilaterally AUSCULTATION: clear to auscultation bilaterally Cardio: COMMON NORMALS: no JVD, regular rate, regular rhythm and No murmurs present (Cardio) RATE: regular rate RHYTHM: regular rhythm GI: COMMON NORMALS: Normal to inspection, nondistended, normoactive bowel sounds present, Soft to palpation and non-tender INSPECTION: Yes normal to inspection AUSCULTATION: Yes normoactive bowel sounds PALPATION: Yes Soft to palpation Back/Pelvis: COMMON NORMALS: thoracic and lumbar spine normal to inspection Extremity: COMMON NORMALS: normal to inspection Neuro: COMMON NORMALS: patient oriented x3, moves all extremities, no focal motor deficits and no sensory deficits noted SENSORIUM/ORIENTATION: Yes alert MENINGEAL SIGNS: Yes no meningeal signs Psych: COMMON NORMALS: mental status grossly normal and cooperative OTHER: anxious, some confusion on details of history Skin: COMMON NORMALS: no rashes or lesions noted and turgor normal GENERAL SKIN EXAM: no rashes or lesions noted and turgor normal Course Vital Signs: Vital signs: Vital Signs Temperature 97.4 F L 05/11/23 16:00 Pulse Rate 79 05/11/23 16:00 Respiratory Rate 17 05/11/23 16:00 Blood Pressure 139/66 05/11/23 16:00 Pulse Oximetry 97 05/11/23 16:00 Oxygen Delivery Me thod Room Air 05/11/23 16:00 Oxygen Flow Rate 1 05/11/23 10:30 Fraction of Inspir ed Oxygen 1 05/11/23 10:00 MDM - Chest Pain Medical Decision Making This patient is an 87 year old with known coronary artery disease, recent positive stress test with poor EF. She is pain free after nitor SL and has 2 nitro paste on currently. Her BP is still 203/73. I will give her some ativan, as her attempts to stop benzos could be cause some degree of withdrawal. Labs pending. Will discuss angiogram with patient and family - as of now they seem decided that it is not an option. Patient prefers to be admitted and hospitalist will admit. I also called cardiology for a consult and second opinion as I see no reason that she couldn't tolerate a cath. Lab Data 05/11/23 07:31 05/11/23 07:31 Radiology Impressions Chest X-Ray 05/11/23 07:22 IMPRESSION: No evidence of focal consolidation. COPD changes. Laboratory Results WBC 5.30 10^3/uL (3.29-11.43) 05/11/23 07:31 RBC 4.12 10^6/uL (3.85-5.65) 05/11/23 07:31 Hgb 12.30 g/dL (11.27-16.99) 05/11/23 07:31 Hct 36.3 % (36-47) 05/11/23 07:31 MCV 88.1 fl (85-98) 05/11/23 07:31 MCH 29.9 pg (27-33) 05/11/23 07:31 MCHC 33.9 g/dL (30-55) 05/11/23 07:31 RDW 13.6 % (12.1-15.1) 05/11/23 07:31 Plt Count 163 10^3/cmm (157-399) 05/11/23 07:31 MPV 12.4 fL (7.4-10.4) H 05/11/23 07:31 Neut % (Auto) 58.3 % 05/11/23 07:31 Lymph % (Auto) 28.3 % 05/11/23 07:31 [place] % (Auto) 10.2 % 05/11/23 07:31 Eos % (Auto) 2.1 % 05/11/23 07:31 Baso % (Auto) 0.9 % 05/11/23 07:31 Neut # (Auto) 3.09 10^3/uL (1.8-7.7) 05/11/23 07:31 Lymph # (Auto) 1.5 10^3/uL (0.8-4.8) 05/11/23 07:31 [place] # (Auto) 0.5 10^3/uL (0.2-0.9) 05/11/23 07:31 Eos # (Auto) 0.1 10^3/uL (0.0-0.8) 05/11/23 07:31 Baso # (Auto) 0.1 10^3/uL (0.0-0.1) 05/11/23 07:31 Nucleated RBC % (auto) 0 % 05/11/23 07: Nucleated RBCs # 0.0 /100WBC 05/11/23 07:31 PT 13.20 SECONDS (12.1-14.9) 05/11/23 07:31 INR 0.98 (0.8-1.2) 05/11/23 07:31 APTT 31.2 SECONDS (23.9-36.7) 05/11/23 07:31 Sodium 139 mmol/L (136-145) 05/11/23 07:31 Potassium 4.1 mmol/L (3.5-5.1) 05/11/23 07:31 Chloride 105 mmol/L (98-107) 05/11/23 07:31 Carbon Dioxide 25 mmol/L (22-29) 05/11/23 07:31 Anion Gap 13.1 (5-19) 05/11/23 07:31 BUN 30 mg/dL (8-23) H 05/11/23 07:31 Creatinine 1.0 mg/dL (0.5-0.9) H 05/11/23 07:31 GFR Calculation Not Reportable 05/11/23 07:31 Glucose 118 mg/dL (65-115) H 05/11/23 07:31 Calculated Osmolality 295 mOsm/kg (285-295) 05/11/23 07:31 Calcium 9.4 mg/dL (8.5-10.5) 05/11/23 07:31 Total Bilirubin 0.4 mg/dL (0.15-1.2) 05/11/23 07:31 AST 18 U/L (0-32) 05/11/23 07:31 ALT 10 U/L (0-33) 05/11/23 07:31 Alkaline Phosphatase 73 U/L (35-105) 05/11/23 07:31 Troponin T Baseline 49 ng/L (0-10) H 05/11/23 07:31 Troponin T 120 Minute 53.61 ng/L (0-10) H 05/11/23 09:38 Delta Troponin T 4.61 ABS# (0-10) 05/11/23 09:38 NT-Pro-B Natriuret Pep 1716 pg/mL (0-450) H 05/11/23 07:31 Total Protein 6.2 g/dL (6.6-8.7) L 05/11/23 07:31 Albumin 4.0 g/dL (3.5-5.2) 05/11/23 07:31 Globulin 2.2 g/dL (1.3-4.6) 05/11/23 07:31 Lipase 77 U/L (13-60) H 05/11/23 07:31 Discharge Plan Discharge Patient Disposition: Admitted As Inpatient Admit Provider: Bon Chung Clinical Impression: Chest pain, CAD (coronary artery disease), Unstable angina, Hypertension, essential Condition: Stable Coding Level of Care Code ED Charge Gang Weigher for Jaison Anna
[2023-05-11 08:16] LABS: Troponin(5th) Baseline 49 ng/L (0-10)
[2023-05-11 08:25] LABS: Alanine Aminotransferase 10 U/L (0-33); Alkaline Phosphatase 73 U/L (35-105); Anion Gap 13.1 (5-19); Aspartate Amino Transferase 18 U/L (0-32); Blood Urea Nitrogen 30 mg/dL (8-23); Calcium 9.4 mg/dL (8.5-10.5); Carbon Dioxide 25 mmol/L (22-29); Chloride 105 mmol/L (98-107); Creatinine Clr Calc Pharmacy 33.7364; Globulin 2.2 g/dL (1.3-4.6); Glucose 118 mg/dL (65-115); Lipase 77 U/L (13-60); NT Pro B Type Natriuretic Pept 1716 pg/mL (0-450); Osmolality Calculated 295 mOsm/kg (285-295); Potassium 4.1 mmol/L (3.5-5.1); Sodium 139 mmol/L (136-145); Total Bilirubin 0.4 mg/dL (0.15-1.2); Total Protein 6.2 g/dL (6.6-8.7)
--- NOTE | 2023-05-11 09:31 | ECG_ITS ---
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1935 Requested By: Barb Knight Order Number: [id number] Reading MD: Flaco Brown Measurements Intervals [place] Rate: 79 P: 72 IA: 232 QRS: -60 QRSD: 148 T: 94 QT: 439 QTc: 505 Interpretive Statements SINUS RHYTHM WITH FIRST DEGREE AV BLOCK LEFT AXIS DEVIATION [QRS AXIS < -30] LEFT BUNDLE BRANCH BLOCK [120+ ms QRS DURATION, 80+ ms Q/S IN V1/V2, 85+ ms R IN I/aVL/V5/V6] Compared to ECG 05/11/2023 07:20:50 No significant changes Electronically Signed On 05-11-2023 13:12:29 CDT by Flaco Brown [id number]
[2023-05-11 10:17] LABS: Troponin 5 2HR 53.61 ng/L (0-10)
[2023-05-11 10:24] LABS: Troponin 5 2HR Delta 4.61 ABS# (0-10)
--- NOTE | 2023-05-11 13:23 | ECG_ITS ---
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1935 Requested By: Barb Knight Order Number: [id number] Reading MD: Flaco Brown Measurements Intervals [place] Rate: 70 P: 186 NE: 241 QRS: 236 QRSD: 148 T: 81 QT: 450 QTc: 487 Interpretive Statements SINUS RHYTHM WITH FIRST DEGREE AV BLOCK ARM LEADS REVERSED [INVERTED P AND QRS IN I] Compared to ECG 05/11/2023 09:31:31 Left-axis deviation no longer present Electronically Signed On 05-11-2023 17:02:23 CDT by Flaco Brown [id number]
--- NOTE | 2023-05-11 15:13 | PM.HP ---
Providers/Chief Complaint Admitting Physician: Bon Chung Primary Care Provider: EMLIY Marrero Chief Complaint: CHEST PAIN History of Present Illness Reyna Lopez is a 87 year old lady with history of CAD, CABG, cardiomyopathy, EF 30%, left bundle branch block, difficult to control hypertension, CKD, other comorbidities came in due to chest pain/heaviness, central, which she has been having on and off, but it worse significantly worse today, required multiple doses of nitroglycerin and Nitropaste but then resolved. Currently pain-free. States the pain was not affected by movement, inspiration, has not been coughing, no hemoptysis, no unilateral swelling, no injuries. In ED moderate troponin elevation 53-55 at 2 hours. Otherwise states that she has been having chronic back pain, as well as chronic issues with her toes due to diabetes. She occasionally coughs up some mucus, occasional chronic intermittent cough, without worsening. Legs sometimes swell when they are left down, not currently. Review of Systems Const: Denies: fever(s), chills, body aches or malaise ENMT: Denies: throat pain Card: Reports: chest pain; Denies: edema, pre-syncope or dyspnea on exertion Resp: Denies: dyspnea, productive cough, change in phlegm color or hemoptysis GI: Denies: abdominal pain, nausea, vomiting, diarrhea, constipation, hematochezia or melena : Denies: flank pain, urinary frequency or hematuria Musc: Denies: back pain, joint swelling or joint redness Skin/Breast: Denies: rash or new lesions Neuro: Denies: headache(s), numbness in extremities, weakness in extremities, dizziness, confusion or seizure-like activity Medications/Allergies Home Medications Medication Instructions Recorded Confirmed Last Taken Type aspirin 81 mg tablet,delayed 81 mg PO DAILY@09/17/19 05/11/23 05/10/23 History release isosorbide mononitrate 30 mg 60 mg PO DAILY@09/17/19 05/11/23 05/10/23 History tablet,extended release 24 hr magnesium oxide-magnesium amino 1 cap PO DAILY@05/21/21 05/11/23 05/10/23 History acid chelate 300 mg capsule (Magnesium (oxide/AA chelate)) blood sugar diagnostic ([facility] ea 09/12/22 05/11/23 Unknown Rx Ultra Test strips) lancets 33 gauge (OneTouch Delica #100 ea 09/12/22 05/11/23 Unknown Rx Plus Lancet) pen needle, diabetic 31 gauge x #100 ea 09/12/22 05/11/23 Unknown Rx 3/16 (BD Ultra-Fine Mini Pen Needle) letrozole 2.5 mg tablet (Femara) 2.5 mg PO DAILY #90 tabs 10/22/22 05/11/23 05/10/23 Rx hydralazine 50 mg tablet 100 mg PO TID PRN Blood Pressure 01/28/23 05/11/23 05/10/23 History ipratropium bromide 21 mcg (0.03 2 spray intranasal TID 01/28/23 05/11/23 05/10/23 History %) nasal spray mupirocin 2 % topical ointment 1 applic topical BID 01/28/23 05/11/23 05/10/23 History atorvastatin 80 mg tablet 80 mg PO DAILY 02/01/23 05/11/23 05/10/23 History calcium carbonate 600 mg calcium 600 mg PO DAILY 02/01/23 05/11/23 05/10/23 History (1,500 mg) tablet (Calcium) furosemide 40 mg tablet (Lasix) 40 mg PO QAM #30 tabs 03/28/23 05/11/23 05/10/23 Rx irbesartan 300 mg tablet 150 mg PO DAILY #30 tabs 03/28/23 05/11/23 05/10/23 Rx metoprolol succinate 25 mg 25 mg PO DAILY #30 tabs 03/28/23 05/11/23 05/10/23 Rx tablet,extended release 24 hr hydralazine 25 mg tablet See Rx Instructions .Route 04/04/23 05/11/23 05/10/23 Rx .COMPLEX #90 tabs ferrous gluconate 324 mg (37.5 mg 324 mg PO BIDWM #60 tabs 04/09/23 05/11/23 05/10/23 Rx iron) tablet alprazolam 0.5 mg tablet 0.5 mg PO TID #90 tabs 04/14/23 05/11/23 05/10/23 Rx insulin detemir U-100 100 unit/mL See Rx Instructions .Route 04/14/23 05/11/23 05/10/23 Rx (3 mL) subcutaneous pen (Levemir .COMPLEX #15 mL FlexPen) clopidogrel 75 mg tablet See Rx Instructions .Route 04/28/23 05/11/23 05/10/23 Rx .COMPLEX #30 tabs mecobalamin (vitamin B12) 2,500 See Rx Instructions PO .COMPLEX 04/29/23 05/11/23 05/10/23 History mcg chewable tablet pantoprazole 40 mg tablet,delayed See Rx Instructions .Route 05/05/23 05/11/23 05/10/23 Rx release .COMPLEX #30 tabs diltiazem HCl 180 mg 180 mg PO DAILY 05/11/23 05/11/23 05/10/23 History capsule,extended release 24 hr famotidine 20 mg tablet 20 mg PO BID 05/11/23 05/11/23 05/10/23 History Allergies Allergy/AdvReac Type Severity Reaction Status Date / Time cephalexin Allergy Unknown Verified 05/11/23 08:58 PFSH Acute PFSH: Medical History (Updated 05/11/23 @ 17:05 by Bon Chung MD) Asthma Atherosclerosis of [place] coronary artery Benzodiazepine dependence, continuous Bladder cancer Carotid stenosis, asymptomatic TYRONE (generalized anxiety disorder) Hyperlipidemia Hypertension, essential Insomnia 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 Performed by Dr. Clark. History of back surgery Treatment of bone spurs. Performed by Dr. Gray in [place], [place] History of carpal tunnel release of both wrists History of cataract surgery Bilateral History of hip replacement (~2006) Left. Performed by Dr. Lovelace History of hip replacement (06/19/16) Performed by Dr. Lovelace Previous back surgery (08/22/14) [address]formed [address] Ramsay at [facility] in [place], [place] S/P appendectomy Status post surgical removal and fulguration of bladder neoplasm Family History Father Stroke Mother Ovarian cancer Sister Breast cancer Diabetes Hypertension Brother Heart disease Diabetes Social History Smoking and tobacco status: former smoker Quit status (tobacco): has quit using tobacco Year quit tobacco: 1979 Former quit date comment: 10-15 years smoked Alcohol intake: never Substance/Drug Use: never Adopted: No Lives independently: Yes Household members: none Housing: House Marital status: / Current occupational status: retired Current occupation: disabled Do you think of yourself as: Straight/Heterosexual Current gender identity: Female Vitals/I&O/Wt Last Vital Signs Pulse 81 05/11/23 14:48 Resp 16 05/11/23 14:48 BP 197/79 05/11/23 14:48 Pulse Ox 96 05/11/23 14:48 O2 Flow Rate 1 05/11/23 10:30 FiO2 1 05/11/23 10:00 Weight last 48 hrs Weight 55.338 kg Physical Exam Narrative: Accompanied by family including her daughter. Const: COMMON NORMALS: patient oriented x3 and alert GENERAL APPEARANCE: cooperative ORIENTATION/CONSCIOUSNESS: Yes awake HENMT: COMMON NORMALS: oropharynx normal Neck/C-Spine: COMMON NORMALS: no JVD Chest: OTHER: CABG scar Resp: COMMON NORMALS: normal respiratory effort and clear to auscultation bilaterally AUSCULTATION: clear to auscultation bilaterally Cardio: COMMON NORMALS: no JVD, regular rhythm, S1 normal heart sound present, S2 normal heart sound present and No murmurs present (Cardio) RHYTHM: regular rhythm HEART SOUNDS: S1 normal heart sound present and S2 normal heart sound present GI: COMMON NORMALS: Normal to inspection, nondistended, normoactive bowel sounds present, Soft to palpation and non-tender PALPATION: Yes Soft to palpation Extremity: COMMON NORMALS: no joint enlargement and no pedal edema Neuro: COMMON NORMALS: patient oriented x3 and moves all extremities SENSORIUM/ORIENTATION: Yes alert Skin: COMMON NORMALS: no rashes or lesions noted GENERAL SKIN EXAM: no rashes or lesions noted Data 05/11/23 07:31 05/11/23 07:31 A&P Assessment and plan (1) Chest pain: Controlled she has tenderness, pain, resolved with nitroglycerin. Moderate troponin elevation. Underlying CAD, cardiomyopathy. Elevated risk of ischemic heart disease, prior abnormal stress test. Has been following up with cardiology in [place], they have considered angiography, although at that time it was deferred due to risks. Complete troponin EKG series. We will assess with TTE. Cardiology consultation is requested with regards to consideration of additional assessment with angiography given symptoms and risks. He normally follows with Dr. 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 Monitor on telemetry. Nitroglycerin, analgesics as needed. Continue aspirin, Plavix, beta-darnell, statin, Imdur. Her blood pressure also has been fluctuating with some episodes of very high readings. Would benefit from optimization as may be contributing to symptoms. Monitor blood pressure. Hold letrozole for now. (2) Hypertension, essential: Monitor blood pressures. Continue ARB, hydralazine, BB, Imdur, Cardizem Plan DM2: Continue insulin. Accu-Cheks requested. Consistent carb diet. CKD: Monitor renal function GERD: Appears to be both on Protonix and famotidine? Please visit with her, not resuming famotidine for now. Asthma: Not in exacerbation Chronic back pain HLD: Continue statin History of bladder cancer History of breast cancer TYRONE Other medical problems Attestations Medical Necessity Statement*: Place in observation for additional assessment management of chest pain in a lady with underlying CAD, cardiomyopathy, abnormal stress test, advanced age, multiple comorbidities as above. Coding Level of Care Code Acute Code for [facility] Fwd Diagnoses Chest pain R07.9 Hypertension, essential I10
[2023-05-11] MEDS: enoxaparin 30 mg/0.3 mL Syringe SUBCUT (16:20)
[2023-05-11 16:47] LABS: Glucose Point of Care 224 mg/dL (70-110)
--- NOTE | 2023-05-11 16:58 | USCV_ITS ---
Reyna Lopez Age: 87 Gender: F : 1935 Exam Date: 05/11/2023 18:33 Ordering Phys: Bon Chung MD Technologist: Zeyad Moore [place] [facility] [place]: chest pain BP: 139 / 66 HR: 79 Rhythm: Sinus Technical Quality: Adequate MEASUREMENTS (Male / Female) Normal Values 2D ECHO LVOT Diameter 2.0 cm LV Ejection Fraction MOD 2C 60.1 % LV Ejection Fraction 2C AL 59.9 % LA Diameter 3.9 cm LA Width 3.8 cm LA Height 4.3 cm RA Width 3.1 cm RA Height 4.1 cm Aorta at Sinotubular Diameter 1.9 cm IVC Diameter 1.6 cm M-MODE Aortic Annulus Diameter 2.3 cm LA Ao Ratio MM 1.6 MV E Point Septal Separation 0.5 cm DOPPLER AV Peak Velocity 138.7 cm/s LVOT Peak Velocity 90.0 cm/s AV Area Cont Eq vti 1.8 cm squared AV Area Cont Eq pk 2.1 cm squared MV Peak Velocity 149.0 cm/s MV Area PHT 5.0 cm squared Mitral E to A Ratio 0.4 MV E' Velocity 32.0 cm/s Mitral E to MV E' Ratio 8.1 Mitral E to LV E' Lateral Ratio 8.5 Mitral E to LV E' Septal Ratio 7.9 TR Peak Velocity 141.3 cm/s TR Peak Gradient 8.0 mmHg TR Mean Velocity 116.3 cm/s TR Mean Gradient 5.7 mmHg TR Velocity Time Integral 31.3 cm Right Atrial Pressure 3.0 mmHg Pulmonary Artery Systolic Pressu 11.0 mmHg PV Peak Velocity 170.3 cm/s RV Acceleration Time 0.1 s RV Ejection Time 0.3 s RV AcT/ET 0.4 FINDINGS Left Ventricle Normal left ventricular size and systolic function, EF 62 %. Mild left ventricular hypertrophy. Grade I/IV diastolic dysfunction (abnormal relaxation filling pattern), normal to mildly elevated filling pressures. Right Ventricle Normal right ventricular size and systolic function. Right Atrium Normal right atrial size. Left Atrium Mildly increased left atrial size. Mitral Valve Mild mitral annular calcification. Aortic Valve Mild aortic valve calcification. Tricuspid Valve Structurally normal tricuspid valve. Trace tricuspid valve regurgitation. Pulmonic Valve Structurally normal pulmonic valve. Pericardium No pericardial effusion. Aorta Normal aorta. IVC Normal inferior vena cava. CONCLUSIONS Normal left ventricular size and systolic function, EF 62 %. Mild left ventricular hypertrophy. Grade I/IV diastolic dysfunction (abnormal relaxation filling pattern), normal to mildly elevated filling pressures. Flaco Brown MD (Electronically Signed) Final Date: 12 May 2023 04:40 S
--- NOTE | 2023-05-11 17:25 | PM.HP ---
Providers/Chief Complaint Admitting Physician: Bon Chung Primary Care Provider: EMILY Marrero Chief Complaint: CHEST PAIN History of Present Illness Reyna Lopez is a 87 year old female with a known history of high blood pressure, high cholesterol, type 2 diabetes. She has presented numerous times with complaints of substernal chest discomfort both as an outpatient and to the emergency room. She underwent an outpatient stress imaging study which showed reversible ischemia. Due to her advanced age it was recommended medical therapy be trialed by her primary home security alarm installer in [place]. She has since been to the emergency room with recurrent symptoms despite therapy with aspirin clopidogrel long-acting nitrates beta-blockers and calcium channel blockers. Her quality of life continues to deteriorate. She cannot do anything without getting short of breath or substernal chest discomfort. She presented to the emergency room earlier today with substernal chest discomfort that just would not quit. It finally subsided. Troponins have become mildly positive. Cardiology was consulted to consider further evaluation and care. Review of Systems Const: Denies: fever(s), chills, body aches or malaise ENMT: Denies: throat pain Card: Reports: chest pain; Denies: edema, pre-syncope or dyspnea on exertion Resp: Denies: dyspnea, productive cough, change in phlegm color or hemoptysis GI: Denies: abdominal pain, nausea, vomiting, diarrhea, constipation, hematochezia or melena : Denies: flank pain, urinary frequency or hematuria Musc: Denies: back pain, joint swelling or joint redness Skin/Breast: Denies: rash or new lesions Neuro: Denies: headache(s), numbness in extremities, weakness in extremities, dizziness, confusion or seizure-like activity Medications/Allergies Home Medications Medication Instructions Recorded Confirmed Last Taken Type aspirin 81 mg tablet,delayed 81 mg PO DAILY@09/17/19 05/11/23 05/10/23 History release isosorbide mononitrate 30 mg 60 mg PO DAILY@09/17/19 05/11/23 05/10/23 History tablet,extended release 24 hr magnesium oxide-magnesium amino 1 cap PO DAILY@05/21/21 05/11/23 05/10/23 History acid chelate 300 mg capsule (Magnesium (oxide/AA chelate)) blood sugar [facility] ([facility]a 09/12/22 05/11/23 Unknown Rx Ultra Test strips) lancets 33 gauge (OneTouch Delica #100 ea 09/12/22 05/11/23 Unknown Rx Plus Lancet) pen needle, diabetic 31 gauge x #100 ea 09/12/22 05/11/23 Unknown Rx 3/16 (BD Ultra-Fine Mini Pen Needle) letrozole 2.5 mg tablet (Femara) 2.5 mg PO DAILY #90 tabs 10/22/22 05/11/23 05/10/23 Rx hydralazine 50 mg tablet 100 mg PO TID PRN Blood Pressure 01/28/23 05/11/23 05/10/23 History ipratropium bromide 21 mcg (0.03 2 spray intranasal TID 01/28/23 05/11/23 05/10/23 History %) nasal spray mupirocin 2 % topical ointment 1 applic topical BID 01/28/23 05/11/23 05/10/23 History atorvastatin 80 mg tablet 80 mg PO DAILY 02/01/23 05/11/23 05/10/23 History calcium carbonate 600 mg calcium 600 mg PO DAILY 02/01/23 05/11/23 05/10/23 History (1,500 mg) tablet (Calcium) furosemide 40 mg tablet (Lasix) 40 mg PO QAM #30 tabs 03/28/23 05/11/23 05/10/23 Rx irbesartan 300 mg tablet 150 mg PO DAILY #30 tabs 03/28/23 05/11/23 05/10/23 Rx metoprolol succinate 25 mg 25 mg PO DAILY #30 tabs 03/28/23 05/11/23 05/10/23 Rx tablet,extended release 24 hr hydralazine 25 mg tablet See Rx Instructions .Route 04/04/23 05/11/23 05/10/23 Rx .COMPLEX #90 tabs ferrous gluconate 324 mg (37.5 mg 324 mg PO BIDWM #60 tabs 04/09/23 05/11/23 05/10/23 Rx iron) tablet alprazolam 0.5 mg tablet 0.5 mg PO TID #90 tabs 04/14/23 05/11/23 05/10/23 Rx insulin detemir U-100 100 unit/mL See Rx Instructions .Route 04/14/23 05/11/23 05/10/23 Rx (3 mL) subcutaneous pen (Levemir .COMPLEX #15 mL FlexPen) clopidogrel 75 mg tablet See Rx Instructions .Route 04/28/23 05/11/23 05/10/23 Rx .COMPLEX #30 tabs mecobalamin (vitamin B12) 2,500 See Rx Instructions PO .COMPLEX 04/29/23 05/11/23 05/10/23 History mcg chewable tablet pantoprazole 40 mg tablet,delayed See Rx Instructions .Route 05/05/23 05/11/23 05/10/23 Rx release .COMPLEX #30 tabs diltiazem HCl 180 mg 180 mg PO DAILY 05/11/23 05/11/23 05/10/23 History capsule,extended release 24 hr famotidine 20 mg tablet 20 mg PO BID 05/11/23 05/11/23 05/10/23 History Allergies Allergy/AdvReac Type Severity Reaction Status Date / Time cephalexin Allergy Unknown Verified 05/11/23 08:58 PFSH Acute PFSH: Medical History (Updated 05/11/23 @ 17:38 by Flaco Brown MD) Asthma Atherosclerosis of [place] coronary artery Benzodiazepine dependence, continuous Bladder cancer Carotid stenosis, asymptomatic TYRONE (generalized anxiety disorder) Hyperlipidemia Hypertension, essential Insomnia 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 Performed by Dr. Clark. History of back surgery Treatment of bone spurs. Performed by Dr. Gray in [place], [place] History of carpal tunnel release of both wrists History of cataract surgery Bilateral History of hip replacement (~2006) Left. Performed by Dr. Lovelace History of hip replacement (06/19/16) Performed by Dr. Lovelace Previous back surgery (08/22/14) [address]formed [address] Ramsay at [facility] in [place], [place] S/P appendectomy Status post surgical removal and fulguration of bladder neoplasm Family History Father Stroke Mother Ovarian cancer Sister Breast cancer Diabetes Hypertension Brother Heart disease Diabetes Social History Smoking and tobacco status: former smoker Quit status (tobacco): has quit using tobacco Year quit tobacco: 1979 Former quit date comment: 10-15 years smoked Alcohol intake: never Substance/Drug Use: never Adopted: No Lives independently: Yes Household members: none Housing: House Marital status: / Current occupational status: retired Current occupation: disabled Do you think of yourself as: Straight/Heterosexual Current gender identity: Female Vitals/I&O/Wt Last Vital Signs Temp 97.4 F L 05/11/23 16:00 Pulse 79 05/11/23 16:00 Resp 17 05/11/23 16:00 BP 139/66 05/11/23 16:00 Pulse Ox 97 05/11/23 16:00 O2 Del Method Room Air 05/11/23 16:00 O2 Flow Rate 1 05/11/23 10:30 FiO2 1 05/11/23 10:00 Weight last 48 hrs Weight 122 lb Physical Exam Narrative: Accompanied by family including her daughter. Const: COMMON NORMALS: patient oriented x3 and alert GENERAL APPEARANCE: cooperative ORIENTATION/CONSCIOUSNESS: Yes awake HENMT: COMMON NORMALS: oropharynx normal Neck/C-Spine: COMMON NORMALS: no JVD Chest: OTHER: CABG scar Resp: COMMON NORMALS: normal respiratory effort and clear to auscultation bilaterally AUSCULTATION: clear to auscultation bilaterally Cardio: COMMON NORMALS: no JVD, regular rhythm, S1 normal heart sound present, S2 normal heart sound present and No murmurs present (Cardio) RHYTHM: regular rhythm HEART SOUNDS: S1 normal heart sound present and S2 normal heart sound present GI: COMMON NORMALS: Normal to inspection, nondistended, normoactive bowel sounds present, Soft to palpation and non-tender PALPATION: Yes Soft to palpation Extremity: COMMON NORMALS: no joint enlargement and no pedal edema Neuro: COMMON NORMALS: patient oriented x3 and moves all extremities SENSORIUM/ORIENTATION: Yes alert Skin: COMMON NORMALS: no rashes or lesions noted GENERAL SKIN EXAM: no rashes or lesions noted Data 05/11/23 07:31 05/11/23 07:31 A&P Assessment and plan (1) Unstable angina: (2) NSTEMI (non-ST elevated myocardial infarction): (3) Abnormal result of other cardiovascular function study: Plan Standard of care would be to proceed with invasive diagnostic testing for NSTEMI/USA/ACS. Due to advanced age, comorbidities, there is an increased risk (estimated 5-15% radial artery thrombosis, bleeding, infection, LA, stroke, renal failure, need for emergent surgery, ). However patient's quality of life is declining and she wishes to proceed with diagnostic cardiac and if anatomomy is favorable and safe she wishes to proceed with intervention. Will plan on tomorrow AM right radial. Based on results will make further recommendations. Attestations Medical Necessity Statement*: Due to advanced age, comorbidities, and NSTEMI/USA/ACS suspect > 2 midnight stay Coding Level of Care Code 10381 Diagnoses Unstable angina I20.0 NSTEMI (non-ST elevated myocardial infarction) I21.4 Abnormal result of other cardiovascular function study R94.39
[2023-05-11] MEDS: ferrous gluconate 324 mg Tablet PO (18:07)
[2023-05-11] MEDS: insulin lispro 100 unit/1 mL SUBCUT (18:07)
[2023-05-11] MEDS: clopidogrel 75 mg Tablet PO (18:07)
[2023-05-11] MEDS: aspirin 81 mg EC Tablet PO (20:37)
[2023-05-11] MEDS: ALPRAZolam 0.5 mg Tablet PO (20:38)
[2023-05-11] MEDS: hyDRALAzine 25 mg Tablet PO (20:38)
[2023-05-11 20:41] LABS: Glucose Point of Care 76 mg/dL (70-110)
[2023-05-12] VITALS (62 sets, daily range): BP systolic 89–208; BP diastolic 37–89; PULSE 53–83; RESP 0–21; TEMP 36.3–36.9; O2SAT 86–98
[2023-05-12 03:20] LABS: Glucose Point of Care 145 mg/dL (70-110)
[2023-05-12 05:40] LABS: Basophils # 0.1 10^3/uL (0.0-0.1); Basophils % 1.5 %; Eosinophils # 0.1 10^3/uL (0.0-0.8); Hematocrit 35.1 % (36-47); Lymphocytes # 1.1 10^3/uL (0.8-4.8); Lymphocytes % 26.7 %; Mean Corpuscular HGB Conc 32.5 g/dL (30-55); Mean Corpuscular Hemoglobin 29.5 pg (27-33); Mean Corpuscular Volume 90.9 fl (85-98); Mean Platelet Volume 12.3 fL (7.4-10.4); Monocytes # 0.5 10^3/uL (0.2-0.9); Monocytes % 12.4 %; Neutrophils # 2.27 10^3/uL (1.8-7.7); Neutrophils % 56.2 %; Nucleated Red Blood Cells % 0 %; Platelet Count 143 10^3/cmm (157-399); Red Blood Count 3.86 10^6/uL (3.85-5.65); Red Cell Distribution Width 13.6 % (12.1-15.1); White Blood Count 4.04 10^3/uL (3.29-11.43)
[2023-05-12 05:58] LABS: Alanine Aminotransferase 10 U/L (0-33); Albumin Level 3.3 g/dL (3.5-5.2); Alkaline Phosphatase 69 U/L (35-105); Anion Gap 12.3 (5-19); Aspartate Amino Transferase 18 U/L (0-32); Blood Urea Nitrogen 35 mg/dL (8-23); Calcium 8.8 mg/dL (8.5-10.5); Carbon Dioxide 25 mmol/L (22-29); Chloride 109 mmol/L (98-107); Globulin 2.1 g/dL (1.3-4.6); Glucose 102 mg/dL (65-115); Osmolality Calculated 302 mOsm/kg (285-295); Potassium 4.3 mmol/L (3.5-5.1); Sodium 142 mmol/L (136-145); Total Bilirubin 0.3 mg/dL (0.15-1.2); Total Protein 5.4 g/dL (6.6-8.7)
[2023-05-12] MEDS: FUROsemide 40 mg Tablet PO (05:58)
[2023-05-12 05:59] LABS: Creatinine Clr Calc Pharmacy 33.7364
[2023-05-12 06:43] LABS: Glucose Point of Care 109 mg/dL (70-110)
--- NOTE | 2023-05-12 08:58 | XACV_ITS ---
Exam Room: 2 Ht: 163 cm Wt: 55 kg BSA: 1.58 m2 Gender: Female : 1935 Any Known Allergies: Antibiotics Exam Priority: Routine Procedure(s): Procedure Description: Diagnostic procedure Procedure Description: Left Heart Catheterization Procedure Description: Venous Graft Catheterization Procedure Description: Coronary Angiography Diagnostic Cath Status: Elective Diagnostic Findings * Fluoroscopic guidance utilized for right common femoral artery access. 6 Turkish introducer inserted. * LV catheterization or angiography was not performed due to adequate echocardiogram revealing ejection fraction 60 to 65%. * Left main engaged using a JL 4 diagnostic catheter revealing ostial 3040% disease. LAD is 100% occluded at the ostium. Circumflex had mid 40% disease in mid to distal 70% disease with competitive flow seen distally in a circumflex marginal branch. * Left main coronary artery right coronary right coronary artery engaged using a JR4 diagnostic catheter approximately 100% occluded. * Sequential vein graft to circumflex OM1 and OM 2 engaged using a JR4 diagnostic catheter. Body of the vein graft with proximal 60% disease and mid and distal 40 to 50% disease. [place] circumflex marginals are small in caliber and diffusely diseased. * Vein graft to the right coronary artery engaged using a JR4 diagnostic catheter revealing mid and distal 40% disease. [place] PDA with diffuse 70 to 80% atherosclerosis. Retrograde filling of an R STEFFEN which also has diffuse 70% atherosclerosis. * A nonselective aortic root angiogram was performed and no other filling grafts were identified. Patient states she was told she had 4 bypass grafts. She appeared to have clips for a MIDDLETON graft. Another attempt to engage a potential graft was performed using an LCB catheter with no selective engagement.. * Left subclavian was engaged using a JR4 diagnostic catheter. Attempts at engaging a left internal mammary artery were unsuccessful. A nonselective angiogram revealed possible ostial subclavian 40 to 50% disease in the remainder of the subclavian and axillary with 20 to 30% atherosclerosis. There is a very small atretic MIDDLETON graft identified in the proximal segment and there was no identifiable filling distally. * 6 Turkish Angio-Seal deployed successfully after right common femoral arteriogram revealed anatomy suitable for use of a closure device. Recommendations * Please see body of report. Pressures Phase:Rest AO : 48 / 28 ( 33 ) @ 11:33:00 AM 49 / 29 ( 35 ) @ 11:34:00 AM 53 / 30 ( 37 ) @ 11:35:00 AM 51 / 37 ( 44 ) @ 11:37:00 AM 65 / 38 ( 48 ) @ 11:39:00 AM 70 / 47 ( 59 ) @ 11:41:00 AM 91 / 56 ( 71 ) @ 11:43:00 AM 112 / 68 ( 89 ) @ 11:44:00 AM 119 / 73 ( 93 ) @ 11:48:00 AM 129 / 67 ( 95 ) @ 11:49:00 AM 159 / 62 ( 95 ) @ 11:52:00 AM Clinical Evaluation EBL: 5mL-10mL Procedural Details Procedure Consent Obtained. Admit Source: In Patient. Pre-Procedure Time Out. Identified patient by full name and date of as verbalized by the patient/guarantor. Does the consent match the physician's order: Yes. Accurate & Complete Informed Consent: Yes. Inpatient/Outpatient History & Physical on Chart: Yes. If H&P is completed, is and addenduem needed: No; If yes, is the addendum complete: N/A. Visualize and Verify Site with Patient/Guarantor: N/A. Relevant Radiology Images available: N/A. The risks, benefits, and alternatives of sedation and/or procedure were discussed by physician. The patient agrees to continue. Procedure started. [facility] Clinical Fraility Score: 6: Moderately Frail. [place] Indications: ACS > 24 hours. Chest Pain Symptom Assessment: Atypical Angina. Correct patient, site and procedure confirmed by cath team. Current diagnosis: NSTEMI. PERRLA. Strong, equal hand real estate rep bilaterally. Lungs clear x 5 lobes. IV Site on Arrival: 20 gauge in the right anticubital. IV Fluids: 0.9% NaCl at KVO. 0 mL infused prior to labview programmer. Pre Procedural Pulses: bilateral dorsalis pedis was 2+. Pre Procedural Pulses: bilateral posterior tibial was Doppled. Oxygen started at 2liters/min via nasal canula. bilateral groins was prepped with chloroprep then draped in the usual sterile fashion. Physician notified. Baseline sample Acquired. HR: 92 BPM. Physician arrived. Physician scrubbed in. Immediate Pre-Procedure Time Out. Correct Patient: Yes; Correct Procedure: Yes; Correct Site: Yes; Correct Patient Position: Yes; Correct Supplies: Yes; Dried Flammable Prep: Yes; Blood Products Available: No;. Lidocaine 1% infiltrated to the right groin. Arterial access obtained with micropuncture set. Glidewire in through microdilator. A 5 georgian JL4 catheter in over glidewire. Multiple views taken of left coronary artery. Catheter removed over the exchange wire. A 5 georgian JR4 catheter in over wire. Multiple views taken of right coronary artery. SVG's to OM visualized and patent. SVG's to PDA visualized and patent. Catheter redirected to MIDDLETON over glidewire. A 6 georgian LCB catheter in over wire. Angiography performed. A Right femoral angiogram was performed to determine safe placement of closure device. A Angio-Seal VIP ([place]) was successful obtaining hemostatsis at the Right Femoral artery insertion site. LOT # [id number] EXP 10-08-2023. Physician scrubbed out. Post-op diagnosis: Unable to identify SVG graft and MIDDLETON graft. SVG graft to OM1 &OM2 50% stenosis, SVG to RCA 40% stenosis, [place] PDA % STEFFEN stenosis 70% stenosis. Post Procedure: Pulses reassessed and unchanged. PERRLA. Strong, equal hand real estate rep bilaterally. No VTE prophylaxis required. Medication's Wasted: Lidocaine 1% = 3 mL. Medication's Wasted: Heparin = 1000 unit. Medication's Wasted: Other = Versed 2mg, Fentanyl 100 mcg. Total IV fluids: 290 mL. Complications: None. Estimated blood loss: 5mL-10mL. Responsiveness - Normal response to verbal stimuli; alert and oriented, PERRLA. Airway - Unaffected, no intervention required; spontaneous ventilation. Circulation: W/N/L, pulses unchanged. Nausea/Vomiting: No. Procedure completed. Patient transferred by bed to 1st floor. Catheter removed over the exchange wire. Catheter removed over the exchange wire. Vital chart was stopped. Access Site Site: Right Femoral artery Sheath Size: 6 Fr Hemostasis Method: Angio-Seal VIP ([place]) Hemostasis Success: Successful Complication Findings: During the procedure immediately after access patient did develop hypotension and bradycardia with a suspected vasovagal reaction that resolved with time and IV fluid bolus. Procedure Medications Start: 10:33 AM Stop: 10:33 AM Medication: 0.9% Saline Amount: 250 ml Route: I.V. bolus I, the attending physician, have reviewed and verified all procedure medications. Yes, all medications given per verbal order History/Risk Factors Hypertension: Yes Dyslipidemia: Yes Peripheral Arterial Disease (PAD): No Myocardial Infarction (VT): No Obesity: No Renal Disease: No Tobacco Use: Former Prior Interventions PCI: No CABG: Yes Valve Surgery: No Report Signatures Finalized by Flaco Brown MD on 05/12/2023 11:15 AM
[2023-05-12] MEDS: dilTIAZem ER (24HR) 180 mg Capsule PO (09:39)
[2023-05-12] MEDS: losartan 50 mg Tablet PO (09:39)
[2023-05-12] MEDS: ferrous gluconate 324 mg Tablet PO ×2 (09:39→18:42)
[2023-05-12] MEDS: isosorbide mononitrate ER 60 mg Tablet PO (09:39)
[2023-05-12] MEDS: hyDRALAzine 25 mg Tablet PO (09:40)
[2023-05-12] MEDS: metoprolol succinate ER (24 HR) 25 mg Tablet PO (09:40)
[2023-05-12] MEDS: clopidogrel 75 mg Tablet PO (09:40)
[2023-05-12] MEDS: ALPRAZolam 0.5 mg Tablet PO ×3 (09:40→20:26)
[2023-05-12] MEDS: atorvastatin 40 mg Tablet 80 MG PO (09:40)
[2023-05-12] MEDS: amlodipine 10 mg Tablet PO ×2 (09:40→11:22)
--- NOTE | 2023-05-12 11:49 | PM.PN ---
Subjective Subjective: Patient went for coronary angiogram,, she was given hydralazine IV for her hypertensive emergency Postop patient developed vasovagal hypotension and bradycardia which improved with IV fluid bolus Vitals/I&O/Wt Last Vital Signs Temp 97.7 F 05/12/23 07:49 Pulse 80 05/12/23 08:57 Resp 20 H 05/12/23 07:49 BP 208/89 05/12/23 09:39 Pulse Ox 97 05/12/23 08:57 O2 Del Method Room Air 05/12/23 08:57 O2 Flow Rate 1 05/11/23 20:00 FiO2 1 05/11/23 10:00 05/11/23 05/12/23 05/12/23 22:59 06:59 14:59 Intake Total 476 / 476 Output Total 300 / 300 Balance 476 / 476 -300 / 176 Weight last 48 hrs Weight 55.338 kg Physical Exam Narrative: Patient is awake and alert Euvolemic Complaining of headache Nitropaste on her chest Family at the bedside Currently on room air Nonfocal neuro exam GCS 15 S1, S2 Abdomen soft and flat Data 05/12/23 04:55 05/12/23 04:55 A&P Assessment and plan (1) Unstable angina: (2) Hypertensive emergency: (3) CAD (coronary artery disease): (4) Osteoarthritis of hands, bilateral: (5) Osteoarthritis, generalized: Plan Unstable angina Status post coronary angiogram today EF seems to be improved to 60 to 65% Clinically patient is complaining of active chest pain shortness of breath No active signs of congestive heart failure Family was at the bedside family meeting conducted Hypertensive emergency Blood pressure consistently above 200 systolic, diastolic around 89 mmHg She was given IV hydralazine in the morning before her angiogram, will adjust medication depending on her range of blood pressure Type 2 diabetes: Insulin with sliding scale Chronic kidney disease: Stable Asthma without acute exacerbation: Stable Chronic back pain, DNR/DNI Start cardiac consistent carb diet Attestations Medical Necessity Statement*: Discharge by tomorrow if blood pressure remains controlled Diagnoses Unstable angina I20.0 Hypertensive emergency I16.1 CAD (coronary artery disease) I25.10 Osteoarthritis of hands, bilateral M19.041; M19.042 Osteoarthritis, generalized M15.9
[2023-05-12 12:09] LABS: Glucose Point of Care 131 mg/dL (70-110)
[2023-05-12] MEDS: sodium chloride 0.9% 1,000 ML 100 ML IV (13:25)
[2023-05-12] MEDS: lactated ringers 500 ML 999 ML IV (14:53)
[2023-05-12] MEDS: enoxaparin 30 mg/0.3 mL Syringe SUBCUT (14:54)
[2023-05-12 16:41] LABS: Glucose Point of Care 113 mg/dL (70-110)
[2023-05-12] MEDS: mupirocin oint 22 gm 1 APPLIC TOPICAL (18:42)
[2023-05-12] MEDS: aspirin 81 mg EC Tablet PO (20:26)
[2023-05-12 21:47] LABS: Glucose Point of Care 131 mg/dL (70-110)
[2023-05-13 02:53] VITALS: BP 115/62; PULSE 60; RESP 17; TEMP 37; O2SAT 98
[2023-05-13 04:07] VITALS: PULSE 62
[2023-05-13 04:37] LABS: Basophils # 0.1 10^3/uL (0.0-0.1); Basophils % 1.2 %; Eosinophils # 0.1 10^3/uL (0.0-0.8); Eosinophils % 3.2 %; Hematocrit 29.8 % (36-47); Lymphocytes # 0.9 10^3/uL (0.8-4.8); Lymphocytes % 21.7 %; Mean Corpuscular HGB Conc 32.2 g/dL (30-55); Mean Corpuscular Hemoglobin 29.7 pg (27-33); Mean Corpuscular Volume 92.3 fl (85-98); Mean Platelet Volume 12.1 fL (7.4-10.4); Monocytes # 0.5 10^3/uL (0.2-0.9); Neutrophils # 2.47 10^3/uL (1.8-7.7); Neutrophils % 61.7 %; Nucleated Red Blood Cells % 0 %; Platelet Count 125 10^3/cmm (157-399); Red Blood Count 3.23 10^6/uL (3.85-5.65); Red Cell Distribution Width 13.7 % (12.1-15.1); White Blood Count 4.01 10^3/uL (3.29-11.43)
[2023-05-13 05:02] LABS: Alanine Aminotransferase 7 U/L (0-33); Albumin Level 2.9 g/dL (3.5-5.2); Alkaline Phosphatase 49 U/L (35-105); Anion Gap 10.1 (5-19); Aspartate Amino Transferase 12 U/L (0-32); Blood Urea Nitrogen 33 mg/dL (8-23); Calcium 8.3 mg/dL (8.5-10.5); Carbon Dioxide 25 mmol/L (22-29); Chloride 108 mmol/L (98-107); Globulin 1.9 g/dL (1.3-4.6); Glucose 98 mg/dL (65-115); Osmolality Calculated 295 mOsm/kg (285-295); Potassium 4.1 mmol/L (3.5-5.1); Sodium 139 mmol/L (136-145); Total Bilirubin 0.2 mg/dL (0.15-1.2); Total Protein 4.8 g/dL (6.6-8.7)
[2023-05-13 05:03] LABS: Creatinine Clr Calc Pharmacy 33.7364
[2023-05-13 07:54] LABS: Glucose Point of Care 102 mg/dL (70-110)
[2023-05-13 08:00] VITALS: BP 136/58; PULSE 72; RESP 15; TEMP 36.7; O2SAT 96
[2023-05-13 09:22] VITALS: BP 136/58
[2023-05-13] MEDS: dilTIAZem ER (24HR) 180 mg Capsule PO (09:22)
[2023-05-13] MEDS: ferrous gluconate 324 mg Tablet PO (09:22)
[2023-05-13] MEDS: atorvastatin 40 mg Tablet 80 MG PO (09:22)
[2023-05-13] MEDS: ALPRAZolam 0.5 mg Tablet PO (09:22)
[2023-05-13] MEDS: losartan 50 mg Tablet PO (09:22)
[2023-05-13] MEDS: clopidogrel 75 mg Tablet PO (09:22)
[2023-05-13] MEDS: pantoprazole DR 40 mg Tablet PO (09:23)
[2023-05-13] MEDS: calcium carbonate 500 mg Chew Tablet PO (09:23)
[2023-05-13] MEDS: mupirocin oint 22 gm 1 APPLIC TOPICAL (09:26)
[2023-05-13 10:32] VITALS: PULSE 80; O2SAT 96
--- NOTE | 2023-05-13 10:50 | P.PN_ITS ---
Subjective Subjective: Patient is stable. No chest pain Vitals/I&O/Wt Last Vital Signs Temp 98.1 F 05/13/23 08:00 Pulse 80 05/13/23 10:32 Resp 15 05/13/23 08:00 BP 136/58 05/13/23 09:22 Pulse Ox 96 05/13/23 10:32 O2 Del Method Room Air 05/13/23 10:32 O2 Flow Rate 1 05/11/23 20:00 FiO2 1 05/11/23 10:00 05/12/23 05/13/23 05/13/23 22:59 06:59 14:59 Intake Total 1220 / 1580 1000 / 2580 360 / 360 Output Total 0 / 0 0 / 0 Balance 1220 / 1580 1000 / 2580 360 / 360 Physical Exam Narrative: GENERAL: Patient is alert, awake and oriented x3. [] NECK: No jugular vein distension. [] HEENT: No cyanosis. No icterus. No pallor. [] HEART: Regular S1 and S2. No murmur, rub or gallop. [] LUNGS: Clear to auscultate bilaterally. [] CENTRAL NERVOUS SYSTEM: Grossly nonfocal. [] EXTREMITIES: Lower extremities with no edema Data 05/13/23 04:08 05/13/23 04:08 A&P Assessment and plan (1) DM type 2 causing eye disease: (2) Chest pain: (3) CAD (coronary artery disease): Plan Patient's coronary angiogram did not show any targets for revascularization. Please refer to report from my colleague who performed the procedure. Medical management recommended. She is stable to be discharged from cardiology standpoint. Please call with questions. Attestations Medical Necessity Statement*: Care expected to cross 2 midnights Coding Level of Care Code Acute Code for [facility] Fwd Diagnoses DM type 2 causing eye disease E11.39 Chest pain R07.9 CAD (coronary artery disease) I25.10
--- NOTE | 2023-05-13 11:16 | P.DS_ITS ---
Discharge Providers Date of Admission: 05/11/23 13:10 Date of Discharge: May 13, 2023 Attending Provider at Admission: Bon Chung Attending Provider at Discharge: Nilson Thomson MD Primary Care Provider: EMILY Marrero Diagnoses at Discharge Discharge Diagnosis (1) Unstable angina: Status: Acute (2) Hypertensive emergency: Status: Acute (3) CAD (coronary artery disease): Status: Acute (4) Osteoarthritis of hands, bilateral: Status: Acute (5) Osteoarthritis, generalized: Status: Acute Reason for Visit Reason for Visit: CHEST PAIN Hospital Course Hospital Course 87-year-old female with history of established coronary disease status post CABG in the past, diabetes dyslipidemia, presented to the hospital for shortness of breath, chest pain on exertion with deteriorating quality of life, and she recently had a stress test which was positive for reversible ischemia, patient was put on antianginal medication such as nitrates, beta-darnell and calcium channel darnell, despite her medical therapy her symptoms worsened and she is decided to come to the ER cardiology was consulted, diagnostic angiogram was done and decision was made to treat her medically, ranolazine was added at the time of discharge, her EF seems to be around 62 percent with grade 1 diastolic dysfunction, patient is planning to follow-up with her neuro psych sales specialist in [place]. Please note she was hypotensive throughout her hospitalization which improved after her angiogram, she may continue her Imdur, beta-darnell, calcium darnell along ranolazine and hydralazine. I have asked her to watch her blood pressure and heart rate with medications. He was present at the bedside who expressed understanding for the instructions given at the time of discharge. Please note after angiogram her antihypertensive regimen was put on hold because of her vasovagal hypotension and required multiple bolus, her blood pressure improved overnight she remained asymptomatic Cath report LV catheterization or angiography was not performed due to adequate echocardiogram revealing ejection fraction 60 to 65%. ? * Left main engaged using a JL 4 diagnostic catheter revealing ostial 3040% disease.? LAD is 100% occluded at the ostium.? Circumflex had mid 40% disease in mid to distal 70% disease with competitive flow seen distally in a circumflex marginal branch. ? * Left main coronary artery right coronary right coronary artery engaged using a JR4 diagnostic catheter approximately 100% occluded. ? * Sequential vein graft to circumflex OM1 and OM 2 engaged using a JR4 diagnostic catheter.? Body of the vein graft with proximal 60% disease and mid and distal 40 to 50% disease.? [place] circumflex marginals are small in caliber and diffusely diseased. ? * Vein graft to the right coronary artery engaged using a JR4 diagnostic catheter revealing mid and distal 40% disease.? [place] PDA with diffuse 70 to 80% atherosclerosis.? Retrograde filling of an R STEFFEN which also has diffuse 70% atherosclerosis. ? * A nonselective aortic root angiogram was performed and no other filling grafts were identified.? Patient states she was told she had 4 bypass grafts. She appeared to have clips for a MIDDLETON graft. Another attempt to engage a potential graft was performed using an LCB catheter with no selective engagement.. ? * Left subclavian was engaged using a JR4 diagnostic catheter.? Attempts at engaging a left internal mammary artery were unsuccessful.? A nonselective angiogram revealed possible ostial subclavian 40 to 50% disease in the remainder of the subclavian and axillary with 20 to 30% atherosclerosis. There is a very small atretic MIDDLETON graft identified in the proximal segment and there was no identifiable filling distally Physical Exam Narrative: Patient is awake and alert Euvolemic GCS 15 No active chest pain Currently on room air Nonfocal neuro exam Abdomen soft Discharge Data Studies Completed and Pending Completed Studies During Hospitalization Category Date Time Status FAMILY SOCIOLOGIST request for service Routine Exams 05/12/23 08:58 Completed XR chest 1V portable [id number] Stat Exams 05/11/23 07:22 Completed CV. echo complete* [id number] Routine Ultrasound 05/11/23 16:58 Completed Pending at discharge Category Date Time Status Complete Blood Count w/Auto AM LABS Lab 05/14/23 04:00 Ordered Comprehensive Metabolic Panel AM LABS Lab 05/14/23 04:00 Ordered Radiology Impressions Chest X-Ray 05/11/23 07:22 IMPRESSION: No evidence of focal consolidation. COPD changes. Laboratory Results WBC 4.01 10^3/uL (3.29-11.43) 05/13/23 04:08 RBC 3.23 10^6/uL (3.85-5.65) L 05/13/23 04:08 Hgb 9.60 g/dL (11.27-16.99) L 05/13/23 04:08 Hct 29.8 % (36-47) L 05/13/23 04:08 MCV 92.3 fl (85-98) 05/13/23 04:08 MCH 29.7 pg (27-33) 05/13/23 04:08 MCHC 32.2 g/dL (30-55) 05/13/23 04:08 RDW 13.7 % (12.1-15.1) 05/13/23 04:08 Plt Count 125 10^3/cmm (157-399) L 05/13/23 04:08 MPV 12.1 fL (7.4-10.4) H 05/13/23 04:08 Neut % (Auto) 61.7 % 05/13/23 04:08 Lymph % (Auto) 21.7 % 05/13/23 04:08 [place] % (Auto) 12.0 % 05/13/23 04:08 Eos % (Auto) 3.2 % 05/13/23 04:08 Baso % (Auto) 1.2 % 05/13/23 04:08 Neut # (Auto) 2.47 10^3/uL (1.8-7.7) 05/13/23 04:08 Lymph # (Auto) 0.9 10^3/uL (0.8-4.8) 05/13/23 04:08 [place] # (Auto) 0.5 10^3/uL (0.2-0.9) 05/13/23 04:08 Eos # (Auto) 0.1 10^3/uL (0.0-0.8) 05/13/23 04:08 Baso # (Auto) 0.1 10^3/uL (0.0-0.1) 05/13/23 04:08 Nucleated RBC % (auto) 0 % 05/13/23 04:08 Nucleated RBCs # 0.0 /100WBC 05/13/23 04:08 PT 13.20 SECONDS (12.1-14.9) 05/11/23 07:31 INR 0.98 (0.8-1.2) 05/11/23 07:31 APTT 31.2 SECONDS (23.9-36.7) 05/11/23 07:31 Sodium 139 mmol/L (136-145) 05/13/23 04:08 Potassium 4.1 mmol/L (3.5-5.1) 05/13/23 04:08 Chloride 108 mmol/L (98-107) H 05/13/23 04:08 Carbon Dioxide 25 mmol/L (22-29) 05/13/23 04:08 Anion Gap 10.1 (5-19) 05/13/23 04:08 BUN 33 mg/dL (8-23) H 05/13/23 04:08 Creatinine 1.0 mg/dL (0.5-0.9) H 05/13/23 04:08 GFR Calculation Not Reportable 05/13/23 04:08 Glucose 98 mg/dL (65-115) 05/13/23 04:08 POC Glucose 102 mg/dL (70-110) 05/13/23 07:51 Calculated Osmolality 295 mOsm/kg (285-295) 05/13/23 04:08 Calcium 8.3 mg/dL (8.5-10.5) L 05/13/23 04:08 Total Bilirubin 0.2 mg/dL (0.15-1.2) 05/13/23 04:08 AST 12 U/L (0-32) 05/13/23 04:08 ALT 7 U/L (0-33) 05/13/23 04:08 Alkaline Phosphatase 49 U/L (35-105) 05/13/23 04:08 Troponin T Baseline 49 ng/L (0-10) H 05/11/23 07:31 Troponin T 120 Minute 53.61 ng/L (0-10) H 05/11/23 09:38 Delta Troponin T 4.61 ABS# (0-10) 05/11/23 09:38 Troponin T Hi Sens 6Hr 55.30 ng/L (0-10) H 05/11/23 13:39 Troponin T Hi Sens 6Hr Delta 6.30 ng/L (0-12) 05/11/23 13:39 NT-Pro-B Natriuret Pep 1716 pg/mL (0-450) H 05/11/23 07:31 Total Protein 4.8 g/dL (6.6-8.7) L 05/13/23 04:08 Albumin 2.9 g/dL (3.5-5.2) L 05/13/23 04:08 Globulin 1.9 g/dL (1.3-4.6) 05/13/23 04:08 Lipase 77 U/L (13-60) H 05/11/23 07:31 Vitals Last Vital Signs Temp 98.1 F 05/13/23 08:00 Pulse 80 05/13/23 10:32 Resp 15 05/13/23 08:00 BP 136/58 05/13/23 09:22 Pulse Ox 96 05/13/23 10:32 O2 Del Method Room Air 05/13/23 10:32 O2 Flow Rate 1 05/11/23 20:00 FiO2 1 05/11/23 10:00 Discharge Plan Discharge Patient Disposition: Home Condition: Stable Prescriptions: New ranolazine 500 mg tablet extended release 12 hr 500 mg PO BID Qty: 60 3RF Continued hydralazine 50 mg tablet 100 mg PO TID PRN (Reason: Blood Pressure) isosorbide mononitrate 30 mg tablet extended release 24 hr 60 mg PO DAILY@08 aspirin 81 mg tablet,delayed release (DR/EC) 81 mg PO DAILY@20 Hold Instructions: Resume on 11/23/19. (DME) OneTouch Ultra Test Strip See Rx Instructions .ROUTE .COMPLEX Qty: 100 5RF Dose Instruction: USE 1 STRIP TO CHECK GLUCOSE TWICE DAILY. DX: E11.9 Rx Instructions: USE 1 STRIP TO CHECK GLUCOSE TWICE DAILY. DX: E11.9 (DME) lancets [OneTouch Delica Plus Lancet] 33 gauge misc See Rx Instructions .ROUTE .COMPLEX Qty: 100 5RF Dose Instruction: USE 1 LANCET TO CHECK GLUCOSE TWICE DAILY Rx Instructions: USE 1 LANCET TO CHECK GLUCOSE TWICE DAILY (DME) pen needle, diabetic [BD Ultra-Fine Mini Pen Needle] 31 gauge x 3/16 needle See Rx Instructions .ROUTE .COMPLEX Qty: 100 5RF Dose Instruction: USE DIRECTED Rx Instructions: USE DIRECTED letrozole [Femara] 2.5 mg tablet 2.5 mg PO DAILY Qty: 90 2RF Levemir FlexPen 100 unit/mL (3 mL) insulin pen See Rx Instructions .ROUTE .COMPLEX Qty: 15 5RF Dose Instruction: INJECT 25 UNITS SUBCUTANEOUSLY WITH EVENING MEAL Rx Instructions: INJECT 20 UNITS SUBCUTANEOUSLY WITH EVENING MEAL alprazolam 0.5 mg tablet 0.5 mg PO TID Qty: 90 0RF mupirocin 2 % ointment 1 applic topical BID ipratropium bromide 21 mcg (0.03 %) spray,non-aerosol 2 spray intranasal TID Rx Instructions: administer into each nostril mecobalamin (vitamin B12) 2,500 mcg tablet,chewable See Rx Instructions PO .COMPLEX Rx Instructions: orally; irbesartan 300 mg tablet 150 mg PO DAILY Qty: 30 1RF Lasix 40 mg tablet 40 mg PO QAM Qty: 30 1RF Rx Instructions: Start when body weight increases by 5lbs metoprolol succinate 25 mg tablet extended release 24 hr 25 mg PO DAILY Qty: 30 1RF ferrous gluconate 324 mg (37.5 mg iron) tablet 324 mg PO BIDWM Qty: 60 0RF clopidogrel 75 mg tablet See Rx Instructions .ROUTE .COMPLEX Qty: 30 0RF Dose Instruction: Take 1 tablet by mouth once daily Rx Instructions: Take 1 tablet by mouth once daily pantoprazole 40 mg tablet,delayed release (DR/EC) See Rx Instructions .ROUTE .COMPLEX Qty: 30 0RF Dose Instruction: Take 1 tablet by mouth once daily Rx Instructions: Take 1 tablet by mouth once daily hydralazine 25 mg tablet See Rx Instructions .ROUTE .COMPLEX Qty: 90 0RF Dose Instruction: TAKE 1 TABLET BY MOUTH THREE TIMES DAILY Rx Instructions: TAKE 1 TABLET BY MOUTH THREE TIMES DAILY Magnesium (oxide/AA chelate) 300 mg capsule 1 cap PO DAILY@08 atorvastatin 80 mg tablet 80 mg PO DAILY calcium carbonate [Calcium 600] 600 mg calcium (1,500 mg) Tablet 600 mg PO DAILY diltiazem HCl 180 mg capsule,extended release 24hr 180 mg PO DAILY famotidine 20 mg tablet 20 mg PO BID Discharge Orders: Discharge Order (Routine); Ordered 05/13/23 Ordered By: Nilson Thomson Referrals: Chaya Long FNP [Primary Care Provider] - 4-7 days Emily Gutierrez FNP [Nurse Practitioner] - 06/02/23 10:45 am Discharge Diet: Cardiac Discharge Activity: Increase activity as tolerated Patient Instructions: Opioid Safety Discharge Attestations Time Spent in Discharge Care*: greater than 30 min Status at Discharge: Cognitive status at discharge: cognitively intact , Behavioral status at discharge: cooperative , Quality Metrics Clinical Quality Measures [ No reported AMI, CVA or VTE this stay] Coding Level of Care Code Acute Code for [facility] Fwd Diagnoses Unstable angina I20.0 Hypertensive emergency I16.1 CAD (coronary artery disease) I25.10 Osteoarthritis of hands, bilateral M19.041; M19.042 Osteoarthritis, generalized M15.9
--- NOTE | 2023-05-13 11:30 | PC.NURSE ---
pt got up and ambulate down hallways pt denies any shortness of breath,or chest pain while walking.
[2023-05-13 12:00] VITALS: BP 127/48; PULSE 56; RESP 17; O2SAT 98
[2023-05-13 12:16] LABS: Glucose Point of Care 138 mg/dL (70-110)
== END 2023-05-13 13:46 | disposition home or self-care (01) ==
LOC: ER 13:27 → MEDSURG 13:59 → CSU 05-12 11:16
PROVIDERS: Internal Medicine Cardiovascular Disease; Admitting Provider Internal Medicine; Emergency Provider Emergency Medicine; PCP Nurse Practitioner Family; Visit Provider Internal Medicine
DX: I25.110 Atherosclerotic heart disease of native coronary artery with unstable angina pectoris (principal); I16.1 Hypertensive emergency; M19.041 Primary osteoarthritis, right hand; M19.042 Primary osteoarthritis, left hand; E11.39 Type 2 diabetes mellitus with other diabetic ophthalmic complication; Z66 Do not resuscitate; I44.0 Atrioventricular block, first degree; E78.5 Hyperlipidemia, unspecified; I10 Essential (primary) hypertension; Z95.1 Presence of aortocoronary bypass graft; Z87.891 Personal history of nicotine dependence; I44.7 Left bundle-branch block, unspecified
CPT/HCPCS: 36415; 36416; 71045; 80053; 82962; 83690; 83880; 84484; 85025; 85610; 85730; 93005; 93306; 93455; 96361; 96367; 96372; 96374; 99285; C1760; C1769; C1887; C1894; G0378; J1644; J1650; J1815; J2060; J2250; J3010; J7030; J7120; Q9967

== ENCOUNTER → 2023-05-20 14:41 | Outpatient (BNVA) | payer MEDICARE, OTHER, SELFPAY | PROVIDERS: PCP Nurse Practitioner Family; Visit Provider Dermatology | DX: L72.0 Epidermal cyst (principal); L57.8 Other skin changes due to chronic exposure to nonionizing radiation; L82.1 Other seborrheic keratosis; L81.4 Other melanin hyperpigmentation; Z85.820 Personal history of malignant melanoma of skin; D18.01 Hemangioma of skin and subcutaneous tissue | CPT/HCPCS: 10060; 99213 ==

== ENCOUNTER 2023-06-03 14:10 | Emergency (ER) | payer MEDICARE, OTHER, SELFPAY ==
[2023-06-03] VITALS (9 sets, daily range): BP systolic 147–228; BP diastolic 72–102; PULSE 56–77; RESP 16; TEMP 36.8; O2SAT 96–99; BMI 20.9
--- NOTE | 2023-06-03 15:12 | ED_ITS ---
HPI - Weakness General: Chief complaint: Weakness Stated complaint: [place] Time Seen by Provider: 06/03/23 15:05 History of Present Illness: This patient is an 87-year-old white female who presents to the emergency department stating that she has developed some generalized weakness, shakiness, nausea and vomiting this morning. She states she is feeling weak and shaky now likely secondary to her not taking her Xanax. She states she feels very nervous while being in the emergency department. The nausea and vomiting have subsided. She has not had a fever. No diarrhea. No chest pain. 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 Performed by Dr. Clark. History of back surgery Treatment of bone spurs. Performed by Dr. Gray in [place], [place] History of carpal tunnel release of both wrists History of cataract surgery Bilateral History of hip replacement (~2006) Left. Performed by Dr. Lovelace History of hip replacement (06/19/16) Performed by Dr. Lovelace Previous back surgery (08/22/14) [address]formed [address] Ramsay at [facility] in [place], [place] S/P appendectomy Status post surgical removal and fulguration of bladder neoplasm Family History Father Stroke Mother Ovarian cancer Sister Breast cancer Diabetes Hypertension Brother Heart disease Diabetes Social History Smoking and tobacco status: former smoker Quit status (tobacco): has quit using tobacco Year quit tobacco: 1979 Former quit date comment: 10-15 years smoked Alcohol intake: never Substance/Drug Use: never Adopted: No Lives independently: Yes Household members: none Housing: House Marital status: / Current occupational status: retired Current occupation: disabled Do you think of yourself as: Straight/Heterosexual Current gender identity: Female Physical Exam Const: COMMON NORMALS: no acute distress, patient oriented x3 and healthy appearing HENMT: COMMON NORMALS: normocephalic and moist oral mucous membranes HEAD & SCALP: normocephalic Eye: COMMON NORMALS: Equal, round and reactive pupils present, EOMs intact bilaterally and conjunctivae normal CONJUNCTIVA: Yes conjunctivae normal PUPIL: Yes Equal, round and reactive pupils present Neck/C-Spine: COMMON NORMALS: supple Chest: COMMONS NORMALS: normal inspection of the chest Resp: COMMON NORMALS: normal respiratory effort and clear to auscultation bilaterally AUSCULTATION: clear to auscultation bilaterally Cardio: COMMON NORMALS: regular rate and regular rhythm RATE: regular rate RHYTHM: regular rhythm GI: COMMON NORMALS: Normal to inspection, nondistended, normoactive bowel sounds present, Soft to palpation and non-tender PALPATION: Yes Soft to palpation Extremity: COMMON NORMALS: normal to inspection Neuro: COMMON NORMALS: patient oriented x3, CN's II-XII intact bilaterally, moves all extremities, no focal motor deficits and no sensory deficits noted Skin: COMMON NORMALS: no rashes or lesions noted GENERAL SKIN EXAM: no rashes or lesions noted Course Vital Signs: Vital signs: Vital Signs Temperature 98.2 F 06/03/23 14:16 Pulse Rate 69 06/03/23 16:34 Respiratory Rate 16 06/03/23 14:16 Blood Pressure 190/84 06/03/23 18:27 Pulse Oximetry 96 06/03/23 16:34 Oxygen Delivery Me thod Room Air 06/03/23 16:34 MDM - Weakness Medical Decision Making CBC was normal. CMP was normal except for slightly low blood sugar of 54. Lipase was normal at 52. Urine analysis normal. Patient was asymptomatic throughout her ER stay. Her blood pressure was elevated. Systolic was in the 2 00 range. We did give her 0.2 mg of clonidine total and blood pressure came down nicely. Patient is on 4 blood pressure medications at home. She does take hydralazine 50 mg 3 times daily she also has instructions to take 100 mg 3 times daily as needed for high blood pressure. Recommended she follow this regimen. Her daughter states that the loading supervisor told her to take the 100 mg of hydralazine if her systolic is over 160 and I reinforced this recommendation. Patient was discharged in stable condition instructed to follow-up with primary care physician and/or loading supervisor within 1 week for recheck. Lab Data 06/03/23 16:05 06/03/23 16:05 Laboratory Results WBC 5.38 10^3/uL (3.29-11.43) 06/03/23 16:05 RBC 4.05 10^6/uL (3.85-5.65) 06/03/23 16:05 Hgb 11.90 g/dL (11.27-16.99) 06/03/23 16:05 Hct 35.4 % (36-47) L 06/03/23 16:05 MCV 87.4 fl (85-98) 06/03/23 16:05 MCH 29.4 pg (27-33) 06/03/23 16:05 MCHC 33.6 g/dL (30-55) 06/03/23 16:05 RDW 13.7 % (12.1-15.1) 06/03/23 16:05 Plt Count 198 10^3/cmm (157-399) 06/03/23 16:05 MPV 11.3 fL (7.4-10.4) H 06/03/23 16:05 Neut % (Auto) 62.3 % 06/03/23 16:05 Lymph % (Auto) 27.0 % 06/03/23 16:05 [place] % (Auto) 9.3 % 06/03/23 16:05 Eos % (Auto) 0.7 % 06/03/23 16:05 Baso % (Auto) 0.7 % 06/03/23 16:05 Neut # (Auto) 3.35 10^3/uL (1.8-7.7) 06/03/23 16:05 Lymph # (Auto) 1.5 10^3/uL (0.8-4.8) 06/03/23 16:05 [place] # (Auto) 0.5 10^3/uL (0.2-0.9) 06/03/23 16:05 Eos # (Auto) 0.0 10^3/uL (0.0-0.8) 06/03/23 16:05 Baso # (Auto) 0.0 10^3/uL (0.0-0.1) 06/03/23 16:05 Nucleated RBC % (auto) 0 % 06/03/23 16:05 Nucleated RBCs # 0.0 /100WBC 06/03/23 16:05 Sodium 139 mmol/L (136-145) 06/03/23 16:05 Potassium 3.6 mmol/L (3.5-5.1) 06/03/23 16:05 Chloride 101 mmol/L (98-107) 06/03/23 16:05 Carbon Dioxide 28 mmol/L (22-29) 06/03/23 16:05 Anion Gap 13.6 (5-19) 06/03/23 16:05 BUN 25 mg/dL (8-23) H 06/03/23 16:05 Creatinine 1.0 mg/dL (0.5-0.9) H 06/03/23 16:05 GFR Calculation Not Reportable 06/03/23 16:05 Glucose 54 mg/dL (65-115) L 06/03/23 16:05 Calculated Osmolality 290 mOsm/kg (285-295) 06/03/23 16:05 Calcium 9.6 mg/dL (8.5-10.5) 06/03/23 16:05 Total Bilirubin 0.5 mg/dL (0.15-1.2) 06/03/23 16:05 AST 23 U/L (0-32) 06/03/23 16:05 ALT 14 U/L (0-33) 06/03/23 16:05 Alkaline Phosphatase 71 U/L (35-105) 06/03/23 16:05 Total Protein 6.8 g/dL (6.6-8.7) 06/03/23 16:05 Albumin 4.0 g/dL (3.5-5.2) 06/03/23 16:05 Globulin 2.8 g/dL (1.3-4.6) 06/03/23 16:05 Lipase 52 U/L (13-60) 06/03/23 16:05 Urine Color Light yellow (Yellow) 06/03/23 16:05 Urine Appearance Clear (CLEAR) 06/03/23 16:05 Urine pH 8 (5-7) H 06/03/23 16:05 Ur Specific [place] 1.015 (1.005-1.030) 06/03/23 16:05 Urine Protein Neg (Negative) 06/03/23 16:05 Urine Glucose (UA) Norm (Normal) 06/03/23 16:05 Urine Ketones Negative (Negative) 06/03/23 16:05 Urine Blood Neg (Negative) 06/03/23 16:05 Urine Nitrate Negative (Negative) 06/03/23 16:05 Urine Bilirubin Neg (Negative) 06/03/23 16:05 Prot Sulfosalicylic Acd Negative (Negative) 06/03/23 16:05 Urine Urobilinogen Norm mg/dL (Negative) 06/03/23 16:05 Ur Leukocyte Esterase Negative (Negative) 06/03/23 16:05 No radiology studies performed this visit Discharge Plan Discharge Patient Disposition: Home Clinical Impression: Hypertension Condition: Stable Prescriptions: No Action hydralazine 50 mg tablet 100 mg PO TID PRN (Reason: Blood Pressure) aspirin 81 mg tablet,delayed release (DR/EC) 81 mg PO QAM Hold Instructions: Resume on 11/23/19. (DME) OneTouch Ultra Test Strip See Rx Instructions .ROUTE .COMPLEX Qty: 100 5RF Dose Instruction: USE 1 STRIP TO CHECK GLUCOSE TWICE DAILY. DX: E11.9 Rx Instructions: USE 1 STRIP TO CHECK GLUCOSE TWICE DAILY. DX: E11.9 (DME) lancets [OneTouch Delica Plus Lancet] 33 gauge misc See Rx Instructions .ROUTE .COMPLEX Qty: 100 5RF Dose Instruction: USE 1 LANCET TO CHECK GLUCOSE TWICE DAILY Rx Instructions: USE 1 LANCET TO CHECK GLUCOSE TWICE DAILY (DME) pen needle, diabetic [BD Ultra-Fine Mini Pen Needle] 31 gauge x 3/16 needle See Rx Instructions .ROUTE .COMPLEX Qty: 100 5RF Dose Instruction: USE DIRECTED Rx Instructions: USE DIRECTED mupirocin 2 % ointment 1 applic topical BID ipratropium bromide 21 mcg (0.03 %) spray,non-aerosol 2 spray intranasal TID Rx Instructions: administer into each nostril mecobalamin (vitamin B12) 2,500 mcg tablet,chewable 2,500 mcg PO DAILY@12 Lasix 40 mg tablet 40 mg PO QAM Qty: 30 1RF Rx Instructions: Start when body weight increases by 5lbs calcium carbonate [Calcium 600] 600 mg calcium (1,500 mg) Tablet 600 mg PO DAILY@12 famotidine 20 mg tablet 20 mg PO BID ranolazine 500 mg tablet extended release 12 hr 500 mg PO BID Qty: 60 3RF atorvastatin 40 mg tablet 80 mg PO QAM isosorbide mononitrate 60 mg tablet extended release 24 hr 60 mg PO QAM Nitrostat 0.4 mg Tablet, Sublingual 0.4 mg SUBLINGUAL Q5M PRN (Reason: Chest Pain) Rx Instructions: do not exceed 3 doses per episode hydralazine 50 mg tablet 50 mg PO TID magnesium oxide 400 mg magnesium Tablet 400 mg PO QAM clopidogrel 75 mg tablet 75 mg PO QAM alprazolam 0.5 mg tablet 0.5 mg PO TID PRN (Reason: Anxiety) pantoprazole 40 mg tablet,delayed release (DR/EC) 40 mg PO QAM metoprolol succinate 25 mg tablet extended release 24 hr 25 mg PO QAM Femara 2.5 mg tablet 2.5 mg PO QPM irbesartan 300 mg tablet 150 mg PO QPM Levemir FlexPen 100 unit/mL (3 mL) insulin pen 10 unit SUBCUT QAM ferrous gluconate 324 mg (38 mg iron) tablet 324 mg PO BID Discharge Orders: Discharge ED (Routine); Ordered 06/03/23 Ordered By: Paxton Goddard Referrals: Chaya Long FNP [Primary Care Provider] - Discharge Activity: Resume usual activity Activity Restrictions/Additional Instructions: Follow-up with primary care provider within the next several days for recheck. Coding Level of Care Code ED Technical Writer And Editor for [facility]
--- NOTE | 2023-06-03 15:27 | PC.PHAR ---
pt and pts daughter verified pts medications-pt and pts daughter states diltiazem er 180mg daily was dced in january ext shows last filled 04/15/23 90d/s pt states its on auto fill-pts daughter states the pt just got hydralazine increased to 50mg tid filled 06/02/23 30d/s and states the pt has a 100mg tid prn also-pts daughter states the pt has been using levemir flexpen 10 units qam ext shows last filled 04/02/23 60ds 20 units qpm-notes are made in the pharmacy comments
[2023-06-03] MEDS: sodium chloride 0.9% 1,000 ML 999 ML IV (15:45)
[2023-06-03 16:24] LABS: Basophils % 0.7 %; Eosinophils % 0.7 %; Hematocrit 35.4 % (36-47); Lymphocytes # 1.5 10^3/uL (0.8-4.8); Mean Corpuscular HGB Conc 33.6 g/dL (30-55); Mean Corpuscular Hemoglobin 29.4 pg (27-33); Mean Corpuscular Volume 87.4 fl (85-98); Mean Platelet Volume 11.3 fL (7.4-10.4); Monocytes # 0.5 10^3/uL (0.2-0.9); Monocytes % 9.3 %; Neutrophils # 3.35 10^3/uL (1.8-7.7); Neutrophils % 62.3 %; Nucleated Red Blood Cells % 0 %; Platelet Count 198 10^3/cmm (157-399); Red Blood Count 4.05 10^6/uL (3.85-5.65); Red Cell Distribution Width 13.7 % (12.1-15.1); White Blood Count 5.38 10^3/uL (3.29-11.43)
[2023-06-03 16:26] LABS: Add Urine Microscopic? NO; Charge for UA Resulting for Rev
[2023-06-03] MEDS: LORazepam 2 mg/mL INJ 1 mL 0.5 MG IVP (16:39)
[2023-06-03 16:40] LABS: Bilirubin Urine Neg (Negative); Blood Urine Neg (Negative); Glucose Urine UA Norm (Normal); Ketones Urine Negative (Negative); Leukocyte Esterase Urine Negative (Negative); Nitrate Urine Negative (Negative); Protein Urine Neg (Negative); Specific Gravity, Urine 1.015 (1.005-1.030); Sulfosalicylic Acid Urine Negative (Negative); Urine Appearance Clear (CLEAR); Urine Color Light yellow (Yellow); Urobilinogen Urine Norm (Negative); pH Urine 8 (5-7)
[2023-06-03 16:48] LABS: Alanine Aminotransferase 14 U/L (0-33); Alkaline Phosphatase 71 U/L (35-105); Anion Gap 13.6 (5-19); Aspartate Amino Transferase 23 U/L (0-32); Blood Urea Nitrogen 25 mg/dL (8-23); Calcium 9.6 mg/dL (8.5-10.5); Carbon Dioxide 28 mmol/L (22-29); Chloride 101 mmol/L (98-107); Globulin 2.8 g/dL (1.3-4.6); Glucose 54 mg/dL (65-115); Lipase 52 U/L (13-60); Osmolality Calculated 290 mOsm/kg (285-295); Potassium 3.6 mmol/L (3.5-5.1); Sodium 139 mmol/L (136-145); Total Bilirubin 0.5 mg/dL (0.15-1.2); Total Protein 6.8 g/dL (6.6-8.7)
[2023-06-03 16:49] LABS: Creatinine Clr Calc Pharmacy 33.7364
[2023-06-03] MEDS: cloNIDine 0.1 mg Tablet PO ×2 (17:26→18:27)
== END 2023-06-03 20:12 | disposition home or self-care (01) ==
PROVIDERS: Emergency Provider Emergency Medicine; PCP Nurse Practitioner Family
DX: I10 Essential (primary) hypertension (principal); Z79.82 Long term (current) use of aspirin; Z79.4 Long term (current) use of insulin; Z79.02 Long term (current) use of antithrombotics/antiplatelets; Z87.891 Personal history of nicotine dependence; Z95.1 Presence of aortocoronary bypass graft; I25.10 Atherosclerotic heart disease of native coronary artery without angina pectoris; Z85.51 Personal history of malignant neoplasm of bladder; E78.5 Hyperlipidemia, unspecified; E11.9 Type 2 diabetes mellitus without complications
CPT/HCPCS: 36415; 80053; 81003; 83690; 85025; 96361; 96374; 99284; J2060; J7030

== ENCOUNTER 2023-06-19 22:45 | Emergency (ER) | payer MEDICARE, OTHER, SELFPAY ==
[2023-06-19 22:49] VITALS: BP 138/60; PULSE 65; RESP 18; TEMP 36.4; O2SAT 99; BMI 22.3
[2023-06-20] VITALS (8 sets, daily range): BP systolic 107–210; BP diastolic 47–96; PULSE 52–56; RESP 16; O2SAT 93–98
--- NOTE | 2023-06-20 00:11 | PC.NURSE ---
Patient states she has something in her throat, saw primary today and told her that possibly has diverticuli in her throat. Patient has not been able to keep any food or drink down since this morning. Patient took night pills, they got hung up but did go down per patient.
[2023-06-20 00:28] LABS: Basophils % 1.1 %; Eosinophils # 0.1 10^3/uL (0.0-0.8); Eosinophils % 1.6 %; Hematocrit 31.5 % (36-47); Lymphocytes # 0.9 10^3/uL (0.8-4.8); Lymphocytes % 24.7 %; Mean Corpuscular HGB Conc 33.3 g/dL (30-55); Mean Corpuscular Hemoglobin 29.8 pg (27-33); Mean Corpuscular Volume 89.5 fl (85-98); Mean Platelet Volume 10.7 fL (7.4-10.4); Monocytes # 0.5 10^3/uL (0.2-0.9); Neutrophils # 2.17 10^3/uL (1.8-7.7); Neutrophils % 58.3 %; Nucleated Red Blood Cells % 0 %; Platelet Count 167 10^3/cmm (157-399); Red Blood Count 3.52 10^6/uL (3.85-5.65); White Blood Count 3.72 10^3/uL (3.29-11.43)
[2023-06-20 00:46] LABS: Alanine Aminotransferase 16 U/L (0-33); Albumin Level 3.9 g/dL (3.5-5.2); Alkaline Phosphatase 69 U/L (35-105); Anion Gap 14.1 (5-19); Aspartate Amino Transferase 25 U/L (0-32); Blood Urea Nitrogen 36 mg/dL (8-23); Calcium 9.5 mg/dL (8.5-10.5); Carbon Dioxide 26 mmol/L (22-29); Chloride 98 mmol/L (98-107); Globulin 2.4 g/dL (1.3-4.6); Glucose 150 mg/dL (65-115); Osmolality Calculated 289 mOsm/kg (285-295); Potassium 4.1 mmol/L (3.5-5.1); Sodium 134 mmol/L (136-145); Total Bilirubin 0.5 mg/dL (0.15-1.2); Total Protein 6.3 g/dL (6.6-8.7)
--- NOTE | 2023-06-20 00:51 | ED_ITS ---
HPI - General Adult General: Chief complaint: Airway/Esophagus Foreign Body Stated complaint: Something Lodged in throat\BP high Time Seen by Provider: 06/20/23 00:16 History of Present Illness: Patient presents to the ER with foreign body sensation in her Throat. Patient is having some dysphagia. Patient can tolerate liquids but cannot tolerate solid food. Earlier the tonight patient swallowed her medicine and it got hung in her throat. Patient was unable to tolerate liquids for some time until the pill dissolved pain passed on down. Since then patient has not been able to tolerate solid food it feels like it gets hung in her throat and then she throws it up. Patient states she has had thickening in her esophagus before and she thinks it needs to be dilated but she has such a weak heart that no one will put her out through dilated. 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 Performed by Dr. Clark. History of back surgery Treatment of bone spurs. Performed by Dr. Gray in [place], [place] History of carpal tunnel release of both wrists History of cataract surgery Bilateral History of hip replacement (~2006) Left. Performed by Dr. Lovelace History of hip replacement (06/19/16) Performed by Dr. Lovelace Previous back surgery (08/22/14) [place] [facility] [place] S/P appendectomy Status post surgical removal and fulguration of bladder neoplasm Family History Father Stroke Mother Ovarian cancer Sister Breast cancer Diabetes Hypertension Brother Heart disease Diabetes Social History Smoking and tobacco/nicotine status: former use of tobacco/nicotine Quit status (tobacco/nicotine): has quit using Year quit tobacco: 1979 Former quit date comment: 10-15 years smoked Alcohol intake: never Substance/Drug Use: never Adopted: No Lives independently: Yes Household members: none Housing: House Marital status: / Current occupational status: retired Current occupation: disabled Do you think of yourself as: Straight/Heterosexual Current gender identity: Female Physical Exam Narrative: EXAM NARRATIVE: patient resting in bed in no apparent distress swallowing her own saliva easily. Const: COMMON NORMALS: no acute distress, average body habitus, patient oriented x3, no limitations, healthy appearing, alert and well nourished HENMT: COMMON NORMALS: normocephalic, atraumatic, hearing grossly normal bilaterally, external ears normal, Normal external nose present, moist oral mucous membranes and oropharynx normal HEAD & SCALP: normocephalic and atraumatic NOSE: Normal external nose present EXTERNAL EAR: Yes external ears normal Neck/C-Spine: COMMON NORMALS: full ROM, no lymphadenopathy, supple, no meningeal signs, no JVD and Thyroid normal THYROID: Thyroid normal Chest: COMMONS NORMALS: normal inspection of the chest and normal palpation of entire chest wall Resp: COMMON NORMALS: normal respiratory effort, No retractions, No use of accessory muscles and clear to auscultation bilaterally AUSCULTATION: clear to auscultation bilaterally Cardio: COMMON NORMALS: no JVD, regular rate, regular rhythm, S1 normal heart sound present, S2 normal heart sound present, No gallops present (Cardio), No clicks present (Cardio), No murmurs present (Cardio) and No rub (Cardio) RATE: regular rate RHYTHM: regular rhythm HEART SOUNDS: S1 normal heart sound present and S2 normal heart sound present GI: COMMON NORMALS: Normal to inspection, nondistended, normoactive bowel sounds present, Soft to palpation, non-tender, No hepatosplenomegaly present and no masses PALPATION: Yes Soft to palpation and Yes No hepatosplenomegaly present : COMMON NORMALS: Yes no CVA tenderness BLADDER/KIDNEY EXAM: Yes no CVA tenderness Back/Pelvis: COMMON NORMALS: no CVA tenderness Neuro: COMMON NORMALS: patient oriented x3 SENSORIUM/ORIENTATION: Yes alert MENINGEAL SIGNS: Yes no meningeal signs Course Vital Signs: Vital signs: Vital Signs Temperature 97.6 F 06/19/23 22:49 Pulse Rate 52 L 06/20/23 05:09 Respiratory Rate 16 06/20/23 05:09 Blood Pressure 178/62 06/20/23 05:10 Pulse Oximetry 96 06/20/23 05:09 Oxygen Delivery Me thod Room Air 06/19/23 22:49 MDM - General Adult Medical Decision Making Patient presented to the ER with complaints of pill getting stuck in her throat and then been unable to swallow solid foods. Patient had lab work done as well as a neck CT and chest CT. All of these were benign except some diffuse esophageal wall thickening that was seen again. During her time her patient's blood pressure went from perfectly normal to very hide down to perfectly normal again for no rhyme or reason. It appears not to respond to the medicine we gave but appeared to go down on its own. All of this was discussed with the patient and her family in detail. Patient will be referred back to her primary care physician and/or corporate director for further evaluation testing. Differential Diagnosis Dysphagia, foreign body in esophagus, Medical Records I reviewed the patient's medical records. Lab Data I reviewed the patient's lab results. 06/20/23 00:23 06/20/23 00:[address] 06/20/23 01:08 IMPRESSION: 1. No evidence of foreign body. 2. Diffuse esophageal wall thickening again seen which could represent chronic reflux esophagitis. 3. Extensive atherosclerotic disease and coronary artery calcifications. 4. Stable chronic lung findings. Neck CT 06/20/23 01:08 IMPRESSION: 1. No acute findings. No radiopaque foreign body. 2. Heterogeneous appearance of the right thyroid gland containing nodules measuring up to 11 mm. Follow-up guidelines, as below. COMMENTS: Consistent with the [place] [employer]'s Incidental Findings Committee white paper (J Am Aamir Radiol 2015): In patients aged 35 years and older with an incidental thyroid nodule equal to or greater than 1.[address], MRI or extrathyroidal US, further evaluation with dedicated thyroid US is recommended for patients with normal life expectancy and without comorbidities. For smaller nodules without suspicious features, no further evaluation or follow up is recommended. Laboratory Results WBC 3.72 10^3/uL (3.29-11.43) 06/20/23 00: RBC 3.52 10^6/uL (3.85-5.65) L 06/20/23 00: Hgb 10.50 g/dL (11.27-16.99) L 06/20/23 00: Hct 31.5 % (36-47) L 06/20/23 00: MCV 89.5 fl (85-98) 06/20/23: MCH 29.8 pg (27-33) 06/20/23: MCHC 33.3 g/dL (30-55) 06/20/23 00: RDW 14.0 % (12.1-15.1) 06/20/23 00: Plt Count 167 10^3/cmm (157-399) 06/20/23 00: MPV 10.7 fL (7.4-10.4) H 06/20/23 00: Neut % (Auto) 58.3 % 06/20/23 00: Lymph % (Auto) 24.7 % 06/20/23 00: [place] % (Auto) 14.0 % 06/20/23 00: Eos % (Auto) 1.6 % 06/20/23 00: Baso % (Auto) 1.1 % 06/20/23 00: Neut # (Auto) 2.17 10^3/uL (1.8-7.7) 06/20/23 00: Lymph # (Auto) 0.9 10^3/uL (0.8-4.8) 06/20/23 00: [place] # (Auto) 0.5 10^3/uL (0.2-0.9) 06/20/23 00: Eos # (Auto) 0.1 10^3/uL (0.0-0.8) 06/20/23 00: Baso # (Auto) 0.0 10^3/uL (0.0-0.1) 06/20/23 00: Nucleated RBC % (auto) 0 % 06/20/23 00: Nucleated RBCs # 0.0 /100WBC 06/20/23 00: Sodium 134 mmol/L (136-145) L 06/20/23 00:23 Potassium 4.1 mmol/L (3.5-5.1) 06/20/23 00:23 Chloride 98 mmol/L (98-107) 06/20/23 00:23 Carbon Dioxide 26 mmol/L (22-29) 06/20/23 00:23 Anion Gap 14.1 (5-19) 06/20/23 00:23 BUN 36 mg/dL (8-23) H 06/20/23 00:23 Creatinine 1.6 mg/dL (0.5-0.9) H 06/20/23 00:23 GFR Calculation Not Reportable 06/20/23 00:23 Glucose 150 mg/dL (65-115) H 06/20/23 00:23 Calculated Osmolality 289 mOsm/kg (285-295) 06/20/23 00:23 Calcium 9.5 mg/dL (8.5-10.5) 06/20/23 00:23 Total Bilirubin 0.5 mg/dL (0.15-1.2) 06/20/23 00:23 AST 25 U/L (0-32) 06/20/23 00:23 ALT 16 U/L (0-33) 06/20/23 00:23 Alkaline Phosphatase 69 U/L (35-105) 06/20/23 00:23 Total Protein 6.3 g/dL (6.6-8.7) L 06/20/23 00:23 Albumin 3.9 g/dL (3.5-5.2) 06/20/23 00:23 Globulin 2.4 g/dL (1.3-4.6) 06/20/23 00:23 All radiology interpretation(s) finalized by discharge Discharge Plan Discharge Patient Disposition: Home Clinical Impression: Dysphagia Qualifiers: Dysphagia type: unspecified Qualified Code(s): R13.10 - Dysphagia, unspecified Hypertension Qualifiers: Hypertension type: unspecified Qualified Code(s): I10 - Essential (primary) hypertension Condition: Stable Prescriptions: No Action aspirin 81 mg tablet,delayed release (DR/EC) 81 mg PO QAM Hold Instructions: Resume on 11/23/19. (DME) OneTouch Ultra Test Strip See Rx Instructions .ROUTE .COMPLEX Qty: 100 5RF Dose Instruction: USE 1 STRIP TO CHECK GLUCOSE TWICE DAILY. DX: E11.9 Rx Instructions: USE 1 STRIP TO CHECK GLUCOSE TWICE DAILY. DX: E11.9 (DME) lancets [OneTouch Delica Plus Lancet] 33 gauge misc See Rx Instructions .ROUTE .COMPLEX Qty: 100 5RF Dose Instruction: USE 1 LANCET TO CHECK GLUCOSE TWICE DAILY Rx Instructions: USE 1 LANCET TO CHECK GLUCOSE TWICE DAILY (DME) pen needle, diabetic [BD Ultra-Fine Mini Pen Needle] 31 gauge x 3/16 needle See Rx Instructions .ROUTE .COMPLEX Qty: 100 5RF Dose Instruction: USE DIRECTED Rx Instructions: USE DIRECTED clonidine HCl 0.1 mg tablet 0.1 mg PO BID hydralazine 100 mg tablet 100 mg PO .COMPLEX Rx Instructions: 100 mg orally when BP is over 160; alprazolam 0.5 mg tablet 0.5 mg PO TID PRN (Reason: Anxiety) Qty: 90 0RF mupirocin 2 % ointment 1 applic topical BID ipratropium bromide 21 mcg (0.03 %) spray,non-aerosol 2 spray intranasal TID Rx Instructions: administer into each nostril mecobalamin (vitamin B12) 2,500 mcg tablet,chewable 2,500 mcg PO DAILY@12 pantoprazole 40 mg tablet,delayed release (DR/EC) See Rx Instructions .ROUTE .COMPLEX Qty: 30 0RF Dose Instruction: Take 1 tablet by mouth once daily Rx Instructions: Take 1 tablet by mouth once daily furosemide 40 mg tablet See Rx Instructions .ROUTE .COMPLEX Qty: 30 0RF Dose Instruction: TAKE 1 TABLET BY MOUTH ONCE DAILY IN THE MORNING. START WHEN BODY WEIGHT INCREASES BY 5 LBS. Rx Instructions: TAKE 1 TABLET BY MOUTH ONCE DAILY IN THE MORNING. START WHEN BODY WEIGHT INCREASES BY 5 LBS. ferrous gluconate 324 mg (38 mg iron) tablet See Rx Instructions .ROUTE .COMPLEX Qty: 60 0RF Dose Instruction: TAKE 1 TABLET BY MOUTH TWICE DAILY WITH MEALS Rx Instructions: TAKE 1 TABLET BY MOUTH TWICE DAILY WITH MEALS calcium carbonate [Calcium 600] 600 mg calcium (1,500 mg) Tablet 600 mg PO DAILY@12 famotidine 20 mg tablet 20 mg PO BID ranolazine 500 mg tablet extended release 12 hr 500 mg PO BID Qty: 60 3RF atorvastatin 40 mg tablet 80 mg PO QAM isosorbide mononitrate 60 mg tablet extended release 24 hr 60 mg PO QAM Nitrostat 0.4 mg Tablet, Sublingual 0.4 mg SUBLINGUAL Q5M PRN (Reason: Chest Pain) Rx Instructions: do not exceed 3 doses per episode hydralazine 50 mg tablet 50 mg PO TID magnesium oxide 400 mg magnesium Tablet 400 mg PO QAM clopidogrel 75 mg tablet 75 mg PO QAM metoprolol succinate 25 mg tablet extended release 24 hr 25 mg PO QAM Femara 2.5 mg tablet 2.5 mg PO QPM irbesartan 300 mg tablet 150 mg PO QPM Levemir FlexPen 100 unit/mL (3 mL) insulin pen 10 unit SUBCUT QAM Discharge Orders: Discharge ED (Routine); Ordered 06/20/23 Ordered By: Ren Rader Referrals: Chaya Long FNP [Primary Care Provider] - 1 week Patient Instructions: Dysphagia, Hypertension, Esophageal Spasm (ED) Activity Restrictions/Additional Instructions: please follow-up with your family practice physician within the next 7 to 10 days for further evaluation and treatment. This may include things such as GI And/or cardiologyreferral or endoscopy. Coding Level of Care Code ED Project Specialist for Jaison Anna
[2023-06-20] MEDS: ondansetron 2 mg/ML SDV 2 mL 4 MG IVP (00:56)
[2023-06-20] MEDS: hyDRALAzine 20 mg/mL INJ 1 mL IVP (01:05)
--- NOTE | 2023-06-20 01:08 | CTR_ITS ---
PROCEDURE INFORMATION: Exam: CT Neck Without Contrast Exam date and time: 06/20/2023 1:19 AM Age: 87 years old Clinical indication: Other: Fb; Patient HX: PT is belching and says that she keeps getting food/water caught in her throat, she says earlier when she came in she felt like something was lodged but now that feeling is gone; Additional info: Esophageal foreign body sensation TECHNIQUE: Imaging protocol: Computed tomography of the neck without contrast. Radiation optimization: All CT scans at this facility use at least one of these dose optimization techniques: automated exposure control; mA and/or kV adjustment per patient size (includes targeted exams where dose is matched to clinical indication); or iterative reconstruction. REPORTING DATA: Count of CT and Cardiac NM exams in prior 12 months: This patient has received 3 known CTs and 0 known cardiac nuclear medicine studies in the 12 months prior to the current study. COMPARISON: [place] [id number] 02/01/2023 3:13 AM RADIATION DOSE METRICS: Total DLP (mGy-cm): 151.4 FINDINGS: Pharynx: Unremarkable. No significant tonsillar enlargement. Larynx: Normal epiglottis. Prevertebral and retropharyngeal spaces: Prevertebral retropharyngeal tissues are normal. No radiopaque foreign body. Salivary glands: Normal. Glands are normal in size. Thyroid: Heterogeneous appearance of the right thyroid gland containing nodules measuring up to11 mm. Lymph nodes: No lymphadenopathy. Trachea: Visualized trachea is unremarkable. Lungs: No acute findings. Bones/joints: Degenerative changes including disc space narrowing, endplate spurring facet hypertrophy. Mild anterolisthesis of C6 on 7. Soft tissues: No significant soft tissue swelling. CT/CT neck wo con [id number] IMPRESSION: 1. No acute findings. No radiopaque foreign body. 2. Heterogeneous appearance of the right thyroid gland containing nodules measuring up to 11 mm. Follow-up guidelines, as below. COMMENTS: Consistent with the [place] [employer]'s Incidental Findings Committee white paper (J Am Aamir Radiol 2015): In patients aged 35 years and older with an incidental thyroid nodule equal to or greater than 1.[address], MRI or extrathyroidal US, further evaluation with dedicated thyroid US is recommended for patients with normal life expectancy and without comorbidities. For smaller nodules without suspicious features, no further evaluation or follow up is recommended.
--- NOTE | 2023-06-20 01:08 | CTR_ITS ---
PROCEDURE INFORMATION: Exam: CT Chest Without Contrast; Diagnostic Exam date and time: 06/20/2023 1:23 AM Age: 87 years old Clinical indication: Other: Esophageal foreign body sensation; Patient HX: PT is belching and says that she keeps getting food/water caught in her throat, she says earlier when she came in she felt like something was lodged but now that feeling is gone TECHNIQUE: Imaging protocol: Diagnostic computed tomography of the chest without contrast. Radiation optimization: All CT scans at this facility use at least one of these dose optimization techniques: automated exposure control; mA and/or kV adjustment per patient size (includes targeted exams where dose is matched to clinical indication); or iterative reconstruction. REPORTING DATA: Count of CT and Cardiac NM exams in prior 12 months: This patient has received 3 known CTs and 0 known cardiac nuclear medicine studies in the 12 months prior to the current study. COMPARISON: [place] [id number] 02/01/2023 3:13 AM RADIATION DOSE METRICS: Total DLP (mGy-cm): 290.2 FINDINGS: Lungs: Stable reticular opacities are seen scattered throughout the lungs. Stable nodular opacities are seen in the right middle lobe lingula. Pleural spaces: Unremarkable. No pneumothorax. No pleural effusion. Heart: There is cardiomegaly present. Coronary arteries: Extensive coronary artery calcifications are identified. Mediastinal space: There is diffuse thickening of the wall of the esophagus again seen. Lymph nodes: Multiple calcified right hilar nodes are seen suggesting prior granulomatous disease. Vasculature: There is no thoracic aortic aneurysm. There is extensive atherosclerotic disease. Bones/joints: Unremarkable. No acute fracture. Soft tissues: Unremarkable. CT/CT chest wo con [id number] IMPRESSION: 1. No evidence of foreign body. 2. Diffuse esophageal wall thickening again seen which could represent chronic reflux esophagitis. 3. Extensive atherosclerotic disease and coronary artery calcifications. 4. Stable chronic lung findings.
[2023-06-20] MEDS: cloNIDine 0.1 mg Tablet 0.2 MG PO (01:43)
[2023-06-20] MEDS: cloNIDine 0.1 mg Tablet PO (05:10)
== END 2023-06-20 05:15 | disposition home or self-care (01) ==
PROVIDERS: Emergency Provider Emergency Medicine; PCP Nurse Practitioner Family
DX: R13.10 Dysphagia, unspecified (principal); I10 Essential (primary) hypertension; Z79.82 Long term (current) use of aspirin; Z79.02 Long term (current) use of antithrombotics/antiplatelets; Z79.4 Long term (current) use of insulin; Z87.891 Personal history of nicotine dependence; I25.10 Atherosclerotic heart disease of native coronary artery without angina pectoris; Z85.51 Personal history of malignant neoplasm of bladder; E78.5 Hyperlipidemia, unspecified; E11.9 Type 2 diabetes mellitus without complications
CPT/HCPCS: 70490; 71250; 80053; 85025; 96374; 96375; 99285; J0360; J2405

== ENCOUNTER → 2023-06-24 15:08 | Outpatient (BNVA) | payer MEDICARE, OTHER, SELFPAY | PROVIDERS: PCP Nurse Practitioner Family; Visit Provider Nurse Practitioner Family | DX: Z09 Encounter for follow-up examination after completed treatment for conditions other than malignant neoplasm (principal); E04.1 Nontoxic single thyroid nodule | CPT/HCPCS: 84439; 84443; 84481 ==

== ENCOUNTER 2023-07-03 08:23 | Outpatient (CLI) | payer MEDICARE, OTHER, SELFPAY ==
--- NOTE | 2023-07-03 10:00 | US_ITS ---
WS: [id number] THYROID ULTRASOUND HISTORY: E04.1 - Nontoxic single thyroid nodule COMPARISON: None available. Right lobe: 1.6 cm x 1.8 cm x 5.9 cm (w x ap x l). Volume: 8.6 cm3. Enlarged heterogeneous nodular gland. There are multiple nodules throughout the gland which are of mi xed echogenicity. Mild increased vascularity throughout the gland. Similar nodules are demonstrated t hroughout the gland. The largest in the inferior gland measures 1.2 x 0.8 x 1.7 cm. RIGHT isthmus nod ule measures 0.8 x 0.7 x 1.4 cm. There are few scattered echogenic foci throughout the thyroid. Left lobe: 1.1 cm x 1.3 cm x 4.7 cm (w x ap x l). Volume: 3.6 cm3. Heterogeneous gland with coarse echotexture. There are a few small colloid nodules. The largest nodul e is in the inferior pole measuring 0.8 x 0.8 x 1.6 cm. There are few echogenic foci. Isthmus: 0.3 cm. IMPRESSION: 1. Numerous bilateral thyroid nodules. Multinodular goiter on the RIGHT. There is no one nodule that appears more suspicious than another. 2. Consider yearly evaluation by ultrasound. Surveillance and be performed on the thyroid gland to ev aluate for enlarging nodules over time.
== END 2023-07-03 08:24 | disposition home or self-care (01) ==
LOC: RAD 08:23
PROVIDERS: PCP Nurse Practitioner Family; Visit Provider Nurse Practitioner Family
DX: E04.1 Nontoxic single thyroid nodule (principal); E04.2 Nontoxic multinodular goiter
CPT/HCPCS: 76536

== ENCOUNTER 2023-07-07 20:17 | Emergency (ER) | payer MEDICARE, OTHER, SELFPAY ==
--- NOTE | 2023-07-07 20:20 | XRR_ITS ---
PROCEDURE INFORMATION: Exam: XR Right Hip Exam date and time: 07/07/2023 8:45 PM Age: 87 years old Clinical indication: Injury or trauma; Fall; Blunt trauma (contusions or hematomas); Right; Prior surgery; Surgery date: 6+ months; Surgery type: RT hip TECHNIQUE: Imaging protocol: Radiologic exam of the right hip. Views: 1 view hip with pelvis when performed. COMPARISON: [place] [id number] 02/01/2023 3:13 AM FINDINGS: Tubes, catheters and devices: There are surgical clips projected over the medial aspect of the right superior thigh. 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 Patient is status post right total hip arthroplasty. The hardware is intact. There are no fractures noted. Soft tissues: Unremarkable. Gastrointestinal tract: there is presence of feces in the rectum. Vasculature: There is diffuse vascular calcification noted. XR/XR hip RT 2-3V wo/w pel* [id number] IMPRESSION: No acute findings. Patient is status post right total hip arthroplasty with the hardware intact.
[2023-07-07 20:31] VITALS: BP 202/67; PULSE 57; RESP 16; TEMP 36.5; O2SAT 98; BMI 20.9
--- NOTE | 2023-07-07 20:53 | ED_ITS ---
HPI - Fall General: Chief Complaint: Fall Stated Complaint: fell, hurt right hip and arm Time Seen by Provider: 07/07/23 20:53 History of Present Illness: 87-year-old female comes into the emergency room after a fall at home. Patient landed on her right side. Patient reports some pain in the right hip, right elbow, and right hand. Is reported that patient did strike her head against the stove. Patient has a skin tear to the right elbow area. Patient moves all extremities well. No obvious head injury is noted. Patient moves neck without difficulty. Patient has a history of right hip replacement. Associated symptoms-after fall: Denies chest pain or headache(s) Review of Systems General: Reports: 10 or more systems reviewed and unremarkable except in HPI and below Const: Denies: fever(s) Card: Denies: chest pain Resp: Denies: dyspnea GI: Denies: nausea, vomiting, diarrhea or constipation : Denies: difficulty voiding Skin/Breast: Denies: rash Neuro: Denies: headache(s) PFSH ED PFSH: Medical History Abnormal result of other cardiovascular function study Asthma Atherosclerosis of [place] coronary artery Benzodiazepine dependence, continuous Bladder cancer CAD (coronary artery disease) Carotid stenosis, asymptomatic Chest pain TYRONE (generalized anxiety disorder) Hyperlipidemia Hypertension, essential Insomnia 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 Performed by Dr. Clark. History of back surgery Treatment of bone spurs. Performed by Dr. Gray in [place], [place] History of carpal tunnel release of both wrists History of cataract surgery Bilateral History of hip replacement (~2006) Left. Performed by Dr. Lovelace History of hip replacement (06/19/16) Performed by Dr. Lovelace Previous back surgery (08/22/14) Performed by Dr. Ramsay at [facility] in [place], [place] S/P appendectomy Status post surgical removal and fulguration of bladder neoplasm Family History Father Stroke Mother Ovarian cancer Sister Breast cancer Diabetes Hypertension Brother Heart disease Diabetes Social History Smoking and tobacco/nicotine status: former use of tobacco/nicotine Quit status (tobacco/nicotine): has quit using Year quit tobacco: 1979 Former quit date comment: 10-15 years smoked Alcohol intake: never Substance/Drug Use: never Adopted: No Lives independently: Yes Household members: none Housing: House Marital status: / Current occupational status: retired Current occupation: disabled Do you think of yourself as: Straight/Heterosexual Current gender identity: Female Physical Exam Const: COMMON NORMALS: alert HENMT: COMMON NORMALS: atraumatic and Normal external nose present HEAD & SCALP: atraumatic NOSE: Normal external nose present MOUTH: Normal oral and palatal mucosa present Neck/C-Spine: COMMON NORMALS: full ROM CERVICAL SPINE: No Cervical spine tenderness Chest: COMMONS NORMALS: normal inspection of the chest and normal palpation of entire chest wall Resp: COMMON NORMALS: normal respiratory effort and clear to auscultation bilaterally AUSCULTATION: clear to auscultation bilaterally Cardio: COMMON NORMALS: regular rate RATE: regular rate GI: COMMON NORMALS: Soft to palpation and non-tender PALPATION: Yes Soft to palpation Back/Pelvis: COMMON NORMALS: thoracic and lumbar spine normal to inspection Extremity: RIGHT UPPER EXTREMITY: Yes lower arm (Proximal skin tear) Neuro: SENSORIUM/ORIENTATION: Yes alert Skin: NARRATIVE SKIN EXAM: Skin tear right elbow/forearm region Course Vital Signs: Vital signs: Vital Signs Temperature 97.7 F 07/07/23 20:31 Pulse Rate 61 07/07/23 21:46 Respiratory Rate 18 07/07/23 21:46 Blood Pressure 218/81 07/07/23 21:46 Pulse Oximetry 97 07/07/23 21:46 Oxygen Delivery Me thod Room Air 07/07/23 20:31 MDM - Fall Medical Decision Making 87-year-old female brought in by family for concerns of fall and injury. On exam patient has a skin tear to her right forearm elbow area. Patient moves extremities well. No obvious deformities are noted. Patient does have a bruising to the dorsal right hand. Differential diagnoses includes contusion, fracture, dislocation, laceration, intracranial bleeding. CT of the head was unremarkable. X-ray of the hip and pelvis noted no fracture and intact hardware. X-ray of the right elbow was unremarkable. X-ray of the right hand noted a metacarpal fracture of the fourth. Reviewed exam with patient and family with recommendations for treatment and follow-up. Family and patient both reported understanding. Lab Data Radiology Impressions Hip/Pelvis X-Ray 07/07/23 20:20 IMPRESSION: No acute findings. Patient is status post right total hip arthroplasty with the hardware intact. Elbow X-Ray 07/07/23 21:00 IMPRESSION: No acute findings. Hand X-Ray 07/07/23 21:00 IMPRESSION: 1. Minimally displaced oblique fracture of the body of the 4th (ring) finger. 2. Possible impacted fracture in the distal portion of the proximal phalanx of the 5th (little) finger, recommend clinical correlation. ADDENDUM: 07/07/23 [id number] THIS REPORT CONTAINS FINDINGS THAT MAY BE CRITICAL TO PATIENT CARE. The findings were verbally communicated via telephone conference with Dr. Ryley Carbajal at 10:03 PM CDT on 07/07/2023. The findings were acknowledged and understood. The oblique fracture is in the body of the metacarpal of the 4th (ring) finger which is minimally displaced. Clinically, the patient is stated to be asymptomatic at the distal portion of the proximal phalanx of the 5th (little) finger. Head CT 07/07/23 21:00 IMPRESSION: No acute intracranial abnormality. All radiology interpretation(s) finalized by discharge Discharge Plan Discharge Patient Disposition: Home Clinical Impression: Fall from slip, trip, or stumble Qualifiers: Encounter type: initial encounter Qualified Code(s): W01.0XXA - Fall on same level from slipping, tripping and stumbling without subsequent striking against object, initial encounter Hand fracture, right Qualifiers: Encounter type: initial encounter Fracture type: closed Qualified Code(s): S62.91XA - Unspecified fracture of right wrist and hand, initial encounter for closed fracture Condition: Stable Prescriptions: No Action aspirin 81 mg tablet,delayed release (DR/EC) 81 mg PO QAM Hold Instructions: Resume on 11/23/19. (DME) lancets [OneTouch Delica Plus Lancet] 33 gauge misc See Rx Instructions .ROUTE .COMPLEX Qty: 100 5RF Dose Instruction: USE 1 LANCET TO CHECK GLUCOSE TWICE DAILY Rx Instructions: USE 1 LANCET TO CHECK GLUCOSE TWICE DAILY (DME) pen needle, diabetic [BD Ultra-Fine Mini Pen Needle] 31 gauge x 3/16 needle See Rx Instructions .ROUTE .COMPLEX Qty: 100 5RF Dose Instruction: USE DIRECTED Rx Instructions: USE DIRECTED hydralazine 100 mg tablet 100 mg PO .COMPLEX Rx Instructions: 100 mg orally when BP is over 160; alprazolam 0.5 mg tablet 0.5 mg PO TID PRN (Reason: Anxiety) Qty: 90 0RF metoprolol succinate 25 mg tablet extended release 24 hr 25 mg PO BID Qty: 180 0RF clonidine HCl 0.1 mg tablet 0.1 mg PO TID Qty: 90 0RF (DME) FreeStyle [place]iss[place] 3 Sensor Device See Rx Instructions .Route Qty: 1 0RF Rx Instructions: As directed (DME) FreeStyle Lissett 14 Day Sensor Kit See Rx Instructions .Route Qty: 1 0RF Rx Instructions: As directed mupirocin 2 % ointment 1 applic topical BID ipratropium bromide 21 mcg (0.03 %) spray,non-aerosol 2 spray intranasal TID Rx Instructions: administer into each nostril mecobalamin (vitamin B12) 2,500 mcg tablet,chewable 2,500 mcg PO DAILY@12 furosemide 40 mg tablet See Rx Instructions .ROUTE .COMPLEX Qty: 30 0RF Dose Instruction: TAKE 1 TABLET BY MOUTH ONCE DAILY IN THE MORNING. START WHEN BODY WEIGHT INCREASES BY 5 LBS. Rx Instructions: TAKE 1 TABLET BY MOUTH ONCE DAILY IN THE MORNING. START WHEN BODY WEIGHT INCREASES BY 5 LBS. ferrous gluconate 324 mg (38 mg iron) tablet See Rx Instructions .ROUTE .COMPLEX Qty: 60 0RF Dose Instruction: TAKE 1 TABLET BY MOUTH TWICE DAILY WITH MEALS Rx Instructions: TAKE 1 TABLET BY MOUTH TWICE DAILY WITH MEALS (DME) OneTouch Ultra Test Strip See Rx Instructions .ROUTE .COMPLEX Qty: 100 0RF Dose Instruction: USE 1 STRIP TO CHECK GLUCOSE TWICE DAILY Rx Instructions: USE 1 STRIP TO CHECK GLUCOSE TWICE DAILY e11.9 clopidogrel 75 mg tablet See Rx Instructions .ROUTE .COMPLEX Qty: 30 0RF Dose Instruction: Take 1 tablet by mouth once daily Rx Instructions: Take 1 tablet by mouth once daily pantoprazole 40 mg tablet,delayed release (DR/EC) See Rx Instructions .ROUTE .COMPLEX Qty: 30 0RF Dose Instruction: Take 1 tablet by mouth once daily Rx Instructions: Take 1 tablet by mouth once daily calcium carbonate [Calcium 600] 600 mg calcium (1,500 mg) Tablet 600 mg PO DAILY@12 famotidine 20 mg tablet 20 mg PO BID ranolazine 500 mg tablet extended release 12 hr 500 mg PO BID Qty: 60 3RF atorvastatin 40 mg tablet 80 mg PO QAM isosorbide mononitrate 60 mg tablet extended release 24 hr 60 mg PO QAM Nitrostat 0.4 mg Tablet, Sublingual 0.4 mg SUBLINGUAL Q5M PRN (Reason: Chest Pain) Rx Instructions: do not exceed 3 doses per episode hydralazine 50 mg tablet 50 mg PO TID magnesium oxide 400 mg magnesium Tablet 400 mg PO QAM Femara 2.5 mg tablet 2.5 mg PO QPM irbesartan 300 mg tablet 150 mg PO QPM Levemir FlexPen 100 unit/mL (3 mL) insulin pen 10 unit SUBCUT QAM Discharge Orders: Discharge ED (Routine); Ordered 07/07/23 Ordered By: Ryley Carbajal Referrals: Chaya Long FNP [Primary Care Provider] - Discharge Diet: Usual diet Discharge Activity: Increase activity as tolerated Patient Instructions: Splint Care (ED) Activity Restrictions/Additional Instructions: Give acetaminophen as needed for pain and discomfort. Keep splint clean and dry. Continue with routine medications as directed. Follow-up with primary care for further instructions. Return to ED for new concerns. Case management should contact you regarding follow-up with orthopedic office for further evaluation and treatment of fracture. Coding Level of Care Code ED Family Health Nurse Practitioner for Jaison Anna
--- NOTE | 2023-07-07 21:00 | XRR_ITS ---
PROCEDURE INFORMATION: Exam: XR Right Hand Exam date and time: 07/07/2023 9:12 PM Age: 87 years old Clinical indication: Injury or trauma; Fall; Blunt trauma (contusions or hematomas); Hand; Right TECHNIQUE: Imaging protocol: Radiologic exam of the right hand. Views: 3 or more views. COMPARISON: CR ( EX, ) 07/07/2023 9:09 PM FINDINGS: Bones/joints: There is generalized osteopenia. There is an oblique fracture in the body of the 4th (ring) finger which is minimally displaced. There is severe osteoarthritis noted with deformity of the tip of the index finger. There is an irregularity in the head of the proximal phalanx of the 5th (little) finger, this may represent an impacted fracture, recommend clinical correlation. Soft tissues: Normal. XR/XR hand RT min 3V* [id number] IMPRESSION: 1. Minimally displaced oblique fracture of the body of the 4th (ring) finger. 2. Possible impacted fracture in the distal portion of the proximal phalanx of the 5th (little) finger, recommend clinical correlation.
--- NOTE | 2023-07-07 21:00 | CTR_ITS ---
PROCEDURE INFORMATION: Exam: CT Head Without Contrast Exam date and time: 07/07/2023 9:17 PM Age: 87 years old Clinical indication: Injury or trauma; Blunt trauma (contusions or hematomas); Patient HX: Fall this evening at home striking frontal on stove. TECHNIQUE: Imaging protocol: Computed tomography of the head without contrast. Radiation optimization: All CT scans at this facility use at least one of these dose optimization techniques: automated exposure control; mA and/or kV adjustment per patient size (includes targeted exams where dose is matched to clinical indication); or iterative reconstruction. REPORTING DATA: Count of CT and Cardiac NM exams in prior 12 months: This patient has received 5 known CTs and 0 known cardiac nuclear medicine studies in the 12 months prior to the current study. COMPARISON: CT head wo con* [id number] 08/23/2021 10:49 PM RADIATION DOSE METRICS: Total DLP (mGy-cm): 1081.93 FINDINGS: Brain: There is age-appropriate cerebral atrophy. No hemorrhage. There is diffuse periventricular white matter disease. No mass effect. The basal cisterns are patent. Cerebral ventricles: There is ventriculomegaly which is related to age-appropriate cerebral atrophy. Paranasal sinuses: Visualized sinuses are unremarkable. No fluid levels. Mastoid air cells: Visualized mastoid air cells are well aerated. Bones/joints: No acute fracture. Soft tissues: Unremarkable. CT/CT head wo con* [id number] IMPRESSION: No acute intracranial abnormality.
--- NOTE | 2023-07-07 21:00 | XRR_ITS ---
PROCEDURE INFORMATION: Exam: XR Right Elbow Exam date and time: 07/07/2023 9:09 PM Age: 87 years old Clinical indication: Injury or trauma; Fall; Blunt trauma (contusions or hematomas); Elbow; Right TECHNIQUE: Imaging protocol: Radiologic exam of the right elbow. Views: 3 or more views. COMPARISON: No relevant prior studies available. FINDINGS: Bones/joints: There is generalized osteopenia. There are no fractures or dislocations.. Soft tissues: Normal. XR/XR elbow RT min 3V* [id number] IMPRESSION: No acute findings.
[2023-07-07 21:46] VITALS: BP 218/81; PULSE 61; RESP 18; O2SAT 97
[2023-07-07 22:23] VITALS: BP 234/94; PULSE 68; RESP 18; O2SAT 98
[2023-07-07 22:29] VITALS: PULSE 66; RESP 18; O2SAT 97
--- NOTE | 2023-07-08 13:35 | DCPLANNER ---
Message sent to office for a follow up on a hand fracture.
== END 2023-07-07 22:32 | disposition home or self-care (01) ==
PROVIDERS: Emergency Provider Nurse Practitioner Family; PCP Nurse Practitioner Family
DX: S62.604A Fracture of unspecified phalanx of right ring finger, initial encounter for closed fracture (principal); Z79.02 Long term (current) use of antithrombotics/antiplatelets; Z79.82 Long term (current) use of aspirin; Z79.4 Long term (current) use of insulin; Z87.891 Personal history of nicotine dependence; I25.10 Atherosclerotic heart disease of native coronary artery without angina pectoris; Z85.51 Personal history of malignant neoplasm of bladder; E78.5 Hyperlipidemia, unspecified; I10 Essential (primary) hypertension; E11.9 Type 2 diabetes mellitus without complications; Z96.643 Presence of artificial hip joint, bilateral; S51.011A Laceration without foreign body of right elbow, initial encounter; W18.39XA Other fall on same level, initial encounter; Y92.009 Unspecified place in unspecified non-institutional (private) residence as the place of occurrence of the external cause
CPT/HCPCS: 70450; 73080; 73130; 73502; 99284

== ENCOUNTER 2023-07-13 10:47 | Emergency (ER) | payer MEDICARE, OTHER, SELFPAY ==
[2023-07-13 10:53] VITALS: BP 121/62; PULSE 69; RESP 17; O2SAT 98
--- NOTE | 2023-07-13 11:13 | ED_ITS ---
HPI - Head Injury General: Chief complaint: Head Injury Stated complaint: fall/ hit head Time Seen by Provider: 07/13/23 11:04 History of Present Illness: Patient presents to the ER with complaints of falling and hitting her head. Patient denies any nausea vomiting at this time. Unknown loss of consciousness. Patient is alert oriented and coherent. Patient has a hematoma and small laceration around her right eye. She is complaining of head pain neck pain and right hip pain. Patient is on Plavix. 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 Performed by Dr. Clrak. History of back surgery Treatment of bone spurs. Performed by Dr. Gray in [place], [place] History of carpal tunnel release of both wrists History of cataract surgery Bilateral History of hip replacement (~2006) Left. Performed by Dr. Lovelace History of hip replacement (06/19/16) Performed by Dr. Lovelace Previous back surgery (08/22/14) Performed by Dr. Ramsay at [facility] in [place], [place] S/P appendectomy Status post surgical removal and fulguration of bladder neoplasm Family History Father Stroke Mother Ovarian cancer Sister Breast cancer Diabetes Hypertension Brother Heart disease Diabetes Social History Smoking and tobacco/nicotine status: former use of tobacco/nicotine Quit status (tobacco/nicotine): has quit using Year quit tobacco: 1979 Former quit date comment: 10-15 years smoked Alcohol intake: never Substance/Drug Use: never Adopted: No Lives independently: Yes Household members: none Housing: House Marital status: / Current occupational status: retired Current occupation: disabled Do you think of yourself as: Straight/Heterosexual Current gender identity: Female Physical Exam Const: COMMON NORMALS: no acute distress, average body habitus, patient oriented x3, no limitations, healthy appearing, alert and well nourished HENMT: COMMON NORMALS: normocephalic, hearing grossly normal bilaterally, external ears normal, Normal external nose present, moist oral mucous membranes and oropharynx normal; head/scalp not atraumatic (Right orbital trauma with abrasion small laceration and ecchymosis.) HEAD & SCALP: normocephalic; not atraumatic (Right orbital trauma with abrasion small laceration and ecchymosis.) NOSE: Normal external nose present EXTERNAL EAR: Yes external ears normal Eye: COMMON NORMALS: Equal, round and reactive pupils present, EOMs intact bilaterally, conjunctivae normal and no scleral icterus CONJUNCTIVA: Yes conjunctivae normal PUPIL: Yes Equal, round and reactive pupils present Neck/C-Spine: COMMON NORMALS: no lymphadenopathy, supple, no meningeal signs, no JVD and Thyroid normal; negative for full ROM (Pain with palpation over right paraspinal musculature) THYROID: Thyroid normal Chest: COMMONS NORMALS: normal inspection of the chest and normal palpation of entire chest wall Resp: COMMON NORMALS: normal respiratory effort, No retractions, No use of accessory muscles and clear to auscultation bilaterally AUSCULTATION: clear to auscultation bilaterally Cardio: COMMON NORMALS: no JVD, regular rate, regular rhythm, S1 normal heart sound present, S2 normal heart sound present, No gallops present (Cardio), No clicks present (Cardio), No murmurs present (Cardio) and No rub (Cardio) R ATE: regular rate RHYTHM: regular rhythm HEART SOUNDS: S1 normal heart sound present and S2 normal heart sound present GI: COMMON NORMALS: Normal to inspection, nondistended, normoactive bowel sounds present, Soft to palpation, non-tender, No hepatosplenomegaly present and no masses PALPATION: Yes Soft to palpation and Yes No hepatosplenomegaly present : COMMON NORMALS: Yes no CVA tenderness BLADDER/KIDNEY EXAM: Yes no CVA tenderness Back/Pelvis: COMMON NORMALS: no CVA tenderness Neuro: COMMON NORMALS: patient oriented x3 SENSORIUM/ORIENTATION: Yes alert MENINGEAL SIGNS: Yes no meningeal signs Course Vital Signs: Vital signs: Vital Signs Pulse Rate 59 L 07/13/23 11:28 Respiratory Rate 16 07/13/23 11:28 Blood Pressure 156/62 07/13/23 11:28 Pulse Oximetry 98 07/13/23 11:28 Oxygen Delivery Me thod Room Air 07/13/23 11:28 MDM - Head Injury Medcial Decision Making Patient fell and hit her head. There was unknown loss of consciousness. Patient is alert and oriented. CT scan of her head revealed moderate size subdural hematoma with no midline shift but mild mass effect. Dr. Sales was consulted through [facility] ER he accepted patient will be Air-Evac to. [facility] ER. Differential Diagnosis Likely subdural hematoma Medical Records I reviewed the patient's medical records. Lab Data I reviewed the patient's lab results. Radiology Impressions Head CT 07/13/23 11:14 IMPRESSION: 1. Moderate size acute left peritentorial subdural hematoma extending underneath the left temporal lobe and lateral to the left frontal lobe as well as into the posterior interhemispheric fissure as discussed above. 2. Small scalp hematoma superficial to the right orbit and right frontal bone. ADDENDUM: 07/13/23 1217 THIS REPORT CONTAINS FINDINGS THAT MAY BE CRITICAL TO PATIENT CARE. The findings were verbally communicated via telephone conference with Ren Rader at 12:15 PM PSYCHOLOGY PROFESSOR on 07/13/2023. The findings were acknowledged and understood. All radiology interpretation(s) finalized by discharge Discharge Plan Discharge Patient Disposition: Xfer Short-Term Hosp Clinical Impression: Acute subdural hematoma Condition: Stable Prescriptions: No Action aspirin 81 mg tablet,delayed release (DR/EC) 81 mg PO QAM Hold Instructions: Resume on 11/23/19. (DME) lancets [OneTouch Delica Plus Lancet] 33 gauge misc See Rx Instructions .ROUTE .COMPLEX Qty: 100 5RF Dose Instruction: USE 1 LANCET TO CHECK GLUCOSE TWICE DAILY Rx Instructions: USE 1 LANCET TO CHECK GLUCOSE TWICE DAILY (DME) pen needle, diabetic [BD Ultra-Fine Mini Pen Needle] 31 gauge x 3/16 needle See Rx Instructions .ROUTE .COMPLEX Qty: 100 5RF Dose Instruction: USE DIRECTED Rx Instructions: USE DIRECTED hydralazine 100 mg tablet 100 mg PO .COMPLEX Rx Instructions: 100 mg orally when BP is over 160; alprazolam 0.5 mg tablet 0.5 mg PO TID PRN (Reason: Anxiety) Qty: 90 0RF metoprolol succinate 25 mg tablet extended release 24 hr 25 mg PO BID Qty: 180 0RF clonidine HCl 0.1 mg tablet 0.1 mg PO TID Qty: 90 0RF (DME) FreeStyle [place]iss[place] 3 Sensor Device See Rx Instructions .Route Qty: 1 0RF Rx Instructions: As directed (DME) FreeStyle [place] 14 Day Sensor Kit See Rx Instructions .Route Qty: 1 0RF Rx Instructions: As directed mupirocin 2 % ointment 1 applic topical BID ipratropium bromide 21 mcg (0.03 %) spray,non-aerosol 2 spray intranasal TID Rx Instructions: administer into each nostril mecobalamin (vitamin B12) 2,500 mcg tablet,chewable 2,500 mcg PO DAILY@12 (DME) OneTouch Ultra Test Strip See Rx Instructions .ROUTE .COMPLEX Qty: 100 0RF Dose Instruction: USE 1 STRIP TO CHECK GLUCOSE TWICE DAILY Rx Instructions: USE 1 STRIP TO CHECK GLUCOSE TWICE DAILY e11.9 furosemide 40 mg tablet See Rx Instructions .ROUTE .COMPLEX Qty: 30 0RF Dose Instruction: TAKE 1 TABLET BY MOUTH ONCE DAILY IN THE MORNING. START WHEN BODY WEIGHT INCREASES BY 5 LBS. Rx Instructions: TAKE 1 TABLET BY MOUTH ONCE DAILY IN THE MORNING. START WHEN BODY WEIGHT INCREASES BY 5 LBS. calcium carbonate [Calcium 600] 600 mg calcium (1,500 mg) Tablet 600 mg PO DAILY@12 clopidogrel 75 mg tablet 75 mg PO DAILY pantoprazole 40 mg tablet,delayed release (DR/EC) 40 mg PO DAILY ferrous gluconate 324 mg (38 mg iron) tablet 324 mg PO BID famotidine 20 mg tablet 20 mg PO BID ranolazine 500 mg tablet extended release 12 hr 500 mg PO BID Qty: 60 3RF atorvastatin 40 mg tablet 80 mg PO QAM isosorbide mononitrate 60 mg tablet extended release 24 hr 60 mg PO QAM nitroglycerin [Nitrostat] 0.4 mg Tablet, Sublingual 0.4 mg SUBLINGUAL Q5M PRN (Reason: Chest Pain) Rx Instructions: do not exceed 3 doses per episode hydralazine 50 mg tablet 50 mg PO TID magnesium oxide 400 mg magnesium Tablet 400 mg PO QAM letrozole [Femara] 2.5 mg tablet 2.5 mg PO QPM irbesartan 300 mg tablet 150 mg PO QPM Levemir FlexPen 100 unit/mL (3 mL) insulin pen 10 unit SUBCUT QAM Referrals: Chaya Long FNP [Primary Care Provider] - Coding Level of Care Code ED Pharmacy Operations Manager for Jaison Anna
--- NOTE | 2023-07-13 11:14 | CTR_ITS ---
PROCEDURE INFORMATION: Exam: CT Maxillofacial Without Contrast Exam date and time: 07/13/2023 12:51 PM Age: 87 years old Clinical indication: Injury or trauma; Fall; Blunt trauma (contusions or hematomas); Orbit/periorbital; Right; Additional info: Fall trauma right orbital region TECHNIQUE: Imaging protocol: Computed tomography of the face without contrast. Radiation optimization: All CT scans at this facility use at least one of these dose optimization techniques: automated exposure control; mA and/or kV adjustment per patient size (includes targeted exams where dose is matched to clinical indication); or iterative reconstruction. REPORTING DATA: Count of CT and Cardiac NM exams in prior 12 months: This patient has received 6 known CTs and 0 known cardiac nuclear medicine studies in the 12 months prior to the current study. COMPARISON: CT head wo con* [id number] 07/13/2023 12:46 PM RADIATION DOSE METRICS: Total DLP (mGy-cm): 641.28 FINDINGS: Orbital cavities: Orbits are normal. Globes are unremarkable. Bones/joints: No acute fracture. Paranasal sinuses: Normal. No air-fluid levels. Soft tissues: There is a small hematoma superficial to the right globe and right orbital rim. Brain: Note is again made of moderate size acute left peritentorial subdural hematoma. CT/CT facial bones wo con* [id number] IMPRESSION: 1. No acute bony abnormalities. 2. Small right periorbital hematoma. No evidence of ocular injury. 3. Acute left peritentorial subdural hematoma.
--- NOTE | 2023-07-13 11:14 | XRR_ITS ---
PROCEDURE INFORMATION: Exam: XR Right Hip Exam date and time: 07/13/2023 11:50 AM Age: 87 years old Clinical indication: Injury or trauma; Fall; Blunt trauma (contusions or hematomas); Right; Hip; Prior surgery; Surgery date: 6+ months; Additional info: Fall pain TECHNIQUE: Imaging protocol: Radiologic exam of the right hip. 2image(s) are provided. Views: 1 view hip with pelvis when performed. COMPARISON: CR (PELVIS, ) 07/07/2023 8:45 PM. Lumbar spine same day FINDINGS: Bones/joints: Osseous alignment is maintained.No interval displaced fracture or dislocation is appreciated.There is slightly decreased bone mineralization overall. There is maintained alignment of the right hip hardware.No interval periprosthetic lucency is appreciated. The included portions of the sacral arcuate lines appear relatively symmetric. There are chronic appearing advanced degenerative changes of the lumbosacral junction. There are some mild chronic appearing degenerative changes at the pubic symphysis. Soft tissues: No radiopaque foreign body or subcutaneous emphysema is appreciated. Vasculature: There are atherosclerotic vascular calcifications present. Other findings: No other significant interval changes are appreciated. XR/XR hip RT 2-3V wo/w pel* [id number] IMPRESSION: Osseous and surgical hardware alignment appear maintained.No interval displaced fracture or dislocation is appreciated.
--- NOTE | 2023-07-13 11:14 | CTR_ITS ---
PROCEDURE INFORMATION: Exam: CT Cervical Spine Without Contrast Exam date and time: 07/13/2023 12:54 PM Age: 87 years old Clinical indication: Injury or trauma; Fall; Blunt trauma; Additional info: Fall pain TECHNIQUE: Imaging protocol: Computed tomography of the cervical spine without contrast. Radiation optimization: All CT scans at this facility use at least one of these dose optimization techniques: automated exposure control; mA and/or kV adjustment per patient size (includes targeted exams where dose is matched to clinical indication); or iterative reconstruction. REPORTING DATA: Count of CT and Cardiac NM exams in prior 12 months: This patient has received 6 known CTs and 0 known cardiac nuclear medicine studies in the 12 months prior to the current study. COMPARISON: CT neck wo con [id number] 06/20/2023 1:19 AM RADIATION DOSE METRICS: Total DLP (mGy-cm): 158.47 FINDINGS: Bones/joints: Cervical curvature and alignment is unremarkable. Degenerative changes mid-lower cervical spine with disc space narrowing and endplate osteophytic lipping. No severe stenosis of the central canal or neural foramina evident. No fracture, dislocation or traumatic spondylolisthesis detected. Lungs: Lung apices are normal. Soft tissues: Unremarkable. CT/CT cervical spin wo con* [id number] IMPRESSION: No acute bony abnormalities.
--- NOTE | 2023-07-13 11:14 | CTR_ITS ---
PROCEDURE INFORMATION: Exam: CT Head Without Contrast Exam date and time: 07/13/2023 12:46 PM Age: 87 years old Clinical indication: Injury or trauma; Patient HX: Fall; On blood thinners, ; RT eye abrasion; Additional info: Fall trauma on plavix TECHNIQUE: Imaging protocol: Computed tomography of the head without contrast. Radiation optimization: All CT scans at this facility use at least one of these dose optimization techniques: automated exposure control; mA and/or kV adjustment per patient size (includes targeted exams where dose is matched to clinical indication); or iterative reconstruction. REPORTING DATA: Count of CT and Cardiac NM exams in prior 12 months: This patient has received 6 known CTs and 0 known cardiac nuclear medicine studies in the 12 months prior to the current study. COMPARISON: CT head wo con* [id number] 07/07/2023 9:17 PM RADIATION DOSE METRICS: Total DLP (mGy-cm): 1067.58 FINDINGS: Brain: There is a moderate size acute subdural hematoma extending along the left tentorium into the posterior interhemispheric fissure and anteriorly along the undersurface of the left temporal lobe. There is also somewhat ext extension lateral to the left frontal lobe that is more heterogeneous containing areas of high and intermediate attenuation. Subdural hematoma measures up to 2 cm in maximum thickness. There is mild mass effect and lateral displacement of the atrium left lateral ventricle. There is no midline shift. Cerebral ventricles: See Brain finding. Paranasal sinuses: Visualized sinuses are unremarkable. No fluid levels. Mastoid air cells: Visualized mastoid air cells are well aerated. Bones/joints: Unremarkable. No acute fracture. Soft tissues: There is a small hematoma superficial to the right frontal bone and right orbit. CT/CT head wo con* [id number] IMPRESSION: 1. Moderate size acute left peritentorial subdural hematoma extending underneath the left temporal lobe and lateral to the left frontal lobe as well as into the posterior interhemispheric fissure as discussed above. 2. Small scalp hematoma superficial to the right orbit and right frontal bone.
--- NOTE | 2023-07-13 11:14 | XRR_ITS ---
PROCEDURE INFORMATION: Exam: XR Lumbosacral Spine Exam date and time: 07/13/2023 11:50 AM Age: 87 years old Clinical indication: Injury or trauma; Fall; Blunt trauma (contusions or hematomas); Additional info: Fall pain TECHNIQUE: Imaging protocol: Radiologic exam of the lumbosacral spine. 3image(s) are provided. Views: 2 or 3 views. COMPARISON: 1. CR (PELVIS, ) 07/07/2023 8:45 PM 2. CR (PELVIS, ) 07/13/2023 11:[address] chest abdpel [id number] 02/01/2023 3:13 AM. Lumbar spine report 2017. FINDINGS: Bones/joints: Osseous alignment is maintained.No interval displaced fracture or dislocation is appreciated.There is slightly decreased bone mineralization overall. Straightening of the spinal curvature is demonstrated.This can be seen with positioning as well as muscular spasm. There are bilateral hip prostheses demonstrated with maintained alignment overall. Symmetric appearance of the sacral arcuate lines and sacroiliac junctions are appreciated. There is some dextrocurvature of the lumbar spine similar along with advanced chronic multilevel disc space degeneration and spurring. Soft tissues: No radiopaque foreign body or subcutaneous emphysema is appreciated. Lungs: No lobar consolidation is appreciated. Diaphragm: There is slight asymmetric right hemidiaphragm elevation. Gastrointestinal tract: There is a lscqfyin-ej-hdyhu amount of stool content suggestive of constipation. Other findings: There is some motion artifact present. No other significant interval changes are appreciated. XR/XR lumbar spine 2-3V* [id number] IMPRESSION: Osseous alignment is maintained with chronic advanced multilevel disc space degeneration.No interval displaced fracture or dislocation is appreciated.
[2023-07-13 11:28] VITALS: BP 156/62; PULSE 59; RESP 16; O2SAT 98
[2023-07-13 12:21] VITALS: RESP 16
[2023-07-13] MEDS: morphine 4 mg/mL SDV 1 mL IVP ×2 (12:21→12:44)
[2023-07-13] MEDS: ondansetron 2 mg/ML SDV 2 mL 4 MG IVP (12:21)
[2023-07-13 12:41] LABS: Alanine Aminotransferase 9 U/L (0-33); Albumin Level 3.4 g/dL (3.5-5.2); Alkaline Phosphatase 69 U/L (35-105); Anion Gap 12.9 (5-19); Aspartate Amino Transferase 16 U/L (0-32); Blood Urea Nitrogen 39 mg/dL (8-23); Calcium 9.2 mg/dL (8.5-10.5); Carbon Dioxide 27 mmol/L (22-29); Chloride 102 mmol/L (98-107); Globulin 2.3 g/dL (1.3-4.6); Glucose 148 mg/dL (65-115); Osmolality Calculated 298 mOsm/kg (285-295); Potassium 3.9 mmol/L (3.5-5.1); Sodium 138 mmol/L (136-145); Total Bilirubin 0.4 mg/dL (0.15-1.2); Total Protein 5.7 g/dL (6.6-8.7)
[2023-07-13 12:43] LABS: Basophils % 0.6 %; Eosinophils % 0.8 %; Hematocrit 29.3 % (36-47); Lymphocytes # 0.8 10^3/uL (0.8-4.8); Lymphocytes % 15.6 %; Mean Corpuscular HGB Conc 32.4 g/dL (30-55); Mean Corpuscular Hemoglobin 30.2 pg (27-33); Mean Platelet Volume 11.2 fL (7.4-10.4); Monocytes # 0.5 10^3/uL (0.2-0.9); Neutrophils # 3.77 10^3/uL (1.8-7.7); Neutrophils % 72.8 %; Nucleated Red Blood Cells % 0 %; Platelet Count 154 10^3/cmm (157-399); Red Blood Count 3.15 10^6/uL (3.85-5.65); Red Cell Distribution Width 14.2 % (12.1-15.1); White Blood Count 5.18 10^3/uL (3.29-11.43)
[2023-07-13 12:44] VITALS: RESP 16
[2023-07-13 12:44] LABS: INR 0.96 (0.8-1.2)
== END 2023-07-13 13:11 | disposition short-term general hospital (02) ==
PROVIDERS: Emergency Provider Emergency Medicine; PCP Nurse Practitioner Family
DX: S06.5XAA Traumatic subdural hemorrhage with loss of consciousness status unknown, initial encounter (principal); Z79.82 Long term (current) use of aspirin; Z79.02 Long term (current) use of antithrombotics/antiplatelets; Z79.4 Long term (current) use of insulin; Z87.891 Personal history of nicotine dependence; I25.10 Atherosclerotic heart disease of native coronary artery without angina pectoris; Z85.51 Personal history of malignant neoplasm of bladder; E78.5 Hyperlipidemia, unspecified; I10 Essential (primary) hypertension; E11.9 Type 2 diabetes mellitus without complications; W19.XXXA Unspecified fall, initial encounter; S05.41XA Penetrating wound of orbit with or without foreign body, right eye, initial encounter
CPT/HCPCS: 36415; 70450; 70486; 72100; 72125; 73502; 80053; 85025; 85610; 96374; 96375; 96376; 99285; J2270; J2405

== ENCOUNTER 2023-08-30 17:47 | Inpatient (IN) | payer MEDICARE, OTHER, SELFPAY ==
--- NOTE | 2023-08-30 11:48 | ECG_ITS ---
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 Measurements Intervals [place] Rate: 104 P: -48 [place]: 205 QRS: -50 QRSD: 140 T: 119 QT: 384 QTc: 505 Interpretive Statements ECTOPIC ATRIAL TACHYCARDIA LEFT AXIS DEVIATION [QRS AXIS < -30] LEFT BUNDLE BRANCH BLOCK [120+ ms QRS DURATION, 80+ ms Q/S IN V1/V2, 85+ ms R IN I/aVL/V5/V6] Compared to ECG 05/11/2023 13:29:15 Left-axis deviation now present Left bundle-branch block now present Sinus rhythm no longer present First degree AV block no longer present Electronically Signed On 08-31-2023 10:01:07 FURNACE PACKER by Tj Anderson M.D. [id number]
[2023-08-30 17:53] VITALS: BP 159/85; PULSE 117; RESP 18; TEMP 36.7; O2SAT 95
--- NOTE | 2023-08-30 17:55 | XRR_ITS ---
PROCEDURE INFORMATION: Exam: XR Chest Exam date and time: 08/30/2023 6:20 PM Age: 87 years old Clinical indication: Shortness of breath; Prior surgery; Surgery date: 6+ months; Surgery type: Bilateral mastectomy, cabg; Patient HX: Dyspnea; SOB TECHNIQUE: Imaging protocol: Radiologic exam of the chest. Views: 1 view. COMPARISON: CT chest wo con [id number] 06/20/2023 1:23 AM FINDINGS: Lungs: Bilateral atelectasis versus infiltrate. Emphysematous changes. Pleural spaces: Small to moderate right and moderate left pleural effusions. Heart/Mediastinum: Cardiomegaly. Bones/joints: Sternotomy wires. XR/XR chest 1V portable [id number] IMPRESSION: 1. Small to moderate right and moderate left pleural effusions. 2. Cardiomegaly. 3. Bilateral atelectasis versus infiltrate. 4. Emphysematous changes. 5. Sternotomy wires.
--- NOTE | 2023-08-30 18:10 | ECG_ITS ---
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 Measurements Intervals [place] Rate: 113 P: -49 NM: 134 QRS: -62 QRSD: 142 T: 105 QT: 377 QTc: 519 Interpretive Statements SINUS TACHYCARDIA LEFT AXIS DEVIATION [QRS AXIS < -30] LEFT BUNDLE BRANCH BLOCK [120+ ms QRS DURATION, 80+ ms Q/S IN V1/V2, 85+ ms R IN I/aVL/V5/V6] Compared to ECG 05/11/2023 13:29:15 Left-axis deviation now present Left bundle-branch block now present Sinus rhythm no longer present First degree AV block no longer present Electronically Signed On 08-31-2023 9:58:58 NUTRITIONAL SERVICES HOST by Tj Anderson M.D. [id number]
[2023-08-30 18:11] LABS: Basophils % 0.5 %; Eosinophils # 0.1 10^3/uL (0.0-0.8); Eosinophils % 0.6 %; Hematocrit 33.7 % (36-47); Lymphocytes # 1.6 10^3/uL (0.8-4.8); Lymphocytes % 20.1 %; Mean Corpuscular HGB Conc 32.6 g/dL (30-55); Mean Corpuscular Hemoglobin 31.1 pg (27-33); Mean Corpuscular Volume 95.2 fl (85-98); Mean Platelet Volume 11.3 fL (7.4-10.4); Monocytes # 0.5 10^3/uL (0.2-0.9); Monocytes % 6.7 %; Neutrophils # 5.79 10^3/uL (1.8-7.7); Neutrophils % 71.9 %; Nucleated Red Blood Cells % 0 %; Platelet Count 182 10^3/cmm (157-399); Red Blood Count 3.54 10^6/uL (3.85-5.65); Red Cell Distribution Width 15.8 % (12.1-15.1); White Blood Count 8.06 10^3/uL (3.29-11.43)
[2023-08-30 18:31] LABS: Alanine Aminotransferase 12 U/L (0-33); Alkaline Phosphatase 87 U/L (35-105); Aspartate Amino Transferase 21 U/L (0-32); Blood Urea Nitrogen 18 mg/dL (8-23); Calcium 7.8 mg/dL (8.5-10.5); Carbon Dioxide 28 mmol/L (22-29); Chloride 101 mmol/L (98-107); Globulin 2.7 g/dL (1.3-4.6); Glucose 140 mg/dL (65-115); Osmolality Calculated 296 mOsm/kg (285-295); Sodium 141 mmol/L (136-145); Total Bilirubin 0.5 mg/dL (0.15-1.2); Total Protein 5.7 g/dL (6.6-8.7)
[2023-08-30 18:36] LABS: INR 1.09 (0.8-1.2); Magnesium 0.7 mg/dL (1.7-2.3)
[2023-08-30 18:37] LABS: Troponin(5th) Baseline 239 ng/L (0-10)
[2023-08-30 18:46] LABS: NT Pro B Type Natriuretic Pept 31982 pg/mL (0-450)
[2023-08-30] MEDS: FUROsemide 10 mg/mL SDV 10mL 80 MG IVP (19:08)
[2023-08-30 19:09] VITALS: BP 154/89; PULSE 113; RESP 16; O2SAT 95
[2023-08-30] MEDS: magnesium sulfate premix 2 GM/50 ML PIGGYBACK IV (19:15)
--- NOTE | 2023-08-30 19:24 | XRR_ITS ---
PROCEDURE INFORMATION: Exam: XR Right Hand Exam date and time: 08/30/2023 7:33 PM Age: 87 years old Clinical indication: Right; Patient HX: RT hand pain/swelling; Known RT hand FX TECHNIQUE: Imaging protocol: Radiologic exam of the right hand. Views: 3 or more views. COMPARISON: No relevant prior studies available. FINDINGS: Bones/joints: 4th metacarpal diaphyseal comminuted mildly displaced fracture. Severe 1st carpometacarpal joint osteoarthritis. 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 Soft tissues: Normal. XR/XR hand RT min 3V* [id number] IMPRESSION: 1. 4th metacarpal diaphyseal comminuted mildly displaced fracture. 2. Severe 1st carpometacarpal joint osteoarthritis 3. 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
--- NOTE | 2023-08-30 19:44 | ED_ITS ---
HPI - SOB/Dyspnea 2 General: Chief Complaint: Shortness of Breath/Dyspnea Stated Complaint: SOB Time Seen by Provider: 08/30/23 18:04 History of Present Illness: HPI Narrative: 87-year-old female presenting from the [facility] with shortness of breath, cough with yellow sputum production. She relates she believes she has a fever but no report from the snf. She is also had swollen legs with an increase in water weight. She does have a history of coronary disease with bypass graft in 1998. MD elicited complaint: shortness of breath Pertinent past history: congestive heart failure Associated symptoms: Reports chest pain; Deny abdominal pain, fever(s), palpitations or vomiting Review of Systems 2 Const: Reports: chills; Denies: fever(s) ENMT: Denies: throat pain Card: Reports: chest pain; Denies: palpitations Resp: Reports: dyspnea and productive cough (Yellow sputum) GI: Denies: abdominal pain or vomiting Neuro: Denies: confusion PFSH ED 2 PFSH: Medical History Abnormal result of other cardiovascular function study Osteoarthritis, generalized Osteoarthritis of hands, bilateral CAD (coronary artery disease) Chest pain Insulin dependent diabetes mellitus Asthma Renal insufficiency Benzodiazepine dependence, continuous Insomnia TYRONE (generalized anxiety disorder) Carotid stenosis, asymptomatic Atherosclerosis of [place] coronary artery Hyperlipidemia Renal calculus Bladder cancer Type 2 diabetes mellitus Hypertension, essential Invasive ductal carcinoma of breast, female Surgical History S/P appendectomy Status post surgical removal and fulguration of bladder neoplasm History of back surgery Treatment of bone spurs. Performed by Dr. Gray in [place], [place] History of hip replacement (06/19/16) Performed by Dr. Lovelace H/O lumpectomy (10/09/19) Left breast. Performed by Dr. Clark. History of hip replacement (~2006) Left. Performed by Dr. Lovelace History of carpal tunnel release of both wrists Previous back surgery (08/22/14) Performed by Dr. Ramsay at [facility] in [place], [place] H/O heart bypass surgery Reports four-vessel bypass History of cataract surgery Bilateral Family History Father Stroke Mother Ovarian cancer Sister Breast cancer Diabetes Hypertension Brother Heart disease Diabetes Social History Smoking and tobacco/nicotine status: former use of tobacco/nicotine Quit status (tobacco/nicotine): has quit using Year quit tobacco: 1979 Former quit date comment: 10-15 years smoked Alcohol intake: never Substance/Drug Use: never Adopted: No Lives independently: Yes Household members: none Housing: House Marital status: / Current occupational status: retired Current occupation: disabled Do you think of yourself as: Straight/Heterosexual Current gender identity: Female Physical Exam 2 Const: GENERAL APPEARANCE: cooperative, ill appearing and frail appearing HENMT: COMMON NORMALS: normocephalic, atraumatic and Normal external nose present HEAD & SCALP: normocephalic and atraumatic FACE & SINUS: normal facial exam and face symmetric NOSE: Normal external nose present Eye: COMMON NORMALS: Equal, round and reactive pupils present and EOMs intact bilaterally PUPIL: Yes Equal, round and reactive pupils present Neck/C-Spine: GENERAL: Yes trachea midline Chest: CHEST: Yes Symmetrical chest wall rise Resp: COMMON NORMALS: clear to auscultation bilaterally EFFORT & INSPECTION: Yes tachypneic AUSCULTATION: clear to auscultation bilaterally and diminished lung sounds Cardio: COMMON NORMALS: regular rate and regular rhythm RATE: regular rate RHYTHM: regular rhythm GI: COMMON NORMALS: Normal to inspection, nondistended, normoactive bowel sounds present Extremity: GENERAL: Yes edema (2+) Neuro: CONNOR COMA SCALE: document GCS findings [place] coma scale eye opening: Spontaneous [place] coma scale verbal response: Orientated [place] coma scale motor response: Obey commands Connor coma scale total score: 15 S ENSORY EXAM: Yes extremities (intact) Psych: COMMON NORMALS: speech normal SPEECH: Yes normal speech Skin: COMMON NORMALS: no rashes or lesions noted GENERAL SKIN EXAM: no rashes or lesions noted Course 2 Vital Signs: Vital signs: Vital Signs Temperature 98.6 F 08/30/23 23:48 Pulse Rate 104 H 08/30/23 23:48 Respiratory Rate 16 08/30/23 23:48 Blood Pressure 147/72 08/30/23 23:48 Pulse Oximetry 99 08/30/23 23:48 Oxygen Delivery Me thod Nasal Cannula 08/30/23 23:48 Oxygen Flow Rate 2 08/30/23 23:48 MDM - SOB/Dyspnea Medical Decision Making Patient is mildly tachycardic. She has some labored breathing. She is placed on oxygen. Hemoglobin is 11. White blood cell count is 8. BMP is not remarkable. However, BNP is 32,000 with a troponin of 239. Her magnesium is 0.7. She is given magnesium. Lasix is given as well. Baca catheter is placed to monitor output. She will be admitted for pulmonary edema present on chest x- ray with bilateral effusions. Lab Data 08/30/23 17:42 12 17:42 Labs/Radiology: Radiology Impressions Chest X-Ray 08/30/23 17:55 IMPRESSION: 1. Small to moderate right and moderate left pleural effusions. 2. Cardiomegaly. 3. Bilateral atelectasis versus infiltrate. 4. Emphysematous changes. 5. Sternotomy wires. Hand X-Ray 08/30/23 19:24 IMPRESSION: 1. 4th metacarpal diaphyseal comminuted mildly displaced fracture. 2. Severe 1st carpometacarpal joint osteoarthritis 3. 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 Laboratory Results WBC 8.06 10^3/uL (3.29-11.43) 08/30/23 17:42 RBC 3.54 10^6/uL (3.85-5.65) L 08/30/23 17:42 Hgb 11.00 g/dL (11.27-16.99) L 08/30/23 17:42 Hct 33.7 % (36-47) L 08/30/23 17:42 MCV 95.2 fl (85-98) 08/30/23 17:42 MCH 31.1 pg (27-33) 08/30/23 17:42 MCHC 32.6 g/dL (30-55) 08/30/23 17:42 RDW 15.8 % (12.1-15.1) H 08/30/23 17:42 Plt Count 182 10^3/cmm (157-399) 08/30/23 17:42 MPV 11.3 fL (7.4-10.4) H 08/30/23 17:42 Neut % (Auto) 71.9 % 08/30/23 17:42 Lymph % (Auto) 20.1 % 08/30/23 17:42 [place] % (Auto) 6.7 % 08/30/23 17:42 Eos % (Auto) 0.6 % 08/30/23 17:42 Baso % (Auto) 0.5 % 08/30/23 17:42 Neut # (Auto) 5.79 10^3/uL (1.8-7.7) 08/30/23 17:42 Lymph # (Auto) 1.6 10^3/uL (0.8-4.8) 08/30/23 17:42 [place] # (Auto) 0.5 10^3/uL (0.2-0.9) 08/30/23 17:42 Eos # (Auto) 0.1 10^3/uL (0.0-0.8) 08/30/23 17:42 Baso # (Auto) 0.0 10^3/uL (0.0-0.1) 08/30/23 17:42 Nucleated RBC % (auto) 0 % 08/30/23 17:42 Nucleated RBCs # 0.0 /100WBC 08/30/23 17:42 PT 14.40 SECONDS (12.1-14.9) 08/30/23 17:42 INR 1.09 (0.8-1.2) 08/30/23 17:42 Sodium 141 mmol/L (136-145) 08/30/23 17:42 Potassium 4.0 mmol/L (3.5-5.1) 08/30/23 17:42 Chloride 101 mmol/L (98-107) 08/30/23 17:42 Carbon Dioxide 28 mmol/L (22-29) 08/30/23 17:42 Anion Gap 16.0 (5-19) 08/30/23 17:42 BUN 18 mg/dL (8-23) 08/30/23 17:42 Creatinine 0.8 mg/dL (0.5-0.9) 08/30/23 17:42 GFR Calculation Not Reportable 08/30/23 17:42 Glucose 140 mg/dL (65-115) H 08/30/23 17:42 Calculated Osmolality 296 mOsm/kg (285-295) H 08/30/23 17:42 Calcium 7.8 mg/dL (8.5-10.5) L 08/30/23 17:42 Magnesium 0.7 mg/dL (1.7-2.3) L* 08/30/23 17:42 Total Bilirubin 0.5 mg/dL (0.15-1.2) 08/30/23 17:42 AST 21 U/L (0-32) 08/30/23 17:42 ALT 12 U/L (0-33) 08/30/23 17:42 Alkaline Phosphatase 87 U/L (35-105) 08/30/23 17:42 Troponin T Baseline 239 ng/L (0-10) H* 08/30/23 17:42 Troponin T 120 Minute 212.9 ng/L (0-10) H 08/30/23 20:32 Delta Troponin T -26.1 ABS# (0-10) L 08/30/23 20:32 NT-Pro-B Natriuret Pep 75609 pg/mL (0-450) H 08/30/23 17:42 Total Protein 5.7 g/dL (6.6-8.7) L 08/30/23 17:42 Albumin 3.0 g/dL (3.5-5.2) L 08/30/23 17:42 Globulin 2.7 g/dL (1.3-4.6) 08/30/23 17:42 All radiology interpretation(s) finalized by discharge Discharge Plan Discharge Patient Disposition: Admitted As Inpatient Admit Provider: Nilson Thomson Clinical Impression: Acute respiratory failure with hypoxia, Hypomagnesemia, Pulmonary edema Condition: Stable Coding Level of Care Code ED Filter Machine Operator for Jaison Anna
--- NOTE | 2023-08-30 19:48 | ECG_ITS ---
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 Measurements Intervals [place] Rate: 105 P: -44 [place]: 137 QRS: -66 QRSD: 137 T: 103 QT: 391 QTc: 517 Interpretive Statements SINUS TACHYCARDIA WITH OCCASIONAL VENTRICULAR PREMATURE COMPLEXES LEFT AXIS DEVIATION [QRS AXIS < -30] LEFT BUNDLE BRANCH BLOCK [120+ ms QRS DURATION, 80+ ms Q/S IN V1/V2, 85+ ms R IN I/aVL/V5/V6] Compared to ECG 08/30/2023 18:10:01 Ventricular premature complex(es) now present Electronically Signed On 08-31-2023 10:01:01 PERSONNEL CLERKS SUPERVISOR by Tj Anderson M.D. [id number]
--- NOTE | 2023-08-30 20:58 | PM.HP ---
Providers/Chief Complaint Primary Care Provider: EMILY Marrero Chief Complaint: SOB History of Present Illness Reyna Lopez is a 87 year old female with history of established coronary disease status post CABG, was recently admitted for management evaluation of non-STEMI, cardiac cath revealed multiple vessel disease decision was made to medically manage her, she was discharged on dual antiplatelet therapy ranolazine, metoprolol succinate and Imdur, patient suffered a fall on July 08 and fractured fourth metacarpal right hand, on July 13 she fell and developed subdural hematoma she was transferred to [facility], evacuation was done by neurosurgery, since then she has been off Lasix, dual antiplatelet therapy, patient was discharged to [facility], she has finished 2 weeks of physical therapy they are presenting today for worsening of cough, productive cough crackles and shortness of breath. Patient is stating that she has not noticed any chest pain at all, no fever nausea or vomiting. Her right arm has been swollen. She has not taken Lasix for quite a while. In the ER she was diagnosed with non-STEMI, no active chest pain, patient and family does not want initiation of aspirin Plavix or therapeutic Lovenox per ACS She has right arm swelling Magnesium was replenished in the ER Signs of congestive heart failure with pulm edema Patient currently requiring 2 L of oxygen As per the daughter now she takes time to answer the questions since her subdural hematoma Review of Systems Const: Denies: fever(s) Eyes: Denies: change in vision ENMT: Denies: throat pain Card: Reports: swelling of feet/ankles Resp: Reports: dyspnea GI: Denies: abdominal pain : Denies: flank pain Musc: Reports: extremity pain and extremity swelling Skin/Breast: Denies: rash Neuro: Denies: headache(s) Psych: Reports: anxiety Medications/Allergies Home Medications Medication Instructions Recorded Confirmed Last Taken Type lancets 33 gauge (OneTouch Delica #100 ea 09/12/22 08/30/23 Unknown Rx Plus Lancet) pen needle, diabetic 31 gauge x #100 ea 09/12/22 08/30/23 Unknown Rx 3/16 (BD Ultra-Fine Mini Pen Needle) atorvastatin 40 mg tablet 80 mg PO QAM 06/03/23 08/30/23 07/13/23 History isosorbide mononitrate 60 mg 60 mg PO QAM 06/03/23 08/30/23 07/13/23 History tablet,extended release 24 hr blood sugar diagnostic (OneTouch #100 ea 06/20/23 08/30/23 Unknown Rx Ultra Test strips) blood-glucose sensor (FreeStyle #1 ea 07/07/23 08/30/23 Unknown Rx Lissett 3 Sensor device) flash glucose sensor (FreeStyle #1 ea 07/07/23 08/30/23 Unknown Rx Lissett 14 Day Sensor kit) pantoprazole 40 mg tablet,delayed 40 mg PO DAILY 07/13/23 08/30/23 07/13/23 History release acetaminophen 325 mg tablet 325 mg PO Q6H PRN Pain 08/30/23 08/30/23 Unknown History alprazolam 0.5 mg tablet 0.5 mg PO DAILY PRN Anxiety 08/30/23 08/30/23 Unknown History aluminum-mag hydroxide-simethicone 15 ml PO Q6H PRN Indigestion 08/30/23 08/30/23 Unknown History 200 mg-200 mg-20 mg/5 mL oral susp bisacodyl 10 mg rectal suppository [address] DAILY PRN Constipation 08/30/23 08/30/23 Unknown History (Dulcolax (bisacodyl)) hydralazine 10 mg tablet 10 mg PO Q8H PRN Hypertension 08/30/23 08/30/23 Unknown History hydrocodone 5 mg-acetaminophen 325 1 tab PO Q6H PRN Pain 08/30/23 08/30/23 Unknown History mg tablet losartan 100 mg tablet 100 mg PO DAILY 08/30/23 08/30/23 Unknown History magnesium hydroxide 400 mg/5 mL 400 mg PO DAILY PRN Constipation 08/30/23 08/30/23 Unknown History oral suspension (Milk of Magnesia) melatonin 3 mg tablet 3 mg PO DAILY PRN Insomnia 08/30/23 08/30/23 Unknown History metformin 500 mg tablet 500 mg PO DAILY 08/30/23 08/30/23 Unknown History sennosides 8.6 mg tablet (senna) 8.6 mg PO DAILY PRN Constipation 08/30/23 08/30/23 Unknown History sertraline 25 mg tablet 25 mg PO DAILY 08/30/23 08/30/23 Unknown History sodium phosphates 19 gram-[address] DAILY PRN Constipation 08/30/23 08/30/23 Unknown History gram/118 mL enema (Fleet Enema) Allergies Allergy/AdvReac Type Severity Reaction Status Date / Time cephalexin Allergy Unknown Verified 07/07/23 20:31 PFSH Acute PFSH: Medical History Abnormal result of other cardiovascular function study Osteoarthritis, generalized Osteoarthritis of hands, bilateral CAD (coronary artery disease) Chest pain Insulin dependent diabetes mellitus Asthma Renal insufficiency Benzodiazepine dependence, continuous Insomnia TYRONE (generalized anxiety disorder) Carotid stenosis, asymptomatic Atherosclerosis of chicken ranch coronary artery Hyperlipidemia Renal calculus Bladder cancer Type 2 diabetes mellitus Hypertension, essential Invasive ductal carcinoma of breast, female Surgical History S/P appendectomy Status post surgical removal and fulguration of bladder neoplasm History of back surgery Treatment of bone spurs. Performed by Dr. Gray in [place], [place] History of hip replacement (06/19/16) Performed by Dr. Lovelace H/O lumpectomy (10/09/19) Left breast. Performed by Dr. Clark. History of hip replacement (~2006) Left. Performed by Dr. Lovelace History of carpal tunnel release of both wrists Previous back surgery (08/22/14) Performed by Dr. Ramsay at [facility] in [place], [place] H/O heart bypass surgery Reports four-vessel bypass History of cataract surgery Bilateral Family History Father Stroke Mother Ovarian cancer Sister Breast cancer Diabetes Hypertension Brother Heart disease Diabetes Social History Smoking and tobacco/nicotine status: former use of tobacco/nicotine Quit status (tobacco/nicotine): has quit using Year quit tobacco: 1979 Former quit date comment: 10-15 years smoked Alcohol intake: never Substance/Drug Use: never Adopted: No Lives independently: Yes Household members: none Housing: House Marital status: / Current occupational status: retired Current occupation: disabled Do you think of yourself as: Straight/Heterosexual Current gender identity: Female Vitals/I&O/Wt Last Vital Signs Temp 98.0 F 08/30/23 17:53 Pulse 113 H 08/30/23 19:09 Resp 16 08/30/23 19:09 BP 154/89 08/30/23 19:09 Pulse Ox 95 08/30/23 19:09 O2 Del Method Room Air 08/30/23 19:09 08/30/23 08/30/23 08/30/23 06:59 14:59 22:59 Intake Total 50 / 50 Balance 50 / 50 Physical Exam Narrative: Awake and alert GCS 15 Currently on 2 L no chest pain at this time of my evaluation S1, S2 Mild crackles Currently on 2 L No audible stridor or wheezing Abdomen soft Lower extremity 2+ edema Daughter at the bedside Patient answer questions however takes time to answer Urinary Catheter Management: Baca: Cath Placed During This Visit: yes Urinary Catheter Date of Insertion: 08/30/23 Urinary Catheter Time of Insertion: 19:20 Data 08/30/23 17:42 08/30/23 17:42 A&P Assessment and plan (1) Anxiety: (2) Congestive heart failure: (3) CAD (coronary artery disease): (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: (5) Thyroid nodule: (6) Difficulty swallowing solids: (7) Hypomagnesemia: Plan Non-STEMI Patient and family does not want to start aspirin Plavix or therapeutic Lovenox for ACS protocol No active chest pain She has multiple vessel disease, recent angiogram showed coronary disease not unable to intervention Continue Imdur, ranolazine and metoprolol succinate No need to repeat echo at this time Preserved ejection fraction heart for exacerbation Patient's Lasix was discontinued since subdural hematoma evacuation I will give her IV Lasix for heart failure exacerbation Acute hypoxia related to CHF exacerbation currently requiring 2 L Anticipate improvement with diuresis Hypomagnesemia: Replenished History of subdural hematoma s/p evacuation in July Clonidine was discontinued as well which carries risk of sedation and fall Resistant hypertension Please note it was very hard for us to control her blood pressure last time and as per the daughter her systolic blood pressure was consistently above 200 for 5 days until she was given anxiolytic I would avoid giving her clonidine Right fourth metacarpal fracture currently hand is in a splint with edema of right arm As per the daughter they have not seen any orthopedic surgeon for hand Patient has been kept in the arm splint, Daughter would like to get an opinion from orthopedic surgeon in the morning Patient is not a good surgical candidate for any intervention considering her active cardiac issues DNR/DNI Cardiac diet Consistent carb diet Sliding scale insulin Daughter at the bedside who helped me to get more information Attestations Medical Necessity Statement*: Anticipating more than 2 midnights for management evaluation of non-STEMI, congestive heart failure, Diagnoses Anxiety F41.9 Congestive heart failure I50.9 CAD (coronary artery disease) I25.10 DM type 2 causing eye disease E11.39 Thyroid nodule E04.1 Difficulty swallowing solids R13.10 Hypomagnesemia E83.42
[2023-08-30 21:01] LABS: Troponin 5 2HR 212.9 ng/L (0-10); Troponin 5 2HR Delta -26.1 ABS# (0-10)
[2023-08-30 21:22] VITALS: BP 141/79; PULSE 102; O2SAT 100
[2023-08-30 21:36] VITALS: BP 146/74; PULSE 88; RESP 16; TEMP 37.1; O2SAT 98
--- NOTE | 2023-08-30 22:12 | PC.NURSE ---
Pt arrived to 277-2, daughter is at side. Admission assessment completed w/o difficulty. Daughter expressed concern for right hand fx that is splinted d/t it not having surgical intervention at this time. All questions answered.
[2023-08-30] MEDS: FUROsemide 10 mg/mL SDV 10mL 40 MG IVP (22:54)
[2023-08-30 23:48] VITALS: BP 147/72; PULSE 104; RESP 16; TEMP 37; O2SAT 99
[2023-08-31] VITALS (18 sets, daily range): BP systolic 78–151; BP diastolic 42–80; PULSE 70–125; RESP 2–20; TEMP 36.5–36.8; O2SAT 97–100; BMI 21.9
[2023-08-31 01:11] LABS: Troponin 5 6HR Delta -17.3 ng/L (0-12)
[2023-08-31 01:12] LABS: Troponin 5 6HR 221.7 ng/L (0-10)
[2023-08-31 04:49] LABS: Basophils # 0.1 10^3/uL (0.0-0.1); Basophils % 0.7 %; Eosinophils % 0.6 %; Hematocrit 33.2 % (36-47); Lymphocytes % 14.2 %; Mean Corpuscular HGB Conc 31.3 g/dL (30-55); Mean Corpuscular Hemoglobin 30.1 pg (27-33); Mean Corpuscular Volume 96.2 fl (85-98); Mean Platelet Volume 11.2 fL (7.4-10.4); Monocytes # 0.5 10^3/uL (0.2-0.9); Monocytes % 7.2 %; Neutrophils # 5.56 10^3/uL (1.8-7.7); Neutrophils % 76.9 %; Nucleated Red Blood Cells % 0 %; Platelet Count 161 10^3/cmm (157-399); Red Blood Count 3.45 10^6/uL (3.85-5.65); Red Cell Distribution Width 15.6 % (12.1-15.1); White Blood Count 7.23 10^3/uL (3.29-11.43)
[2023-08-31 05:08] LABS: Blood Urea Nitrogen 17 mg/dL (8-23); Calcium 7.7 mg/dL (8.5-10.5); Carbon Dioxide 26 mmol/L (22-29); Chloride 104 mmol/L (98-107); Glucose 121 mg/dL (65-115); Magnesium 1.2 mg/dL (1.7-2.3); Osmolality Calculated 299 mOsm/kg (285-295); Sodium 143 mmol/L (136-145)
[2023-08-31] MEDS: magnesium oxide 400 mg tablet PO (06:18)
[2023-08-31] MEDS: atorvastatin 40 mg Tablet 80 MG PO (06:18)
[2023-08-31] MEDS: isosorbide mononitrate ER 60 mg Tablet PO (06:18)
[2023-08-31] MEDS: insulin glargine 100 units/1 mL 10 UNIT SUBCUT (06:48)
[2023-08-31 07:15] LABS: Glucose Point of Care 129 mg/dL (70-110)
--- NOTE | 2023-08-31 08:45 | USR_ITS ---
PROCEDURE INFORMATION: Exam: US Duplex Right Lower Extremity Veins, Limited Exam date and time: 08/31/2023 10:02 AM Age: 87 years old Clinical indication: Edema, localized; Upper extremity, right; Additional info: Right arm swelling TECHNIQUE: Imaging protocol: Real-time duplex ultrasound of the right extremity with 2-D gore scale, color Doppler flow and spectral waveform analysis including responses to compression and other maneuvers (when performed) with image documentation. Limited exam was focused on the right lower extremity veins. COMPAR[place]: [place] [id number] 02/01/2023 3:13 AM FINDINGS: Right deep veins: Unremarkable. The common femoral, femoral, proximal profunda femoral and popliteal veins are patent without thrombus. Normal Doppler waveforms. Normal compressibility and augmentation response. Superficial veins: Unremarkable. Saphenofemoral junction is patent without thrombus. Soft tissues: Ulnar side predominant forearm subcutaneous adipose edema.. US/[place] [id number] IMPRESSION: No evidence of deep vein thrombosis.
[2023-08-31] MEDS: ALPRAZolam 0.5 mg Tablet PO (09:32)
[2023-08-31] MEDS: metoprolol succinate ER (24 HR) 25 mg Tablet PO ×2 (09:32→17:30)
[2023-08-31] MEDS: pantoprazole DR 40 mg Tablet PO (09:33)
[2023-08-31] MEDS: ranolazine (12HR) 500 mg Tablet PO ×2 (09:33→17:30)
[2023-08-31] MEDS: sennosides-docusate Tablet 1 TAB PO (09:33)
[2023-08-31] MEDS: hyDRALAzine 50 mg Tablet PO ×2 (09:33→15:01)
[2023-08-31] MEDS: FUROsemide 10 mg/mL SDV 10mL 40 MG IVP (11:41)
[2023-08-31 13:10] LABS: Glucose Point of Care 152 mg/dL (70-110)
[2023-08-31] MEDS: insulin lispro 100 unit/1 mL SUBCUT (13:14)
--- NOTE | 2023-08-31 15:19 | P.PN_ITS ---
Subjective 2 Subjective: Seen today at bedside with family present. Family states that they would like to take her home if they can have more nursing care at home and have also considered palliative versus hospice. She said the only reason patient is not hospice it is because they do not have a nurse that can come to the house every day. They would like to discuss with professor of social work if there are other options. Ideally they would like to do some rehab and get patient stronger. I do long discussion with them regarding patient's prognosis with her subdural bleed and NSTEMI. She cannot tolerate anticoagulation right now due to her subdural bleed. Patient's family is well aware of patient's prognosis and understand the situation they are in. Their ultimate goal is to try to get her to the point where they can take her home. They would like to work with physical therapy and see how patient does. They are not happy with [facility] and would like to go to a different facility if possible as well where she will get more therapy. Apparently she was at [facility] and ended up in the hospital for an EGD however at that point could not go back to [facility]. From my understanding it seems as if it may have been for care home? Family would like to talk to professor of social work who is not going to be available till Friday. This admission tenderness and she is here for NSTEMI however cannot even be medically managed due to subdural bleed. They understand that there is a high likelihood that there may be arrhythmias or if patient might end up having a cardiac arrest. She is to be DNR/DNI. Patient lying in bed states she is comfortable at this time. Patient is requiring 2 L nasal cannula. She is being diuresed at this time. Vitals/I&O/Wt Last Vital Signs Temp 98.0 F 08/31/23 12:00 Pulse 93 08/31/23 12:00 Resp 16 08/31/23 12:00 BP 111/61 08/31/23 12:00 Pulse Ox 98 08/31/23 12:00 O2 Del Method Nasal Cannula 08/31/23 12:00 O2 Flow Rate 1.5 08/31/23 09:35 08/31/23 08/31/23 08/31/23 06:59 14:59 22:59 Intake Total 480 / 480 Output Total 2700 / 2700 Balance -2700 / -2650 480 / 480 Weight last 48 hrs Weight 57.878 kg Weight 58.769 kg Physical Exam 2 Narrative: Awake and alert GCS 15 Currently on 1 L no chest pain at this time of my evaluation S1, S2 Mild crackles Currently on 1 L No audible stridor or wheezing Abdomen soft Lower extremity 2+ edema Daughter at the bedside Patient answer questions however takes time to answer Urinary Catheter Management: Baca: Cath Placed During This Visit: yes Urinary Catheter Date of Insertion: 08/30/23 Urinary Catheter Time of Insertion: 19:20 Data 08/31/23 04:23 08/31/23 04:23 A&P Assessment and plan (1) Anxiety: (2) Congestive heart failure: (3) CAD (coronary artery disease): (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 Acute hypoxia related to CHF exacerbation currently requiring 2 L Anticipate improvement with diuresis Hypomagnesemia: Replenished History of subdural hematoma s/p evacuation in July Clonidine was discontinued as well which carries risk of sedation and fall Resistant hypertension Please note it was very hard for us to control her blood pressure last time and as per the daughter her systolic blood pressure was consistently above 200 for 5 days until she was given anxiolytic Patient's daughter suggest that they would like to try Ativan. We can order ativan 0.25 twice daily. Right fourth metacarpal fracture currently hand is in a splint with edema of right arm As per the daughter they have not seen any orthopedic surgeon for hand Patient has been kept in the arm splint, Daughter would like to get an opinion from orthopedic surgeon in the morning. Will consult orthopedic surgery. Patient is not a good surgical candidate for any intervention considering her active cardiac issues DNR/DNI Cardiac diet Consistent carb diet Sliding scale insulin PT OT to be ordered. Family states that they would like to take her home if they can have more nursing care at home and have also considered palliative versus hospice. She said the only reason patient is not hospice it is because they do not have a nurse that can come to the house every day. They would like to discuss with professor of social work if there are other options. Ideally they would like to do some rehab and get patient stronger. I do long discussion with them regarding patient's prognosis with her subdural bleed and NSTEMI. She cannot tolerate anticoagulation right now due to her subdural bleed. Patient's family is well aware of patient's prognosis and understand the situation they are in. Their ultimate goal is to try to get her to the point where they can take her home. They would like to work with physical therapy and see how patient does. They are not happy with [facility] and would like to go to a different facility if possible as well where she will get more therapy. Apparently she was at [facility] and ended up in the hospital for an EGD however at that point could not go back to [facility]. From my understanding it seems as if it may have been for care home? Family would like to talk to professor of social work who is not going to be available till Friday. This admission tenderness and she is here for NSTEMI however cannot even be medically managed due to subdural bleed. They understand that there is a high likelihood that there may be arrhythmias or if patient might end up having a cardiac arrest. She is to be DNR/DNI Attestations 2 Medical Necessity Statement*: CHF, eventually placement versus home. Diagnoses Anxiety F41.9 Congestive heart failure I50.9 CAD (coronary artery disease) I25.10 DM type 2 causing eye disease E11.39 Thyroid nodule E04.1 Difficulty swallowing solids R13.10 Hypomagnesemia E83.42
[2023-08-31 15:51] LABS: Glucose Point of Care 63 mg/dL (70-110)
[2023-08-31 15:55] LABS: Glucose Point of Care 69 mg/dL (70-110)
[2023-08-31] MEDS: HYDROcodone-acetaminophen 5-325 mg Tablet 1 TAB PO (15:57)
[2023-08-31 18:20] LABS: Glucose Point of Care 118 mg/dL (70-110)
[2023-08-31] MEDS: dextrose 50% syringe 50 mL 25 ML IVP (18:28)
[2023-08-31 20:46] LABS: Glucose Point of Care 92 mg/dL (70-110)
--- NOTE | 2023-08-31 21:07 | PC.NURSE ---
low BP reported to property underwriter, checked manually, patient lethargic, slow to arouse with pallor, pt placed trendeleberg and dr notified. evening lasix and bp meds held and 500mL fluid bolus ordered.
[2023-08-31] MEDS: sodium chloride 0.9% 500 ML 999 ML IV ×2 (21:22→21:33)
--- NOTE | 2023-08-31 22:46 | PC.NURSE ---
repeat BP after 500mL fluid bolus with MAP of 56. dr notified. order for pt transfer to ICU given. report given to danica THORNTON. patient transferred and handed off to receiving nurse. family notified of patient status change and floor transfer.
[2023-09-01] VITALS (60 sets, daily range): BP systolic 94–179; BP diastolic 48–109; PULSE 68–88; RESP 12–35; TEMP 36.4–36.8; O2SAT 90–100; BMI 21.5
[2023-09-01] MEDS: HYDROcodone-acetaminophen 5-325 mg Tablet 1 TAB PO (00:32)
[2023-09-01 05:17] LABS: Basophils # 0.1 10^3/uL (0.0-0.1); Basophils % 0.6 %; Eosinophils % 0.5 %; Hematocrit 34.7 % (36-47); Lymphocytes # 1.2 10^3/uL (0.8-4.8); Lymphocytes % 14.6 %; Mean Corpuscular Hemoglobin 30.7 pg (27-33); Mean Corpuscular Volume 102.4 fl (85-98); Mean Platelet Volume 11.4 fL (7.4-10.4); Monocytes # 0.8 10^3/uL (0.2-0.9); Monocytes % 9.6 %; Neutrophils # 5.85 10^3/uL (1.8-7.7); Neutrophils % 74.3 %; Nucleated Red Blood Cells % 0 %; Platelet Count 153 10^3/cmm (157-399); Red Blood Count 3.39 10^6/uL (3.85-5.65); Red Cell Distribution Width 15.7 % (12.1-15.1); White Blood Count 7.88 10^3/uL (3.29-11.43)
[2023-09-01 05:38] LABS: Anion Gap 9.4 (5-19); Blood Urea Nitrogen 21 mg/dL (8-23); Calcium 7.4 mg/dL (8.5-10.5); Carbon Dioxide 30 mmol/L (22-29); Chloride 106 mmol/L (98-107); Glucose 58 mg/dL (65-115); Osmolality Calculated 293 mOsm/kg (285-295); Potassium 4.4 mmol/L (3.5-5.1); Sodium 141 mmol/L (136-145)
[2023-09-01] MEDS: atorvastatin 40 mg Tablet 80 MG PO (05:57)
[2023-09-01] MEDS: magnesium oxide 400 mg tablet PO (05:57)
[2023-09-01 05:58] LABS: Glucose Point of Care 63 mg/dL (70-110)
[2023-09-01 06:21] LABS: Glucose Point of Care 88 mg/dL (70-110)
--- NOTE | 2023-09-01 06:22 | PC.NURSE ---
Urine Output Patient's urine output for shift 100 ml of dark yellow urine. Dr. Thomson notified; no new orders received.
[2023-09-01] MEDS: ondansetron 2 mg/ML SDV 2 mL 4 MG IVP ×2 (07:00→17:10)
[2023-09-01 07:01] LABS: Glucose Point of Care 84 mg/dL (70-110)
[2023-09-01] MEDS: sennosides-docusate Tablet 1 TAB PO (10:01)
[2023-09-01] MEDS: pantoprazole DR 40 mg Tablet PO (10:01)
[2023-09-01] MEDS: FUROsemide 10 mg/mL SDV 10mL 40 MG IVP (10:01)
[2023-09-01 11:34] LABS: Glucose Point of Care 78 mg/dL (70-110)
--- NOTE | 2023-09-01 14:02 | PM.PN ---
Subjective Subjective: seen today feeling well low bp overnight, s/p 2 boluses bp stable now daughter at bedside bg stable as well. insulin dc'd Vitals/I&O/Wt Last Vital Signs Temp 98.2 F 09/01/23 04:30 Pulse 70 09/01/23 12:00 Resp 15 09/01/23 12:00 BP 156/79 09/01/23 12:00 Pulse Ox 100 09/01/23 12:00 O2 Del Method Nasal Cannula 09/01/23 12:00 O2 Flow Rate 1 09/01/23 12:00 08/31/23 09/01/23 09/01/23 22:59 06:59 14:59 Intake Total 1043.15 / 1523.15 118 / 1641.15 0 / 0 Output Total 1550 / 1550 100 / 1650 Balance -506.85 / -26.85 18 / -8.85 0 / 0 Weight last 48 hrs Weight 56.971 kg Weight 57.878 kg Weight 58.769 kg Physical Exam Narrative: Awake and alert GCS 15 Currently on 1 L no chest pain at this time of my evaluation S1, S2 Mild crackles Currently on 1 L No audible stridor or wheezing Abdomen soft Lower extremity 2+ edema Daughter at the bedside Patient answer questions however takes time to answer Urinary Catheter Management: Baca: Cath Placed During This Visit: yes Reason for Continuing Indwelling Catheter: Accurate Measurement of Urinary Output in Critically Ill Patients Urinary Catheter Date of Insertion: 08/30/23 Urinary Catheter Time of Insertion: 19:20 Data 09/01/23 04:45 09/01/23 04:45 A&P Assessment and plan (1) Anxiety: (2) Congestive heart failure: (3) CAD (coronary artery disease): (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 Acute hypoxia related to CHF exacerbation currently requiring 2 L Anticipate improvement with diuresis Hypomagnesemia: Replenished History of subdural hematoma s/p evacuation in July Clonidine was discontinued as well which carries risk of sedation and fall Resistant hypertension Please note it was very hard for us to control her blood pressure last time and as per the daughter her systolic blood pressure was consistently above 200 for 5 days until she was given anxiolytic Patient's daughter suggest that they would like to try Ativan. We can order ativan 0.25 twice daily. Right fourth metacarpal fracture currently hand is in a splint with edema of right arm As per the daughter they have not seen any orthopedic surgeon for hand Patient has been kept in the arm splint, Daughter would like to get an opinion from orthopedic surgeon Patient is not a good surgical candidate for any intervention considering her active cardiac issues DNR/DNI Cardiac diet Consistent carb diet Sliding scale insulin PT OT to be ordered. Family states that they would like to take her home if they can have more nursing care at home and have also considered palliative versus hospice. She said the only reason patient is not hospice it is because they do not have a nurse that can come to the house every day. They would like to discuss with high school social science teacher if there are other options. Ideally they would like to do some rehab and get patient stronger. I do long discussion with them regarding patient's prognosis with her subdural bleed and NSTEMI. She cannot tolerate anticoagulation right now due to her subdural bleed. Patient's family is well aware of patient's prognosis and understand the situation they are in. Their ultimate goal is to try to get her to the point where they can take her home. They would like to work with physical therapy and see how patient does. They are not happy with [facility] and would like to go to a different facility if possible as well where she will get more therapy. Apparently she was at [facility] and ended up in the hospital for an EGD however at that point could not go back to [facility]. From my understanding it seems as if it may have been for intermediate? Family would like to talk to high school social science teacher who is not going to be available till Friday. This admission tenderness and she is here for NSTEMI however cannot even be medically managed due to subdural bleed. They understand that there is a high likelihood that there may be arrhythmias or if patient might end up having a cardiac arrest. She is to be DNR/DNI TRANSFER TO FLOOR Attestations Medical Necessity Statement*: CHF, eventually placement versus home. Coding Level of Care Code 18181 Diagnoses Anxiety F41.9 Congestive heart failure I50.9 CAD (coronary artery disease) I25.10 DM type 2 causing eye disease E11.39 Thyroid nodule E04.1 Difficulty swallowing solids R13.10 Hypomagnesemia E83.42
[2023-09-01] MEDS: morphine 4 mg/mL SDV 1 mL 2 MG IVP (17:41)
[2023-09-01] MEDS: metoprolol succinate ER (24 HR) 25 mg Tablet PO (18:40)
[2023-09-01] MEDS: hyDRALAzine 50 mg Tablet PO (22:01)
[2023-09-01 23:03] LABS: Glucose Point of Care 80 mg/dL (70-110)
--- NOTE | 2023-09-01 23:57 | PC.NURSE ---
Spoke with Dr. Barfield regarding patient transfer to [facility]. Dr. Barfield verified patient was okay to transfer and she would put in the orders. Dr. Barfield's report confirms this for today. Report given to Grace on [facility].
[2023-09-02] VITALS (7 sets, daily range): BP systolic 117–150; BP diastolic 61–79; PULSE 68–91; RESP 16–18; TEMP 36.3–36.9; O2SAT 90–100
--- NOTE | 2023-09-02 00:21 | PC.NURSE ---
Report called from ICU by [facility]. Patient arrived to floor via bed. Transferred to new bed. Skin assessment completed. Shift assessment completed. Patient oriented to room, call light and TV remote.
[2023-09-02] MEDS: isosorbide mononitrate ER 60 mg Tablet PO (05:56)
[2023-09-02] MEDS: magnesium oxide 400 mg tablet PO (05:56)
[2023-09-02] MEDS: atorvastatin 40 mg Tablet 80 MG PO (05:56)
[2023-09-02 06:02] LABS: Basophils # 0.1 10^3/uL (0.0-0.1); Basophils % 0.6 %; Eosinophils % 0.2 %; Hematocrit 32.8 % (36-47); Lymphocytes # 0.9 10^3/uL (0.8-4.8); Lymphocytes % 10.8 %; Mean Corpuscular HGB Conc 31.7 g/dL (30-55); Mean Corpuscular Hemoglobin 30.3 pg (27-33); Mean Corpuscular Volume 95.6 fl (85-98); Mean Platelet Volume 12.2 fL (7.4-10.4); Monocytes # 0.8 10^3/uL (0.2-0.9); Neutrophils # 6.88 10^3/uL (1.8-7.7); Neutrophils % 79.1 %; Nucleated Red Blood Cells % 0 %; Platelet Count 149 10^3/cmm (157-399); Red Blood Count 3.43 10^6/uL (3.85-5.65); Red Cell Distribution Width 15.3 % (12.1-15.1)
[2023-09-02 06:25] LABS: Blood Urea Nitrogen 24 mg/dL (8-23); Calcium 7.6 mg/dL (8.5-10.5); Carbon Dioxide 26 mmol/L (22-29); Chloride 101 mmol/L (98-107); Glucose 83 mg/dL (65-115); Osmolality Calculated 291 mOsm/kg (285-295); Sodium 139 mmol/L (136-145)
[2023-09-02 06:32] LABS: Anion Gap 16.3 (5-19); Potassium 4.3 mmol/L (3.5-5.1)
[2023-09-02 06:39] LABS: Glucose Point of Care 124 mg/dL (70-110)
--- NOTE | 2023-09-02 08:54 | PC.CHAP ---
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 and cutting press feeder visit [] Patient/Family/Request visit [] Outpatient visit [] Follow-up visit [] Physician referral [] Code/Alert [x] Routine visit [] Staff referral [] Actively dying [] Patient sleeping [x] Family support [] [] Out of room [] Palliative care [] [] Receiving care in room [] Pre-surgical visit [] Trauma [] Long length of stay [] ICU visit [] Other: Relational/Emotional Strength [x] Patient feels connected with others/family/visitors/staff [] Distress [] Loneliness/isolation [] Abandonment Spirituality of Patient [x] Person of Radha [] Attends Sikh of their Radha [x] Believes in Prayer [] Reads Bible or Gnosticism materials [] There are Spiritual issues to be addressed Receptionist Airline Lounge Interventions [x] Prayer [x] Active listening [] Non-anxious presence [x] Spiritual/emotional support [] Crisis/trauma care [] Spiritual counseling [] Bereavement support [] Provided bereavement packet [] Provided Bible/devotional materials [] Provided toy/stuffed animal, coloring book to patient or family member [] Provided Communion [] Anointing/[place] [] Salvation [x] Completed spiritual assessment [] Other: Impact on Illness or Injury [] Angry [] Fearful [] Anxious [] Often cries [] Exhaustion [] Unable to work [] Unable to attend alevism [] Unable to walk/stand [] Unable to read [] Unable to drive [] Unable to eat/drink [] Unable to sleep [] Unable to be with family [] Patient intubated [] Other: Summary Time spent with patient 5 min
[2023-09-02] MEDS: hyDRALAzine 50 mg Tablet PO ×3 (09:50→21:04)
[2023-09-02] MEDS: sennosides-docusate Tablet 1 TAB PO (09:50)
[2023-09-02] MEDS: metoprolol succinate ER (24 HR) 25 mg Tablet PO ×2 (09:50→17:24)
[2023-09-02] MEDS: pantoprazole DR 40 mg Tablet PO (09:51)
[2023-09-02] MEDS: FUROsemide 10 mg/mL SDV 10mL 40 MG IVP (09:51)
[2023-09-02 11:21] LABS: Glucose Point of Care 181 mg/dL (70-110)
--- NOTE | 2023-09-02 11:38 | PM.CONSULT ---
Providers/Reason For Consult Consulting Physician/Specialty*: Hospitalist Reason for Consult*: Right fourth metacarpal fracture Attending Physician: Nilson Thomson MD Primary Care Provider: EMILY Marrero History of Present Illness History of Present Illness Reyna Lopez is a 87 year old female sustained a right fourth metacarpal fracture on August 20, 2023. She is in a brace. Patient is somewhat confused. Difficult to get a good history from her. Review of Systems Const: Denies: fever(s) Eyes: Denies: change in vision ENMT: Denies: throat pain Card: Reports: swelling of feet/ankles Resp: Reports: dyspnea GI: Denies: abdominal pain : Denies: flank pain Musc: Reports: extremity pain and extremity swelling Skin/Breast: Denies: rash Neuro: Denies: headache(s) Psych: Reports: anxiety Medications/Allergies Home Medications Medication Instructions Recorded Confirmed Last Taken Type lancets 33 gauge (OneTouch Delica #100 ea 09/12/22 08/30/23 Unknown Rx Plus Lancet) pen needle, diabetic 31 gauge x #100 ea 09/12/22 08/30/23 Unknown Rx 3/16 (BD Ultra-Fine Mini Pen Needle) atorvastatin 40 mg tablet 80 mg PO QAM 06/03/23 08/30/23 07/13/23 History isosorbide mononitrate 60 mg 60 mg PO QAM 06/03/23 08/30/23 07/13/23 History tablet,extended release 24 hr blood sugar diagnostic (OneTouch #100 ea 06/20/23 08/30/23 Unknown Rx Ultra Test strips) blood-glucose sensor (FreeStyle #1 ea 07/07/23 08/30/23 Unknown Rx Lissett 3 Sensor device) flash glucose sensor (FreeStyle #1 ea 07/07/23 08/30/23 Unknown Rx Lissett 14 Day Sensor kit) pantoprazole 40 mg tablet,delayed 40 mg PO DAILY 07/13/23 08/30/23 07/13/23 History release acetaminophen 325 mg tablet 325 mg PO Q6H PRN Pain 08/30/23 08/30/23 Unknown History alprazolam 0.5 mg tablet 0.5 mg PO DAILY PRN Anxiety 08/30/23 08/30/23 Unknown History aluminum-mag hydroxide-simethicone 15 ml PO Q6H PRN Indigestion 08/30/23 08/30/23 Unknown History 200 mg-200 mg-20 mg/5 mL oral susp bisacodyl 10 mg rectal suppository 10 mg VT DAILY PRN Constipation 08/30/23 08/30/23 Unknown History (Dulcolax (bisacodyl)) hydralazine 10 mg tablet 10 mg PO Q8H PRN Hypertension 08/30/23 08/30/23 Unknown History hydrocodone 5 mg-acetaminophen 325 1 tab PO Q6H PRN Pain 08/30/23 08/30/23 Unknown History mg tablet losartan 100 mg tablet 100 mg PO DAILY 08/30/23 08/30/23 Unknown History magnesium hydroxide 400 mg/5 mL 400 mg PO DAILY PRN Constipation 08/30/23 08/30/23 Unknown History oral suspension (Milk of Magnesia) melatonin 3 mg tablet 3 mg PO DAILY PRN Insomnia 08/30/23 08/30/23 Unknown History metformin 500 mg tablet 500 mg PO DAILY 08/30/23 08/30/23 Unknown History sennosides 8.6 mg tablet (senna) 8.6 mg PO DAILY PRN Constipation 08/30/23 08/30/23 Unknown History sertraline 25 mg tablet 25 mg PO DAILY 08/30/23 08/30/23 Unknown History sodium phosphates 19 gram-7 118 ml VT DAILY PRN Constipation 08/30/23 08/30/23 Unknown History gram/118 mL enema (Fleet Enema) Allergies Allergy/AdvReac Type Severity Reaction Status Date / Time cephalexin Allergy Unknown Verified 07/07/23 20:31 Current Medications Generic Name Dose Route Start Last Admin Trade Name Freq PRN Reason Stop Dose Admin Hydrocodone Bitart/Acetaminophen 1 tab 08/30/23 22:36 09/01/23 00:32 Hydrocodone-Acetaminophen 5-325 Mg Tablet PO 1 tab Q6H PRN Administration Pain Atorvastatin Calcium 80 mg 08/31/23 06:00 09/02/23 05:56 Atorvastatin 40 Mg Tablet PO 80 mg QAM CRUZITO Administration Furosemide 40 mg 09/02/23 10:00 09/02/23 09:51 Furosemide 10 Mg/Ml Sdv 10ml IVP 40 mg Q24H CRUZITO Administration Hydralazine HCl 50 mg 08/31/23 09:00 09/02/23 09:50 Hydralazine 50 Mg Tablet PO 50 mg TID CRUZITO Administration Isosorbide Mononitrate 60 mg 08/31/23 06:00 09/02/23 05:56 Isosorbide Mononitrate Er 60 Mg Tablet PO 60 mg QAM CRUZITO Administration Magnesium Oxide 400 mg 08/31/23 06:00 09/02/23 05:56 Magnesium Oxide 400 Mg Tablet PO 400 mg QAM CRUZITO Administration Metoprolol Succinate 25 mg 08/31/23 09:00 09/02/23 09:50 Metoprolol Succinate Er (24 Hr) 25 Mg Tablet PO 25 mg BID CRUZITO Administration Morphine Sulfate 2 mg 08/30/23 22:10 09/01/23 17:41 Morphine 4 Mg/Ml Sdv 1 Ml IVP 2 mg Q4H PRN Administration SEVERE PAIN Ondansetron HCl 4 mg 08/30/23 22:10 09/01/23 17:10 Ondansetron 2 Mg/Ml Sdv 2 Ml IVP 4 mg Q6H PRN Administration NAUSEA AND VOMITING Pantoprazole Sodium 40 mg 08/31/23 09:00 09/02/23 09:[address] 40 Mg Tablet PO 40 mg DAILY CRUZITO Administration Ranolazine 500 mg 08/31/23 09:00 08/31/23 17:30 Ranolazine (12hr) 500 Mg Tablet PO 500 mg BID CRUZITO Administration Senna/Docusate Sodium 1 tab 08/31/23 09:00 09/02/23 09:50 Sennosides-Docusate Tablet PO 1 tab DAILY CRUZITO Administration PFSH Acute PFSH: Medical History Abnormal result of other cardiovascular function study Osteoarthritis, generalized Osteoarthritis of hands, bilateral CAD (coronary artery disease) Chest pain Insulin dependent diabetes mellitus Asthma Renal insufficiency Benzodiazepine dependence, continuous Insomnia TYRONE (generalized anxiety disorder) Carotid stenosis, asymptomatic Atherosclerosis of [place] coronary artery Hyperlipidemia Renal calculus Bladder cancer Type 2 diabetes mellitus Hypertension, essential Invasive ductal carcinoma of breast, female Surgical History S/P appendectomy Status post surgical removal and fulguration of bladder neoplasm History of back surgery Treatment of bone spurs. Performed by Dr. Gray in [place], [place] History of hip replacement (06/19/16) Performed by Dr. Lovelace H/O lumpectomy (10/09/19) Left breast. Performed by Dr. Clark. History of hip replacement (~2006) Left. Performed by Dr. Lovelace History of carpal tunnel release of both wrists Previous back surgery (08/22/14) Performed by Dr. Ramsay at [facility] in [place], [place] H/O heart bypass surgery Reports four-vessel bypass History of cataract surgery Bilateral Family History Father Stroke Mother Ovarian cancer Sister Breast cancer Diabetes Hypertension Brother Heart disease Diabetes Social History Smoking and tobacco/nicotine status: former use of tobacco/nicotine Quit status (tobacco/nicotine): has quit using Year quit tobacco: 1979 Former quit date comment: 10-15 years smoked Alcohol intake: never Substance/Drug Use: never Adopted: No Lives independently: Yes Household members: none Housing: House Marital status: / Current occupational status: retired Current occupation: disabled Do you think of yourself as: Straight/Heterosexual Current gender identity: Female Vitals/I&O/Wt Last Vital Signs Temp 98.2 F 09/02/23 07:50 Pulse 78 09/02/23 08:00 Resp 16 09/02/23 08:00 BP 150/77 09/02/23 07:50 Pulse Ox 99 09/02/23 08:00 O2 Del Method Nasal Cannula 09/02/23 08:00 O2 Flow Rate 1 09/02/23 08:00 09/01/23 09/02/23 09/02/23 22:59 06:59 14:59 Intake Total 50 / 170 480 / 480 Output Total 700 / 700 200 / 900 Balance -650 / -530 -200 / -730 480 / 480 Weight last 48 hrs Weight 127 lb 11.2 oz Weight 125 lb 9.6 oz Physical Exam Narrative: Hand is moderately swollen in a molded brace. Urinary Catheter Management: Baca: Cath Placed During This Visit: yes Reason for Continuing Indwelling Catheter: Other Urinary Catheter Date of Insertion: 08/30/23 Urinary Catheter Time of Insertion: 19:20 Data 09/02/23 05:07 09/02/23 05:07 A&P Assessment and plan (1) Metacarpal bone fracture: Qualifiers: Encounter type: initial encounter Metacarpal bone: fourth Fracture type: closed Metacarpal location: shaft Plan Patient is in a brace I would continue treatment with this and have physical therapy work with some gentle range of motion exercises daily. Consult Attestations Medical Necessity Statement: Per primary service Coding Level of Care Code Acute Code for [facility] Diagnoses Metacarpal bone fracture S62.309A Encounter type: initial encounter Metacarpal bone: fourth Fracture type: closed Metacarpal location: shaft
--- NOTE | 2023-09-02 12:27 | P.PN_ITS ---
Subjective 2 Subjective: Spoke with the patient, she was worried about her right hand but she is not able to participate with PT because she is unable to grab a walker Spoke with Dr. Stanford who will evaluate her at the bedside Looking into custodial placement in [place] Vitals/I&O/Wt Last Vital Signs Temp 98.2 F 09/02/23 07:50 Pulse 78 09/02/23 08:00 Resp 16 09/02/23 08:00 BP 150/77 09/02/23 07:50 Pulse Ox 99 09/02/23 08:00 O2 Del Method Nasal Cannula 09/02/23 08:00 O2 Flow Rate 1 09/02/23 08:00 09/01/23 09/02/23 09/02/23 22:59 06:59 14:59 Intake Total 50 / 170 480 / 480 Output Total 700 / 700 200 / 900 Balance -650 / -530 -200 / -730 480 / 480 Weight last 48 hrs Weight 57.924 kg Weight 56.971 kg Physical Exam 2 Narrative: Awake and alert Signs of fluid load improving Currently on room air GCS 15 S1, S2 abdomen soft Lower extremity swelling. Baca catheter will be removed today Urinary Catheter Management: Baca: Cath Placed During This Visit: yes Reason for Continuing Indwelling Catheter: Other Urinary Catheter Date of Insertion: 08/30/23 Urinary Catheter Time of Insertion: 19:20 Data 09/02/23 05:07 09/02/23 05:07 A&P Assessment and plan (1) Anxiety: (2) Congestive heart failure: (3) DM type 2 causing eye disease: (4) Metacarpal bone fracture: Qualifiers: Encounter type: initial encounter Metacarpal bone: fourth Fracture type: closed Metacarpal location: shaft (5) Acute respiratory failure with hypoxia: (6) Pulmonary edema: (7) NSTEMI (non-ST elevated myocardial infarction): Plan Non-STEMI: Patient not a candidate for anticoagulating agent or dual antiplatelet therapy Awaiting placement Right hand fourth metacarpal fracture will be evaluated by Dr. Stanford currently has a splint She is not a good surgical candidate DNR/DNI Acute hypoxia related to CHF exacerbation Currently on room air Will look into nursing placement at [place] CHF exacerbation: Improving Attestations 2 Medical Necessity Statement*: Awaiting placement Diagnoses Anxiety F41.9 Congestive heart failure I50.9 DM type 2 causing eye disease E11.39 Metacarpal bone fracture S62.309A Encounter type: initial encounter Metacarpal bone: fourth Fracture type: closed Metacarpal location: shaft Acute respiratory failure with hypoxia J96.01 Pulmonary edema J81.1 NSTEMI (non-ST elevated myocardial infarction) I21.4
[2023-09-02 17:07] LABS: Glucose Point of Care 219 mg/dL (70-110)
[2023-09-02 20:42] LABS: Glucose Point of Care 142 mg/dL (70-110)
[2023-09-02] MEDS: benzonatate 100 mg Capsule 200 MG PO (21:04)
[2023-09-03] VITALS (7 sets, daily range): BP systolic 124–180; BP diastolic 62–69; PULSE 69–93; RESP 14–18; TEMP 36.5–36.9; O2SAT 91–98
[2023-09-03] MEDS: atorvastatin 40 mg Tablet 80 MG PO (06:20)
[2023-09-03] MEDS: magnesium oxide 400 mg tablet PO (06:20)
[2023-09-03] MEDS: isosorbide mononitrate ER 60 mg Tablet PO (06:20)
[2023-09-03 06:37] LABS: Glucose Point of Care 154 mg/dL (70-110)
[2023-09-03] MEDS: sertraline 50 mg Tablet 25 MG PO (10:33)
[2023-09-03] MEDS: metoprolol succinate ER (24 HR) 25 mg Tablet PO ×2 (10:33→18:20)
[2023-09-03] MEDS: sennosides-docusate Tablet 1 TAB PO (10:34)
[2023-09-03] MEDS: pantoprazole DR 40 mg Tablet PO (10:34)
[2023-09-03] MEDS: hyDRALAzine 50 mg Tablet PO ×3 (10:34→21:18)
[2023-09-03] MEDS: FUROsemide 10 mg/mL SDV 10mL 40 MG IVP (10:50)
[2023-09-03 10:56] LABS: Glucose Point of Care 213 mg/dL (70-110)
--- NOTE | 2023-09-03 12:18 | P.PN_ITS ---
Subjective 2 Subjective: Patient this morning is doing better Complaining of constipation Off oxygen currently on room air Doing well Baca catheter has been removed Dr. Blue recommended conservative management of right fourth metacarpal fracture family is asking if we can prescribe bone stimulator Dr. Stanford is not aware he said he will asked Dr. Lee if she could prescribe exogen ultrasound probe bone stimulator Signs of fluid load improving Discontinue IV Lasix switch to p.o. regimen Patient is remaining hypertensive now She was transferred to ICU few days ago for low blood pressure however she never required any vasopressors she improved with boluses Vitals/I&O/Wt Last Vital Signs Temp 98.3 F 09/03/23 08:00 Pulse 78 09/03/23 10:44 Resp 16 09/03/23 10:44 BP 180/69 09/03/23 08:00 Pulse Ox 94 09/03/23 10:44 O2 Del Method Room Air 09/03/23 10:44 O2 Flow Rate 1 09/02/23 08:00 09/02/23 09/03/23 09/03/23 22:59 06:59 14:59 Intake Total 240 / 1200 100 / 100 Output Total 550 / 550 75 / 625 Balance -310 / 650 -75 / 575 100 / 100 Weight last 48 hrs Weight 56.608 kg Weight 57.924 kg Physical Exam 2 Narrative: Signs of fluid overload improving Baca cath removed Currently on room air [place] Right hand stable with splint Family at the bedside S1, S2 GCS 15 Urinary Catheter Management: Baca: Cath Placed During This Visit: yes, but has since been removed by the nurse Reason for Continuing Indwelling Catheter: Decision to DC Catheter Urinary Catheter Date of Insertion: 08/30/23 Urinary Catheter Time of Insertion: 19:20 Date Urinary Catheter Removed: 09/02/23 Time Urinary Catheter Discontinued: 17:35 Data 09/02/23 05:07 09/02/23 05:07 A&P Assessment and plan (1) Anxiety: (2) Congestive heart failure: (3) NSTEMI (non-ST elevated myocardial infarction): (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: (5) Metacarpal bone fracture: Qualifiers: Encounter type: initial encounter Metacarpal bone: fourth Fracture type: closed Metacarpal location: shaft (6) Acute respiratory failure with hypoxia: (7) Insomnia: Qualifiers: Insomnia type: psychophysiologic Qualified Code(s): F51.04 - Psychophysiologic insomnia Plan Non-STEMI Patient is not even a candidate for medical management due to subdural hematoma history Right hand metacarpal fracture conservative management with splint Family asking for stimulator I have asked Dr. Stanford we will touch base with Dr. Lee as Dr. Stanford is not aware of any bone stimulator that has been used inpatient recently Resistant hypertension Patient remains hypertensive couple days ago she required ICU when her blood pressure dropped which improved with IV fluid boluses, she never required any vasopressors, Will add spironolactone currently patient is on hydralazine, Lasix,, Imdur, Ranexa, Toprol Constipation: Given lactulose Acute hypoxia related to CHF exacerbation: Improved She was requiring 2 L Referral sent to [facility] patient will stay in the hospital until she gets approval Recent subdural hematoma s/p evacuation at [facility] After rehab patient is planning to go home to stay with her daughter Lower extremity swelling, no sign of DVT DNR/DNI Cardiac consistent carb diet Attestations 2 Medical Necessity Statement*: Awaiting placement Diagnoses Anxiety F41.9 Congestive heart failure I50.9 NSTEMI (non-ST elevated myocardial infarction) I21.4 DM type 2 causing eye disease E11.39 Metacarpal bone fracture S62.309A Encounter type: initial encounter Metacarpal bone: fourth Fracture type: closed Metacarpal location: shaft Acute respiratory failure with hypoxia J96.01 Psychophysiological insomnia F51.04 Insomnia type: psychophysiologic
[2023-09-03] MEDS: lactulose oral liq 20 gm/30 mL UDC 10 GM PO (14:38)
[2023-09-03] MEDS: spironolactone 25 mg Tablet PO (14:39)
[2023-09-03 17:19] LABS: Glucose Point of Care 132 mg/dL (70-110)
[2023-09-03] MEDS: ranolazine (12HR) 500 mg Tablet PO (18:20)
[2023-09-03] MEDS: LORazepam 0.5 mg Tablet 0.25 MG PO (21:24)
[2023-09-03 21:48] LABS: Glucose Point of Care 171 mg/dL (70-110)
[2023-09-04] VITALS (10 sets, daily range): BP systolic 116–169; BP diastolic 61–81; PULSE 71–92; RESP 14–20; TEMP 36.2–37.1; O2SAT 90–94; BMI 22.4
[2023-09-04 05:06] LABS: Basophils % 0.7 %; Eosinophils % 0.3 %; Hematocrit 29.3 % (36-47); Lymphocytes # 0.9 10^3/uL (0.8-4.8); Lymphocytes % 15.7 %; Mean Corpuscular HGB Conc 32.8 g/dL (30-55); Mean Corpuscular Hemoglobin 30.9 pg (27-33); Mean Corpuscular Volume 94.2 fl (85-98); Mean Platelet Volume 11.9 fL (7.4-10.4); Monocytes # 0.7 10^3/uL (0.2-0.9); Monocytes % 11.6 %; Neutrophils # 4.16 10^3/uL (1.8-7.7); Neutrophils % 71.2 %; Nucleated Red Blood Cells % 0 %; Platelet Count 142 10^3/cmm (157-399); Red Blood Count 3.11 10^6/uL (3.85-5.65); White Blood Count 5.85 10^3/uL (3.29-11.43)
[2023-09-04 05:26] LABS: Anion Gap 12.3 (5-19); Blood Urea Nitrogen 20 mg/dL (8-23); Calcium 8.1 mg/dL (8.5-10.5); Carbon Dioxide 32 mmol/L (22-29); Chloride 102 mmol/L (98-107); Glucose 123 mg/dL (65-115); Osmolality Calculated 300 mOsm/kg (285-295); Potassium 3.3 mmol/L (3.5-5.1); Sodium 143 mmol/L (136-145)
[2023-09-04] MEDS: atorvastatin 40 mg Tablet 80 MG PO (06:24)
[2023-09-04] MEDS: magnesium oxide 400 mg tablet PO (06:24)
[2023-09-04] MEDS: isosorbide mononitrate ER 60 mg Tablet PO (06:24)
[2023-09-04] MEDS: benzonatate 100 mg Capsule 200 MG PO (06:25)
[2023-09-04 07:21] LABS: Glucose Point of Care 155 mg/dL (70-110)
[2023-09-04] MEDS: spironolactone 25 mg Tablet PO (08:31)
[2023-09-04] MEDS: metoprolol succinate ER (24 HR) 25 mg Tablet PO ×2 (08:31→17:18)
[2023-09-04] MEDS: hyDRALAzine 50 mg Tablet PO ×3 (08:31→20:44)
[2023-09-04] MEDS: sennosides 8.6 mg Tablet PO (08:31)
[2023-09-04] MEDS: sertraline 50 mg Tablet 25 MG PO (08:32)
[2023-09-04] MEDS: pantoprazole DR 40 mg Tablet PO (08:32)
[2023-09-04] MEDS: FUROsemide 20 mg Tablet PO (08:32)
[2023-09-04] MEDS: sennosides-docusate Tablet 1 TAB PO (08:36)
[2023-09-04] MEDS: ranolazine (12HR) 500 mg Tablet PO ×2 (08:36→17:18)
[2023-09-04 10:28] LABS: Glucose Point of Care 138 mg/dL (70-110)
--- NOTE | 2023-09-04 12:46 | P.PN_ITS ---
Subjective 2 Subjective: Reports she is doing better today. She is elevating her right upper extremity. She denies shortness of breath. No chest pain or pressure. Vitals/I&O/Wt Last Vital Signs Temp 97.6 F 09/04/23 11:14 Pulse 71 09/04/23 11:14 Resp 18 09/04/23 11:14 BP 116/61 09/04/23 11:14 Pulse Ox 94 09/04/23 11:14 O2 Del Method Room Air 09/04/23 11:14 O2 Flow Rate 1 09/02/23 08:00 09/03/23 09/04/23 09/04/23 22:59 06:59 14:59 Intake Total 240 / 440 480 / 480 Output Total 75 / 75 Balance 240 / 440 405 / 405 Weight last 48 hrs Weight 59.103 kg Weight 56.608 kg Physical Exam 2 Narrative: Accompanied by family. Const: COMMON NORMALS: patient oriented x3 and alert GENERAL APPEARANCE: c ooperative ORIENTATION/CONSCIOUSNESS: Yes awake HENMT: COMMON NORMALS: oropharynx normal Neck/C-Spine: COMMON NORMALS: no JVD Resp: COMMON NORMALS: normal respiratory effort and clear to auscultation bilaterally AUSCULTATION: clear to auscultation bilaterally Cardio: COMMON NORMALS: no JVD, regular rhythm, S1 normal heart sound present, S2 normal heart sound present and No murmurs present (Cardio) RHYTHM: regular rhythm HEART SOUNDS: S1 normal heart sound present and S2 normal heart sound present GI: COMMON NORMALS: Normal to inspection, nondistended, normoactive bowel sounds present, Soft to palpation and non-tender PALPATION: Yes Soft to palpation Extremity: COMMON NORMALS: no joint enlargement and no pedal edema N ARRATIVE EXTREMITY EXAM: Night splint. No edema. Elevating on a pillow. Neuro: COMMON NORMALS: patient oriented x3 and moves all extremities S ENSORIUM/ORIENTATION: Yes alert Skin: COMMON NORMALS: no rashes or lesions noted GENERAL SKIN EXAM: no rashes or lesions noted Urinary Catheter Management: Baca: Cath Placed During This Visit: yes, but has since been removed by the nurse Reason for Continuing Indwelling Catheter: Decision to DC Catheter Urinary Catheter Date of Insertion: 08/30/23 Urinary Catheter Time of Insertion: 19:20 Date Urinary Catheter Removed: 09/02/23 Time Urinary Catheter Discontinued: 17:35 Data 09/04/23 04:25 09/04/23 04:25 A&P Assessment and plan (1) Anxiety: (2) Congestive heart failure: (3) NSTEMI (non-ST elevated myocardial infarction): (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: (5) Metacarpal bone fracture: Qualifiers: Encounter type: initial encounter Metacarpal bone: fourth Fracture type: closed Metacarpal location: shaft (6) Acute respiratory failure with hypoxia: (7) Insomnia: Qualifiers: Insomnia type: psychophysiologic Qualified Code(s): F51.04 - Psychophysiologic insomnia Plan Non-STEMI Could not have anticoagulation or antiplatelets. Continues on statin, metoprolol. Ranolazine. History of subdural hematoma. Reviewed vitals, CBC, BMP.Follow-up chemistry requested. Continue hospitalization for at risk of arrhythmia. Monitor telemetry. Noted hypokalemia 3.3, replace. Right hand metacarpal fracture conservative management with splint Orthopedics considering family request for bone stimulator. Resistant hypertension Blood pressure with improvement. She also reports she is feeling better. Continue hydralazine, Imdur, metoprolol, spironolactone, Lasix, Ranexa. Constipation: Given lactulose. Continue as needed senna. Acute hypoxia related to CHF exacerbation: Improved. Weaned down from oxygen to room air. He reports no breathing difficulty. States she is feeling better. Physical deconditioning: Referral sent to [facility] patient will stay in the hospital until she gets approval. Discussed with shoe caser. Recent subdural hematoma s/p evacuation at [facility] After rehab patient is planning to go home to stay with her daughter Lower extremity swelling, no sign of DVT DNR/DNI Cardiac consistent carb diet Attestations 2 Medical Necessity Statement*: Continue admission for assessment management after NSTEMI, not a candidate for anticoagulation or antiplatelets with history of subdural hematoma ventilation, metacarpal fracture, physical deconditioning, pending arrangements for rehabilitation. Diagnoses Anxiety F41.9 Congestive heart failure I50.9 NSTEMI (non-ST elevated myocardial infarction) I21.4 DM type 2 causing eye disease E11.39 Metacarpal bone fracture S62.309A Encounter type: initial encounter Metacarpal bone: fourth Fracture type: closed Metacarpal location: shaft Acute respiratory failure with hypoxia J96.01 Psychophysiological insomnia F51.04 Insomnia type: psychophysiologic
[2023-09-04] MEDS: potassium chloride ER 20 mEq Tablet PO (13:36)
[2023-09-04] MEDS: guaiFENesin 600 mg Tablet PO ×2 (14:11→17:18)
[2023-09-04 16:43] LABS: Glucose Point of Care 131 mg/dL (70-110)
[2023-09-04 20:44] LABS: Glucose Point of Care 163 mg/dL (70-110)
[2023-09-04] MEDS: LORazepam 0.5 mg Tablet 0.25 MG PO (20:47)
[2023-09-04] MEDS: ipratropium-albuterol 3 mL Neb INHALATION (21:12)
[2023-09-05] VITALS (15 sets, daily range): BP systolic 122–178; BP diastolic 51–83; PULSE 64–93; RESP 16–22; TEMP 36.3–37.1; O2SAT 82–100; BMI 22.3
[2023-09-05] MEDS: isosorbide mononitrate ER 60 mg Tablet PO (05:08)
[2023-09-05] MEDS: magnesium oxide 400 mg tablet PO (05:08)
[2023-09-05] MEDS: atorvastatin 40 mg Tablet 80 MG PO (05:08)
[2023-09-05] MEDS: ondansetron 2 mg/ML SDV 2 mL 4 MG IVP (05:13)
[2023-09-05] MEDS: acetaminophen 500 mg Tablet PO ×2 (05:41→19:55)
[2023-09-05] MEDS: benzonatate 100 mg Capsule 200 MG PO (05:44)
[2023-09-05 07:05] LABS: Anion Gap 15.2 (5-19); Blood Urea Nitrogen 18 mg/dL (8-23); Calcium 8.2 mg/dL (8.5-10.5); Carbon Dioxide 27 mmol/L (22-29); Chloride 100 mmol/L (98-107); Glucose 195 mg/dL (65-115); Magnesium 1.2 mg/dL (1.7-2.3); Osmolality Calculated 295 mOsm/kg (285-295); Potassium 3.2 mmol/L (3.5-5.1); Sodium 139 mmol/L (136-145)
[2023-09-05 07:16] LABS: Glucose Point of Care 186 mg/dL (70-110)
[2023-09-05] MEDS: ipratropium-albuterol 3 mL Neb INHALATION ×3 (08:02→20:06)
[2023-09-05] MEDS: ranolazine (12HR) 500 mg Tablet PO ×2 (09:52→17:25)
[2023-09-05] MEDS: hyDRALAzine 50 mg Tablet PO ×2 (09:52→19:55)
[2023-09-05] MEDS: FUROsemide 20 mg Tablet PO (09:52)
[2023-09-05] MEDS: sertraline 50 mg Tablet 25 MG PO (09:53)
[2023-09-05] MEDS: spironolactone 25 mg Tablet PO (09:53)
[2023-09-05] MEDS: pantoprazole DR 40 mg Tablet PO (09:53)
[2023-09-05] MEDS: guaiFENesin 600 mg Tablet PO ×2 (09:53→17:25)
[2023-09-05] MEDS: sennosides-docusate Tablet 1 TAB PO (09:53)
[2023-09-05] MEDS: metoprolol succinate ER (24 HR) 25 mg Tablet PO ×2 (09:53→17:25)
[2023-09-05] MEDS: potassium chloride ER 20 mEq Tablet 40 MEQ PO (10:01)
[2023-09-05] MEDS: magnesium sulfate premix 4 GM/100 ML PREMIX IV (10:02)
[2023-09-05 12:19] LABS: Glucose Point of Care 202 mg/dL (70-110)
--- NOTE | 2023-09-05 12:34 | P.DS_ITS ---
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 (5) Metacarpal bone fracture: Status: Acute Qualifiers: Encounter type: initial encounter Metacarpal bone: fourth Fracture type: closed Metacarpal location: shaft (6) Acute respiratory failure with hypoxia: Status: Acute (7) Insomnia: Status: Acute Qualifiers: Insomnia type: psychophysiologic Qualified Code(s): F51.04 - Psychophysiologic insomnia Reason for Visit Reason for Visit: SOB Brief History: Reyna Lopez is a 87 year old female with history of established coronary disease status post CABG, was recently admitted for management evaluation of non-STEMI, cardiac cath revealed multiple vessel disease decision was made to medically manage her, she was discharged on dual antiplatelet therapy ranolazine, metoprolol succinate and Imdur, patient suffered a fall on July 08 and fractured fourth metacarpal right hand, on July 13 she fell and d eveloped subdural hematoma she was transferred to [place], evacuation was done by neurosurgery, since then she has been off Lasix, dual antiplatelet therapy, patient was discharged to [facility], she has finished 2 weeks of physical therapy they are presenting today for worsening of cough, productive cough crackles and shortness of breath. Patient is stating that she has not noticed any chest pain at all, no fever nausea or vomiting. Her right arm has been swollen. She has not taken Lasix for quite a while. In the ER she was diagnosed with non-STEMI, no active chest pain, patient and family does not want initiation of aspirin Plavix or therapeutic Lovenox per [facility] She has right arm swelling Magnesium was replenished in the ER Signs of congestive heart failure with pulm edema Patient currently requiring 2 L of oxygen As per the daughter now she takes time to answer the questions since her subdural hematoma Hospital Course Hospital Course She was admitted for assessment management of NSTEMI, antiplatelets or anticoagulation cannot be started due to recent subdural hematoma. Continues on beta-darnell, statin. Imdur, ranolazine. Due to diastolic CHF acute exacerbation received IV Lasix, subsequently transition to oral Lasix. Needed and received potassium and magnesium supplementation, continue to supplementation after discharge, please follow-up potassium and magnesium levels. Resistant hypertension on presentation, received treatment with losartan, Imdur, hydralazine, metoprolol, spironolactone. Has been requiring a couple liters nasal cannula oxygen. Continue support, wean down as tolerated. Congestive heart failure and volume status has improved. Edema improved. On presentation also found to have fourth metacarpal diaphysis comminuted mildly displaced fracture, severe first metacarpal joint osteoarthritis. 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 Was seen by orthopedics, recommendation to maintain right hand splint. Has been elevating right hand to lower slightly above heart level with improvement in swelling. Recommendation f or gentle range of motion exercises, physical therapy. During hospitalization received bowel regimen for constipation. She is asked to follow-up with cardiology, orthopedics as well as neurosurgery. Physical Exam Narrative: Family member sleeping by the bedside. Const: COMMON NORMALS: patient oriented x3 and alert GENERAL APPEARANCE: cooperative ORIENTATION/CONSCIOUSNESS: Yes awake HENMT: COMMON NORMALS: oropharynx normal Neck/C-Spine: COMMON NORMALS: no JVD Resp: COMMON NORMALS: normal respiratory effort and clear to auscultation bilaterally AUSCULTATION: clear to auscultation bilaterally Cardio: COMMON NORMALS: no JVD, regular rhythm, S1 normal heart sound present, S2 normal heart sound present and No murmurs present (Cardio) RHYTHM: regular rhythm HEART SOUNDS: S1 normal heart sound present and S2 normal heart sound present GI: COMMON NORMALS: Normal to inspection, nondistended, normoactive bowel sounds present, Soft to palpation and non-tender PALPATION: Yes Soft to palpation Extremity: COMMON NORMALS: no joint enlargement and no pedal edema NARRATIVE EXTREMITY EXAM: Night splint. No edema. Elevating on a pillow. Neuro: COMMON NORMALS: patient oriented x3 and moves all extremities SENSORIUM/ORIENTATION: Yes alert Skin: COMMON NORMALS: no rashes or lesions noted GENERAL SKIN EXAM: no rashes or lesions noted Urinary Catheter Management: Baca: Cath Placed During This Visit: yes, but has since been removed by the nurse Reason for Continuing Indwelling Catheter: Decision to DC Catheter Urinary Catheter Date of Insertion: 08/30/23 Urinary Catheter Time of Insertion: 19:20 Date Urinary Catheter Removed: 09/02/23 Time Urinary Catheter Discontinued: 17:35 Discharge Data Studies Completed and Pending Completed Studies During Hospitalization Category Date Time Status XR chest 1V portable [id number] Stat Exams 08/30/23 17:55 Completed XR hand RT min 3V* [id number] Stat Exams 08/30/23 19:24 [place] [id number] Routine Ultrasound 08/31/23 08:45 Completed Pending at discharge Category Date Time Status Basic Metabolic Panel AM LABS Lab 09/06/23 04:00 Ordered Basic Metabolic Panel AM LABS Lab 09/07/23 04:00 Ordered Radiology Impressions Chest X-Ray 08/30/23 17:55 IMPRESSION: 1. Small to moderate right and moderate left pleural effusions. 2. Cardiomegaly. 3. Bilateral atelectasis versus infiltrate. 4. Emphysematous changes. 5. Sternotomy wires. Hand X-Ray 08/30/23 19:24 IMPRESSION: 1. 4th metacarpal diaphyseal comminuted mildly displaced fracture. 2. Severe 1st carpometacarpal joint osteoarthritis 3. 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 Venous Duplex 08/31/23 08:45 IMPRESSION: No evidence of deep vein thrombosis. Laboratory Results WBC 5.85 10^3/uL (3.29-11.43) 09/04/23 04:25 RBC 3.11 10^6/uL (3.85-5.65) L 09/04/23 04:25 Hgb 9.60 g/dL (11.27-16.99) L 09/04/23 04:25 Hct 29.3 % (36-47) L 09/04/23 04:25 MCV 94.2 fl (85-98) 09/04/23 04:25 MCH 30.9 pg (27-33) 09/04/23 04:25 MCHC 32.8 g/dL (30-55) 09/04/23 04:25 RDW 15.0 % (12.1-15.1) 09/04/23 04:25 Plt Count 142 10^3/cmm (157-399) L 09/04/23 04:25 MPV 11.9 fL (7.4-10.4) H 09/04/23 04:25 Neut % (Auto) 71.2 % 09/04/23 04:25 Lymph % (Auto) 15.7 % 09/04/23 04:25 [place] % (Auto) 11.6 % 09/04/23 04:25 Eos % (Auto) 0.3 % 09/04/23 04:25 Baso % (Auto) 0.7 % 09/04/23 04:25 Neut # (Auto) 4.16 10^3/uL (1.8-7.7) 09/04/23 04:25 Lymph # (Auto) 0.9 10^3/uL (0.8-4.8) 09/04/23 04:25 [place] # (Auto) 0.7 10^3/uL (0.2-0.9) 09/04/23 04:25 Eos # (Auto) 0.0 10^3/uL (0.0-0.8) 09/04/23 04:25 Baso # (Auto) 0.0 10^3/uL (0.0-0.1) 09/04/23 04:25 Nucleated RBC % (auto) 0 % 09/04/23 04:25 Nucleated RBCs # 0.0 /100WBC 09/04/23 04:25 PT 14.40 SECONDS (12.1-14.9) 08/30/23 17:42 INR 1.09 (0.8-1.2) 08/30/23 17:42 Sodium 139 mmol/L (136-145) 09/05/23 06:15 Potassium 3.2 mmol/L (3.5-5.1) L 09/05/23 06:15 Chloride 100 mmol/L (98-107) 09/05/23 06:15 Carbon Dioxide 27 mmol/L (22-29) 09/05/23 06:15 Anion Gap 15.2 (5-19) 09/05/23 06:15 BUN 18 mg/dL (8-23) 09/05/23 06:15 Creatinine 0.8 mg/dL (0.5-0.9) 09/05/23 06:15 GFR Calculation Not Reportable 09/05/23 06:15 Glucose 195 mg/dL (65-115) H 09/05/23 06:15 POC Glucose 202 mg/dL (70-110) H 09/05/23 12:16 Calculated Osmolality 295 mOsm/kg (285-295) 09/05/23 06:15 Calcium 8.2 mg/dL (8.5-10.5) L 09/05/23 06:15 Magnesium 1.2 mg/dL (1.7-2.3) L 09/05/23 06:15 Total Bilirubin 0.5 mg/dL (0.15-1.2) 08/30/23 17:42 AST 21 U/L (0-32) 08/30/23 17:42 ALT 12 U/L (0-33) 08/30/23 17:42 Alkaline Phosphatase 87 U/L (35-105) 08/30/23 17:42 Troponin T Baseline 239 ng/L (0-10) H* 08/30/23 17:42 Troponin T 120 Minute 212.9 ng/L (0-10) H 08/30/23 20:32 Delta Troponin T -26.1 ABS# (0-10) L 08/30/23 20:32 Troponin T Hi Sens 6Hr 221.7 ng/L (0-10) H 08/31/23 00:29 Troponin T Hi Sens 6Hr Delta -17.3 ng/L (0-12) L 08/31/23 00:29 NT-Pro-B Natriuret Pep 83777 pg/mL (0-450) H 08/30/23 17:42 Total Protein 5.7 g/dL (6.6-8.7) L 08/30/23 17:42 Albumin 3.0 g/dL (3.5-5.2) L 08/30/23 17:42 Globulin 2.7 g/dL (1.3-4.6) 08/30/23 17:42 Vitals Last Vital Signs Temp 97.4 F L 09/05/23 12:30 Pulse 64 09/05/23 12:30 Resp 18 09/05/23 12:30 BP 122/51 09/05/23 12:30 Pulse Ox 99 09/05/23 12:30 O2 Del Method Nasal Cannula 09/05/23 12:30 O2 Flow Rate 3 09/05/23 08:11 Discharge Plan Discharge Patient Disposition: Xfer SNF Condition: Stable Prescriptions: New furosemide 20 mg Tablet 20 mg PO DAILY@0800 Qty: 14 0RF potassium chloride 20 mEq tablet extended release 20 meq PO DAILY Qty: 10 0RF Continued (DME) lancets [OneTouch Delica Plus Lancet] 33 gauge misc See Rx Instructions .ROUTE .COMPLEX Qty: 100 5RF Dose Instruction: USE 1 LANCET TO CHECK GLUCOSE TWICE DAILY Rx Instructions: USE 1 LANCET TO CHECK GLUCOSE TWICE DAILY (DME) pen needle, diabetic [BD Ultra-Fine Mini Pen Needle] 31 gauge x 3/16 needle See Rx Instructions .ROUTE .COMPLEX Qty: 100 5RF Dose Instruction: USE DIRECTED Rx Instructions: USE DIRECTED (DME) FreeStyle Lissett 3 Sensor Device See Rx Instructions .Route Qty: 1 0RF Rx Instructions: As directed (DME) FreeStyle Lissett 14 Day Sensor Kit See Rx Instructions .Route Qty: 1 0RF Rx Instructions: As directed (DME) OneTouch Ultra Test Strip See Rx Instructions .ROUTE .COMPLEX Qty: 100 0RF Dose Instruction: USE 1 STRIP TO CHECK GLUCOSE TWICE DAILY Rx Instructions: USE 1 STRIP TO CHECK GLUCOSE TWICE DAILY e11.9 pantoprazole 40 mg tablet,delayed release (DR/EC) 40 mg PO DAILY atorvastatin 40 mg tablet 80 mg PO QAM isosorbide mononitrate 60 mg tablet extended release 24 hr 60 mg PO QAM metformin 500 mg Tablet 500 mg PO DAILY hydralazine 10 mg Tablet 10 mg PO Q8H PRN (Reason: Hypertension) senna 8.6 mg Tablet 8.6 mg PO DAILY PRN (Reason: Constipation) acetaminophen 325 mg Tablet 325 mg PO Q6H PRN (Reason: Pain) hydrocodone-acetaminophen 5-325 mg Tablet 1 tab PO Q6H PRN (Reason: Pain) Melatin 3 mg Tablet 3 mg PO DAILY PRN (Reason: Insomnia) alprazolam 0.5 mg Tablet 0.5 mg PO DAILY PRN (Reason: Anxiety) Milk of Magnesia 400 mg/5 mL Suspension 400 mg PO DAILY PRN (Reason: Constipation) Dulcolax (bisacodyl) 10 mg Suppository 10 mg TN DAILY PRN (Reason: Constipation) Fleet Enema 19-7 gram/118 mL Enema 118 ml TN DAILY PRN (Reason: Constipation) sertraline 25 mg Tablet 25 mg PO DAILY Mylanta 200-200-20 mg/5 mL Suspension 15 ml PO Q6H PRN (Reason: Indigestion) Rx Instructions: administer between meals and at bedtime losartan 100 mg Tablet 100 mg PO DAILY Discharge Orders: Discharge Order (Routine); Ordered 09/05/23 Ordered By: Bon Chung Referrals: Jose Stanford, [Physician] - 2 weeks (We have notified your physician's clinic of the need for a follow-up appointment to be scheduled. If you have not heard from them within the next 2 business days, please call them directly. ) Chaya Long FNP [Primary Care Provider] - 4-7 days Emily Gutierrez FNP [Nurse Practitioner] - 1 week (We have notified your physician's clinic of the need for a follow-up appointment to be scheduled. If you have not heard from them within the next 2 business days, please call them directly. ) Patient Instructions: Heart Attack (GEN), Constipation (GEN), Intracranial Hematoma (GEN), Fall Prevention (GEN), Opioid Safety Activity Restrictions/Additional Instructions: Continue right hand brace, continue gentle range of motion exercises. Elevate and to or slightly above heart level when at rest. Follow-up with orthopedics for reassessment. Follow-up with cardiology for reassessment after suspected heart attack, with difficulties in treatment due to inability to take aspirin or Plavix. Continue metoprolol, cholesterol medication. Include fiber, continue bowel regimen, avoid constipation. Continue low-dose Lasix for now, please have your primary doctor reassess your volume status, change Lasix to as needed. Continue oxygen 2 L nasal cannula, target oxygen saturation 92%. Wean down as tolerating. Continue potassium and magnesium supplement. IV primary doctor follow-up your potassium magnesium levels in office. Follow-up with your neurosurgeon regarding intracranial hematoma. Discharge Attestations Time Spent in Discharge Care*: greater than 30 min Status at Discharge: Cognitive status at discharge: cognitively intact , Behavioral status at discharge: cooperative , Quality Metrics Clinical Quality Measures [ No reported AMI, CVA or VTE this stay] Coding Level of Care Code 85516 Total time (in minutes) for Discharge: 50 Diagnoses Anxiety F41.9 Congestive heart failure I50.9 NSTEMI (non-ST elevated myocardial infarction) I21.4 DM type 2 causing eye disease E11.39 Metacarpal bone fracture S62.309A Encounter type: initial encounter Metacarpal bone: fourth Fracture type: closed Metacarpal location: shaft Acute respiratory failure with hypoxia J96.01 Psychophysiological insomnia F51.04 Insomnia type: psychophysiologic
--- NOTE | 2023-09-05 13:18 | PC.OT ---
Attempted OT treatment at 11:58 am with pt declining treatment. Will attempt again at later time.
[2023-09-05 16:56] LABS: Glucose Point of Care 123 mg/dL (70-110)
[2023-09-05 20:09] LABS: Glucose Point of Care 151 mg/dL (70-110)
[2023-09-05] MEDS: LORazepam 0.5 mg Tablet 0.25 MG PO (20:35)
[2023-09-06] VITALS (9 sets, daily range): BP systolic 102–131; BP diastolic 46–62; PULSE 65–77; RESP 14–18; TEMP 36.6–37.1; O2SAT 97–99
[2023-09-06] MEDS: ipratropium-albuterol 3 mL Neb INHALATION ×2 (01:28→09:31)
[2023-09-06 05:16] LABS: Anion Gap 13.5 (5-19); Blood Urea Nitrogen 18 mg/dL (8-23); Calcium 8.3 mg/dL (8.5-10.5); Carbon Dioxide 28 mmol/L (22-29); Chloride 103 mmol/L (98-107); Glucose 125 mg/dL (65-115); Osmolality Calculated 293 mOsm/kg (285-295); Potassium 4.5 mmol/L (3.5-5.1); Sodium 140 mmol/L (136-145)
[2023-09-06] MEDS: isosorbide mononitrate ER 60 mg Tablet PO (06:22)
[2023-09-06] MEDS: magnesium oxide 400 mg tablet PO (06:22)
[2023-09-06] MEDS: atorvastatin 40 mg Tablet 80 MG PO (06:22)
[2023-09-06 06:24] LABS: Glucose Point of Care 127 mg/dL (70-110)
[2023-09-06] MEDS: sennosides-docusate Tablet 1 TAB PO (08:42)
[2023-09-06] MEDS: ranolazine (12HR) 500 mg Tablet PO (08:42)
[2023-09-06] MEDS: FUROsemide 20 mg Tablet PO (08:42)
[2023-09-06] MEDS: metoprolol succinate ER (24 HR) 25 mg Tablet PO (08:42)
[2023-09-06] MEDS: hyDRALAzine 50 mg Tablet PO (08:42)
[2023-09-06] MEDS: losartan 50 mg Tablet PO (08:42)
[2023-09-06] MEDS: spironolactone 25 mg Tablet PO (08:42)
[2023-09-06] MEDS: guaiFENesin 600 mg Tablet PO (08:43)
[2023-09-06] MEDS: sertraline 50 mg Tablet 25 MG PO (08:43)
[2023-09-06] MEDS: pantoprazole DR 40 mg Tablet PO (08:43)
[2023-09-06 11:52] LABS: Glucose Point of Care 221 mg/dL (70-110)
--- NOTE | 2023-09-06 12:06 | PC.NURSE ---
Prescriptions called into [facility] in [facility]
--- NOTE | 2023-09-06 15:46 | P.PN_ITS ---
Subjective 2 Subjective: Please see discharge summary from 09/05. Discharge was delayed due to plans to return home with hospice instead with arrangements completed this morning. She is sitting up in a chair. States she is doing okay. This morning her blood pressure was somewhat softer than prior 102/46, but she denies symptoms. States her hand is doing okay. Vitals/I&O/Wt Last Vital Signs Temp 97.8 F 09/06/23 11:22 Pulse 73 09/06/23 11:22 Resp 15 09/06/23 11:22 BP 131/49 09/06/23 11:22 Pulse Ox 99 09/06/23 11:22 O2 Del Method Room Air 09/06/23 11:22 O2 Flow Rate 2 09/06/23 09:33 09/06/23 09/06/23 09/06/23 06:59 14:59 22:59 Intake Total 60 / 1480 480 / 480 Balance 60 / 1380 480 / 480 Weight last 48 hrs Weight 58.922 kg Weight 58.922 kg Physical Exam 2 Narrative: Daughter at bedside. Const: COMMON NORMALS: patient oriented x3 and alert GENERAL APPEARANCE: c ooperative ORIENTATION/CONSCIOUSNESS: Yes awake HENMT: COMMON NORMALS: oropharynx normal Neck/C-Spine: COMMON NORMALS: no JVD Resp: COMMON NORMALS: normal respiratory effort and clear to auscultation bilaterally AUSCULTATION: clear to auscultation bilaterally Cardio: COMMON NORMALS: no JVD, regular rhythm, S1 normal heart sound present, S2 normal heart sound present and No murmurs present (Cardio) RHYTHM: regular rhythm HEART SOUNDS: S1 normal heart sound present and S2 normal heart sound present GI: COMMON NORMALS: Normal to inspection, nondistended, normoactive bowel sounds present, Soft to palpation and non-tender PALPATION: Yes Soft to palpation Extremity: COMMON NORMALS: no joint enlargement and no pedal edema N ARRATIVE EXTREMITY EXAM: Night splint. No edema. Elevating on a pillow. Neuro: COMMON NORMALS: patient oriented x3 and moves all extremities S ENSORIUM/ORIENTATION: Yes alert Skin: COMMON NORMALS: no rashes or lesions noted GENERAL SKIN EXAM: no rashes or lesions noted Urinary Catheter Management: Baca: Cath Placed During This Visit: yes, but has since been removed by the nurse Reason for Continuing Indwelling Catheter: Decision to DC Catheter Urinary Catheter Date of Insertion: 08/30/23 Urinary Catheter Time of Insertion: 19:20 Date Urinary Catheter Removed: 09/02/23 Time Urinary Catheter Discontinued: 17:35 Data 09/04/23 04:25 09/06/23 04:27 A&P Assessment and plan (1) Anxiety: (2) Congestive heart failure: (3) NSTEMI (non-ST elevated myocardial infarction): (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 Arrangements completed over last night and this morning for her to be able to discharge. Reviewed egg caser note. Discussed with nursing. Non-STEMI Could not have anticoagulation or antiplatelets. Continues on statin, metoprolol. Ranolazine. History of subdural hematoma. Reviewed vitals, CBC, BMP.Follow-up chemistry requested. Continue hospitalization for at risk of arrhythmia. Monitor telemetry. Noted hypokalemia 3.3, replace. Right hand metacarpal fracture conservative management with splint: Follow-up with orthopedics. Orthopedics considering family request for bone stimulator. Resistant hypertension Blood pressure soft this morning, at discharge asked to hold hydralazine, losartan and spironolactone for now. Please reassess blood pressures. Blood pressure with improvement. She also reports she is feeling better. Was on hydralazine, Imdur, metoprolol, spironolactone, Lasix, Ranexa. Constipation: Given lactulose. Continue as needed senna. Acute hypoxia related to CHF exacerbation: Improved. Weaned down from oxygen to room air. He reports no breathing difficulty. States she is feeling better. Physical deconditioning: Returning home with hospice. Home exercise as tolerating. Recent subdural hematoma s/p evacuation at [place] After rehab patient is planning to go home to stay with her daughter Lower extremity swelling, no sign of DVT DNR/DNI Cardiac consistent carb diet Attestations 2 Medical Necessity Statement*: Returning home with hospice. Diagnoses Anxiety F41.9 Congestive heart failure I50.9 NSTEMI (non-ST elevated myocardial infarction) I21.4 DM type 2 causing eye disease E11.39 Metacarpal bone fracture S62.309A Encounter type: initial encounter Metacarpal bone: fourth Fracture type: closed Metacarpal location: shaft Acute respiratory failure with hypoxia J96.01 Psychophysiological insomnia F51.04 Insomnia type: psychophysiologic
== END 2023-09-06 16:15 | disposition hospice, home (50) | DRG 280 ==
LOC: ER 20:59 → MEDSURG 21:19 → ICU 08-31 22:29 → MEDSURG 09-02 00:09
PROVIDERS: Emergency Medicine; Internal Medicine; Admitting Provider Internal Medicine; Emergency Provider Emergency Medicine; PCP Nurse Practitioner Family; Visit Provider Internal Medicine
DX: I21.4 Non-ST elevation (NSTEMI) myocardial infarction (principal); I50.31 Acute diastolic (congestive) heart failure; J96.01 Acute respiratory failure with hypoxia; S62.304K Unspecified fracture of fourth metacarpal bone, right hand, subsequent encounter for fracture with nonunion; I25.10 Atherosclerotic heart disease of native coronary artery without angina pectoris; M19.90 Unspecified osteoarthritis, unspecified site; E11.9 Type 2 diabetes mellitus without complications; J45.909 Unspecified asthma, uncomplicated; F41.1 Generalized anxiety disorder; E78.5 Hyperlipidemia, unspecified; I11.0 Hypertensive heart disease with heart failure; I25.2 Old myocardial infarction; E83.42 Hypomagnesemia; E04.1 Nontoxic single thyroid nodule; R13.10 Dysphagia, unspecified; I1A.0 Resistant hypertension; W19.XXXD Unspecified fall, subsequent encounter; Z66 Do not resuscitate; F51.04 Psychophysiologic insomnia; K59.00 Constipation, unspecified; I95.9 Hypotension, unspecified; Z95.1 Presence of aortocoronary bypass graft; Z85.51 Personal history of malignant neoplasm of bladder; Z87.891 Personal history of nicotine dependence; Z85.3 Personal history of malignant neoplasm of breast; Z79.84 Long term (current) use of oral hypoglycemic drugs
CPT/HCPCS: 36415; 36416; 51702; 71045; 73130; 80048; 80053; 82962; 83735; 83880; 84484; 85025; 85610; 93005; 93971; 94640; 96365; 96372; 96375; 97116; 97161; 97166; 97530; 97535; 99285; J1815; J1940; J2270; J2405; J3475; J7040